=== PATIENT | male | born 1955 | race Caucasian/White ===

== ENCOUNTER 2016-11-14 08:00 | Outpatient (CLI) | payer MEDICARE, MEDICAID | END 2016-11-14 08:01 | disposition home or self-care (01) | DX: E87.6 Hypokalemia (principal); I10 Essential (primary) hypertension; R73.9 Hyperglycemia, unspecified; E78.00 Pure hypercholesterolemia, unspecified ==

== ENCOUNTER 2016-11-23 08:00 | Outpatient (CLI) | payer MEDICARE, MEDICAID | END 2016-11-23 23:59 | disposition home or self-care (01) | DX: Z12.11 Encounter for screening for malignant neoplasm of colon (principal) ==

== ENCOUNTER 2017-02-21 10:09 | Outpatient (CLI) | payer MEDICARE, MEDICAID | END 2017-02-21 10:10 | disposition home or self-care (01) | DX: E78.6 Lipoprotein deficiency (principal); R73.9 Hyperglycemia, unspecified; E78.00 Pure hypercholesterolemia, unspecified ==

== ENCOUNTER 2017-04-05 18:55 | Outpatient (CLI) | payer MEDICARE, MEDICAID | END 2017-04-05 18:56 | disposition home or self-care (01) | DX: D64.9 Anemia, unspecified (principal) ==

== ENCOUNTER 2017-08-24 09:46 | Outpatient (CLI) | payer MEDICARE, MEDICAID ==
[2017-08-24 13:58] LABS: BILIRUBIN,DIRECT 0.1 mg/dL (0.1-0.5); BILIRUBIN,TOTAL 0.3 mg/dL (0.2-1.0); CHOL/HDL RATIO 4.5 (<5.0); CHOLESTEROL 100 mg/dL; HDL CHOLESTEROL 22 mg/dL; LDL/HDL RATIO 2.4 (<3.6); TOTAL PROTEIN 7.4 g/dL (6.7-8.2); TRIGLYCERIDES 129 mg/dL; VLDL CHOLESTEROL 26 mg/dL
== END 2017-08-24 09:47 | disposition home or self-care (01) ==
LOC: LAB.N 09:46
PROVIDERS: ATTEND Nurse Practitioner Gerontology
DX: E78.5 Hyperlipidemia, unspecified (principal); Z79.899 Other long term (current) drug therapy
CPT/HCPCS: 36415; 80061; 80076

== ENCOUNTER 2017-12-14 09:55 | Outpatient (CLI) | payer MEDICARE, MEDICAID ==
[2017-12-14 10:32] LABS: ALBUMIN 3.6 g/dL (3.2-5.5); ALBUMIN/GLOBULIN RATIO 0.9 (1.0-2.2); BILIRUBIN,TOTAL 0.3 mg/dL (0.2-1.0); CALCIUM 9.3 mg/dL (8.5-10.3); TOTAL PROTEIN 7.4 g/dL (6.7-8.2)
[2017-12-14 11:03] LABS: HB2 TOTAL 13.8 g/dL; HEMOGLOBIN A1C 0.67 g/dL; HEMOGLOBIN A1C % 6.6 % (4.6-6.2)
== END 2017-12-14 09:56 | disposition home or self-care (01) ==
LOC: LAB 09:55
PROVIDERS: ATTEND Nurse Practitioner Gerontology
DX: E11.9 Type 2 diabetes mellitus without complications (principal); Z79.899 Other long term (current) drug therapy
CPT/HCPCS: 36415; 80053; 83036

== ENCOUNTER 2018-04-02 08:00 | Outpatient (CLI) | payer MEDICARE, MEDICAID | END 2018-04-02 08:01 | disposition home or self-care (01) | LOC: LAB.N 08:00 | PROVIDERS: ATTEND Nurse Practitioner Gerontology | DX: Z12.11 Encounter for screening for malignant neoplasm of colon (principal) | CPT/HCPCS: 82274 ==

== ENCOUNTER 2018-07-17 09:49 | Outpatient (CLI) | payer MEDICARE, MEDICAID ==
[2018-07-17 10:28] LABS: CALCIUM 9.1 mg/dL (8.5-10.3); CREATININE 1.1 mg/dL (0.6-1.2)
[2018-07-17 10:31] LABS: BASOPHILS % (AUTO) 0.5 %; EOSINOPHILS # (AUTO) 0.1 10^3/uL (0.0-0.7); EOSINOPHILS % (AUTO) 1.6 %; HGB - HEMOGLOBIN 11.4 g/dL (14.0-18.0); LYMPHOCYTES # (AUTO) 1.1 10^3/uL (1.5-3.5); LYMPHOCYTES % (AUTO) 13.1 %; MEAN CORPUSCULAR HEMOGLOBIN 27.1 pg (27.0-31.0); MEAN CORPUSCULAR HGB CONC 33.1 g/dL (32.0-36.0); MEAN CORPUSCULAR VOLUME 81.8 fL (80.0-94.0); MEAN PLATELET VOLUME 7.4 fL (7.4-11.4); MONOCYTES # (AUTO) 0.6 10^3/uL (0.0-1.0); MONOCYTES % (AUTO) 7.7 %; NEUTROPHILS # (AUTO) 6.5 10^3/uL (1.5-6.6); NEUTROPHILS % (AUTO) 77.1 %; PLT - PLATELET COUNT 349 10^3/uL (130-450); RED CELL DISTRIBUTION WIDTH 17.2 % (12.0-15.0); WHITE BLOOD COUNT 8.5 x10^3/uL (4.8-10.8)
== END 2018-07-17 09:50 | disposition home or self-care (01) ==
LOC: LAB 09:49
PROVIDERS: ATTEND Internal Medicine Cardiovascular Disease
DX: I10 Essential (primary) hypertension (principal); R00.2 Palpitations
CPT/HCPCS: 36415; 80048; 82088; 83735; 84244; 84443; 85025

== ENCOUNTER 2018-07-22 07:05 | Day surgery (SDC) | payer MEDICARE, MEDICAID ==
[2018-07-22] MEDS ORDERED: LACTATED RINGERS 1,000 ML IV ONE ×2 (07:44→10:35)
[2018-07-22] MEDS ORDERED: MIDAZOLAM 2 MG/2 ML VIAL IVP ONE (08:55)
[2018-07-22] MEDS ORDERED: fentaNYL 250 MCG/5 ML VIAL IVP ONE (08:55)
[2018-07-22] MEDS ORDERED: IOPAMIDOL-300 50 ML VIAL ONE (09:56)
[2018-07-22] MEDS ORDERED: IOPAMIDOL-300 100 ML VIAL ONE (09:56)
[2018-07-22] MEDS ORDERED: IOPAMIDOL-300 100 ML VIAL IVP ONE (12:25)
[2018-07-22] MEDS ORDERED: IOPAMIDOL-300 50 ML VIAL PO ONE (12:25)
--- NOTE | 2018-07-22 12:26 | CT Report ---
Reason: rectal/sigmoid cancer Procedure Date: 07/22/2018 Accession Number: [id number] / [id number] Procedure: CT - Abdomen/Pelvis W/ CPT Code: FULL RESULT: EXAM: CT ABDOMEN AND PELVIS EXAM DATE: 07/22/2018 11:59 AM. CLINICAL HISTORY: Rectal/sigmoid cancer. COMPARISONS: None. TECHNIQUE: Routine helical CT imaging was performed through the abdomen and pelvis. IV contrast: Isovue 300 100 mL. Enteric contrast: No. Reconstructions: Coronal and sagittal. In accordance with CT protocol optimization, one or more of the following dose reduction techniques were utilized for this exam: automated exposure control, adjustment of mA and/or KV based on patient size, or use of iterative reconstructive technique. FINDINGS: Lung Bases: Unremarkable. Liver: Right lobe hepatic hypodensity which is too small to characterize. No overt mass. Gallbladder/Bile Ducts: Unremarkable. Spleen: Normal. Pancreas: Normal. Adrenal Glands: Thickening of the right adrenal gland and nodule and 2 cm nodule of the left adrenal gland. Kidneys: Normal. No masses or hydronephrosis. Peritoneal Cavity/Bowel: No free fluid, free air or adenopathy. No masses or acute inflammatory process. The appendix is well visualized and normal. Pelvic Organs: There are subcentimeter asymmetrically prominent nodes along the left internal iliac chain which do not meet size criteria. The known rectosigmoid cancer is not well defined, likely measuring 2.2 x 3.0 cm in the posterior wall of the distal rectosigmoid colon. Vasculature: No aneurysms or other significant abnormality. Bones: No aggressive osseous lesions. Other: None. IMPRESSION: Asymmetrically prominent lymph nodes along the left internal iliac chain which do not meet size criteria, sampling is recommended if surgery is planned. There is a 2 cm left adrenal gland nodule, indeterminate. Recommend MRI adrenal mass protocol versus CT adrenal mass protocol. RADIA
[2018-07-22 12:37] VITALS: BP 145/78
== END 2018-07-22 07:06 | disposition home or self-care (01) ==
LOC: SDS 07:05
PROVIDERS: ATTEND Surgery
PROC: 0DBN8ZZ Excision of Sigmoid Colon, Via Natural or Artificial Opening Endoscopic (ICD-10-PCS; principal; 2018-07-22 08:15)
DX: Z12.11 Encounter for screening for malignant neoplasm of colon (principal); C19 Malignant neoplasm of rectosigmoid junction; K64.8 Other hemorrhoids; I10 Essential (primary) hypertension; Z87.891 Personal history of nicotine dependence; E78.5 Hyperlipidemia, unspecified; K21.9 Gastro-esophageal reflux disease without esophagitis
CPT/HCPCS: 36415; 45385; 74177; 82378; J3010; J7120; Q9967; 88305; 88341; 88342

== ENCOUNTER 2018-09-03 06:04 | Day surgery (SDC) | payer MEDICARE, MEDICAID ==
[2018-09-03] MEDS ORDERED: LACTATED RINGERS 1,000 ML IV ONE (06:25)
[2018-09-03] MEDS ORDERED: ceFAZolin 2 GM/50 ML 2 GM/50 ML BAG IV ONE (06:51)
--- NOTE | 2018-09-03 07:07 | ANESTHESIA ---
Pre-Anesthesia VS, & Labs - Diagnosis colon cancer - Procedure portacath placement Vital Signs: Temp Pulse Resp BP Pulse Ox 36.1 C L 69 16 152/83 H 98 09/03/18 06:30 09/03/18 06:30 09/03/18 06:30 09/03/18 06:30 09/03/18 06:30 Height 5 ft 2 in Weight (kg) 72.7 kg Body Mass Index 30.2 - NPO >8 hours (coffee, black at 5:30 only) Home Medications and Allergies Home Medications: Ambulatory Orders Aspirin 81 mg PO DAILY 08/27/18 Garlic 1,000 mg PO BID 08/27/18 [place]-3S/Dha/Epa/Fish Oil [Fish Oil 1,200 mg Softgel] 1 each PO DAILY 08/27/18 Cholecalciferol (Vitamin D3) [Vitamin D3] 3,000 unit PO BID 08/28/18 Clonidine HCl [Catapres] 0.2 mg PO BID 08/28/18 Metoprolol Tartrate 25 mg PO DAILY 08/28/18 Turmeric Root Extract [Turmeric] 500 mg PO DAILY 08/28/18 Atorvastatin Calcium [Lipitor] 80 mg PO DAILY 07/19/18 Benazepril HCl 40 mg PO DAILY 07/19/18 Citalopram Hydrobromide [Celexa] 20 mg PO DAILY 07/19/18 Omeprazole Magnesium [Acid [employer] Recruiter] 20 mg PO DAILY 07/19/18 Spironolactone [Aldactone] 50 mg PO BID 07/19/18 metFORMIN [Glucophage] 500 mg PO BID 07/19/18 Aspirin 81 mg PO DAILY 08/27/18 Garlic 1,000 mg PO BID 08/27/18 [place]-3S/Dha/Epa/Fish Oil [Fish Oil 1,200 mg Softgel] 1 each PO DAILY 08/27/18 Cholecalciferol (Vitamin D3) [Vitamin D3] 3,000 unit PO BID 08/28/18 Clonidine HCl [Catapres] 0.2 mg PO BID 08/28/18 Metoprolol Tartrate 25 mg PO DAILY 08/28/18 Turmeric Root Extract [Turmeric] 500 mg PO DAILY 08/28/18 Allergies/Adverse Reactions: Allergies Allergy/AdvReac Type Severity Reaction Status Date / Time No Known Drug Allergies Allergy Verified 07/19/18 14:01 Anes History & Medical History - Anesthetic History Anesthesia Complications: reports: No previous complications - Medical History Cardiovascular: reports: Hypertension, High cholesterol, Murmur, Arrhythmia Pulmonary: reports: None Gastrointestinal: reports: GERD, Ulcerative colitis, Other Urinary: reports: None Neuro: reports: None Musculoskeletal: reports: None Endocrine/Autoimmune: reports: Type 2 diabetes Blood Disorders: reports: None Skin: reports: None - Surgical History General: Colonoscopy Exam General: Alert Dental: WNL Mouth Openin Fingerbreadth Mallampati classification: II Respiratory: Lungs clear Cardiovascular: Regular rate, Normal S1, Normal S2, No murmurs Mental/Cognitive Status: Alert/Oriented X3 Plan Anesthesia Type: MAC Consent for Procedure(s) Verified and Reviewed: Yes Code Status: Attempt Resuscitation ASA classification: 2-Mild systemic disease Is this case an emergency?: No
[2018-09-03] MEDS ORDERED: BUPIVACAINE 0.5% PF 30 ML VIAL ONE (07:15)
--- NOTE | 2018-09-03 07:22 | HISTORY & PHYSICAL EXAMINATION ---
HPI - Admitted From Admitted from: Other (Outpatient) - History Obtained From Records Reviewed: Old records reviewed History obtained from: Patient, Other (Patient is known to me.) Exam limitations: No limitations - History of Present Illness Pain/Problem Location Description: None. HPI Comment/Other: The patient is a very pleasant 63-year-old male who is well-known to me. I have taken care of his mother for malignancy (colon) and performed the colonoscopy which found this patient's nearly obstructing colon cancer. The patient now returns to have a Port-A-Cath placed for chemotherapy (FOLFOX). He does not play violin nor does he should a long rifle. He tells me he plays the drums. Since I have last seen him there is been no substantive changes in his health, medications, allergies, or complaints. He tells me his mother says hi. PMH/PSH - Past Medical History Cardiovascular: positive: Hypertension, High cholesterol, Murmur, Arrhythmia Respiratory: positive: None Neuro: positive: None Endocrine/Autoimmune: positive: Type 2 diabetes GI: positive: GERD, Ulcerative colitis, Other : positive: None HEENT: positive: None Psych: positive: Depression, Anxiety, ADD/ADHD, Other Musculoskeletal: positive: None Derm: positive: None MRSA Hx?: No - Past Surgical History General: positive: Colonoscopy Social & Family Hx - Living Situation Living Arrangement: At home - Social History Does the pt smoke?: No Does the pt drink ETOH?: No Does the pt have substance abuse?: No - Family History Family History: Mother: Alive and Well (Colon cancer) Meds/Allgy - Home Medications Home Medications: Ambulatory Orders Medication Instructions Recorded Confirmed Atorvastatin Calcium [Lipitor] 80 mg PO DAILY 07/19/18 08/27/18 Benazepril HCl 40 mg PO DAILY 07/19/18 08/27/18 Citalopram Hydrobromide [Celexa] 20 mg PO DAILY 07/19/18 08/27/18 Omeprazole Magnesium [Acid Linotype Mechanic] 20 mg PO DAILY 07/19/18 08/27/18 Spironolactone [Aldactone] 50 mg PO BID 07/19/18 08/28/18 metFORMIN [Glucophage] 500 mg PO BID 07/19/18 08/28/18 Aspirin 81 mg PO DAILY 08/27/18 08/27/18 Garlic 1,000 mg PO BID 08/27/18 08/27/18 [place]-3S/Dha/Epa/Fish Oil [Fish 1 each PO DAILY 08/27/18 08/27/18 Oil 1,200 mg Softgel] Cholecalciferol (Vitamin D3) 3,000 unit PO BID 08/28/18 08/28/18 [Vitamin D3] Clonidine HCl [Catapres] 0.2 mg PO BID 08/28/18 08/28/18 Metoprolol Tartrate 25 mg PO DAILY 08/28/18 08/28/18 Turmeric Root Extract [Turmeric] 500 mg PO DAILY 08/28/18 08/28/18 Dexamethasone 8 mg PO DAILY 3 Days #18 tablet 08/30/18 Ondansetron [Ondansetron Odt] 4 mg PO Q4H PRN #30 tab.rapdis 08/30/18 Prochlorperazine Maleate 10 mg PO Q6H PRN #30 tablet 08/30/18 [Compazine] - Allergies Allergies/Adverse Reactions: Allergies Allergy/AdvReac Type Severity Reaction Status Date / Time No Known Drug Allergies Allergy Verified 07/19/18 14:01 Review of Systems - Constitutional Constitutional: denies: Fatigue, Fever, Chills, Malaise - Eyes Eyes: denies: Pain - Ears, Nose & Throat Ears, Nose & Throat: denies: Ear pain - Cardiovascular Cariovascular: denies: Irregular heart rate, Palpitations, Chest pain - Respiratory Respiratory: denies: Cough, Sputum production, Wheezing - Gastrointestinal Gastrointestinal: reports: Rectal bleeding. denies: Abdominal pain - Genitourinary Genitourinary: denies: Dysuria - Musculoskeletal Musculoskeletal: denies: Muscle pain - Integumentary Integumentary: denies: Rash - Neurological Neurological: denies: General weakness, Focal weakness Exam - Vital Signs Reviewed Vital Signs: Yes Vital Signs: Vital Signs x48h Temp Pulse Resp BP Pulse Ox 09/03/18 06:30 36.1 C L 69 16 152/83 H 98 - Physical Exam General Appearance: positive: No acute distress Eyes Bilateral: positive: No lid inflammation, Conjunctivae nml, No scleral icterus ENT: positive: Dry mucous membranes Neck: positive: Trachea midline Respiratory: positive: Chest non-tender, No respiratory distress, Breath sounds nml Cardiovascular: positive: Regular rate & rhythm, No murmur, No gallop Abdomen: positive: Non-tender, Nml bowel sounds, No distention (But he has central obesity.) Skin: positive: Color nml Extremities: positive: Non-tender, Nml appearance Neurologic/Psychiatric: positive: Oriented x3 Results - Lab Results Other Lab Results: Lab Results x24hrs 09/03/18 Range/Units 07:04 POC Whole Bld Glucose 117 H (70 - 100) mg/dL Impression/Plan - Problem List Problem List: Portacath placement (subclavian site preferred). Indications, procedure, and risks including but not limited to infection, bleeding (requiring transfusion with all of its risks), pneumothorax requiring tube thoracostomy, and were fully explained to the patient. All questions were fully answered. Verbal and written consent was obtained. The patient in preparation for his surgery will be nothing by mouth, receive a soap and water shower, and receive 2 g of Ancef with induction. I asked him to contact me with any surgical questions and his concerns and he stated that he would contact me. I asked the patient let me know if there is any way we can make his stay at [facility] more comfortable and he stated that he would let me know. 30 minutes of [id number] time was spent with the patient with over 80% of it in discussion and coordination of his care, as well as completion of the requisite paperwork Crescenc[employer]on disclaimer: This document was created in part using voice recognition technology. Because of the inherent limitations of the system ([employer]'s Dragon Dictate user manual states that the licensee understands that speech recognition is a statistical process and that recognition errors are inherent in the process), occasional same sounding word substitutions and grammatical errors do occur and persist despite proofreading. Please read this document for context.
[2018-09-03] MEDS ORDERED: BUPIVACAINE 0.5% PF 30 ML VIAL INFIL ONE (07:54)
[2018-09-03] MEDS ORDERED: KETAMINE 500 MG/10 ML VIAL IVP ONE (08:00)
[2018-09-03] MEDS ORDERED: PROPOFOL 200 MG/20 ML VIAL IVP ONE (08:00)
[2018-09-03] MEDS ORDERED: fentaNYL 100 MCG/2 ML VIAL IVP ONE (08:00)
[2018-09-03] MEDS ORDERED: LIDOCAINE-MPF 2% 5 ML VIAL IM ONE (08:00)
[2018-09-03] MEDS ORDERED: MIDAZOLAM 2 MG/2 ML VIAL IVP ONE (08:00)
--- NOTE | 2018-09-03 08:14 | OPERATIVE REPORT ---
Operative Report - General Procedure Date: 09/03/18 Planned Procedure: Port-A-Cath placement Pre-Op Diagnosis: Colon cancer requiring chemotherapy Procedure Performed: Left subclavian vein Port-A-Cath placement Post Op Diagnosis: Same - Procedure Note Primary Surgeon: Jose Mccallum MD Anesthesia Provider: Gladis Johnson CRNA Anesthesia Technique: Local (20 mL of half percent Marcaine), MAC IV Fluids (mL): 700 Estimated Blood Loss (mL): 5 Complications: None - Other Other Information/Narrative: OPERATIVE DESCRIPTION/REPORT: After verbal and written informed consent was obtained detailing the risks of infection, bleeding requiring transfusion with its risks, nerve injury, and , and after I met with the patient confirming the surgery and the site of the surgery, the patient was brought to the operative suite and placed supine on the operating table. Great care was taken to avoid pressure points to prevent pressure necrosis or nerve injury. Monitoring devices were applied along with TEDs and pneumatic compressive stockings (to prevent DVT). The patient received preoperative antibiotics for surgical prophylaxis. Gladis Johnson CRNA sedated and anesthetized the patient for the entire procedure. The patient was prepped and draped in the usual sterile manner. A "time in" then confirmed that the patient was identified with 3 identifiers (name, date and medical record number), the history and physical was in the chart, the signed consent confirming the procedure was in the chart, the patient was in the correct position, the aforementioned prophylactic measures were in place or given, we had the correct personnel and equipment to complete the procedure and that anesthesia, surgery and nursing were given an opportunity to express any concerns. With the agreement of everyone in the room, we proceeded with the operation. After the subclavian region was anesthetized using % marcaine and the patient placed in Trendelenberg position, an [employer] Smartport kit (Catalog #[], Lot #[]) was opened. The finder needle was inserted into the subclavian vein taking great care to place it just under the clavicle in order to minimize the risk of pneumothorax. When good venous blood return was obtained, the wire was placed through the needle and into the vein without difficulty. Cardiac irritability confirmed that the catheter was correctly going down towards the heart. Below and lateral to the needle insertion site, the area was anesthetized again using % marcaine and a transverse incision was made just large enough to accommodate the port. This incision was taken down to the fascia using sharp dissection and the area for the port was created using blunt downward dissection. Meticulous hemostasis was obtained using Bovie electrocautery. A knife was inserted along the wire to widen the insertion site and this was further dilated using a Yarely. The port was flushed with heparinized saline and placed in the pouch and the catheter was then passed to the needle opening using the passer. The catheter was then measured against the patients anterior chest and cut so that the tip would lie 2 cm below the manubrial-sternal junction. The port was secured to the fascia using a 3-0 Prolene on the side of the opening of the port. The catheter was then wiped and wrapped with a heparinized soaked 4x4. The dilator and sheath were then carefully inserted over the wire and the dilator and wire withdrawn. The catheter was then inserted into the sheath and the sheath was broken away from the catheter leaving the catheter in place in the vein. An X-ray confirmed placement of the catheter tip in the right atrium/supracardiac vena cava without pneumothorax. Using a Hueber needle the port was accessed and good blood return as well as easy flush was noted. The subcutaneous tissue was approximated using 3-0 Vicryl and the skin incisions were approximated with 4-0 Monocryl in a subcuticular fashion. The skin prep was washed off and prepped with benzoin. Steristrips were applied. At this point a time out was performed that confirmed that all the counts were correct, the procedure that was performed, the blood loss, the IV fluids administered, and the patients condition. A dressing was placed on the wound. Having tolerated the procedure well, the patient was taken to short stay in good and stable condition. The patient was instructed that the Portacath could be used immediately. Atomic Reach disclaimer: This document was created in part using voice recognition technology. Because of the inherent limitations of the system ([employer]'s [employer]ach Dictate user manual states that the licensee understands that speech recognition is a statistical process and that recognition errors are inherent in the process), occasional same sounding word substitutions and grammatical errors do occur and persist despite proofreading. Please read this document for context.
[2018-09-03] MEDS ORDERED: ONDANSETRON 4 MG/2 ML VIAL IVP PRN (08:15)
[2018-09-03] MEDS ORDERED: HYDROcod/ACETAM 5/325 MG TABLET PO PRN (08:15)
[2018-09-03] MEDS ORDERED: HYDROmorphone 0.5 MG/0.5 ML SYRINGE IVP PRN (08:15)
--- NOTE | 2018-09-03 08:49 | XRAY Report ---
Reason: PORT PLACEMENT Procedure Date: 09/03/2018 Accession Number: [id number] / [id number] Procedure: XR - Chest for Line Placement CPT Code: FULL RESULT: EXAM: CHEST RADIOGRAPHY EXAM DATE: 09/03/2018 08:26 AM. CLINICAL HISTORY: PORT PLACEMENT. COMPARISON: Chest CT 08/09/2018. TECHNIQUE: 1 view. FINDINGS: Left thoracic port tip overlies the cavoatrial junction. Lungs/Pleura: There is subsegmental atelectasis of the right lower lung. No pneumothorax or obvious pleural effusion. Mediastinum: Stable borderline cardiomegaly. IMPRESSION: Thoracic port appears appropriate RADIA
[2018-09-03 09:03] VITALS: BP 145/85
== END 2018-09-03 06:05 | disposition home or self-care (01) ==
LOC: SDS 06:04
PROVIDERS: ATTEND Surgery
PROC: 02HV33Z Insertion of Infusion Device into Superior Vena Cava, Percutaneous Approach (ICD-10-PCS; 2018-09-03)
PROC: 0JH63WZ Insertion of Totally Implantable Vascular Access Device into Chest Subcutaneous Tissue and Fascia, Percutaneous Approach (ICD-10-PCS; principal; 2018-09-03 07:30)
DX: C18.9 Malignant neoplasm of colon, unspecified (principal); I10 Essential (primary) hypertension; E11.9 Type 2 diabetes mellitus without complications; E66.8 Other obesity; Z80.0 Family history of malignant neoplasm of digestive organs; Z79.84 Long term (current) use of oral hypoglycemic drugs; Z79.899 Other long term (current) drug therapy; Z79.82 Long term (current) use of aspirin; Z68.30 Body mass index [BMI] 30.0-30.9, adult
CPT/HCPCS: 36561; J0690; J7120; 71045

== ENCOUNTER 2018-11-28 00:36 | Emergency (ER) | payer MEDICARE ==
[2018-11-28] MEDS ORDERED: SODIUM CHLORIDE 0.9% 1,000 ML IV ONE (00:54)
--- NOTE | 2018-11-28 00:54 | ED Physician Documentation ---
History of Present Illness - Stated complaint Stated Complaint: GLF - Chief complaint Chief Complaint: Neuro - History obtained from History obtained from: Patient, Family - History of Present Illness Timing: Today, How many minutes ago (30) Pain level max: 5 Pain level now: 2 - Additonal information Additional information: 63-year-old male states that he was walking home from the emergency department [facility] where his was being evaluated when he felt lightheaded and tripped and fell. Landing mostly on the left hand as well as striking his head on the pavement. No loss of consciousness. When he told the triage nurse that he had passed out, I clarified this with him and he stated that he felt lightheaded but never actually lost consciousness. Patient is on chemotherapy for colon cancer. States that occasionally he does get dehydrated and feels dizzy. History chest pain or palpitations. No headache now. No neck or back pain. Review of Systems Ten Systems: 10 systems reviewed and negative Constitutional: denies: Fever, Chills Nose: denies: Rhinorrhea / runny nose, Congestion Throat: denies: Sore throat Cardiac: denies: Chest pain / pressure, Palpitations Respiratory: denies: Cough GI: reports: Diarrhea (Chronic and unchanged). denies: Vomiting Skin: denies: Rash Musculoskeletal: denies: Neck pain, Back pain Neurologic: denies: Generalized weakness, Focal weakness, Numbness, Syncope, Confused, LOC PD PAST MEDICAL HISTORY - Past Medical History Cardiovascular: Hypertension, High cholesterol, Murmur, Arrhythmia Respiratory: None Neuro: None Endocrine/Autoimmune: Type 2 diabetes GI: GERD, Ulcerative colitis, Other : None HEENT: None Psych: Depression, Anxiety, ADD/ADHD, Other Musculoskeletal: None Derm: None - Past Surgical History Past Surgical History: Yes General: Colonoscopy - Present Medications Home Medications: Ambulatory Orders Medication Instructions Recorded Confirmed Atorvastatin Calcium [Lipitor] 80 mg PO DAILY 07/19/18 11/28/18 Benazepril HCl 40 mg PO DAILY 07/19/18 11/28/18 Citalopram Hydrobromide [Celexa] 20 mg PO DAILY 07/19/18 11/28/18 Omeprazole Magnesium [Acid [employer]ship] 20 mg PO DAILY 07/19/18 11/28/18 Spironolactone [Aldactone] 50 mg PO BID 07/19/18 11/28/18 metFORMIN [Glucophage] 500 mg PO BID 07/19/18 11/28/18 Garlic 1,000 mg PO BID 08/27/18 11/28/18 [place]-3S/Dha/Epa/Fish Oil [Fish 1 each PO DAILY 08/27/18 11/28/18 Oil 1,200 mg Softgel] Cholecalciferol (Vitamin D3) 3,000 unit PO BID 08/28/18 11/28/18 [Vitamin D3] Clonidine HCl [Catapres] 0.2 mg PO BID 08/28/18 11/28/18 Metoprolol Tartrate 25 mg PO DAILY 08/28/18 11/28/18 Turmeric Root Extract [Turmeric] 500 mg PO DAILY 08/28/18 11/28/18 Ondansetron [Ondansetron Odt] 4 mg PO Q4H PRN #30 tab.rapdis 08/30/18 11/18/18 - Allergies Allergies/Adverse Reactions: Allergies Allergy/AdvReac Type Severity Reaction Status Date / Time No Known Drug Allergies Allergy Verified 11/28/18 00:44 - Social History Does the pt smoke?: No Smoking Status: Never smoker Does the pt drink ETOH?: No Does the pt have substance abuse?: No - Immunizations Immunizations are current?: Yes - POLST Patient has POLST: No PD ED PE NORMAL - Vitals Vital signs reviewed: Yes - General General: Alert and oriented X 3, No acute distress - HEENT HEENT: Atraumatic, PERRL, EOMI, Ears normal, Moist mucous membranes, Pharynx benign, Other (No scalp hematomas or abrasions. No palpable skull fractures) - Neck Neck: Supple, no meningeal sign, No bony TTP (No step-off or deformity) - Cardiac Cardiac: RRR, Strong equal pulses - Respiratory Respiratory: No respiratory distress, Clear bilaterally - Abdomen Abdomen: Soft, Non tender, Non distended - Back Back: No spinal TTP - Derm Derm: Warm and dry, No rash - Extremities Extremities: Normal ROM s pain, No edema, No calf tenderness / cord, Other (Abrasion and contusion to the left palm and dorsum of the left hand. Full range of motion without pain. No bony tenderness. Neurovascularly intact) - Neuro Neuro: Alert and oriented X 3, executive administrative assistant 2-12 intact, No motor deficit, No sensory deficit, Normal speech - Psych Psych: Normal mood, Normal affect Results - Vitals Vitals: Vital Signs - 24 hr 11/28/18 11/28/18 11/28/18 00:39 02:02 03:56 Temperature 37.4 C 37.2 C Heart Rate 86 70 70 Respiratory 15 15 15 Rate Blood Pressure 137/80 H 133/87 H 105/70 O2 Saturation 98 96 97 Oxygen O2 Source Room air - Labs Labs: Laboratory Tests 11/28/18 11/28/18 01:10 01:10 WBC 1.8 L* RBC 2.60 L Hgb 7.7 L Hct 23.3 L MCV 89.5 MCH 29.6 MCHC 33.1 RDW 34.5 H Plt Count 25 L* MPV 9.3 Neut # (Auto) Not Reportable Lymph # (Auto) Not Reportable [place] # (Auto) Not Reportable Eos # (Auto) Not Reportable Baso # (Auto) Not Reportable Absolute Nucleated RBC Not Reportable Total Counted 100 Band Neuts % (Manual) 15 H Abnorm Lymph % (Manual) 3 Nucleated RBC % Not Reportable Neutrophils # (Manual) 1.0 L Lymphocytes # (Manual) 0.7 L Monocytes # (Manual) 0.1 Eosinophils # (Manual) 0.0 Basophils # (Manual) 0.0 Differential Comment MANUAL DIFFERENTIAL Platelet Estimate NORMAL (130-450,000) RBC Morph Micro Appear 1+ TEARDROP CELLS Sodium 135 Potassium 4.0 Chloride 105 Carbon Dioxide 19 L Anion Gap 11.0 BUN 21 H Creatinine 1.3 H Estimated GFR (MDRD) 56 L Glucose 126 H Calcium 8.2 L Phosphorus 2.2 L Magnesium 1.4 L Total Bilirubin 0.4 AST 25 ALT 30 Alkaline Phosphatase 101 Total Protein 5.7 L Albumin 2.4 L Globulin 3.3 Albumin/Globulin Ratio 0.7 L - Rads (name of study) head CT Radiology: Prelim report reviewed, EMP read contemporaneously, See rad report (No acute intracranial abnormality) PD MEDICAL DECISION MAKING - ED course Complexity details: reviewed results, re-evaluated patient, considered differential, d/w patient, d/w instructional design consultant ED course: Wounds were cleansed and bandaged. Tetanus is up-to-date. Patient found to be pancytopenic, significantly worsened since his last blood draw 10 days ago. Last chemotherapy was approximately 1 week ago. This is likely at the ani of his lab abnormalities. I discussed the case with on-call oncology Dr. Orona. He does not recommend any intervention for these lab abnormalities at this time and recommends recheck with Dr. Gamino in 1 week. Patient declines a blood transfusion. He is not significantly weak or dyspneic. Ambulating quite well in the ED. Magnesium was also replaced and feels better after IV fluids. Patient counseled regarding signs and symptoms for which I believe and urgent re- evaluation would be necessary. Patient with good understanding of and agreement to plan and is comfortable going home at this time This document was made in part using voice recognition software. While efforts are made to proofread this document, sound alike and grammatical errors may occur. Departure - Departure Disposition: 01 Home, Self Care Clinical Impression: Pancytopenia due to chemotherapy, Abrasion, Hypomagnesemia Fall Qualifiers: Encounter type: initial encounter Qualified Code(s): W19.XXXA - Unspecified fall, initial encounter Head injury Qualifiers: Encounter type: initial encounter Qualified Code(s): S09.90XA - Unspecified injury of head, initial encounter Condition: Stable Instructions: ED Head Injury Closed Follow-Up: Gabi Reilly ARNP [Primary Care Provider] - Kade Gamino MD [Physician No Access] - Kade Gamino MD [Provider Admit Priv/Credential] - Within 1 week Comments: Return if you worsen. Your platelets are very low, but should recover as you recover from the chemotherapy. Your white blood cell count and red blood cell counts are also low. Return if you develop shortness of breath or difficulty walking. Return if you develop any new or worsening symptoms. You were given magnesium tonight. Discharge Date/Time: 11/28/18 04:00
[2018-11-28 01:32] LABS: BASOPHILS % (AUTO) 0.9 %; EOSINOPHILS % (AUTO) 0.3 %; HGB - HEMOGLOBIN 7.7 g/dL (14.0-18.0); LYMPHOCYTES % (AUTO) 38.1 %; MEAN CORPUSCULAR HEMOGLOBIN 29.6 pg (27.0-31.0); MEAN CORPUSCULAR HGB CONC 33.1 g/dL (32.0-36.0); MEAN CORPUSCULAR VOLUME 89.5 fL (80.0-94.0); MEAN PLATELET VOLUME 9.3 fL (7.4-11.4); MONOCYTES % (AUTO) 17.2 %; NEUTROPHILS % (AUTO) 43.5 %; RED CELL DISTRIBUTION WIDTH 34.5 % (12.0-15.0)
[2018-11-28 01:41] LABS: PLT - PLATELET COUNT 25 10^3/uL (130-450); WHITE BLOOD COUNT 1.8 x10^3/uL (4.8-10.8)
[2018-11-28 01:46] LABS: ALBUMIN 2.4 g/dL (3.2-5.5); ALBUMIN/GLOBULIN RATIO 0.7 (1.0-2.2); BILIRUBIN,TOTAL 0.4 mg/dL (0.2-1.0); CALCIUM 8.2 mg/dL (8.5-10.3); CREATININE 1.3 mg/dL (0.6-1.2); MAGNESIUM 1.4 mg/dL (1.7-2.8); PHOSPHORUS 2.2 mg/dL (2.5-4.6); TOTAL PROTEIN 5.7 g/dL (6.7-8.2)
[2018-11-28] MEDS ORDERED: MAGNESIUM SULFATE 2 GRAM 2 GM/50 ML BAG IV ONE (01:50)
[2018-11-28 02:04] LABS: ABNORMAL LYMPHS % (MANUAL) 3 %; BAND NEUTROPHILS % (MANUAL) 15 %; LYMPHOCYTES # (MANUAL) 0.7 10^3/uL (1.5-3.5); LYMPHOCYTES % (MANUAL) 38 %; MONOCYTES # (MANUAL) 0.1 10^3/uL (0.0-1.0); NEUTROPHILS % (MANUAL) 38 %; PLATELET ESTIMATE, MANUAL NORMAL (130-450,000) (NORMAL)
[2018-11-28 02:05] LABS: DIFFERENTIAL COMMENT MANUAL DIFFERENTIAL
--- NOTE | 2018-11-28 03:12 | CT Report ---
Reason: fall, head injury Procedure Date: 11/28/2018 Accession Number: [id number] / [id number] Procedure: CT - Head W/O CPT Code: FULL RESULT: EXAM: CT HEAD EXAM DATE: 11/28/2018 02:48 AM. CLINICAL HISTORY: Fall, head injury. COMPARISON: None. TECHNIQUE: Multiaxial CT images were obtained from the foramen magnum to the vertex. Reformats: Sagittal and coronal. IV contrast: None. In accordance with CT protocol optimization, one or more of the following dose reduction techniques were utilized for this exam: automated exposure control, adjustment of mA and/or KV based on patient size, or use of iterative reconstructive technique. FINDINGS: Parenchyma: No intraparenchymal hemorrhage. No evidence of mass, midline shift, or CT findings of infarction. Burt-white differentiation is distinct. Old lacunar infarct right basal ganglia. Extraaxial Spaces: Normal for age. No subdural or epidural collections identified. Ventricles: Normal in size and position. Sinuses and Orbits: Imaged paranasal sinuses, orbits, and mastoids show no significant abnormality. Bones: No evidence of fracture or calvarial defect. Other: Primary empty sella. IMPRESSION: Old lacunar infarcts right basal ganglia. No acute intracranial process identified. RADIA
[2018-11-28 03:58] VITALS: BP 105/70
== END 2018-11-28 04:00 | disposition home or self-care (01) ==
LOC: ED 00:36
DX: D61.810 Antineoplastic chemotherapy induced pancytopenia (principal); S60.512A Abrasion of left hand, initial encounter; S60.222A Contusion of left hand, initial encounter; W01.198A Fall on same level from slipping, tripping and stumbling with subsequent striking against other object, initial encounter; Y93.01 Activity, walking, marching and hiking; Y92.410 Unspecified street and highway as the place of occurrence of the external cause; C18.9 Malignant neoplasm of colon, unspecified; I10 Essential (primary) hypertension; E78.00 Pure hypercholesterolemia, unspecified; E11.9 Type 2 diabetes mellitus without complications; Z79.84 Long term (current) use of oral hypoglycemic drugs
CPT/HCPCS: 36415; 70450; 80053; 83735; 84100; 85025; 96361; 96365; 96375; 99284

== ENCOUNTER 2018-11-29 09:06 | Outpatient (CLI) | payer MEDICARE ==
[2018-11-29] MEDS ORDERED: IOVERSOL 320 50 ML VIAL ONE (09:34)
[2018-11-29] MEDS ORDERED: IOVERSOL 320 100 ML VIAL IVP ONE ×2 (09:34→18:10)
--- NOTE | 2018-11-29 14:02 | CT Report ---
Reason: STAGE IV COLON CA Procedure Date: 11/29/2018 Accession Number: [id number] / [id number] Procedure: CT - Abdomen/Pelvis W/ CPT Code: FULL RESULT: EXAM: CT ABDOMEN AND PELVIS EXAM DATE: 11/29/2018 10:39 AM. CLINICAL HISTORY: STAGE IV COLON CA. COMPARISONS: ABDOMEN/PELVIS W/ 07/22/2018 11:44 AM PELVIS W/WO 08/14/2018 9:51 AM. TECHNIQUE: Routine helical CT imaging was performed through the abdomen and pelvis. IV contrast: OPTI 320 100mL. Enteric contrast: Yes. Reconstructions: Coronal and sagittal. In accordance with CT protocol optimization, one or more of the following dose reduction techniques were utilized for this exam: automated exposure control, adjustment of mA and/or KV based on patient size, or use of iterative reconstructive technique. FINDINGS: Lung Bases: Small right pleural effusion and mild bilateral dependent changes. Liver: Hepatic hypodensity which is too small to characterize. Gallbladder/Bile Ducts: Unremarkable. Spleen: Normal. Pancreas: Normal. Adrenal Glands: Essentially unchanged 2.4 x 2.0 cm left adrenal nodule, uncharacterized. Kidneys: Normal. No masses or hydronephrosis. Peritoneal Cavity/Bowel: No free fluid, free air or bowel obstruction. No acute inflammatory process. Pelvic Organs: Predominantly left-sided iliac nodes along the internal chain and at the proximal left common iliac artery are stable, up to 7 mm in short axis, for example image 38 series 7 and image 43 series 7. Anorectal soft tissue thickening also appears similar to before. Vasculature: Mild atherosclerosis, stable. Bones: No aggressive osseous lesions are detected. Other: None. IMPRESSION: Stable small pelvic lymph nodes and colorectal thickening. RADIA
[2018-11-29] MEDS ORDERED: IOVERSOL 320 50 ML VIAL PO ONE (18:10)
== END 2018-11-29 09:07 | disposition home or self-care (01) ==
LOC: DI 09:06
PROVIDERS: ATTEND Surgery
DX: C18.9 Malignant neoplasm of colon, unspecified (principal)
CPT/HCPCS: 74177; 86850; 86900; 86901; 86920

== ENCOUNTER 2018-12-20 11:04 | Outpatient (CLI) | payer MEDICARE ==
[2018-12-20 11:33] LABS: BASOPHILS # (AUTO) 0.1 10^3/uL (0.0-0.1); EOSINOPHILS % (AUTO) 0.5 %; HGB - HEMOGLOBIN 13.4 g/dL (14.0-18.0); LYMPHOCYTES # (AUTO) 1.4 10^3/uL (1.5-3.5); LYMPHOCYTES % (AUTO) 14.8 %; MEAN CORPUSCULAR HEMOGLOBIN 31.4 pg (27.0-31.0); MEAN CORPUSCULAR HGB CONC 34.2 g/dL (32.0-36.0); MEAN CORPUSCULAR VOLUME 91.8 fL (80.0-94.0); MEAN PLATELET VOLUME 7.6 fL (7.4-11.4); MONOCYTES # (AUTO) 0.9 10^3/uL (0.0-1.0); MONOCYTES % (AUTO) 9.1 %; NEUTROPHILS # (AUTO) 7.2 10^3/uL (1.5-6.6); NEUTROPHILS % (AUTO) 74.6 %; PLT - PLATELET COUNT 216 10^3/uL (130-450); RED BLOOD COUNT 4.27 10^6/uL (4.70-6.10); RED CELL DISTRIBUTION WIDTH 24.9 % (12.0-15.0); WHITE BLOOD COUNT 9.7 x10^3/uL (4.8-10.8)
[2018-12-20 11:42] LABS: ALBUMIN 3.2 g/dL (3.2-5.5); ALBUMIN/GLOBULIN RATIO 0.8 (1.0-2.2); BILIRUBIN,TOTAL 0.5 mg/dL (0.2-1.0); CALCIUM 9.4 mg/dL (8.5-10.3)
== END 2018-12-20 11:05 | disposition home or self-care (01) ==
LOC: LAB 11:04
PROVIDERS: ATTEND Nurse Anesthetist, Certified Registered
DX: C19 Malignant neoplasm of rectosigmoid junction (principal); I10 Essential (primary) hypertension; E11.9 Type 2 diabetes mellitus without complications
CPT/HCPCS: 36415; 80053; 85025; 86850; 86900; 86901

== ENCOUNTER 2019-01-07 07:17 | Inpatient (IN) | payer MEDICARE, MEDICAID ==
[~2019-01-07 07:17] MED LIST: BUPIVACAINE 0.5% PF 30 ML VIAL ONE
[2019-01-07] MEDS ORDERED: cefOXitin 2 GM VIAL IV ONE (07:21)
--- NOTE | 2019-01-07 07:55 | ANESTHESIA ---
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 Vital Signs: Temp Pulse Resp BP Pulse Ox 36.6 C 109 H 20 182/103 H 97 01/07/19 07:33 01/07/19 07:33 01/07/19 07:33 01/07/19 07:33 01/07/19 07:33 Height 5 ft 2 in Weight (kg) 74.7 kg Body Mass Index 24.7 - NPO >8 hours - Lab Results Current Lab Results: From 12/24/18 Lab results reviewed: Yes Home Medications and Allergies Atorvastatin Calcium [Lipitor] 80 mg PO DAILY 07/19/18 Benazepril HCl 40 mg PO DAILY 07/19/18 Citalopram Hydrobromide [Celexa] 20 mg PO DAILY 07/19/18 Omeprazole Magnesium [Acid Media Arts Professor] 20 mg PO DAILY 07/19/18 Spironolactone [Aldactone] 50 mg PO BID 07/19/18 metFORMIN [Glucophage] 500 mg PO BID 07/19/18 Garlic 1,000 mg PO BID 08/27/18 [place]-3S/Dha/Epa/Fish Oil [Fish Oil 1,200 mg Softgel] 1 each PO BID 08/27/18 Cholecalciferol (Vitamin D3) [Vitamin D3] 3,000 unit PO BID 08/28/18 Clonidine HCl [Catapres] 0.2 mg PO BID 08/28/18 Metoprolol Tartrate 25 mg PO DAILY 08/28/18 Turmeric Root Extract [Turmeric] 500 mg PO DAILY 08/28/18 LORazepam [Lorazepam] 0.5 mg PO Q6H 12/20/18 amLODIPine [Norvasc] 10 mg PO DAILY 12/20/18 Allergies/Adverse Reactions: Allergies Allergy/AdvReac Type Severity Reaction Status Date / Time No Known Drug Allergies Allergy Verified 11/28/18 00:44 Anes History & Medical History - Medical History Cardiovascular: reports: Hypertension, High cholesterol, Murmur, Arrhythmia Pulmonary: reports: None Gastrointestinal: reports: GERD (controlled with meds), Ulcerative colitis, Other Urinary: reports: None Neuro: reports: None Musculoskeletal: reports: None Endocrine/Autoimmune: reports: Type 2 diabetes Blood Disorders: reports: None Skin: reports: None Smoking Status: Never smoker Psychosocial: reports: No issues indicated - Surgical History General: Colonoscopy, Other (port placement) Exam General: Alert, Oriented x3, Cooperative, No acute distress Dental: Poor dentition Mouth Openin Fingerbreadth Neck Mobility: Normal Mallampati classification: II Thyromental Distance: 4-6 cm Respiratory: Lungs clear, Normal breath sounds, No respiratory distress, No accessory muscle use Cardiovascular: Regular rate, Normal S1, Normal S2, No murmurs Cognitive Status: Within normal limits Plan Anesthesia Type: General, Epidural Regional Block: Per Surgeon's request for Post Op pain control Consent for Procedure(s) Verified and Reviewed: Yes Code Status: Attempt Resuscitation ASA classification: 2-Mild systemic disease Is this case an emergency?: No
--- NOTE | 2019-01-07 08:02 | ANESTHESIA ---
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 Vital Signs: Temp Pulse Resp BP Pulse Ox 36.6 C 109 H 20 182/103 H 97 01/07/19 07:33 01/07/19 07:33 01/07/19 07:33 01/07/19 07:33 01/07/19 07:33 Height 5 ft 2 in Weight (kg) 74.7 kg Body Mass Index 24.7 - Lab Results Current Lab Results: Laboratory Tests 01/07/19 07:53: POC Whole Bld Glucose 166 H Home Medications and Allergies Atorvastatin Calcium [Lipitor] 80 mg PO DAILY 07/19/18 Benazepril HCl 40 mg PO DAILY 07/19/18 Citalopram Hydrobromide [Celexa] 20 mg PO DAILY 07/19/18 Omeprazole Magnesium [Acid Records Coordinator] 20 mg PO DAILY 07/19/18 Spironolactone [Aldactone] 50 mg PO BID 07/19/18 metFORMIN [Glucophage] 500 mg PO BID 07/19/18 Garlic 1,000 mg PO BID 08/27/18 [place]-3S/Dha/Epa/Fish Oil [Fish Oil 1,200 mg Softgel] 1 each PO BID 08/27/18 Cholecalciferol (Vitamin D3) [Vitamin D3] 3,000 unit PO BID 08/28/18 Clonidine HCl [Catapres] 0.2 mg PO BID 08/28/18 Metoprolol Tartrate 25 mg PO DAILY 08/28/18 Turmeric Root Extract [Turmeric] 500 mg PO DAILY 08/28/18 LORazepam [Lorazepam] 0.5 mg PO Q6H 12/20/18 amLODIPine [Norvasc] 10 mg PO DAILY 12/20/18 Allergies/Adverse Reactions: Allergies Allergy/AdvReac Type Severity Reaction Status Date / Time No Known Drug Allergies Allergy Verified 11/28/18 00:44 Anes History & Medical History - Medical History Cardiovascular: reports: Hypertension, High cholesterol, Murmur, Arrhythmia Pulmonary: reports: None Gastrointestinal: reports: GERD (controlled with meds), Ulcerative colitis, Other Urinary: reports: None Neuro: reports: None Musculoskeletal: reports: None Endocrine/Autoimmune: reports: Type 2 diabetes Blood Disorders: reports: None Skin: reports: None Smoking Status: Never smoker Psychosocial: reports: No issues indicated - Surgical History General: Colonoscopy, Other (port placement) Exam Dental: Poor dentition Plan ASA classification: 2-Mild systemic disease Is this case an emergency?: No
[2019-01-07] MEDS ORDERED: LACTATED RINGERS 1,000 ML IV ONE ×3 (08:05→11:35)
[2019-01-07] MEDS ORDERED: BUPIVACAINE 0.5% PF 30 ML VIAL ONE (08:15)
[2019-01-07] MEDS ORDERED: ONDANSETRON 4 MG/2 ML VIAL ONE (08:23)
[2019-01-07] MEDS ORDERED: NALBUPHINE 10 MG/ML AMP IVP PRN (09:00)
[2019-01-07] MEDS ORDERED: ONDANSETRON 4 MG/2 ML VIAL IVP PRN (09:00)
[2019-01-07] MEDS ORDERED: BUPIVACAINE 0.5% PF 30 ML VIAL SUBQ ONE (09:07)
[2019-01-07] MEDS ORDERED: BUPIVACAINE 0.25% PF 10 ML VIAL SUBQ ONE (10:44)
[2019-01-07] MEDS ORDERED: DEXAMETHASONE 4 MG/ML VIAL IVP ONE (10:44)
[2019-01-07] MEDS ORDERED: fentaNYL 100 MCG/2 ML VIAL IVP ONE (10:44)
[2019-01-07] MEDS ORDERED: VECURONIUM 10 MG VIAL IVP ONE (10:44)
[2019-01-07] MEDS ORDERED: ONDANSETRON 4 MG/2 ML VIAL IVP ONE (10:44)
[2019-01-07] MEDS ORDERED: MIDAZOLAM 2 MG/2 ML VIAL IVP ONE (10:44)
[2019-01-07] MEDS ORDERED: PROPOFOL 200 MG/20 ML VIAL IVP ONE (10:44)
[2019-01-07] MEDS ORDERED: GLYCOPYRROLATE 1 MG/5 ML VIAL IVP ONE (10:44)
[2019-01-07] MEDS ORDERED: NEOSTIGMINE 1 MG/1 ML 10 ML MDV IVP ONE (10:44)
[2019-01-07] MEDS ORDERED: PHENYLEPHRINE 50 MG/5 ML VIAL IV ONE (10:44)
[2019-01-07] MEDS ORDERED: fent/BUPIV 2 MCG/0.125% 250 ML EP ONE (11:00)
[2019-01-07] MEDS ORDERED: PROMETHAZINE 25 MG/1 ML VIAL ONE (12:56)
[2019-01-07] MEDS ORDERED: ACETAMINOPHEN 1,000 MG/100 ML 100 ML IV ONE (12:57)
[2019-01-07] MEDS ORDERED: PIPERACILLIN/TAZOBACTAM 3.375 GM in SODIUM CHLORIDE 0.9% MINIBAG 100 ML IV SCH (13:00)
--- NOTE | 2019-01-07 13:03 | OPERATIVE REPORT ---
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 - Other Other Information/Narrative: OPERATIVE DESCRIPTION/REPORT: After verbal and written informed consent was obtained detailing the risks of infection, bleeding requiring transfusion with its risks, nerve injury, and , as well as the possibility of a colostomy or ileostomy, and after I met with the patient confirming the surgery, the patient was brought to the operative suite and placed supine on the operating table. Please note it was only the morning of surgery that the patient informed us that the colon prep had not worked at all and he had not had any bowel movements following this. Additionally, his abdomen was distended and he was nauseous/dry heaving. Great care was taken to avoid pressure points to prevent pressure necrosis or nerve injury. Monitoring devices were applied along with TEDs and pneumatic compressive stockings (to prevent DVT). The patient received preoperative antibiotics for surgical prophylaxis. Jonas Mascorro CRNA sedated and anesthetized the patient for the entire procedure. The patient was prepped and draped in the usual sterile manner. A "time in" then confirmed that the patient was identified with 3 identifiers (name, date and medical record number), the history and physical was in the chart, the signed consent confirming the procedure was in the chart, the patient was in the correct position, the aforementioned prophylactic measures were in place or given, we had the correct personnel and equipment to complete the procedure and that anesthesia, surgery and nursing were given an opportunity to express any concerns. With the agre ement of everyone in the room, we proceeded with the operation. A midline incision was made starting midway between the umbilicus and the xiphoid and extended to the pubic tubercle avoiding the umbilicus and taken down to the fascia. Once this was taken down to the fascia, the fascia and peritoneum were opened without incident or difficulty. Unsurprisingly, the small bowel and the entire colon was widely dilated and filled with the colon prep that did not pass. This was clearly due to the extremely low pelvic tumor. This finding also changed the operative plan. In a patient with an obstructing malignancy as well as a colon obstruction (and a clear mismatch in the size of the proximal colon versus the distal rectum) anastomosis would place this patient at too great of a risk of a leak. Additionally, the presence of a small white lesions on the serosa of the small large bowel were concerning for the possibility of metastases. As such, local control of the tumor became my primary concern and in my discussions with the patient I had already discussed the likelihood of an ileostomy and/or colostomy. The sigmoid colon was markedly redundant. The sigmoid colon was examined and the tumor was easily identified within the distal sigmoid/proximal rectum (it was just at and slightly below the peritoneal reflection). A Bookwalter retractor was placed for visualization. After mobilizing the sigmoid colon along the white line of T[place]t with Bovie electrocautery, the mid-sigmoid colon was selected as the proximal point of resection and a MARIVEL-75 stapler with a green load was used to transect the colon at this point. The patient was placed in Trendelenburg position and the small bowel and proximal colon was packed away from the operative site. After scoring the mesentery with Bovie electrocautery, the mesentery of the distal sigmoid was taken using sequential application of the LigaSure. Several mesenteric vessels that insisted on bleeding despite the LigaSure were ligated using 3-0 silk suture ligatures. The dissection continued down to the peritoneal reflection. The posterior dissection was done using finger dissection along the sacrum whereas the peritoneal attachments both anteriorly and laterally were taken using either Bovie electrocautery or LigaSure. The markedly dilated colon in a very narrow pelvis made this dissection more difficult than usual. After dissecting beyond the tumor, an Ethicon Contour stapler was obtained and placed across the distal rectum and fired. Two applications of the Ethicon contour stapler were required to ensure complete transection. Please note that due to the anatomy and the markedly dilated colon I was unable to get a 5 cm margin beyond the tumor. The specimen was delivered from the operative field. The pelvis was examined and there was no significant bleeding. The transected colon was examined and mobilized enough to become up to the skin without tension using Bovie electrocautery as well as LigaSure. The liver was palpably normal. One small serosal implant was excised using a scalpel and sent separately for pathologic evaluation. This deserosalization was closed using a 3-0 silk suture. The abdomen was copiously irrigated with warm saline. The skin on the left was marked with a marker in order to triangulate the best location for a colostomynot too close to the rib cage and not too close to the anterior iliac spine. The skin was grasped with a [place] and a circular incision was made using a knife. The subcutaneous fat was excised using Bovie electrocautery. A linear incision was made in the anterior fascia with Bovie electrocautery and the muscle split beneath this. The posterior fascia as well as the peritoneum were similarly incised using Bovie electrocautery using my fin gers to protect the underlying bowel. This opening was widened to admit 2 of my fingers. 2 Babcocks were then placed through this opening in order to bring the proximal sigmoid colon up through the skin. The epiploic appendiges of the colon did cause some difficulty with this and some bleeding which was controlled using a combination of 3-0 silk sutures, Bovie electrocautery, and LigaSure. The fascia was closed using a 0 looped PDS in a running fashion. The fascial closure was started superiorly and inferiorly and run to meet in the middle. The subcutaneous tissues were copiously irrigated using warm sterile saline and meticulous hemostasis was obtained using Bovie electrocautery. The skin was approximated using skin xena. At this point, the staple line was excised using Metzenbaum scissors, and the colostomy was matured using 3-0 Vicryl sutures circumferentially. Fortunately, I was able to accomplish this without any stool coming out through the colostomy. At this point a time out was performed that confirmed that all the counts were correct, the procedure that was performed, the blood loss, the urine output, the IV fluids administered, and the patients condition. A dressing were placed on the wound. Unfortunately, before we were able to place a ostomy appliance on the colostomy there was an absolute eruption of stool through the ostomy that blanketed everything. Once this started there was really no way to stop the flow stool until the flow of stool was done. We had to clean the patient up several times and even had to replace the original dressing. We finally were able to place the ostomy appliance on the ostomy and having tolerated the procedure well, the patient was subsequently extubated and taken to recovery room in good and stable condition. Please note that the nature of this operation and the hospital rules and regulations precluded my completing this operation without the aid of another surgeon and I was fortunate to have Dr. Quentin Jauregui present. Dragon disclaimer: This document was created in part using voice recognition technology. Because of the inherent limitations of the system ([employer]'s Dragon Dictate user manual states that the licensee understands that speech recognition is a statistical process and that recognition errors are inherent in the process), occasional same sounding word substitutions and grammatical errors do occur and persist despite proofreading. Please read this document for context.
[2019-01-07] MEDS: ACETAMINOPHEN 1,000 MG/100 ML 100 ML IV SCH ×2 (13:43→19:42)
[2019-01-07] MEDS: D5NS W/20 MEQ KCL 1,000 ML IV SCH (13:43)
[2019-01-07] MEDS: PANTOPRAZOLE 40 MG VIAL IVP SCH (13:43)
[2019-01-07] MEDS: SODIUM CHLORIDE FLUSH 0.9% 10 ML SYRINGE IVP SCH ×2 (13:44→17:28)
[2019-01-08] MEDS: D5NS W/20 MEQ KCL 1,000 ML IV SCH ×3 (01:07→22:00)
[2019-01-08] MEDS: ACETAMINOPHEN 1,000 MG/100 ML 100 ML IV SCH ×4 (01:07→18:52)
[2019-01-08] MEDS: SODIUM CHLORIDE FLUSH 0.9% 10 ML SYRINGE IVP SCH ×3 (01:08→16:43)
[2019-01-08] MEDS: PANTOPRAZOLE 40 MG VIAL IVP SCH (05:54)
[2019-01-08 06:13] LABS: BASOPHILS % (AUTO) 0.1 %; HGB - HEMOGLOBIN 12.1 g/dL (14.0-18.0); MEAN CORPUSCULAR HEMOGLOBIN 31.2 pg (27.0-31.0); MEAN CORPUSCULAR HGB CONC 32.3 g/dL (32.0-36.0); MEAN CORPUSCULAR VOLUME 96.6 fL (80.0-94.0); MEAN PLATELET VOLUME 8.4 fL (7.4-11.4); MONOCYTES # (AUTO) 1.5 10^3/uL (0.0-1.0); MONOCYTES % (AUTO) 7.7 %; NEUTROPHILS # (AUTO) 17.5 10^3/uL (1.5-6.6); NEUTROPHILS % (AUTO) 87.2 %; PLT - PLATELET COUNT 179 10^3/uL (130-450); RED BLOOD COUNT 3.88 10^6/uL (4.70-6.10); RED CELL DISTRIBUTION WIDTH 18.4 % (12.0-15.0); WHITE BLOOD COUNT 20.1 x10^3/uL (4.8-10.8)
[2019-01-08 06:26] LABS: ALBUMIN 2.9 g/dL (3.2-5.5); ALBUMIN/GLOBULIN RATIO 0.9 (1.0-2.2); BILIRUBIN,TOTAL 0.6 mg/dL (0.2-1.0); CALCIUM 8.1 mg/dL (8.5-10.3); CREATININE 1.2 mg/dL (0.6-1.2); TOTAL PROTEIN 6.2 g/dL (6.7-8.2)
--- NOTE | 2019-01-08 08:29 | PROVIDER PROGRESS NOTE ---
Subjective - General Admit Date: 01/07/19 Procedure Date: 01/07/19 Post Op Days: 1 Procedure Performed: Low anterior resection with end colostomy and Hartmans - Review of Systems Wound/Incisions: positive: Dressing dry and intact, Other (Ostomy pink with some production.) General: positive: No symptoms (Pain is well controlled with epidural.) HEENT: positive: No symptoms Pulmonary: positive: No symptoms Cardiovascular: positive: No symptoms Gastrointestinal: positive: No symptoms Genitourinary: positive: No symptoms (Sanchez in place but patient cannot feel.) Musculoskeletal: positive: No symptoms Skin: positive: No symptoms Psychiatric: positive: No symptoms Objective - Patient Data Reviewed Vital Signs: Yes Vital Signs: Vital Signs x48h Temp Pulse Resp BP Pulse Ox 01/08/19 05:44 26.5 C L 80 18 159/94 H 97 01/08/19 05:00 36.5 C 76 18 159/94 H 97 01/08/19 00:45 36.6 C 66 16 134/79 H 95 Weight: Weight 01/06/19 01/07/19 01/08/19 23:59 23:59 23:59 Weight (kg) 74.7 kg Intake & Output: Intake and Output Totals x24h 01/06/19 01/07/19 01/08/19 23:59 23:59 23:59 Intake Total 2240.000 1748.333 Output Total 875 800 Balance 1365.000 948.333 - Lab Results Lab Results: 01/08/19 05:15 01/08/19 05:15 Other Lab Results: Lab Results x24hrs 01/08/19 01/08/19 Range/Units 05:15 05:15 WBC 20.1 H (4.8-10.8) x10^3/uL RBC 3.88 L (4.70-6.10) 10^6/uL Hgb 12.1 L (14.0-18.0) g/dL Hct 37.5 L (42.0-52.0) % MCV 96.6 H (80.0-94.0) fL MCH 31.2 H (27.0-31.0) pg MCHC 32.3 (32.0-36.0) g/dL RDW 18.4 H (12.0-15.0) % Plt Count 179 (130-450) 10^3/uL MPV 8.4 (7.4-11.4) fL Neut # (Auto) 17.5 H (1.5-6.6) 10^3/uL Lymph # (Auto) 1.0 L (1.5-3.5) 10^3/uL [place] # (Auto) 1.5 H (0.0-1.0) 10^3/uL Eos # (Auto) 0.0 (0.0-0.7) 10^3/uL Baso # (Auto) 0.0 (0.0-0.1) 10^3/uL Absolute Nucleated RBC 0.00 x10^3/uL Nucleated RBC % 0.0 /100WBC Sodium 139 (135-145) mmol/L Potassium 4.3 (3.5-5.0) mmol/L Chloride 103 (101-111) mmol/L Carbon Dioxide 25 (21-32) mmol/L Anion Gap 11.0 (6-13) BUN 19 (6-20) mg/dL Creatinine 1.2 (0.6-1.2) mg/dL Estimated GFR (MDRD) 61 L (>89) Glucose 171 H (70-100) mg/dL Calcium 8.1 L (8.5-10.3) mg/dL Total Bilirubin 0.6 (0.2-1.0) mg/dL AST 24 (10-42) IU/L ALT 30 (10-60) IU/L Alkaline Phosphatase 71 (42-121) IU/L Total Protein 6.2 L (6.7-8.2) g/dL Albumin 2.9 L (3.2-5.5) g/dL Globulin 3.3 (2.1-4.2) g/dL Albumin/Globulin Ratio 0.9 L (1.0-2.2) - Current Medications Current Medications: Current Medications Generic Name Dose Route Start Last Admin Trade Name Freq PRN Reason Stop Dose Admin Potassium Chloride/Dextrose/Sod Cl 1,000 mls @ 100 mls/hr 01/07/19 13:00 01/08/19 07:30 IV 100 mls/hr .Q10H [facility] Infusion Acetaminophen 100 mls @ 400 mls/hr 01/07/19 13:00 01/08/19 07:20 Ofirmev IV Infused Q6H [facility] Infusion Pantoprazole Sodium 40 mg 01/07/19 13:00 01/08/19 05:54 Protonix IVP 40 mg QDAC EZEKIEL Administration Sodium Chloride 10 ml 01/07/19 17:00 01/08/19 05:55 Normal Saline Flush 0.9% IVP 10 ml 0100,0900,1700 EZEKIEL Administration - Physical Exam Wound/Incisions: positive: Dressing dry and intact General Appearance: positive: No acute distress Eyes Bilateral: positive: No lid inflammation, Conjunctivae nml, No scleral icterus ENT: positive: Dry mucous membranes Neck: positive: Trachea midline Respiratory: positive: Chest non-tender, No respiratory distress, Breath sounds nml Cardiovascular: positive: Regular rate & rhythm Abdomen: positive: Non-tender, Nml bowel sounds, Other (Ostomy pink with some s light production.) Skin: positive: Color nml Extremities: positive: Non-tender, Nml appearance Neurologic/Psychiatric: positive: Oriented x3, Motor nml, Sensation nml, Mood/affect nml ABX Reporting Has patient been on IV antibiotics over the past 48 hours?: Yes Impression/Plan - Problem List Problem List: D1 s/p low anterior resection with end colostomy and Hartmans for locally advanced colon cancer that was not terribly responsive to preoperative FOLFOX (chemotherapy) 1) FEN Start some sips and chips. Continue IVF await bowel function in order to feed. 2) Pathology Pending 3) DVT prophylaxis Continue TEDs and venadynes. Up in chair and ambulate if possible. 4) Pain Epidural working well. Continue. 5) Sanchez Patient cannot feel it and as such will keep it in until epidural out. 6) Colostomy Teaching ordered. 7) ID Patient is at risk for infection with the large amount of stool that bathed the new incision but I think that WBC of 20 is reactive not an indication of infection as patient is afebrile and not tachycardic. Will follow.
[2019-01-08] MEDS: fent/BUPIV 2 MCG/0.125% 250 ML EP PRN (18:00)
[2019-01-09] MEDS: ACETAMINOPHEN 1,000 MG/100 ML 100 ML IV SCH ×4 (01:49→18:25)
[2019-01-09] MEDS: SODIUM CHLORIDE FLUSH 0.9% 10 ML SYRINGE IVP SCH ×3 (01:49→18:14)
[2019-01-09 05:50] LABS: BASOPHILS # (AUTO) 0.1 10^3/uL (0.0-0.1); BASOPHILS % (AUTO) 0.4 %; EOSINOPHILS % (AUTO) 0.2 %; HGB - HEMOGLOBIN 12.1 g/dL (14.0-18.0); LYMPHOCYTES # (AUTO) 1.4 10^3/uL (1.5-3.5); LYMPHOCYTES % (AUTO) 8.4 %; MEAN CORPUSCULAR HGB CONC 32.1 g/dL (32.0-36.0); MEAN CORPUSCULAR VOLUME 96.7 fL (80.0-94.0); MEAN PLATELET VOLUME 7.9 fL (7.4-11.4); MONOCYTES # (AUTO) 1.4 10^3/uL (0.0-1.0); MONOCYTES % (AUTO) 8.1 %; NEUTROPHILS # (AUTO) 13.9 10^3/uL (1.5-6.6); NEUTROPHILS % (AUTO) 82.9 %; PLT - PLATELET COUNT 195 10^3/uL (130-450); RED CELL DISTRIBUTION WIDTH 17.7 % (12.0-15.0); WHITE BLOOD COUNT 16.8 x10^3/uL (4.8-10.8)
[2019-01-09 05:56] LABS: ALBUMIN 2.8 g/dL (3.2-5.5); ALBUMIN/GLOBULIN RATIO 0.8 (1.0-2.2); BILIRUBIN,TOTAL 0.7 mg/dL (0.2-1.0); CALCIUM 8.6 mg/dL (8.5-10.3); CREATININE 0.8 mg/dL (0.6-1.2); TOTAL PROTEIN 6.4 g/dL (6.7-8.2)
[2019-01-09] MEDS: PANTOPRAZOLE 40 MG VIAL IVP SCH (06:54)
[2019-01-09] MEDS: SODIUM CHLORIDE FLUSH 0.9% 10 ML SYRINGE IVP PRN (06:54)
[2019-01-09] MEDS: D5NS W/20 MEQ KCL 1,000 ML IV SCH ×2 (07:46→18:25)
--- NOTE | 2019-01-09 08:36 | PROVIDER PROGRESS NOTE ---
Subjective - General Admit Date: 01/07/19 Procedure Date: 01/07/19 Post Op Days: 3 Procedure Performed: Low anterior resection with end colostomy and Hartmans - Review of Systems Wound/Incisions: positive: Dressing dry and intact General: positive: No symptoms (Pain is well controlled with epidural.) HEENT: positive: No symptoms Pulmonary: positive: No symptoms Cardiovascular: positive: No symptoms Gastrointestinal: positive: No symptoms Genitourinary: positive: No symptoms (Sanchez in place but patient cannot feel.) Musculoskeletal: positive: No symptoms Skin: positive: No symptoms Psychiatric: positive: No symptoms Objective - Patient Data Reviewed Vital Signs: Yes Vital Signs: Vital Signs x48h Temp Pulse Resp BP Pulse Ox 01/09/19 05:25 82 18 183/90 H 94 01/09/19 02:00 36.5 C 90 18 179/92 H 96 Weight: Weight 01/07/19 01/08/19 01/09/19 23:59 23:59 23:59 Weight (kg) 74.7 kg Intake & Output: Intake and Output Totals x24h 01/07/19 01/08/19 01/09/19 23:59 23:59 23:59 Intake Total 2240.000 4743.333 1076.667 Output Total 875 2750 2600 Balance 7172.092 3659.333 -1523.333 - Lab Results Lab Results: 01/10/19 04:35 01/10/19 04:35 Other Lab Results: Lab Results x24hrs 01/09/19 01/09/19 Range/Units 05:10 05:10 WBC 16.8 H (4.8-10.8) x10^3/uL RBC 3.90 L (4.70-6.10) 10^6/uL Hgb 12.1 L (14.0-18.0) g/dL Hct 37.7 L (42.0-52.0) % MCV 96.7 H (80.0-94.0) fL MCH 31.0 (27.0-31.0) pg MCHC 32.1 (32.0-36.0) g/dL RDW 17.7 H (12.0-15.0) % Plt Count 195 (130-450) 10^3/uL MPV 7.9 (7.4-11.4) fL Neut # (Auto) 13.9 H (1.5-6.6) 10^3/uL Lymph # (Auto) 1.4 L (1.5-3.5) 10^3/uL [place] # (Auto) 1.4 H (0.0-1.0) 10^3/uL Eos # (Auto) 0.0 (0.0-0.7) 10^3/uL Baso # (Auto) 0.1 (0.0-0.1) 10^3/uL Absolute Nucleated RBC 0.01 x10^3/uL Nucleated RBC % 0.0 /100WBC Sodium 138 (135-145) mmol/L Potassium 4.0 (3.5-5.0) mmol/L Chloride 104 (101-111) mmol/L Carbon Dioxide 24 (21-32) mmol/L Anion Gap 10.0 (6-13) BUN 10 (6-20) mg/dL Creatinine 0.8 (0.6-1.2) mg/dL Estimated GFR (MDRD) 98 (>89) Glucose 159 H (70-100) mg/dL Calcium 8.6 (8.5-10.3) mg/dL Total Bilirubin 0.7 (0.2-1.0) mg/dL AST 19 (10-42) IU/L ALT 27 (10-60) IU/L Alkaline Phosphatase 75 (42-121) IU/L Total Protein 6.4 L (6.7-8.2) g/dL Albumin 2.8 L (3.2-5.5) g/dL Globulin 3.6 (2.1-4.2) g/dL Albumin/Globulin Ratio 0.8 L (1.0-2.2) - Current Medications Current Medications: Current Medications Generic Name Dose Route Start Last Admin Trade Name Freq PRN Reason Stop Dose Admin Fentanyl/Bupivacaine/Sodium Chlor 250 mls @ 0 mls/hr 01/07/19 09:00 01/08/19 18:00 Fent/Bupiv 2 Mcg/0.125% EP 2 mls/hr .Q0M PRN Administration PAIN Protocol Per Protocol Potassium Chloride/Dextrose/Sod Cl 1,000 mls @ 100 mls/hr 01/07/19 13:00 01/09/19 07:46 IV 100 mls/hr .Q10H EZEKIEL Administration Acetaminophen 100 mls @ 400 mls/hr 01/07/19 13:00 01/09/19 07:56 Ofirmev IV 400 mls/hr Q6H EZEKIEL Administration Pantoprazole Sodium 40 mg 01/07/19 13:00 01/09/19 06:54 Protonix IVP 40 mg QDAC EZEKIEL Administration Sodium Chloride 10 ml 01/07/19 17:00 01/09/19 01:49 Normal Saline Flush 0.9% IVP Not Given 0100,0900,1700 EZEKIEL Sodium Chloride 10 ml 01/07/19 12:46 01/09/19 06:54 Normal Saline Flush 0.9% IVP 10 ml PRN PRN Administration NEEDED PER PROVIDER ORDERS - Physical Exam Wound/Incisions: positive: Dressing dry and intact, Other (Ostomy pink and productive of bowel "sweat.") Eyes Bilateral: positive: No lid inflammation, Conjunctivae nml, No scleral icterus ENT: positive: No signs of dehydration Neck: positive: Trachea midline Respiratory: positive: Chest non-tender, No respiratory distress, Breath sounds nml Cardiovascular: positive: Regular rate & rhythm, No murmur, No gallop Abdomen: positive: Non-tender (Epidural working very well.) Skin: positive: Color nml Extremities: positive: Non-tender, Nml appearance Neurologic/Psychiatric: positive: Oriented x3, Sensation nml, Mood/affect nml Impression/Plan - Problem List Problem List: D2 s/p low anterior resection with end colostomy and Hartmans for locally advanced colon cancer that was not terribly responsive to preoperative FOLFOX (chemotherapy) 1) FEN Will advance diet and see how he tolerates. Continue IVF await bowel function in order to feed. 2) Pathology Pending 3) DVT prophylaxis Continue TEDs and venadynes. Up in chair and ambulate if possible. 4) Pain Epidural working well. Plan to remove tomorrow. 5) Sanchez Patient cannot feel it and as such will keep it in until epidural out. 6) Colostomy Teaching being done. 7) ID Patient is at risk for infection with the large amount of stool that bathed the new incision but I think that WBC of 20 is reactive not an indication of infection as patient is afebrile and not tachycardic. Will follow. 8) HTN Will start his medications and advance diet.
--- NOTE | 2019-01-09 08:59 | ANESTHESIA POST OP EVALUATION ---
Anesthesia Post Eval - Post Anesthesia Eval CV Function Including HR & BP: positive: Stable Pain Control: positive: Adequate Nausea & Vomiting: positive: Negative Mental Status: positive: Appropriate - Other Details/Therapies Other Details/Therapies: Post op Day 2. Epidural is working well at current settings. Patient reports pain is adequately controlled. Patient was up out of bed yesterday and has good motor function. Dressing is dry and intact. Will plan on removal tomorrow.
[2019-01-09] MEDS: CITALOPRAM HYDROBROMIDE 20 MG TABLET PO SCH (10:43)
[2019-01-09] MEDS: amLODIPine 5 MG TABLET PO SCH (10:43)
[2019-01-09] MEDS: cloNIDine 0.1 MG TABLET PO SCH ×2 (10:43→20:54)
[2019-01-09] MEDS: LISINOPRIL 20 MG TABLET PO SCH (10:44)
[2019-01-09] MEDS: METOPROLOL TARTRATE 25 MG TABLET PO SCH (10:44)
[2019-01-09] MEDS: SPIRONOLACTONE 25 MG TABLET PO SCH ×2 (10:45→20:54)
[2019-01-09] MEDS: fent/BUPIV 2 MCG/0.125% 250 ML EP PRN (20:55)
[2019-01-10] MEDS: SODIUM CHLORIDE FLUSH 0.9% 10 ML SYRINGE IVP SCH ×3 (01:02→16:14)
[2019-01-10] MEDS: ACETAMINOPHEN 1,000 MG/100 ML 100 ML IV SCH ×4 (01:45→18:37)
[2019-01-10] MEDS: D5NS W/20 MEQ KCL 1,000 ML IV SCH ×2 (04:22→18:40)
[2019-01-10 05:08] LABS: BASOPHILS # (AUTO) 0.1 10^3/uL (0.0-0.1); BASOPHILS % (AUTO) 0.5 %; EOSINOPHILS # (AUTO) 0.1 10^3/uL (0.0-0.7); EOSINOPHILS % (AUTO) 1.3 %; LYMPHOCYTES # (AUTO) 1.5 10^3/uL (1.5-3.5); LYMPHOCYTES % (AUTO) 14.1 %; MEAN CORPUSCULAR HEMOGLOBIN 31.4 pg (27.0-31.0); MEAN CORPUSCULAR HGB CONC 32.4 g/dL (32.0-36.0); MEAN CORPUSCULAR VOLUME 96.9 fL (80.0-94.0); MEAN PLATELET VOLUME 7.9 fL (7.4-11.4); MONOCYTES # (AUTO) 0.9 10^3/uL (0.0-1.0); MONOCYTES % (AUTO) 8.1 %; NEUTROPHILS # (AUTO) 8.3 10^3/uL (1.5-6.6); PLT - PLATELET COUNT 170 10^3/uL (130-450); RED BLOOD COUNT 3.51 10^6/uL (4.70-6.10); RED CELL DISTRIBUTION WIDTH 16.8 % (12.0-15.0); WHITE BLOOD COUNT 10.9 x10^3/uL (4.8-10.8)
[2019-01-10 05:13] LABS: ALBUMIN 2.5 g/dL (3.2-5.5); ALBUMIN/GLOBULIN RATIO 0.7 (1.0-2.2); BILIRUBIN,TOTAL 0.3 mg/dL (0.2-1.0); CALCIUM 8.3 mg/dL (8.5-10.3); CREATININE 0.9 mg/dL (0.6-1.2); TOTAL PROTEIN 5.9 g/dL (6.7-8.2)
[2019-01-10] MEDS: PANTOPRAZOLE 40 MG VIAL IVP SCH (06:16)
[2019-01-10] MEDS: CITALOPRAM HYDROBROMIDE 20 MG TABLET PO SCH (10:50)
[2019-01-10] MEDS: amLODIPine 5 MG TABLET PO SCH (10:50)
[2019-01-10] MEDS: SPIRONOLACTONE 25 MG TABLET PO SCH ×2 (10:51→20:00)
[2019-01-10] MEDS: cloNIDine 0.1 MG TABLET PO SCH ×2 (10:51→20:00)
[2019-01-10] MEDS: LISINOPRIL 20 MG TABLET PO SCH (10:51)
[2019-01-10] MEDS: METOPROLOL TARTRATE 25 MG TABLET PO SCH (10:51)
--- NOTE | 2019-01-10 10:54 | PROVIDER PROGRESS NOTE ---
Subjective - General Admit Date: 01/07/19 Procedure Date: 01/07/19 Post Op Days: 3 Procedure Performed: Low anterior resection with end colostomy and Hartmans - Review of Systems Wound/Incisions: positive: Dressing dry and intact, Other (Ostomy productive of liquid stool.) General: positive: No symptoms (Pain is well controlled with epidural.) HEENT: positive: No symptoms Pulmonary: positive: No symptoms Cardiovascular: positive: No symptoms Gastrointestinal: positive: No symptoms, Other (Some more incisional pain now that epidural is out.) Genitourinary: positive: No symptoms (Sanchez in place but patient cannot feel.) Musculoskeletal: positive: No symptoms Skin: positive: No symptoms Psychiatric: positive: No symptoms Objective - Patient Data Reviewed Vital Signs: Yes Vital Signs: Vital Signs x48h Temp Pulse Resp BP BP Pulse Ox 01/10/19 10:51 176/101 H 01/10/19 07:43 36.5 C 61 17 147/83 H 94 01/10/19 04:01 36.6 C 60 16 150/83 H 96 Intake & Output: Intake and Output Totals x24h 01/08/19 01/09/19 01/10/19 23:59 23:59 23:59 Intake Total 4743.333 3596.667 1675 Output Total 2750 4600 1550 Balance 1993.333 -1003.333 125 - Lab Results Lab Results: 01/10/19 04:35 01/10/19 04:35 Other Lab Results: Lab Results x24hrs 01/10/19 01/10/19 01/10/19 Range/Units 07:45 04:35 04:35 WBC 10.9 H (4.8-10.8) x10^3/uL RBC 3.51 L (4.70-6.10) 10^6/uL Hgb 11.0 L (14.0-18.0) g/dL Hct 34.0 L (42.0-52.0) % MCV 96.9 H (80.0-94.0) fL MCH 31.4 H (27.0-31.0) pg MCHC 32.4 (32.0-36.0) g/dL RDW 16.8 H (12.0-15.0) % Plt Count 170 (130-450) 10^3/uL MPV 7.9 (7.4-11.4) fL Neut # (Auto) 8.3 H (1.5-6.6) 10^3/uL Lymph # (Auto) 1.5 (1.5-3.5) 10^3/uL [place] # (Auto) 0.9 (0.0-1.0) 10^3/uL Eos # (Auto) 0.1 (0.0-0.7) 10^3/uL Baso # (Auto) 0.1 (0.0-0.1) 10^3/uL Absolute Nucleated RBC 0.00 x10^3/uL Nucleated RBC % 0.0 /100WBC Sodium 135 (135-145) mmol/L Potassium 4.1 (3.5-5.0) mmol/L Chloride 104 (101-111) mmol/L Carbon Dioxide 22 (21-32) mmol/L Anion Gap 9.0 (6-13) BUN 11 (6-20) mg/dL Creatinine 0.9 (0.6-1.2) mg/dL Estimated GFR (MDRD) 86 L (>89) Glucose 135 H (70-100) mg/dL POC Whole Bld Glucose 135 H (70 - 100) mg/dL Calcium 8.3 L (8.5-10.3) mg/dL Total Bilirubin 0.3 (0.2-1.0) mg/dL AST 18 (10-42) IU/L ALT 22 (10-60) IU/L Alkaline Phosphatase 63 (42-121) IU/L Total Protein 5.9 L (6.7-8.2) g/dL Albumin 2.5 L (3.2-5.5) g/dL Globulin 3.4 (2.1-4.2) g/dL Albumin/Globulin Ratio 0.7 L (1.0-2.2) 01/09/19 01/09/19 01/09/19 Range/Units 20:52 17:28 11:15 WBC (4.8-10.8) x10^3/uL RBC (4.70-6.10) 10^6/uL Hgb (14.0-18.0) g/dL Hct (42.0-52.0) % MCV (80.0-94.0) fL MCH (27.0-31.0) pg MCHC (32.0-36.0) g/dL RDW (12.0-15.0) % Plt Count (130-450) 10^3/uL MPV (7.4-11.4) fL Neut # (Auto) (1.5-6.6) 10^3/uL Lymph # (Auto) (1.5-3.5) 10^3/uL [place] # (Auto) (0.0-1.0) 10^3/uL Eos # (Auto) (0.0-0.7) 10^3/uL Baso # (Auto) (0.0-0.1) 10^3/uL Absolute Nucleated RBC x10^3/uL Nucleated RBC % /100WBC Sodium (135-145) mmol/L Potassium (3.5-5.0) mmol/L Chloride (101-111) mmol/L Carbon Dioxide (21-32) mmol/L Anion Gap (6-13) BUN (6-20) mg/dL Creatinine (0.6-1.2) mg/dL Estimated GFR (MDRD) (>89) Glucose (70-100) mg/dL POC Whole Bld Glucose 199 H 144 H 219 H (70 - 100) mg/dL Calcium (8.5-10.3) mg/dL Total Bilirubin (0.2-1.0) mg/dL AST (10-42) IU/L ALT (10-60) IU/L Alkaline Phosphatase (42-121) IU/L Total Protein (6.7-8.2) g/dL Albumin (3.2-5.5) g/dL Globulin (2.1-4.2) g/dL Albumin/Globulin Ratio (1.0-2.2) - Current Medications Current Medications: Current Medications Generic Name Dose Route Start Last Admin Trade Name Freq PRN Reason Stop Dose Admin Amlodipine Besylate 10 mg 01/09/19 09:00 01/10/19 10:50 Norvasc PO 10 mg DAILY EZEKIEL Administration Citalopram Hydrobromide 20 mg 01/09/19 09:00 01/10/19 10:50 Celexa PO 20 mg DAILY EZEKIEL Administration Clonidine HCl 0.2 mg 01/09/19 09:00 01/10/19 10:51 Catapres PO 0.2 mg BID EZEKIEL Administration Fentanyl/Bupivacaine/Sodium Chlor 250 mls @ 0 mls/hr 01/07/19 09:00 01/09/19 20:55 Fent/Bupiv 2 Mcg/0.125% EP 6 mls/hr .Q0M PRN Administration PAIN Protocol Per Protocol Potassium Chloride/Dextrose/Sod Cl 1,000 mls @ 100 mls/hr 01/07/19 13:00 01/10/19 04:22 IV 100 mls/hr .Q10H EZEKIEL Administration Acetaminophen 100 mls @ 400 mls/hr 01/07/19 13:00 01/10/19 08:12 Ofirmev IV Infused Q6H EZEKIEL Infusion Lisinopril 40 mg 01/09/19 09:00 01/10/19 10:51 Zestril PO 40 mg DAILY EZEKIEL Administration Metoprolol Tartrate 25 mg 01/09/19 09:00 01/10/19 10:51 Lopressor PO 25 mg DAILY EZEKIEL Administration Nalbuphine HCl 2.5 - 5 mg 01/07/19 09:00 01/09/19 22:02 Nubain IVP 2.5 mg Q4H PRN Administration Severe Itching Pantoprazole Sodium 40 mg 01/07/19 13:00 01/10/19 06:16 Protonix IVP 40 mg QDAC EZEKIEL Administration Sodium Chloride 10 ml 01/07/19 17:00 01/10/19 10:52 Normal Saline Flush 0.9% IVP Not Given 0100,0900,1700 EZEKIEL Sodium Chloride 10 ml 01/07/19 12:46 01/09/19 06:54 Normal Saline Flush 0.9% IVP 10 ml PRN PRN Administration NEEDED PER PROVIDER ORDERS Spironolactone 50 mg 01/09/19 09:00 01/10/19 10:51 Aldactone PO 50 mg BID EZEKIEL Administration - Physical Exam Wound/Incisions: positive: Healing well, Other (Ostomy pink.) General Appearance: positive: No acute distress (Sitting up in chair.) Eyes Bilateral: positive: No lid inflammation ENT: positive: No signs of dehydration Neck: positive: Trachea midline Respiratory: positive: Chest non-tender, No respiratory distress, Breath sounds nml Cardiovascular: positive: Regular rate & rhythm Abdomen: positive: Nml bowel sounds, No distention, Tenderness (Incisional.) Skin: positive: Color nml Extremities: positive: Non-tender, Nml appearance Neurologic/Psychiatric: positive: Oriented x3, Motor nml, Sensation nml, Mood/affect nml Impression/Plan - Problem List Problem List: D3 s/p low anterior resection with end colostomy and Hartmans for locally advanced colon cancer that was not terribly responsive to preoperative FOLFOX (chemotherapy) 1) FEN Carb controlled high protein diet and see how he tolerates. Decrease IVF. 2) Pathology Pending 3) DVT prophylaxis Continue TEDs and venadynes. Up in chair and ambulate as much as possible. 4) Pain Epidural out. Start oral pain medications as well as Dilaudid for breakthrough. 5) Sanchez Out today. 6) Colostomy Teaching being done. 7) ID WBC nearly normal with no tachycardia and no fever. Still at risk. 8) HTN Will start his medications and advance diet. 9) Type II DM Restarted Metformin and carb controlled diet.
[2019-01-10] MEDS ORDERED: HYDROmorphone 2 MG/ML VIAL IVP PRN (11:07)
[2019-01-10] MEDS ORDERED: D5NS W/20 MEQ KCL 1,000 ML IV SCH (11:24)
[2019-01-10] MEDS: oxyCODONE 5 MG TABLET PO PRN ×3 (11:36→19:59)
[2019-01-10] MEDS: CHOLECALCIFEROL 1,000 UNIT TABLET PO SCH ×2 (11:38→19:59)
[2019-01-10] MEDS: ATORVASTATIN 40 MG TABLET PO SCH (11:38)
[2019-01-10] MEDS: metFORMIN 500 MG TABLET PO SCH (16:14)
[2019-01-11] MEDS: ACETAMINOPHEN 1,000 MG/100 ML 100 ML IV SCH ×4 (01:19→18:58)
[2019-01-11] MEDS: SODIUM CHLORIDE FLUSH 0.9% 10 ML SYRINGE IVP SCH ×3 (02:11→16:43)
[2019-01-11] MEDS: PANTOPRAZOLE 40 MG TABLET PO SCH (06:20)
[2019-01-11] MEDS: oxyCODONE 5 MG TABLET PO PRN (06:56)
[2019-01-11] MEDS: cloNIDine 0.1 MG TABLET PO SCH ×2 (08:06→20:39)
[2019-01-11] MEDS: metFORMIN 500 MG TABLET PO SCH ×2 (08:06→16:42)
[2019-01-11] MEDS: SPIRONOLACTONE 25 MG TABLET PO SCH ×2 (08:06→20:39)
[2019-01-11] MEDS: amLODIPine 5 MG TABLET PO SCH (08:06)
[2019-01-11] MEDS: METOPROLOL TARTRATE 25 MG TABLET PO SCH (08:07)
[2019-01-11] MEDS: CHOLECALCIFEROL 1,000 UNIT TABLET PO SCH ×2 (08:07→20:38)
[2019-01-11] MEDS: CITALOPRAM HYDROBROMIDE 20 MG TABLET PO SCH (08:07)
[2019-01-11] MEDS: ATORVASTATIN 40 MG TABLET PO SCH (08:08)
[2019-01-11] MEDS: LISINOPRIL 20 MG TABLET PO SCH (08:08)
[2019-01-11] MEDS: SODIUM CHLORIDE FLUSH 0.9% 10 ML SYRINGE IVP PRN (12:03)
--- NOTE | 2019-01-11 13:20 | PROVIDER PROGRESS NOTE ---
Subjective - Prog Note Date Prog Note Date: 01/11/19 Prog Note Time: 13:17 - Subjective Pt reports feeling: Improved (Pt complaining mostly of gastroparesis, otherwise he is ambulating, his pain is under control, tolerating very small amounts of food and having some stool in his ostomy bag.) Objective - Vital Signs/Intake & Output Vital Signs: Vital Signs x48h Temp Pulse Resp BP Pulse Ox 01/11/19 07:36 36.4 C L 71 21 154/90 H 96 Intake & Output: Intake & Output 01/08/19 01/09/19 01/10/19 01/11/19 23:59 23:59 23:59 23:59 Intake Total 4743.333 3596.667 3221.000 680 Output Total 2750 4600 3000 200 Balance 1993.333 -1003.333 221.000 480 - Objective General Appearance: positive: No acute distress Eyes Bilateral: positive: Normal inspection ENT: positive: ENT inspection nml Neck: positive: Nml inspection Respiratory: positive: Chest non-tender Abdomen: positive: Tenderness (appropriate) Back: positive: Nml inspection Skin: positive: Color nml Extremities: positive: Non-tender Neurologic/Psychiatric: positive: Oriented x3 - Lab Results Fish Bones: 01/10/19 04:35 01/10/19 04:35 Other Labs: Lab Results x24hrs 01/11/19 01/11/19 01/10/19 Range/Units 11:40 07:33 21:07 POC Whole Bld Glucose 111 H 118 H 139 H (70 - 100) mg/dL 01/10/19 Range/Units 16:47 POC Whole Bld Glucose 114 H (70 - 100) mg/dL Assessment/Plan - Problem List (1) Colon adenocarcinoma Impression: Pt continues to recover. Complaining mostly of gastroparesis which is normal after GI surgery and we will treat expectantly. Plan for possible discharge tomorrow.
[2019-01-11] MEDS: ONDANSETRON ODT 4 MG TABLET PO PRN (13:44)
[2019-01-11] MEDS ORDERED: ACETAMINOPHEN 325 MG SUPP PR PRN (22:39)
--- NOTE | 2019-01-11 22:41 | MISCELLANEOUS PROVIDER NOTE ---
Miscellaneous Provider Note - - Note: After receiving the pathology report, I reviewed it with the patient and his . I explained the implications to him. In no uncertain terms did I tell him that he was cured in fact I explained that he will need to finish his chemotherapy and may in fact require radiation therapy as well. I again explained that "cure" is considered 5 years out from the diagnosis. I explained that we should adopt a [id number] policy. In the meantime he will continue to follow-up with me and have scheduled colonoscopies as well as proctoscopy to ensure that the cancer does not return. The patient and his are delighted at the news.
[2019-01-12] MEDS: SODIUM CHLORIDE FLUSH 0.9% 10 ML SYRINGE IVP SCH ×2 (00:46→08:49)
[2019-01-12] MEDS: metFORMIN 500 MG TABLET PO SCH (07:07)
[2019-01-12] MEDS: PANTOPRAZOLE 40 MG TABLET PO SCH (07:07)
[2019-01-12] MEDS: oxyCODONE 5 MG TABLET PO PRN (07:08)
[2019-01-12 08:35] VITALS: BP 138/70
[2019-01-12] MEDS: CITALOPRAM HYDROBROMIDE 20 MG TABLET PO SCH (08:45)
[2019-01-12] MEDS: ATORVASTATIN 40 MG TABLET PO SCH (08:45)
[2019-01-12] MEDS: SPIRONOLACTONE 25 MG TABLET PO SCH (08:46)
[2019-01-12] MEDS: cloNIDine 0.1 MG TABLET PO SCH (08:46)
[2019-01-12] MEDS: amLODIPine 5 MG TABLET PO SCH (08:46)
[2019-01-12] MEDS: ONDANSETRON ODT 4 MG TABLET PO PRN (08:46)
[2019-01-12] MEDS: CHOLECALCIFEROL 1,000 UNIT TABLET PO SCH (08:46)
[2019-01-12] MEDS: METOPROLOL TARTRATE 25 MG TABLET PO SCH (08:46)
[2019-01-12] MEDS: LISINOPRIL 20 MG TABLET PO SCH (08:46)
--- NOTE | 2019-01-12 11:03 | DISCHARGE SUMMARY ---
"Discharge Summary Admit Date: 01/07/19 Discharge Date: 01/12/19 Discharging Provider: patti Code Status: Attempt Resuscitation Condition at Discharge: Good Discharge Disposition: 01 Home, Self Care - DIAGNOSES Admission Diagnoses: Colorectal cancer Discharge Diagnoses with Status of Each Condition: Cancer - resected - HPI History of Present Illness: 63 yo man admitted after a colorectal cancer resection. - CONSULTS | PROCEDURES Procedures: Open LAR with Colostomy - HOSPITAL COURSE Hospital Course: 63 yo man admitted subsequent to scheduled LAR with colostomy. His post-op course was uneventful. He was discharged to home under his own and his family's care after tolerating a regular diet, ambulating, with minimal pain and normal colostomy function. - ALLERGIES Allergies/Adverse Reactions: Allergies Allergy/AdvReac Type Severity Reaction Status Date / Time No Known Drug Allergies Allergy Verified 11/28/18 00:44 - MEDICATIONS Home Medications: Ambulatory Orders Medication Instructions Recorded Confirmed Atorvastatin Calcium [Lipitor] 80 mg PO DAILY 07/19/18 01/07/19 Benazepril HCl 40 mg PO DAILY 07/19/18 01/07/19 Citalopram Hydrobromide [Celexa] 20 mg PO DAILY 07/19/18 01/07/19 Omeprazole Magnesium [Acid Cargo Worker] 20 mg PO DAILY 07/19/18 01/07/19 Spironolactone [Aldactone] 50 mg PO BID 07/19/18 01/07/19 metFORMIN [Glucophage] 500 mg PO BID 07/19/18 01/07/19 Garlic 1,000 mg PO BID 08/27/18 01/07/19 [place]-3S/Dha/Epa/Fish Oil [Fish 1 each PO BID 08/27/18 01/07/19 Oil 1,200 mg Softgel] Cholecalciferol (Vitamin D3) 3,000 unit PO BID 08/28/18 01/07/19 [Vitamin D3] Clonidine HCl [Catapres] 0.2 mg PO BID 08/28/18 01/07/19 Metoprolol Tartrate 25 mg PO DAILY 08/28/18 01/07/19 Turmeric Root Extract [Turmeric] 500 mg PO DAILY 08/28/18 01/07/19 Ondansetron [Ondansetron Odt] 4 mg PO Q4H PRN #30 tab.rapdis 08/30/18 01/07/19 LORazepam [Lorazepam] 0.5 mg PO Q6H 12/20/18 01/07/19 amLODIPine [Norvasc] 10 mg PO DAILY 12/20/18 01/07/19 - PHYSICAL EXAM AT DISCHARGE General Appearance: positive: No acute distress Eyes Bilateral: positive: Normal inspection ENT: positive: ENT inspection nml Neck: positive: Nml inspection Respiratory: positive: Chest non-tender Abdomen: positive: Non-tender Back: positive: Nml inspection Skin: positive: Color nml Extremities: positive: Non-tender Neurologic/Psychiatric: positive: Oriented x3 - LABS Result Diagrams: 01/10/19 04:35 01/10/19 04:35 - TIME SPENT Time Spent in Discharge (Minutes): 30"
--- NOTE | 2019-01-12 11:08 | Discharge Plan ---
Discharge Plan Disposition: 01 Home, Self Care Condition: Good Prescriptions: oxyCODONE [Roxicodone] 5 mg PO Q4HR PRN #25 tablet PRN Reason: Pain Ondansetron [Ondansetron Odt] 4 mg PO Q4H PRN #20 tab.rapdis PRN Reason: Nausea / Vomiting Diet: Diabetic Activity Restrictions: Additional Comments (No heavy lifting) Shower Restrictions: No Driving Restrictions: Yes (No driving) Weight Bearing: Full Weight Instruction Topics: Ondansetron oral dissolving tablet No Smoking: If you smoke, Please STOP! Call for help. Follow-up with: Gabi Reilly ARNP [Primary Care Provider] -
== END 2019-01-12 11:50 | disposition home or self-care (01) | DRG 330 ==
LOC: MS3 07:17
PROVIDERS: ADMIT Surgery; ATTEND Surgery
PROC: 0DBN0ZZ Excision of Sigmoid Colon, Open Approach (ICD-10-PCS; 2019-01-07)
PROC: 0DB80ZZ Excision of Small Intestine, Open Approach (ICD-10-PCS; 2019-01-07)
PROC: 0DBP0ZZ Excision of Rectum, Open Approach (ICD-10-PCS; principal; 2019-01-07 08:30)
DX: C19 Malignant neoplasm of rectosigmoid junction (principal); K56.691 Other complete intestinal obstruction; E87.6 Hypokalemia; K63.89 Other specified diseases of intestine; E11.9 Type 2 diabetes mellitus without complications; I10 Essential (primary) hypertension; R01.1 Cardiac murmur, unspecified; I49.9 Cardiac arrhythmia, unspecified; E78.5 Hyperlipidemia, unspecified; F32.9 Major depressive disorder, single episode, unspecified; F90.9 Attention-deficit hyperactivity disorder, unspecified type; F41.0 Panic disorder [episodic paroxysmal anxiety]; F41.9 Anxiety disorder, unspecified; K21.9 Gastro-esophageal reflux disease without esophagitis; K52.9 Noninfective gastroenteritis and colitis, unspecified; Z87.891 Personal history of nicotine dependence; Z92.21 Personal history of antineoplastic chemotherapy
CPT/HCPCS: 36415; 80053; 85025; A9270; J0131; J1170; J2300; J7120; J8499; Q0162

== ENCOUNTER 2019-06-04 | Outpatient (CLI) | payer MEDICARE, MEDICAID | END 2019-06-04 09:35 | disposition home or self-care (01) | DX: R55 Syncope and collapse (principal); I10 Essential (primary) hypertension; E78.5 Hyperlipidemia, unspecified | CPT/HCPCS: 36415; 71046; 80053; 80061; 82553; 83721; 84443; 84484; 85025; 85379 ==

== ENCOUNTER 2019-06-04 16:19 | Emergency (ER) | payer MEDICARE, MEDICAID ==
--- NOTE | 2019-06-04 17:47 | ED Physician Documentation ---
History of Present Illness - Stated complaint Stated Complaint: POSS DVT/SENT BY - Chief complaint Chief Complaint: General - History obtained from History obtained from: Patient (63-year-old gentleman with stage IV colon cancer, last chemotherapy about 2 weeks ago. He had a syncopal episode about a week ago, he was feeling odd and got up and passed out. He has not passed out since but he saw his doctor today who ordered among other things a d-dimer which was quite positive and was referred here for evaluation of that.) Review of Systems Ten Systems: 10 systems reviewed and negative Constitutional: reports: Fatigue Cardiac: denies: Chest pain / pressure, Palpitations Respiratory: denies: Dyspnea, Cough GI: denies: Abdominal Pain, Nausea, Vomiting PD PAST MEDICAL HISTORY - Past Medical History Cardiovascular: Hypertension, High cholesterol, Murmur, Arrhythmia Respiratory: None Neuro: None Endocrine/Autoimmune: Type 2 diabetes GI: GERD (controlled with meds), Ulcerative colitis, Other : None HEENT: Chronic vision loss, Chronic hearing loss Psych: Depression, Anxiety, ADD/ADHD Musculoskeletal: None Derm: None - Past Surgical History Past Surgical History: Yes General: Colonoscopy, Other - Present Medications Home Medications: Ambulatory Orders Medication Instructions Recorded Confirmed RX: Atorvastatin Calcium [Lipitor] 80 mg PO DAILY 07/19/18 05/13/19 RX: Benazepril HCl 40 mg PO DAILY 07/19/18 05/13/19 RX: Citalopram Hydrobromide 20 mg PO DAILY 07/19/18 05/13/19 [Celexa] RX: Omeprazole Magnesium [Acid 20 mg PO DAILY 07/19/18 05/13/19 Agricultural Researcher] RX: Spironolactone [Aldactone] 50 mg PO BID 07/19/18 05/13/19 RX: metFORMIN [Glucophage] 500 mg PO BID 07/19/18 05/13/19 RX: Garlic 1,000 mg PO BID 08/27/18 05/13/19 RX: [place]-3S/Dha/Epa/Fish Oil 1 each PO BID 08/27/18 05/13/19 [Fish Oil 1,200 mg Softgel] RX: Cholecalciferol (Vitamin D3) 3,000 unit PO BID 08/28/18 05/13/19 [Vitamin D3] RX: Clonidine HCl [Catapres] 0.2 mg PO BID 08/28/18 05/13/19 RX: Metoprolol Tartrate 25 mg PO DAILY 08/28/18 05/13/19 RX: Turmeric Root Extract 500 mg PO DAILY 08/28/18 05/13/19 [Turmeric] RX: LORazepam [Lorazepam] 0.5 mg PO Q6H 12/20/18 05/13/19 RX: amLODIPine [Norvasc] 10 mg PO DAILY 12/20/18 05/13/19 RX: Ondansetron [Ondansetron Odt] 4 mg PO Q4H PRN #20 tab.rapdis 01/12/19 05/13/19 RX: Melatonin 5 - 10 mg PO DAILY PRN 03/11/19 05/13/19 RX: Clobetasol 0.05% Oint 1 applic TOP BID 05/01/19 05/13/19 [Temovate 0.05% Oint] RX: metroNIDAZOLE 0.75% GEL 1 applic TOP DAILY 05/01/19 05/13/19 - Allergies Allergies/Adverse Reactions: Allergies Allergy/AdvReac Type Severity Reaction Status Date / Time No Known Drug Allergies Allergy Verified 06/04/19 16:30 - Social History Does the pt smoke?: No Smoking Status: Never smoker Does the pt drink ETOH?: No Does the pt have substance abuse?: No - Immunizations Immunizations are current?: Yes - POLST Patient has POLST: No PD ED PE NORMAL - Vitals Vital signs reviewed: Yes - General General: Alert and oriented X 3, No acute distress - HEENT HEENT: PERRL, EOMI - Neck Neck: Supple, no meningeal sign, No bony TTP - Cardiac Cardiac: RRR, No murmur - Respiratory Respiratory: No respiratory distress, Clear bilaterally - Abdomen Abdomen: Soft, Non tender, Other (Ostomy left side) - Back Back: No CVA TTP - Derm Derm: Normal color, Warm and dry - Extremities Extremities: No edema, No calf tenderness / cord - Neuro Neuro: Alert and oriented X 3, Normal speech Results - Vitals Vitals: Vital Signs - 24 hr 06/04/19 06/04/19 06/04/19 16:25 17:52 19:16 Temperature 36.2 C L 36.3 C L Heart Rate 66 67 60 Respiratory 18 15 16 Rate Blood Pressure 96/61 115/68 110/71 O2 Saturation 97 98 97 06/04/19 06/04/19 21:31 21:34 Temperature 36.6 C 36.6 C Heart Rate 71 71 Respiratory 15 15 Rate Blood Pressure 150/71 H 150/71 H O2 Saturation 97 97 Oxygen O2 Source Room air - EKG (time done) 1800 Rate: Rate (enter#) (69) Rhythm: NSR Richards: Normal Intervals: Normal [place] QRS: Normal Ischemia: Normal ST segments Computer interpretation: Agree with computer - Rads (name of study) BLE DVT sono Radiology: Prelim report reviewed (neg for DVT) CT PA Radiology: EMP read contemporaneously (No PE, decreased perihepatic ascites) PD MEDICAL DECISION MAKING - ED course ED course: He syncopized a week ago, he has active cancer. His d-dimer was checked as an outpatient and was quite high which is concerning for PE, no PE noted on angiography nor DVT on lower extremity ultrasound. The d-dimer may just be from the cancer. Departure - Departure Disposition: 01 Home, Self Care Clinical Impression: Colon adenocarcinoma, Syncope, D-dimer, elevated Condition: Good Record reviewed to determine appropriate education?: Yes Instructions: ED Dizziness Syncope Fainting W Pre Comments: There is no blood clot in your legs or lungs. Return for new or worsening symptoms. Follow-up with your doctor. Of note on the CAT scan of your chest the amount of fluid around your liver is decreasing which is good. Discharge Date/Time: 06/04/19 21:35
[2019-06-04] MEDS ORDERED: IOVERSOL 320 100 ML VIAL IVP ONE ×2 (18:06→18:34)
--- NOTE | 2019-06-04 19:24 | CT Report ---
Reason: PE protocol, syncope, high dimer Procedure Date: 06/04/2019 Accession Number: [id number] / [id number] Procedure: CT - ANGIO CHEST W/WO CPT Code: FULL RESULT: EXAM: CT ANGIOGRAM CHEST EXAM DATE: 06/04/2019 06:33 PM. CLINICAL HISTORY: PE protocol, syncope, high D-dimer. COMPARISON: ABDOMEN/PELVIS W/ 05/14/2019 4:14 PM CHEST 2 VIEW 06/04/2019 9:47 AM CHEST W/ 05/14/2019 4:14 PM. TECHNIQUE: Routine helical imaging was performed through the chest in the pulmonary arterial phase. IV Contrast: OPTI 320 80ML. Reconstructions: Coronal 3-D MIP reconstructions.Sagittal and coronal. In accordance with CT protocol optimization, one or more of the following dose reduction techniques were utilized for this exam: automated exposure control, adjustment of mA and/or KV based on patient size, or use of iterative reconstructive technique. FINDINGS: Upper abdomen: Mild perihepatic ascites, decreased compared to the prior. Small hypodensity seen laterally in the right hepatic lobe, unchanged. Left adrenal mass with Hounsfield units less than 10 consistent with a benign adrenal adenoma, width of 1.9 cm, unchanged. Mediastinum: Coronary artery calcification. Heart size is within normal limits. Prominent paratracheal lymph node measuring 8 mm, increased. No mediastinal or hilar lymphadenopathy. No thoracic aortic aneurysm. No evidence for pulmonary emboli. Lungs: Mild bibasilar lower lobe lung consolidations, left greater than right, similar to the prior, suspect chronic. No pleural effusion or pneumothorax. Bones: No acute bone findings. IMPRESSION: 1. No evidence for pulmonary emboli. 2. Mild perihepatic ascites, decreased compared to the prior. 3. See above. RADIA
--- NOTE | 2019-06-04 21:10 | Ultrasound Report ---
Reason: high dimer Procedure Date: 06/04/2019 Accession Number: [id number] / [id number] Procedure: US - Duplex Ext Veins Bilateral CPT Code: FULL RESULT: EXAM: BILATERAL LOWER EXTREMITY VENOUS ULTRASOUND EXAM DATE: 06/04/2019 08:06 PM. CLINICAL HISTORY: High dimer. COMPARISON: None. TECHNIQUE: Real-time sonographic vascular imaging was performed by the hosiery looper through the lower extremities utilizing both color-flow and Doppler spectral analysis. Multiple sales representative adding machines static images were saved for review. FINDINGS: Right: Common Femoral Vein (CFV): Normal. CFV-GSV Junction: Normal. Profunda Femoral Vein (PFV): Normal. Femoral Vein (FV) Prox: Normal. Femoral Vein (FV) Mid: Normal. Femoral Vein (FV) Dist: Normal. Popliteal Vein: Normal. Posterior Tibial Veins: Normal. Peroneal Veins: Normal. Left: Common Femoral Vein (CFV): Normal. CFV-GSV Junction: Normal. Profunda Femoral Vein (PFV): Normal. Femoral Vein (FV) Prox: Normal. Femoral Vein (FV) Mid: Normal. Femoral Vein (FV) Dist: Normal. Popliteal Vein: Normal. Posterior Tibial Veins: Normal. Peroneal Veins: Normal. IMPRESSION: No evidence for deep venous thrombosis bilaterally. RADIA
[2019-06-04 21:32] VITALS: BP 150/71
== END 2019-06-04 21:35 | disposition home or self-care (01) ==
LOC: ED 16:19
DX: R79.1 Abnormal coagulation profile (principal); R55 Syncope and collapse; C18.9 Malignant neoplasm of colon, unspecified; I10 Essential (primary) hypertension; E11.9 Type 2 diabetes mellitus without complications; Z79.84 Long term (current) use of oral hypoglycemic drugs; Z79.899 Other long term (current) drug therapy; E78.5 Hyperlipidemia, unspecified
CPT/HCPCS: 36415; 71046; 71275; 80061; 82553; 84484; 85379; 93005; 93970; 99283; 99284; Q9967; 80053; 83721; 84443; 85025

== ENCOUNTER 2019-07-31 10:03 | Day surgery (SDC) | payer MEDICARE, MEDICAID ==
[2019-07-31] MEDS ORDERED: MIDAZOLAM 2 MG/2 ML VIAL IVP ONE (10:04)
[2019-07-31] MEDS ORDERED: fentaNYL 250 MCG/5 ML VIAL IVP ONE (10:04)
[2019-07-31] MEDS ORDERED: LACTATED RINGERS 1,000 ML IV ONE (10:16)
[2019-07-31 15:00] VITALS: BP 126/74
== END 2019-07-31 10:04 | disposition home or self-care (01) ==
LOC: SDS 10:03
PROVIDERS: ATTEND Surgery
PROC: 0DBN8ZZ Excision of Sigmoid Colon, Via Natural or Artificial Opening Endoscopic (ICD-10-PCS; 2019-07-31)
PROC: 0DBN8ZZ Excision of Sigmoid Colon, Via Natural or Artificial Opening Endoscopic (ICD-10-PCS; principal; 2019-07-31 11:30)
DX: K63.5 Polyp of colon (principal); K62.4 Stenosis of anus and rectum; Z85.038 Personal history of other malignant neoplasm of large intestine; I10 Essential (primary) hypertension; E11.65 Type 2 diabetes mellitus with hyperglycemia; Z79.899 Other long term (current) drug therapy; Z79.82 Long term (current) use of aspirin; Z79.84 Long term (current) use of oral hypoglycemic drugs; Z90.49 Acquired absence of other specified parts of digestive tract; Z87.891 Personal history of nicotine dependence; Z92.21 Personal history of antineoplastic chemotherapy; Z93.3 Colostomy status
CPT/HCPCS: 44389; 44394; J3010; J7120

== ENCOUNTER 2019-08-29 11:13 | Outpatient (CLI) | payer MEDICARE, MEDICAID ==
[2019-08-29 19:42] LABS: HB2 TOTAL 13.9 g/dL; HEMOGLOBIN A1C 0.57 g/dL; HEMOGLOBIN A1C % 5.9 % (4.6-6.2)
== END 2019-08-29 23:59 | disposition home or self-care (01) ==
LOC: LAB.N 11:13
PROVIDERS: ATTEND Nurse Practitioner Gerontology
DX: E11.9 Type 2 diabetes mellitus without complications (principal)
CPT/HCPCS: 36415; 83036

== ENCOUNTER 2019-10-27 09:41 | Outpatient (CLI) | payer MEDICARE, MEDICAID ==
[2019-10-27] MEDS ORDERED: IOVERSOL 320 50 ML VIAL ONE (10:42)
[2019-10-27] MEDS ORDERED: IOVERSOL 320 100 ML VIAL IVP ONE ×2 (10:42→16:01)
[2019-10-27] MEDS ORDERED: IOVERSOL 320 50 ML VIAL PO ONE (16:01)
--- NOTE | 2019-10-28 11:06 | CT Report ---
Reason: COLON CA Procedure Date: 10/27/2019 Accession Number: [id number] / [id number] Procedure: CT - Abdomen/Pelvis W CPT Code: Final Report FULL RESULT: EXAM: CT ABDOMEN AND PELVIS EXAM DATE: 10/27/2019 12:36 PM. CLINICAL HISTORY: Colon CA. COMPARISONS: ABDOMEN/PELVIS W/ 05/14/2019 4:14 PM. TECHNIQUE: Routine helical CT imaging was performed through the abdomen and pelvis. IV contrast: Optiray 320 100 mL. Enteric contrast: No. Reconstructions: Coronal and sagittal. In accordance with CT protocol optimization, one or more of the following dose reduction techniques were utilized for this exam: automated exposure control, adjustment of mA and/or KV based on patient size, or use of iterative reconstructive technique. FINDINGS: Lung Bases: Unremarkable. Liver: A stable right lobe hepatic hypodensity measuring less than 1 cm remains too small to characterize. No suspicious lesions are seen. Gallbladder/Bile Ducts: Unremarkable. Spleen: Normal. Pancreas: Normal. Adrenal Glands: A 2.4 cm left adrenal nodule remains uncharacterized, potentially unchanged when accounting for differences in technique. Mild nodularity of the right adrenal gland, essentially unchanged. Kidneys: Normal. No masses or hydronephrosis. Peritoneal Cavity/Bowel: There is no bowel obstruction. Colostomy changes are redemonstrated. No soft tissue mass is seen near the rectal stump. Abdominal free fluid has decreased in quantity compared to the previous study, some remains. By size criteria, there is no retroperitoneal lymphadenopathy. A few prominent mesenteric lymph nodes measure less than 1 cm in short axis, for example image 85 series 3, similar in appearance to prior. Pelvic Organs: Prostate is partially calcified. Bladder is unremarkable. Vasculature: No aneurysms or other significant abnormality. Bones: No significant abnormality. Other: None. IMPRESSION: No decrease in volume of ascites. Otherwise, stable appearance without evidence of disease progression. RADIA
--- NOTE | 2019-10-28 11:11 | CT Report ---
Reason: COLON CA Procedure Date: 10/27/2019 Accession Number: [id number] / [id number] Procedure: CT - CHEST W CPT Code: Final Report FULL RESULT: EXAM: CT CHEST EXAM DATE: 10/27/2019 12:36 PM. CLINICAL HISTORY: Colon CA. COMPARISONS: CHEST ANGIO 06/04/2019 6:29 PM CHEST W/ 05/14/2019 4:14 PM. TECHNIQUE: Routine helical CT imaging was performed through the chest. IV contrast: None. Reconstructions: Coronal and sagittal. In accordance with CT protocol optimization, one or more of the following dose reduction techniques were utilized for this exam: automated exposure control, adjustment of mA and/or KV based on patient size, or use of iterative reconstructive technique. FINDINGS: Lungs/Pleura: There are essentially unchanged tiny scattered pulmonary nodules which measure 3 mm or less, some of these are calcified indicating prior granulomatous disease. There are no new or suspicious pulmonary nodules or masses. No bronchial thickening, consolidation, or edema. Pulmonary vasculature is normal. No pericardial or pleural effusion. No pneumothorax. Mediastinum: Normal. No adenopathy or masses. The heart and great vessels are normal. Bones: No aggressive osseous lesions are detected. Visualized Abdomen: See separate report of the CT abdomen pelvis. Other: Central venous port is seen with its distal tip near the superior cavoatrial junction. IMPRESSION: No evidence of metastatic disease to the thorax. RADIA
== END 2019-10-27 09:42 | disposition home or self-care (01) ==
LOC: DI 09:41
PROVIDERS: ATTEND Internal Medicine Hematology & Oncology
DX: C18.7 Malignant neoplasm of sigmoid colon (principal)
CPT/HCPCS: 71260; 74177; Q9967

== ENCOUNTER 2020-07-13 13:26 | Outpatient (CLI) | payer MEDICARE, MEDICAID | END 2020-07-13 13:27 | disposition home or self-care (01) | LOC: COV 13:26 | PROVIDERS: ATTEND Surgery | DX: Z01.818 Encounter for other preprocedural examination (principal); Z93.3 Colostomy status; C18.9 Malignant neoplasm of colon, unspecified; Z20.828 Contact with and (suspected) exposure to other viral communicable diseases ==

== ENCOUNTER 2020-07-15 07:10 | Day surgery (SDC) | payer MEDICARE, MEDICAID ==
[~2020-07-15 07:10] MED LIST changes: -BUPIVACAINE 0.5% PF 30 ML VIAL ONE; +LACTATED RINGERS 1,000 ML IV ONE; +SODIUM/POTASSIUM/MAG SULFATES 354 ML PREP KIT PO SCH
[2020-07-15] MEDS ORDERED: MIDAZOLAM 2 MG/2 ML VIAL IVP ONE (07:11)
[2020-07-15] MEDS ORDERED: fentaNYL 100 MCG/2 ML VIAL IVP ONE (07:11)
[2020-07-15] MEDS ORDERED: LACTATED RINGERS 1,000 ML IV ONE (09:26)
[2020-07-15 10:29] VITALS: BP 136/85
== END 2020-07-15 07:11 | disposition home or self-care (01) ==
LOC: SDS 07:10
PROVIDERS: ATTEND Surgery
PROC: 3E0H8GC Introduction of Other Therapeutic Substance into Lower GI, Via Natural or Artificial Opening Endoscopic (ICD-10-PCS; 2020-07-15)
PROC: 0DBM8ZZ Excision of Descending Colon, Via Natural or Artificial Opening Endoscopic (ICD-10-PCS; principal; 2020-07-15 08:30)
DX: Z08 Encounter for follow-up examination after completed treatment for malignant neoplasm (principal); K63.5 Polyp of colon; Z85.038 Personal history of other malignant neoplasm of large intestine; Z93.3 Colostomy status; K64.8 Other hemorrhoids; I10 Essential (primary) hypertension; Z87.891 Personal history of nicotine dependence
CPT/HCPCS: 45381; 45385; A9270; J7120

== ENCOUNTER 2020-07-16 06:30 | Inpatient (IN) | payer MEDICARE, MEDICAID ==
[2020-07-16] MEDS ORDERED: LACTATED RINGERS 1,000 ML IV ONE ×3 (06:36→16:19)
[2020-07-16] MEDS ORDERED: CELECOXIB 100 MG CAPSULE PO ONE (06:38)
[2020-07-16] MEDS ORDERED: GABAPENTIN 400 MG CAPSULE ONE (06:38)
[2020-07-16] MEDS ORDERED: CEFAZOLIN SODIUM IN 0.9 % NACL 2 GM/100 ML BAG IV ONE (06:39)
[2020-07-16] MEDS ORDERED: ACETAMINOPHEN 1,000 MG/100 ML 100 ML IV ONE ×3 (06:39→14:58)
[2020-07-16] MEDS ORDERED: metroNIDAZOLE 500 MG/100 ML 500 MG/100 ML BAG ONE (06:39)
--- NOTE | 2020-07-16 07:26 | ANESTHESIA ---
Pre-Anesthesia VS, & Labs - Diagnosis colonostomy after partial colectomy for colon cancer - Procedure laparoscopic colostomy reversal Vital Signs: Temp Pulse Resp BP Pulse Ox 37.2 C 94 14 178/96 H 97 07/16/20 06:36 07/16/20 06:36 07/16/20 06:36 07/16/20 06:36 07/16/20 06:36 Height 5 ft 2 in Weight (kg) 82.7 kg Body Mass Index 33.8 - Lab Results Current Lab Results: Laboratory Tests 07/16/20 06:55: POC Whole Bld Glucose 209 H Home Medications and Allergies Home Medications: Ambulatory Orders Citalopram Hydrobromide [Celexa] 40 mg PO DAILY 07/13/20 Omeprazole 20 mg PO DAILY 07/13/20 Atorvastatin Calcium [Lipitor] 80 mg PO DAILY 07/19/18 Benazepril HCl 40 mg PO DAILY 07/19/18 Spironolactone [Aldactone] 50 mg PO BID 07/19/18 Garlic 1,000 mg PO BID 08/27/18 [place]-3S/Dha/Epa/Fish Oil [Fish Oil 1,200 mg Softgel] 1 each PO BID 08/27/18 Cholecalciferol (Vitamin D3) [Vitamin D3] 3,000 unit PO BID 08/28/18 Clonidine HCl [Catapres] 0.3 mg PO BID 08/28/18 amLODIPine [Norvasc] 10 mg PO DAILY 12/20/18 Citalopram Hydrobromide [Celexa] 40 mg PO DAILY 07/13/20 Omeprazole 20 mg PO DAILY 07/13/20 Allergies/Adverse Reactions: Allergies Allergy/AdvReac Type Severity Reaction Status Date / Time No Known Drug Allergies Allergy Verified 07/15/20 07:33 Anes History & Medical History - Anesthetic History Anesthesia Complications: reports: No previous complications Family history of Anesthesia Complications: Denies Family history of Malignant Hyperthermia: Denies - Medical History Cardiovascular: reports: Hypertension, High cholesterol, Murmur, Arrhythmia Pulmonary: reports: None Gastrointestinal: reports: GERD, Ulcerative colitis, Other Urinary: reports: None Neuro: reports: None Musculoskeletal: reports: None Endocrine/Autoimmune: reports: Type 2 diabetes Blood Disorders: reports: None Skin: reports: None Smoking Status: Never smoker - Surgical History General: Colonoscopy, Other Results - EKG Results EKG Comparison: Reviewed EKG Exam General: Alert, Oriented x3, Cooperative, No acute distress Dental: Poor dentition Mouth Openin Fingerbreadth Neck Mobility: Normal Mallampati classification: II Respiratory: Lungs clear, Normal breath sounds, No respiratory distress, No accessory muscle use Cardiovascular: Regular rate, Normal S1, Normal S2, No murmurs Plan Anesthesia Type: General, Epidural (if needed), Transverse Abdominis Plane (TAP) Block (if needed) Consent for Procedure(s) Verified and Reviewed: Yes Code Status: Attempt Resuscitation ASA classification: 2-Mild systemic disease Is this case an emergency?: No
[2020-07-16] MEDS ORDERED: LIDOCAINE 1%-EPI 1:100000 20 ML MDV ONE (07:34)
[2020-07-16] MEDS ORDERED: BUPIVACAINE 0.5% PF 30 ML VIAL ONE (07:34)
[2020-07-16] MEDS ORDERED: PROPOFOL 200 MG/20 ML VIAL IVP ONE (08:36)
[2020-07-16] MEDS ORDERED: fentaNYL 100 MCG/2 ML VIAL IVP ONE ×2 (08:36)
[2020-07-16] MEDS ORDERED: DEXAMETHASONE 4 MG/ML VIAL IVP ONE (08:36)
[2020-07-16] MEDS ORDERED: GLYCOPYRROLATE 1 MG/5 ML VIAL IVP ONE ×2 (08:36)
[2020-07-16] MEDS ORDERED: PHENYLEPHRINE 10 MG/ML VIAL IV ONE (08:36)
[2020-07-16] MEDS ORDERED: ONDANSETRON 4 MG/2 ML VIAL IVP ONE (08:36)
[2020-07-16] MEDS ORDERED: ROCURONIUM 50 MG/5 ML VIAL IVP ONE ×2 (08:36)
[2020-07-16] MEDS ORDERED: HYDROmorphone 1 MG/ML CARPUJECT IVP ONE (08:36)
[2020-07-16] MEDS ORDERED: ePHEDrine 50 MG/ML VIAL IVP ONE ×2 (08:36)
[2020-07-16] MEDS ORDERED: NEOSTIGMINE 1 MG/1 ML 10 ML MDV IVP ONE (08:36)
[2020-07-16] MEDS ORDERED: KETAMINE 500 MG/10 ML VIAL IVP ONE (08:36)
[2020-07-16] MEDS ORDERED: LIDOCAINE 1%-EPI 1:100000 20 ML MDV SUBQ ONE (10:01)
[2020-07-16] MEDS ORDERED: BUPIVACAINE 0.5% PF 30 ML VIAL SUBQ ONE (10:01)
[2020-07-16 14:36] LABS: HGB - HEMOGLOBIN 13.5 g/dL (14.0-18.0)
[2020-07-16] MEDS ORDERED: METHYLENE BLUE 0.5% 50 MG/10 ML AMPULE IR ONE (14:40)
[2020-07-16] MEDS ORDERED: METHYLENE BLUE 0.5% 50 MG/10 ML AMPULE ONE (14:47)
[2020-07-16] MEDS ORDERED: ONDANSETRON 4 MG/2 ML VIAL IVP PRN ×2 (14:58→16:00)
[2020-07-16] MEDS ORDERED: LORazepam 2 MG/ML VIAL IVP PRN (14:58)
[2020-07-16] MEDS ORDERED: LACTATED RINGERS 1,000 ML IV SCH ×2 (15:00→16:00)
--- NOTE | 2020-07-16 15:05 | PHARMACY PROGRESS NOTE ---
- Best Possible Medication History Admit Date and Time: 07/16/20 0630 Processed by: Pharmacy Medication History completed: Yes Patient Interview: Pt unable to participate Secondary Source(s): Physician records, Pharmacy records, Insurance records As the person ultimately responsible for medication therapy, providers are able to order a medication from an existing home medication list in [facility] via the "Reconcile Routine" prior to Confirmation of that medication by it application support analyst. Such practice is discouraged except when the physician, in their clinical judgment, deems that a medical need exists for a medication without regard to previous use.
[2020-07-16] MEDS ORDERED: NALOXONE 0.4 MG/ML VIAL IVP PRN (16:00)
[2020-07-16] MEDS ORDERED: MORPHINE 2 MG/ML CARPUJECT IVP PRN (16:00)
[2020-07-16] MEDS ORDERED: ePHEDrine 50 MG/ML VIAL IVP PRN (16:00)
[2020-07-16] MEDS ORDERED: METOCLOPRAMIDE 10 MG/2 ML VIAL IVP PRN (16:00)
[2020-07-16] MEDS ORDERED: ATROPINE ABBOJECT 1 MG/10 ML SYRINGE IVP PRN (16:00)
[2020-07-16] MEDS ORDERED: HYDROmorphone 0.5 MG/0.5 ML SYRINGE IVP PRN (16:00)
[2020-07-16] MEDS ORDERED: fentaNYL 100 MCG/2 ML VIAL IVP PRN (16:00)
--- NOTE | 2020-07-16 16:32 | OPERATIVE REPORT ---
Operative Report - General Admit Date: 07/16/20 Procedure Date: 07/16/20 Planned Procedure: 1. Laparoscopic-assisted colostomy takedown 2. Laparoscopic-assisted splenic flexure mobilization 3. Laparoscopic-assisted partial colectomy 4. Laparoscopic-assisted adhesio lysis 5. Laparoscopic-assisted loop ileostomy 6. Rigid proctosigmoidoscopy 7. Drainage catheter Pre-Op Diagnosis: History of colon cancer, history of low anterior r esection/Camp's Procedure Performed: 1. Laparoscopic-assisted colostomy takedown 2. Laparoscopic-assisted splenic flexure mobilization 3. Laparoscopic-assisted partial colectomy 4. Laparoscopic-assisted adhesio lysis, Extensive 5. Open adhesio lysis, extensive 6. Laparoscopic-assisted loop ileostomy 7. Rigid proctosigmoidoscopy 8. Drainage catheter placement 9. Pelvic dissection/rectal mobilization Post Op Diagnosis: Same, extensive adhesions, viable anastomosis, viable loop ileostomy - Procedure Note Primary Surgeon: Rudy Secondary Surgeon: Deepti Anesthesia Provider: Jose Anesthesia Technique: General ET tube, Local Pathology: 1. Colostomy 2. Descending colon 3. Proximal margin "doughnut" 4. Rectal "doughnut" Estimated Blood Loss (mL): 250 Drain/Tube Type: Shan drain Indications: See electronic medical record. Findings: 1. Exceedingly and impressively dense romero intestinal, romero abdominal adhesions 2. Rectal stump at less than 10 cm closer to 7 cm from the anal verge 3. Viable coloproctostomy traversed and without leak by insufflation on saline immersion, No tension 4. Viable descending colonic conduit 5. Viable loop ileostomy 6. No leak by methylene blue instillation of the bladder 7. Liver without any evidence of metastases grossly, no omental metastases gross Complications: NONE
--- NOTE | 2020-07-16 16:41 | ANESTHESIA POST OP EVALUATION ---
Anesthesia Post Eval - Post Anesthesia Eval Vitals: Last Vital Signs Temp 36.7 C 07/16/20 16:30 Pulse 102 H 07/16/20 16:30 Resp 16 07/16/20 16:22 BP 136/77 H 07/16/20 16:30 Pulse Ox 93 07/16/20 16:30 CV Function Including HR & BP: positive: Stable Pain Control: positive: Satisfactory Nausea & Vomiting: positive: Negative Mental Status: positive: Baseline Respiratory Status: Airway Patent Hydration Status: Satisfactory Anesthesia Complications: positive: None
[2020-07-16 17:18] LABS: BASOPHILS % (AUTO) 0.4 %; EOSINOPHILS % (AUTO) 0.2 %; HGB - HEMOGLOBIN 12.6 g/dL (14.0-18.0); LYMPHOCYTES % (AUTO) 4.4 %; MEAN CORPUSCULAR HEMOGLOBIN 32.6 pg (27.0-31.0); MEAN CORPUSCULAR HGB CONC 33.5 g/dL (32.0-36.0); MEAN CORPUSCULAR VOLUME 97.4 fL (80.0-94.0); MEAN PLATELET VOLUME 10.1 fL (7.4-11.4); MONOCYTES % (AUTO) 7.5 %; NEUTROPHILS % (AUTO) 86.9 %; PLT - PLATELET COUNT 228 10^3/uL (130-450); RED BLOOD COUNT 3.86 10^6/uL (4.70-6.10); RED CELL DISTRIBUTION WIDTH 12.8 % (12.0-15.0); WHITE BLOOD COUNT 24.5 x10^3/uL (4.8-10.8)
[2020-07-16 17:27] LABS: INR 1.3 (0.8-1.2)
[2020-07-16 17:28] LABS: ALBUMIN 3.1 g/dL (3.2-5.5); BILIRUBIN,TOTAL 0.6 mg/dL (0.2-1.0); CREATININE 1.8 mg/dL (0.6-1.2); TOTAL PROTEIN 6.2 g/dL (6.7-8.2)
[2020-07-16 17:29] LABS: ABNORMAL LYMPHS % (MANUAL) 0 %
[2020-07-16] MEDS: ceFAZolin 2 GM in SODIUM CHLORIDE 0.9% 100ML 100 ML IV SCH (17:30)
[2020-07-16] MEDS: HYDROmorphone 0.5 MG/0.5 ML SYRINGE IVP PRN ×2 (17:36→21:07)
[2020-07-16] MEDS: metroNIDAZOLE 500 MG/100 ML 500 MG/100 ML BAG IV SCH (17:36)
[2020-07-16] MEDS: LACTATED RINGERS 1,000 ML IV SCH (17:47)
[2020-07-16 17:53] LABS: BAND NEUTROPHILS % (MANUAL) 19 %; LYMPHOCYTES % (MANUAL) 8 %
[2020-07-16 17:54] LABS: DIFFERENTIAL COMMENT MANUAL DIFFERENTIAL; PLATELET ESTIMATE, MANUAL NORMAL (130-450,000) (NORMAL); PLATELET MORPHOLOGY NORMAL APPEARANCE (NORMAL); RBC MORPHOLOGY (MULTIPLE) NORMAL APPEARANCE (NORMAL)
[2020-07-16] MEDS ORDERED: INSULIN REGULAR HUMAN 300 UNIT/3 ML VIAL SUBQ SCH (18:00)
[2020-07-16] MEDS ORDERED: SODIUM CHLORIDE 0.9% 500 ML IV ONE (18:11)
[2020-07-16] MEDS: methocarbamoL 500 MG TABLET PO SCH (18:40)
[2020-07-16] MEDS ORDERED: INSULIN ASPART 300 UNIT/3 ML PEN SUBQ SCH (18:42)
[2020-07-16] MEDS: ATORVASTATIN 40 MG TABLET PO SCH (20:44)
[2020-07-16] MEDS: PREGABALIN 25 MG CAPSULE PO SCH (20:45)
[2020-07-16] MEDS: cloNIDine 0.1 MG TABLET PO SCH (20:45)
[2020-07-16] MEDS ORDERED: SPIRONOLACTONE 25 MG TABLET PO SCH (21:00)
[2020-07-16] MEDS: INSULIN ASPART 300 UNIT/3 ML PEN SUBQ SCH (21:06)
[2020-07-16 23:06] LABS: BASOPHILS % (AUTO) 0.2 %; EOSINOPHILS % (AUTO) 0.2 %; HGB - HEMOGLOBIN 10.4 g/dL (14.0-18.0); LYMPHOCYTES % (AUTO) 2.3 %; MEAN CORPUSCULAR HEMOGLOBIN 32.7 pg (27.0-31.0); MEAN CORPUSCULAR HGB CONC 33.8 g/dL (32.0-36.0); MEAN CORPUSCULAR VOLUME 96.9 fL (80.0-94.0); MEAN PLATELET VOLUME 9.9 fL (7.4-11.4); MONOCYTES % (AUTO) 8.2 %; NEUTROPHILS % (AUTO) 88.6 %; PLT - PLATELET COUNT 131 10^3/uL (130-450); RED BLOOD COUNT 3.18 10^6/uL (4.70-6.10); RED CELL DISTRIBUTION WIDTH 12.9 % (12.0-15.0); WHITE BLOOD COUNT 18.5 x10^3/uL (4.8-10.8)
[2020-07-16 23:11] LABS: ABNORMAL LYMPHS % (MANUAL) 0 %
[2020-07-16 23:23] LABS: ALBUMIN/GLOBULIN RATIO 1.1 (1.0-2.2); BILIRUBIN,TOTAL 0.5 mg/dL (0.2-1.0); CALCIUM 7.5 mg/dL (8.5-10.3); CREATININE 1.8 mg/dL (0.6-1.2); TOTAL PROTEIN 5.7 g/dL (6.7-8.2)
[2020-07-16 23:27] LABS: BAND NEUTROPHILS % (MANUAL) 3 %; LYMPHOCYTES # (MANUAL) 0.6 10^3/uL (1.5-3.5); LYMPHOCYTES % (MANUAL) 3 %; MONOCYTES # (MANUAL) 1.3 10^3/uL (0.0-1.0)
[2020-07-16 23:28] LABS: DIFFERENTIAL COMMENT MANUAL DIFFERENTIAL; PLATELET ESTIMATE, MANUAL NORMAL (130-450,000) (NORMAL); PLATELET MORPHOLOGY NORMAL APPEARANCE (NORMAL); RBC MORPHOLOGY (MULTIPLE) NORMAL APPEARANCE (NORMAL)
[2020-07-17] MEDS: methocarbamoL 500 MG TABLET PO SCH ×4 (01:07→17:21)
[2020-07-17] MEDS: ceFAZolin 2 GM in SODIUM CHLORIDE 0.9% 100ML 100 ML IV SCH (01:13)
[2020-07-17] MEDS: metroNIDAZOLE 500 MG/100 ML 500 MG/100 ML BAG IV SCH (02:08)
[2020-07-17] MEDS: LACTATED RINGERS 1,000 ML IV SCH ×4 (03:50→21:44)
[2020-07-17] MEDS: HYDROmorphone 0.5 MG/0.5 ML SYRINGE IVP PRN (04:42)
[2020-07-17 06:41] LABS: BASOPHILS % (AUTO) 0.2 %; EOSINOPHILS % (AUTO) 1.2 %; HGB - HEMOGLOBIN 9.7 g/dL (14.0-18.0); LYMPHOCYTES % (AUTO) 5.1 %; MEAN CORPUSCULAR HEMOGLOBIN 31.8 pg (27.0-31.0); MEAN CORPUSCULAR VOLUME 96.4 fL (80.0-94.0); MEAN PLATELET VOLUME 10.1 fL (7.4-11.4); MONOCYTES % (AUTO) 10.1 %; NEUTROPHILS % (AUTO) 82.8 %; PLT - PLATELET COUNT 128 10^3/uL (130-450); RED BLOOD COUNT 3.05 10^6/uL (4.70-6.10); WHITE BLOOD COUNT 15.6 x10^3/uL (4.8-10.8)
[2020-07-17 06:45] LABS: ABNORMAL LYMPHS % (MANUAL) 0 %
[2020-07-17 06:49] LABS: INR 1.4 (0.8-1.2); PT - PROTHROMBIN TIME 14.8 secs (9.9-12.6)
[2020-07-17 06:51] LABS: ALBUMIN 2.8 g/dL (3.2-5.5); BILIRUBIN,TOTAL 0.6 mg/dL (0.2-1.0); CALCIUM 7.5 mg/dL (8.5-10.3); CREATININE 1.6 mg/dL (0.6-1.2); TOTAL PROTEIN 5.5 g/dL (6.7-8.2)
[2020-07-17] MEDS: PANTOPRAZOLE 40 MG VIAL IVP SCH (06:53)
[2020-07-17] MEDS ORDERED: SODIUM CHLORIDE 0.9% 500 ML IV PRN (07:01)
[2020-07-17 07:02] LABS: BAND NEUTROPHILS % (MANUAL) 2 %; DIFFERENTIAL COMMENT MANUAL DIFFERENTIAL; LYMPHOCYTES # (MANUAL) 0.8 10^3/uL (1.5-3.5); LYMPHOCYTES % (MANUAL) 5 %; MONOCYTES # (MANUAL) 2.3 10^3/uL (0.0-1.0); PLATELET ESTIMATE, MANUAL DECREASED (<130,000) (NORMAL); PLATELET MORPHOLOGY NORMAL APPEARANCE (NORMAL); RBC MORPHOLOGY (MULTIPLE) NORMAL APPEARANCE (NORMAL)
[2020-07-17] MEDS: SODIUM CHLORIDE FLUSH 0.9% 10 ML SYRINGE IVP SCH ×2 (07:11→20:12)
[2020-07-17] MEDS: INSULIN ASPART 300 UNIT/3 ML PEN SUBQ SCH ×4 (08:55→21:43)
[2020-07-17] MEDS: amLODIPine 5 MG TABLET PO SCH (08:57)
[2020-07-17] MEDS: cloNIDine 0.1 MG TABLET PO SCH ×2 (08:57→20:12)
[2020-07-17] MEDS: CITALOPRAM HYDROBROMIDE 20 MG TABLET PO SCH (08:59)
[2020-07-17] MEDS: PREGABALIN 25 MG CAPSULE PO SCH ×2 (08:59→20:12)
[2020-07-17] MEDS ORDERED: ENOXAPARIN 40 MG/0.4 ML SYRINGE SUBQ SCH (09:00)
[2020-07-17] MEDS ORDERED: lisinopriL 20 MG TABLET PO SCH (09:00)
[2020-07-17] MEDS: SODIUM CHLORIDE FLUSH 0.9% 10 ML SYRINGE IVP PRN ×2 (09:00→17:22)
[2020-07-17] MEDS ORDERED: PHYTONADIONE INJ (ADULT) 10 MG in SODIUM CHLORIDE 0.9% 50 ML IV ONE (11:35)
[2020-07-17 14:32] LABS: ALBUMIN 2.5 g/dL (3.2-5.5); BILIRUBIN,TOTAL 0.5 mg/dL (0.2-1.0); CALCIUM 7.5 mg/dL (8.5-10.3); CREATININE 1.5 mg/dL (0.6-1.2); TOTAL PROTEIN 5.1 g/dL (6.7-8.2)
--- NOTE | 2020-07-17 15:47 | PROVIDER PROGRESS NOTE ---
Progress Note Subjective: Postoperative day #1 status post below listed procedures. Patient with associated postoperative nausea and vomiting. Pain adequately controlled. Dosed with FFP overnight secondary to coagulopathy of unknown origin. Patient also in acute renal failure and received fluids as well. Sanchez catheter remains intact. Pre-Op Diagnosis: History of colon cancer, history of low anterior resection/Camp's Procedure Performed: 1. Laparoscopic-assisted colostomy takedown 2. Laparoscopic-assisted splenic flexure mobilization 3. Laparoscopic-assisted partial colectomy 4. Laparoscopic-assisted adhesio lysis, Extensive 5. Open adhesio lysis, extensive 6. Laparoscopic-assisted loop ileostomy 7. Rigid proctosigmoidoscopy 8. Drainage catheter placement 9. Pelvic dissection/rectal mobilization Post Op Diagnosis: Same, extensive adhesions, viable anastomosis, viable loop ileostomy Objective: Alert awake and oriented x3. Hemodynamically acceptable. Lungs clear to auscultation bilaterally no wheezes rales or rhonchi. Regular rate and rhythm. Abdomen softly distended, wounds clean dry and intact, after wound VAC system with some dysfunction hooked to standard VAC system with connector. Shan drain with serosanguineous drainage. Moving all extremities. Cranial nerves II through XII intact. No sensorimotor deficits grossly. Stoma pink and productive of bilious stool. Again see above, Yamile wound VAC connected to house VAC system with no complication. Impression/Plan: POD # 1 s/p listed procedue (see above, colostomy reversal with extensive adhesio lysis amongst others). 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 Doing well. Ileus with anticipated slow resumption of bowel function. (1) GI - IVF, bowel regimen, advance diet as tolerated. GI ppx. Anticipate ileus. Opiate sparring analgesia. (2) SURGERY - continue SKY. Wound care continue packing historic stoma site. (3) Renal/Lytes - continue IVF. Renal indices responding to fluid resuscitation especially colloids from last night. Continue to trend BUN and creatinine.. (4) Respiratory - O2 as necessary. Continue IS. (5) Heme - Will continue hold DVT ppx given recent idiopathic coagulopathy. H/H likely dilutional. (6) Cardiovascular - HD acceptable. (7) Neuro - Opiate sparring analgesia. Antispasmodics with Robaxin. Avoid Toradol. Neuropathic agents. (8) WOUND care - will need to be discharged with home packing strips to historic colostomy site. Anticipate candidacy for ileostomy (loop ileostomy for diversion) takedown in 6 to 8 weeks. Please note that voice recognition software was used to transcribe this note and inadvertent errors might persist in spite of review and editing. I am obliged to you for your attention. I am thankful to you for allowing me to participate with you in this care of this patient.
[2020-07-17 16:25] LABS: BASOPHILS % (AUTO) 0.1 %; EOSINOPHILS # (AUTO) 0.3 10^3/uL (0.0-0.7); EOSINOPHILS % (AUTO) 2.5 %; HGB - HEMOGLOBIN 8.7 g/dL (14.0-18.0); LYMPHOCYTES % (AUTO) 7.4 %; MEAN CORPUSCULAR HEMOGLOBIN 31.4 pg (27.0-31.0); MEAN CORPUSCULAR HGB CONC 32.3 g/dL (32.0-36.0); MEAN CORPUSCULAR VOLUME 97.1 fL (80.0-94.0); MEAN PLATELET VOLUME 9.8 fL (7.4-11.4); MONOCYTES # (AUTO) 1.4 10^3/uL (0.0-1.0); MONOCYTES % (AUTO) 10.5 %; NEUTROPHILS # (AUTO) 10.7 10^3/uL (1.5-6.6); NEUTROPHILS % (AUTO) 78.8 %; PLT - PLATELET COUNT 108 10^3/uL (130-450); RED BLOOD COUNT 2.77 10^6/uL (4.70-6.10); RED CELL DISTRIBUTION WIDTH 13.2 % (12.0-15.0); WHITE BLOOD COUNT 13.6 x10^3/uL (4.8-10.8)
[2020-07-17] MEDS: METOCLOPRAMIDE 10 MG/2 ML VIAL IVP SCH (17:21)
[2020-07-17] MEDS ORDERED: ONDANSETRON 4 MG/2 ML VIAL IVP SCH (18:00)
[2020-07-17] MEDS: ATORVASTATIN 40 MG TABLET PO SCH (20:11)
[2020-07-17] MEDS: ONDANSETRON 4 MG/2 ML VIAL IVP SCH (20:11)
[2020-07-18] MEDS: methocarbamoL 500 MG TABLET PO SCH ×4 (01:17→17:23)
[2020-07-18] MEDS: METOCLOPRAMIDE 10 MG/2 ML VIAL IVP SCH ×4 (01:17→17:23)
[2020-07-18] MEDS: SODIUM CHLORIDE FLUSH 0.9% 10 ML SYRINGE IVP SCH ×3 (01:18→21:50)
[2020-07-18] MEDS: ONDANSETRON 4 MG/2 ML VIAL IVP SCH ×4 (04:12→21:50)
[2020-07-18] MEDS: LACTATED RINGERS 1,000 ML IV SCH ×2 (05:45→17:33)
[2020-07-18] MEDS: SODIUM CHLORIDE FLUSH 0.9% 10 ML SYRINGE IVP PRN ×4 (06:33→14:39)
[2020-07-18] MEDS: PANTOPRAZOLE 40 MG VIAL IVP SCH (06:33)
[2020-07-18] MEDS: CITALOPRAM HYDROBROMIDE 20 MG TABLET PO SCH (08:24)
[2020-07-18] MEDS: amLODIPine 5 MG TABLET PO SCH (08:25)
[2020-07-18] MEDS: cloNIDine 0.1 MG TABLET PO SCH ×2 (08:25→21:49)
[2020-07-18] MEDS: PREGABALIN 25 MG CAPSULE PO SCH ×2 (08:25→21:50)
[2020-07-18] MEDS: INSULIN ASPART 300 UNIT/3 ML PEN SUBQ SCH ×4 (08:25→21:50)
--- NOTE | 2020-07-18 12:24 | PROVIDER PROGRESS NOTE ---
Progress Note Subjective: Postoperative day #2 status post below listed procedures. Patient resolved for associated postoperative nausea and vomiting. Pain adequately controlled. After initial dosing with FFP overnight POD #0/1, secondary to coagulopathy of unknown origin, INR normalized without any further need to re-dose FFP and or vitamin K. Patient also in acute on chronic renal failure and receiving fluids as well. Sanchez catheter remove this a.m. awaiting trial of void. Tolerating full liquids. Pre-Op Diagnosis: History of colon cancer, history of low anterior resection/Camp's Procedure Performed: 1. Laparoscopic-assisted colostomy takedown 2. Laparoscopic-assisted splenic flexure mobilization 3. Laparoscopic-assisted partial colectomy 4. Laparoscopic-assisted adhesio lysis, Extensive 5. Open adhesio lysis, extensive 6. Laparoscopic-assisted loop ileostomy 7. Rigid proctosigmoidoscopy 8. Drainage catheter placement 9. Pelvic dissection/rectal mobilization Post Op Diagnosis: Same, extensive adhesions, viable anastomosis, viable loop ileostomy Objective: Alert awake and oriented x3. Hemodynamically acceptable. Lungs clear to auscultation bilaterally no wheezes rales or rhonchi. Regular rate and rhythm. Abdomen softly distended, wounds clean dry and intact, after wound VAC system with some dysfunction hooked to standard VAC system with connector. Shan drain with serosanguineous drainage. Moving all extremities. Cranial nerves II through XII intact. No sensorimotor deficits grossly. Stoma pink and productive of bilious stool. Again see above, Yamile wound VAC connected to house VAC system with no complication. Impression/Plan: POD # 2 s/p listed procedue (see above, colostomy reversal with extensive adhesio lysis amongst others). 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 Doing well. Ileus Resolved with resumption of bowel function. Major concern in this patient with acute on chronic renal failure if his fluid status while he remains diverted with loop ileostomy. This could exacerbate his renal failure. Thus will discuss with Dr. Mckay the possibility of placing a PICC line towards regular fluid infusions as he awaits ileostomy takedown. (1) GI - IVF, bowel regimen, advance diet as tolerated. GI ppx. Opiate sparring analgesia. Would consider outpatient slowing agents to include Lomotil amongst others. (2) SURGERY - continue SKY. Wound care continue packing historic stoma site. (3) Renal/Lytes - decrease IVF. Renal indices responding to fluid resuscitation especially colloids from first night. Continue to trend BUN and creatinine. Plan PICC line and outpatient IV fluids to avoid any complications as it relates to his acute on chronic renal failure.. (4) Respiratory - O2 as necessary. Continue IS. (5) Heme - Will continue hold DVT ppx given recent idiopathic coagulopathy. H/H likely dilutional. Dose IV iron and outpatient iron. (6) Cardiovascular - HD acceptable. (7) Neuro - Opiate sparring analgesia. Antispasmodics with Robaxin. Avoid Toradol. Neuropathic agents. (8) WOUND care - will need to be discharged with home packing strips to historic colostomy site. Anticipate candidacy for ileostomy (loop ileostomy for diversion) takedown in 6 to 8 weeks. (9) Discharge planning - PICC line placement and outpatient IV fluids along with weekly CBC and CMP. Please note that voice recognition software was used to transcribe this note and inadvertent errors might persist in spite of review and editing. I am obliged to you for your attention. I am thankful to you for allowing me to participate with you in this care of this patient.
[2020-07-18 12:47] LABS: BASOPHILS % (AUTO) 0.2 %; EOSINOPHILS # (AUTO) 0.2 10^3/uL (0.0-0.7); EOSINOPHILS % (AUTO) 1.1 %; HGB - HEMOGLOBIN 8.6 g/dL (14.0-18.0); LYMPHOCYTES # (AUTO) 0.9 10^3/uL (1.5-3.5); LYMPHOCYTES % (AUTO) 5.7 %; MEAN CORPUSCULAR HGB CONC 33.6 g/dL (32.0-36.0); MEAN CORPUSCULAR VOLUME 98.1 fL (80.0-94.0); MEAN PLATELET VOLUME 9.9 fL (7.4-11.4); MONOCYTES % (AUTO) 6.7 %; NEUTROPHILS # (AUTO) 12.8 10^3/uL (1.5-6.6); NEUTROPHILS % (AUTO) 85.1 %; PLT - PLATELET COUNT 99 10^3/uL (130-450); RED BLOOD COUNT 2.61 10^6/uL (4.70-6.10); RED CELL DISTRIBUTION WIDTH 13.4 % (12.0-15.0)
[2020-07-18 13:00] LABS: ALBUMIN 2.5 g/dL (3.2-5.5); ALBUMIN/GLOBULIN RATIO 0.9 (1.0-2.2); BILIRUBIN,TOTAL 0.4 mg/dL (0.2-1.0); CREATININE 1.4 mg/dL (0.6-1.2); TOTAL PROTEIN 5.4 g/dL (6.7-8.2)
[2020-07-18] MEDS ORDERED: oxyCODONE 5 MG TABLET PO PRN (16:34)
[2020-07-18] MEDS: ATORVASTATIN 40 MG TABLET PO SCH (21:49)
[2020-07-19] MEDS: METOCLOPRAMIDE 10 MG/2 ML VIAL IVP SCH ×5 (01:14→23:50)
[2020-07-19] MEDS: methocarbamoL 500 MG TABLET PO SCH ×5 (01:14→23:48)
[2020-07-19] MEDS: ONDANSETRON 4 MG/2 ML VIAL IVP SCH ×4 (04:01→20:12)
[2020-07-19] MEDS: SODIUM CHLORIDE FLUSH 0.9% 10 ML SYRINGE IVP PRN ×3 (04:04→06:06)
[2020-07-19 05:42] LABS: BASOPHILS % (AUTO) 0.2 %; EOSINOPHILS % (AUTO) 0.3 %; HGB - HEMOGLOBIN 8.1 g/dL (14.0-18.0); LYMPHOCYTES % (AUTO) 7.5 %; MEAN CORPUSCULAR HEMOGLOBIN 31.8 pg (27.0-31.0); MEAN CORPUSCULAR HGB CONC 32.1 g/dL (32.0-36.0); MEAN CORPUSCULAR VOLUME 98.8 fL (80.0-94.0); MEAN PLATELET VOLUME 10.2 fL (7.4-11.4); MONOCYTES % (AUTO) 7.6 %; NEUTROPHILS # (AUTO) 10.8 10^3/uL (1.5-6.6); NEUTROPHILS % (AUTO) 83.3 %; PLT - PLATELET COUNT 107 10^3/uL (130-450); RED BLOOD COUNT 2.55 10^6/uL (4.70-6.10); RED CELL DISTRIBUTION WIDTH 13.3 % (12.0-15.0)
[2020-07-19 05:54] LABS: ALBUMIN 2.5 g/dL (3.2-5.5); ALBUMIN/GLOBULIN RATIO 0.8 (1.0-2.2); BILIRUBIN,TOTAL 0.7 mg/dL (0.2-1.0); CALCIUM 8.5 mg/dL (8.5-10.3); CREATININE 1.3 mg/dL (0.6-1.2); TOTAL PROTEIN 5.6 g/dL (6.7-8.2)
[2020-07-19] MEDS: PANTOPRAZOLE 40 MG VIAL IVP SCH (06:00)
[2020-07-19] MEDS: LACTATED RINGERS 1,000 ML IV SCH ×2 (06:58→19:37)
[2020-07-19] MEDS: SODIUM CHLORIDE FLUSH 0.9% 10 ML SYRINGE IVP SCH ×4 (06:58→23:53)
[2020-07-19] MEDS: INSULIN ASPART 300 UNIT/3 ML PEN SUBQ SCH ×4 (08:09→20:16)
[2020-07-19] MEDS ORDERED: IRON DEXTRAN 200 MG in SODIUM CHLORIDE 0.9% 100ML 100 ML IV SCH (09:00)
[2020-07-19] MEDS: cloNIDine 0.1 MG TABLET PO SCH ×2 (09:10→20:12)
[2020-07-19] MEDS: PREGABALIN 25 MG CAPSULE PO SCH ×2 (09:13→20:12)
[2020-07-19] MEDS: CITALOPRAM HYDROBROMIDE 20 MG TABLET PO SCH (09:13)
[2020-07-19] MEDS: amLODIPine 5 MG TABLET PO SCH (09:13)
[2020-07-19] MEDS: TAMSULOSIN 0.4 MG CAPSULE PO SCH (09:14)
[2020-07-19] MEDS: HYDROmorphone 0.5 MG/0.5 ML SYRINGE IVP PRN ×3 (09:30→23:52)
--- NOTE | 2020-07-19 16:50 | PROVIDER PROGRESS NOTE ---
Subjective - General Admit Date: 07/16/20 Procedure Date: 07/16/20 Post Op Days: 3 - Review of Systems Wound/Incisions: positive: Healing well Drain Type: Shan Drain Output Description: Serous General: positive: Weakness. negative: Fever, Malaise HEENT: positive: No symptoms Pulmonary: positive: No symptoms. negative: Shortness of breath, Pleuritic chest pain Cardiovascular: positive: No symptoms Gastrointestinal: positive: Other (Denies pain. Bowen reports her recieved 1 dose of pain medication prior to the vac dressing change and wound packing.). negative: Nausea, Vomiting Genitourinary: positive: No symptoms Musculoskeletal: positive: No symptoms Skin: positive: No symptoms All Other Systems: positive: Reviewed and negative - Other Other Information/Narrative: Feeling well today. Denies any nausea and excited about the possibility of going home soon. Objective - Patient Data Vital Signs: Vital Signs x48h Temp Pulse Pulse Pulse Resp BP BP 07/19/20 14:00 36.7 C 74 20 110/58 L 07/19/20 12:45 80 80 127/64 07/19/20 10:21 37.2 C 80 18 124/68 07/19/20 09:45 37.1 C 81 141/76 H 07/19/20 09:25 37.1 C 81 141/76 H BP Pulse Ox 07/19/20 14:00 92 07/19/20 12:45 124/63 07/19/20 10:21 93 07/19/20 09:45 93 07/19/20 09:25 93 Intake & Output: Intake and Output Totals x24h 07/17/20 07/18/20 07/19/20 23:59 23:59 23:59 Intake Total 4425.333 4540 1627.733 Output Total 3810 3875 1155 Balance 615.333 665 472.733 - Lab Results Lab Results: 07/19/20 05:15 07/19/20 05:15 Other Lab Results: Lab Results x24hrs 07/19/20 07/19/20 07/19/20 Range/Units 16:30 11:46 07:55 WBC (4.8-10.8) x10^3/uL RBC (4.70-6.10) 10^6/uL Hgb (14.0-18.0) g/dL Hct (42.0-52.0) % MCV (80.0-94.0) fL MCH (27.0-31.0) pg MCHC (32.0-36.0) g/dL RDW (12.0-15.0) % Plt Count (130-450) 10^3/uL MPV (7.4-11.4) fL Neut # (Auto) (1.5-6.6) 10^3/uL Lymph # (Auto) (1.5-3.5) 10^3/uL [place] # (Auto) (0.0-1.0) 10^3/uL Eos # (Auto) (0.0-0.7) 10^3/uL Baso # (Auto) (0.0-0.1) 10^3/uL Absolute Nucleated RBC x10^3/uL Nucleated RBC % /100WBC Sodium (135-145) mmol/L Potassium (3.5-5.0) mmol/L Chloride (101-111) mmol/L Carbon Dioxide (21-32) mmol/L Anion Gap (6-13) BUN (6-20) mg/dL Creatinine (0.6-1.2) mg/dL Estimated GFR (MDRD) (>89) Glucose (70-100) mg/dL POC Whole Bld Glucose 163 H 195 H 176 H (70 - 100) mg/dL Calcium (8.5-10.3) mg/dL Total Bilirubin (0.2-1.0) mg/dL AST (10-42) IU/L ALT (10-60) IU/L Alkaline Phosphatase (42-121) IU/L Total Protein (6.7-8.2) g/dL Albumin (3.2-5.5) g/dL Globulin (2.1-4.2) g/dL Albumin/Globulin Ratio (1.0-2.2) 07/19/20 07/19/20 07/19/20 Range/Units 05:15 05:15 01:26 WBC 13.0 H (4.8-10.8) x10^3/uL RBC 2.55 L (4.70-6.10) 10^6/uL Hgb 8.1 L (14.0-18.0) g/dL Hct 25.2 L (42.0-52.0) % MCV 98.8 H (80.0-94.0) fL MCH 31.8 H (27.0-31.0) pg MCHC 32.1 (32.0-36.0) g/dL RDW 13.3 (12.0-15.0) % Plt Count 107 L (130-450) 10^3/uL MPV 10.2 (7.4-11.4) fL Neut # (Auto) 10.8 H (1.5-6.6) 10^3/uL Lymph # (Auto) 1.0 L (1.5-3.5) 10^3/uL [place] # (Auto) 1.0 (0.0-1.0) 10^3/uL Eos # (Auto) 0.0 (0.0-0.7) 10^3/uL Baso # (Auto) 0.0 (0.0-0.1) 10^3/uL Absolute Nucleated RBC 0.00 x10^3/uL Nucleated RBC % 0.0 /100WBC Sodium 136 (135-145) mmol/L Potassium 4.2 (3.5-5.0) mmol/L Chloride 103 (101-111) mmol/L Carbon Dioxide 25 (21-32) mmol/L Anion Gap 8.0 (6-13) BUN 17 (6-20) mg/dL Creatinine 1.3 H (0.6-1.2) mg/dL Estimated GFR (MDRD) 56 L (>89) Glucose 186 H (70-100) mg/dL POC Whole Bld Glucose 164 H (70 - 100) mg/dL Calcium 8.5 (8.5-10.3) mg/dL Total Bilirubin 0.7 (0.2-1.0) mg/dL AST 28 (10-42) IU/L ALT 25 (10-60) IU/L Alkaline Phosphatase 43 (42-121) IU/L Total Protein 5.6 L (6.7-8.2) g/dL Albumin 2.5 L (3.2-5.5) g/dL Globulin 3.1 (2.1-4.2) g/dL Albumin/Globulin Ratio 0.8 L (1.0-2.2) 07/18/20 Range/Units 20:14 WBC (4.8-10.8) x10^3/uL RBC (4.70-6.10) 10^6/uL Hgb (14.0-18.0) g/dL Hct (42.0-52.0) % MCV (80.0-94.0) fL MCH (27.0-31.0) pg MCHC (32.0-36.0) g/dL RDW (12.0-15.0) % Plt Count (130-450) 10^3/uL MPV (7.4-11.4) fL Neut # (Auto) (1.5-6.6) 10^3/uL Lymph # (Auto) (1.5-3.5) 10^3/uL [place] # (Auto) (0.0-1.0) 10^3/uL Eos # (Auto) (0.0-0.7) 10^3/uL Baso # (Auto) (0.0-0.1) 10^3/uL Absolute Nucleated RBC x10^3/uL Nucleated RBC % /100WBC Sodium (135-145) mmol/L Potassium (3.5-5.0) mmol/L Chloride (101-111) mmol/L Carbon Dioxide (21-32) mmol/L Anion Gap (6-13) BUN (6-20) mg/dL Creatinine (0.6-1.2) mg/dL Estimated GFR (MDRD) (>89) Glucose (70-100) mg/dL POC Whole Bld Glucose 190 H (70 - 100) mg/dL Calcium (8.5-10.3) mg/dL Total Bilirubin (0.2-1.0) mg/dL AST (10-42) IU/L ALT (10-60) IU/L Alkaline Phosphatase (42-121) IU/L Total Protein (6.7-8.2) g/dL Albumin (3.2-5.5) g/dL Globulin (2.1-4.2) g/dL Albumin/Globulin Ratio (1.0-2.2) - Current Medications Current Medications: Current Medications Generic Name Dose Route Start Last Admin Trade Name Freq PRN Reason Stop Dose Admin Amlodipine Besylate 10 mg 07/17/20 09:00 07/19/20 09:13 Norvasc PO 10 mg DAILY EZEKIEL Administration Atorvastatin Calcium 80 mg 07/16/20 21:00 07/18/20 21:49 Lipitor PO 80 mg QPM EZEKIEL Administration Citalopram Hydrobromide 40 mg 07/17/20 09:00 07/19/20 09:13 Celexa PO 40 mg DAILY EZEKIEL Administration Clonidine HCl 0.3 mg 07/16/20 21:00 07/19/20 09:10 Catapres PO 0.3 mg BID EZEKIEL Administration Hydromorphone HCl 0.5 mg 07/16/20 14:58 07/19/20 13:45 Dilaudid Inj Syringe IVP 0.5 mg Q2H PRN Administration PAIN Iron Dextran 200 mg/ Sodium 104 mls @ 104 mls/hr 07/19/20 09:00 07/19/20 13:26 Chloride IV 07/21/20 09:59 Infused DAILY EZEKIEL Infusion Lactated Ringer's 1,000 mls @ 75 mls/hr 07/18/20 16:35 07/19/20 06:58 Lr IV 75 mls/hr .[id number] EZEKIEL Administration Insulin Aspart 2 - 10 unit 07/18/20 21:00 07/19/20 12:05 Novolog SUBQ 4 unit 0800,1200,1700,2100 EZEKIEL Administration Protocol Methocarbamol 500 mg 07/16/20 18:00 07/19/20 12:02 Robaxin PO 500 mg Q6HR EZEKIEL Administration Metoclopramide HCl 10 mg 07/17/20 18:00 07/19/20 12:03 Reglan Inj IVP 07/23/20 18:01 10 mg Q6HR EZEKIEL Administration Ondansetron HCl 4 mg 07/17/20 21:00 07/19/20 15:02 Zofran Inj IVP 4 mg Q6H EZEKIEL Administration Pantoprazole Sodium 40 mg 07/17/20 07:00 07/19/20 06:00 Protonix IVP 40 mg QDAC EZEKIEL Administration Pregabalin 75 mg 07/16/20 21:00 07/19/20 09:13 Lyrica PO 75 mg BID EZEKIEL Administration Sodium Chloride 10 ml 07/17/20 14:00 07/19/20 14:58 Normal Saline Flush 0.9% IVP Not Given Q8HR EZEKIEL Sodium Chloride 10 ml 07/17/20 07:08 07/19/20 06:06 Normal Saline Flush 0.9% IVP 10 ml PRN PRN Administration NEEDED PER PROVIDER ORDERS Tamsulosin HCl 0.4 mg 07/19/20 09:00 07/19/20 09:14 Flomax PO 0.4 mg DAILY EZEKIEL Administration - Physical Exam Wound/Incisions: positive: Healing well, No drainage General Appearance: positive: No acute distress, Alert Eyes Bilateral: positive: Normal inspection, PERRL ENT: positive: ENT inspection nml, Pharynx nml Neck: positive: Nml inspection Respiratory: positive: Chest non-tender, No respiratory distress, Breath sounds nml Cardiovascular: positive: Regular rate & rhythm, No murmur, No gallop Abdomen: positive: Other (Mildly tender to palpation. LLQ ostomy site is clean and packed. Vac dressing in place over the Pfannensteil incision. Active bowel sounds. Ostomy viable and producing bilious succus.) Skin: positive: Color nml Neurologic/Psychiatric: positive: Oriented x3 Impression/Plan - Problem List Problem List: Recovering as expected after difficult and complex laparoscopic ostomy reversal with diverting ileostomy. 1. Plan for discharge tomorrow if all can be arranged. Patient will need home health for ostomy help and wound care. 2. PICC line placement to facilitate weekly lab draw and qod fluid boluses. Patient with well documented renal insufficiency now with ileostomy status. 3. Pain is well controlled and he is tolerating a regular diet so we will continue with current management in this regard.
[2020-07-19] MEDS: ATORVASTATIN 40 MG TABLET PO SCH (20:12)
[2020-07-20] MEDS: ONDANSETRON 4 MG/2 ML VIAL IVP SCH ×4 (03:02→20:04)
[2020-07-20] MEDS: METOCLOPRAMIDE 10 MG/2 ML VIAL IVP SCH ×4 (05:41→23:44)
[2020-07-20] MEDS: PANTOPRAZOLE 40 MG VIAL IVP SCH (05:41)
[2020-07-20] MEDS: SODIUM CHLORIDE FLUSH 0.9% 10 ML SYRINGE IVP PRN (05:41)
[2020-07-20] MEDS: methocarbamoL 500 MG TABLET PO SCH ×4 (05:41→23:44)
[2020-07-20 05:52] LABS: BASOPHILS % (AUTO) 0.2 %; EOSINOPHILS # (AUTO) 0.1 10^3/uL (0.0-0.7); HGB - HEMOGLOBIN 8.3 g/dL (14.0-18.0); LYMPHOCYTES % (AUTO) 9.4 %; MEAN CORPUSCULAR HEMOGLOBIN 32.3 pg (27.0-31.0); MEAN CORPUSCULAR HGB CONC 33.1 g/dL (32.0-36.0); MEAN CORPUSCULAR VOLUME 97.7 fL (80.0-94.0); MEAN PLATELET VOLUME 10.7 fL (7.4-11.4); MONOCYTES # (AUTO) 0.9 10^3/uL (0.0-1.0); MONOCYTES % (AUTO) 8.6 %; NEUTROPHILS # (AUTO) 8.5 10^3/uL (1.5-6.6); PLT - PLATELET COUNT 143 10^3/uL (130-450); RED BLOOD COUNT 2.57 10^6/uL (4.70-6.10); RED CELL DISTRIBUTION WIDTH 13.2 % (12.0-15.0); WHITE BLOOD COUNT 10.6 x10^3/uL (4.8-10.8)
[2020-07-20 06:05] LABS: ALBUMIN 2.5 g/dL (3.2-5.5); ALBUMIN/GLOBULIN RATIO 0.8 (1.0-2.2); BILIRUBIN,TOTAL 0.8 mg/dL (0.2-1.0); CALCIUM 8.2 mg/dL (8.5-10.3); CREATININE 1.3 mg/dL (0.6-1.2); TOTAL PROTEIN 5.6 g/dL (6.7-8.2)
[2020-07-20] MEDS: HYDROmorphone 0.5 MG/0.5 ML SYRINGE IVP PRN ×2 (08:20→14:13)
[2020-07-20] MEDS: cloNIDine 0.1 MG TABLET PO SCH ×2 (08:20→20:00)
[2020-07-20] MEDS: amLODIPine 5 MG TABLET PO SCH (08:21)
[2020-07-20] MEDS: INSULIN ASPART 300 UNIT/3 ML PEN SUBQ SCH ×4 (08:21→20:14)
[2020-07-20] MEDS: PREGABALIN 25 MG CAPSULE PO SCH ×2 (08:21→20:00)
[2020-07-20] MEDS: CITALOPRAM HYDROBROMIDE 20 MG TABLET PO SCH (08:21)
[2020-07-20] MEDS: TAMSULOSIN 0.4 MG CAPSULE PO SCH (08:21)
[2020-07-20] MEDS: LACTATED RINGERS 1,000 ML IV SCH ×2 (08:34→20:15)
[2020-07-20] MEDS: SODIUM CHLORIDE FLUSH 0.9% 10 ML SYRINGE IVP SCH ×2 (14:17→22:25)
--- NOTE | 2020-07-20 18:36 | PROVIDER PROGRESS NOTE ---
Subjective - General Admit Date: 07/16/20 Procedure Date: 07/16/20 Post Op Days: 4 - Review of Systems Wound/Incisions: positive: Healing well, No drainage Drain Type: Shan Drain Output Description: Serous General: positive: Weakness. negative: Fever, Malaise HEENT: positive: No symptoms Pulmonary: positive: No symptoms. negative: Shortness of breath, Pleuritic chest pain Cardiovascular: positive: No symptoms Gastrointestinal: positive: Other (Denies pain. Bowen reports her recieved 1 dose of pain medication prior to the vac dressing change and wound packing.). negative: Nausea, Vomiting Genitourinary: positive: No symptoms Musculoskeletal: positive: No symptoms Skin: positive: No symptoms All Other Systems: positive: Reviewed and negative - Other Other Information/Narrative: Bowen is feeling well today. Reports he has had lots of watery stool from his ostomy but denies any pain. Plans in the works for discharge tomorrow. Objective - Patient Data Reviewed Vital Signs: Yes Vital Signs: Vital Signs x48h Temp Pulse Resp BP Pulse Ox 07/20/20 16:13 37.1 C 70 20 122/69 94 07/20/20 14:00 36.4 C L 70 122/72 Intake & Output: Intake and Output Totals x24h 07/18/20 07/19/20 07/20/20 23:59 23:59 23:59 Intake Total 4540 3516.483 1771.25 Output Total 3875 1995 1625 Balance 665 1521.483 146.25 - Lab Results Lab Results: 07/20/20 05:27 07/20/20 05:27 Other Lab Results: Lab Results x24hrs 07/20/20 07/20/20 07/20/20 Range/Units 11:59 08:21 05:27 WBC (4.8-10.8) x10^3/uL RBC (4.70-6.10) 10^6/uL Hgb (14.0-18.0) g/dL Hct (42.0-52.0) % MCV (80.0-94.0) fL MCH (27.0-31.0) pg MCHC (32.0-36.0) g/dL RDW (12.0-15.0) % Plt Count (130-450) 10^3/uL MPV (7.4-11.4) fL Neut # (Auto) (1.5-6.6) 10^3/uL Lymph # (Auto) (1.5-3.5) 10^3/uL [place] # (Auto) (0.0-1.0) 10^3/uL Eos # (Auto) (0.0-0.7) 10^3/uL Baso # (Auto) (0.0-0.1) 10^3/uL Absolute Nucleated RBC x10^3/uL Nucleated RBC % /100WBC Sodium 135 (135-145) mmol/L Potassium 4.1 (3.5-5.0) mmol/L Chloride 102 (101-111) mmol/L Carbon Dioxide 25 (21-32) mmol/L Anion Gap 8.0 (6-13) BUN 16 (6-20) mg/dL Creatinine 1.3 H (0.6-1.2) mg/dL Estimated GFR (MDRD) 56 L (>89) Glucose 192 H (70-100) mg/dL POC Whole Bld Glucose 178 H 179 H (70 - 100) mg/dL Calcium 8.2 L (8.5-10.3) mg/dL Total Bilirubin 0.8 (0.2-1.0) mg/dL AST 29 (10-42) IU/L ALT 27 (10-60) IU/L Alkaline Phosphatase 59 (42-121) IU/L Total Protein 5.6 L (6.7-8.2) g/dL Albumin 2.5 L (3.2-5.5) g/dL Globulin 3.1 (2.1-4.2) g/dL Albumin/Globulin Ratio 0.8 L (1.0-2.2) 07/20/20 07/19/20 Range/Units 05:27 20:09 WBC 10.6 (4.8-10.8) x10^3/uL RBC 2.57 L (4.70-6.10) 10^6/uL Hgb 8.3 L (14.0-18.0) g/dL Hct 25.1 L (42.0-52.0) % MCV 97.7 H (80.0-94.0) fL MCH 32.3 H (27.0-31.0) pg MCHC 33.1 (32.0-36.0) g/dL RDW 13.2 (12.0-15.0) % Plt Count 143 (130-450) 10^3/uL MPV 10.7 (7.4-11.4) fL Neut # (Auto) 8.5 H (1.5-6.6) 10^3/uL Lymph # (Auto) 1.0 L (1.5-3.5) 10^3/uL [place] # (Auto) 0.9 (0.0-1.0) 10^3/uL Eos # (Auto) 0.1 (0.0-0.7) 10^3/uL Baso # (Auto) 0.0 (0.0-0.1) 10^3/uL Absolute Nucleated RBC 0.02 x10^3/uL Nucleated RBC % 0.2 /100WBC Sodium (135-145) mmol/L Potassium (3.5-5.0) mmol/L Chloride (101-111) mmol/L Carbon Dioxide (21-32) mmol/L Anion Gap (6-13) BUN (6-20) mg/dL Creatinine (0.6-1.2) mg/dL Estimated GFR (MDRD) (>89) Glucose (70-100) mg/dL POC Whole Bld Glucose 167 H (70 - 100) mg/dL Calcium (8.5-10.3) mg/dL Total Bilirubin (0.2-1.0) mg/dL AST (10-42) IU/L ALT (10-60) IU/L Alkaline Phosphatase (42-121) IU/L Total Protein (6.7-8.2) g/dL Albumin (3.2-5.5) g/dL Globulin (2.1-4.2) g/dL Albumin/Globulin Ratio (1.0-2.2) - Current Medications Current Medications: Current Medications Generic Name Dose Route Start Last Admin Trade Name Freq PRN Reason Stop Dose Admin Amlodipine Besylate 10 mg 07/17/20 09:00 07/20/20 08:21 Norvasc PO 10 mg DAILY EZEKIEL Administration Atorvastatin Calcium 80 mg 07/16/20 21:00 07/19/20 20:12 Lipitor PO 80 mg QPM EZEKIEL Administration Citalopram Hydrobromide 40 mg 07/17/20 09:00 07/20/20 08:21 Celexa PO 40 mg DAILY EZEKIEL Administration Clonidine HCl 0.3 mg 07/16/20 21:00 07/20/20 08:20 Catapres PO 0.3 mg BID EZEKIEL Administration Hydromorphone HCl 0.5 mg 07/16/20 14:58 07/20/20 14:13 Dilaudid Inj Syringe IVP 0.5 mg Q2H PRN Administration PAIN Lactated Ringer's 1,000 mls @ 75 mls/hr 07/18/20 16:35 07/20/20 08:34 Lr IV 75 mls/hr .[id number] EZEKIEL Administration Insulin Aspart 2 - 10 unit 07/18/20 21:00 07/20/20 17:06 Novolog SUBQ 2 unit 0800,1200,1700,2100 EZEKIEL Administration Protocol Methocarbamol 500 mg 07/16/20 18:00 07/20/20 17:06 Robaxin PO 500 mg Q6HR EZEKIEL Administration Metoclopramide HCl 10 mg 07/17/20 18:00 07/20/20 17:06 Reglan Inj IVP 07/23/20 18:01 10 mg Q6HR EZEKIEL Administration Ondansetron HCl 4 mg 07/17/20 21:00 07/20/20 15:05 Zofran Inj IVP 4 mg Q6H EZEKIEL Administration Pantoprazole Sodium 40 mg 07/17/20 07:00 07/20/20 05:41 Protonix IVP 40 mg QDAC EZEKIEL Administration Pregabalin 75 mg 07/16/20 21:00 07/20/20 08:21 Lyrica PO 75 mg BID EZEKIEL Administration Sodium Chloride 10 ml 07/17/20 14:00 07/20/20 14:17 Normal Saline Flush 0.9% IVP Not Given Q8HR EZEKIEL Sodium Chloride 10 ml 07/17/20 07:08 07/20/20 05:41 Normal Saline Flush 0.9% IVP 10 ml PRN PRN Administration NEEDED PER PROVIDER ORDERS Tamsulosin HCl 0.4 mg 07/19/20 09:00 07/20/20 08:21 Flomax PO 0.4 mg DAILY EZEKIEL Administration - Physical Exam Wound/Incisions: positive: Healing well General Appearance: positive: No acute distress, Alert Eyes Bilateral: positive: Normal inspection ENT: positive: ENT inspection nml Respiratory: positive: Breath sounds nml Cardiovascular: positive: Regular rate & rhythm Abdomen: positive: Other (Minimal tenderness. Active bowel sounds. LLQ wound is clean and packed. Ostomy is viable and working) ABX Reporting Has patient been on IV antibiotics over the past 48 hours?: No Impression/Plan - Problem List Problem List: Plan for discharge in the morning. He will go to the [facility] for fluid bolus qod and weekly labs as well as ostomy and wound care. Orders will be forwarded in the morning.
[2020-07-20] MEDS: DIPHENOX/ATROPINE 2.5/0.025 MG TABLET PO SCH ×2 (20:01→22:25)
[2020-07-20] MEDS: ATORVASTATIN 40 MG TABLET PO SCH (20:01)
[2020-07-21] MEDS: ONDANSETRON 4 MG/2 ML VIAL IVP SCH ×2 (03:08→09:26)
[2020-07-21] MEDS: methocarbamoL 500 MG TABLET PO SCH ×2 (05:19→12:06)
[2020-07-21] MEDS: PANTOPRAZOLE 40 MG VIAL IVP SCH (05:19)
[2020-07-21] MEDS: METOCLOPRAMIDE 10 MG/2 ML VIAL IVP SCH ×2 (05:20→12:05)
[2020-07-21] MEDS: SODIUM CHLORIDE FLUSH 0.9% 10 ML SYRINGE IVP SCH ×2 (05:20→13:10)
[2020-07-21 05:34] LABS: BASOPHILS % (AUTO) 0.3 %; EOSINOPHILS # (AUTO) 0.1 10^3/uL (0.0-0.7); HGB - HEMOGLOBIN 8.5 g/dL (14.0-18.0); LYMPHOCYTES # (AUTO) 1.1 10^3/uL (1.5-3.5); LYMPHOCYTES % (AUTO) 10.4 %; MEAN CORPUSCULAR HEMOGLOBIN 31.3 pg (27.0-31.0); MEAN CORPUSCULAR VOLUME 97.8 fL (80.0-94.0); MEAN PLATELET VOLUME 10.1 fL (7.4-11.4); MONOCYTES # (AUTO) 1.1 10^3/uL (0.0-1.0); MONOCYTES % (AUTO) 10.6 %; NEUTROPHILS # (AUTO) 7.9 10^3/uL (1.5-6.6); NEUTROPHILS % (AUTO) 76.9 %; PLT - PLATELET COUNT 159 10^3/uL (130-450); RED BLOOD COUNT 2.72 10^6/uL (4.70-6.10); RED CELL DISTRIBUTION WIDTH 13.3 % (12.0-15.0); WHITE BLOOD COUNT 10.3 x10^3/uL (4.8-10.8)
[2020-07-21 05:44] LABS: ALBUMIN 2.4 g/dL (3.2-5.5); ALBUMIN/GLOBULIN RATIO 0.7 (1.0-2.2); CALCIUM 8.5 mg/dL (8.5-10.3); CREATININE 1.4 mg/dL (0.6-1.2); TOTAL PROTEIN 5.8 g/dL (6.7-8.2)
[2020-07-21] MEDS: INSULIN ASPART 300 UNIT/3 ML PEN SUBQ SCH ×2 (08:09→12:05)
[2020-07-21] MEDS: amLODIPine 5 MG TABLET PO SCH (09:25)
[2020-07-21] MEDS: DIPHENOX/ATROPINE 2.5/0.025 MG TABLET PO SCH ×2 (09:25→13:09)
[2020-07-21] MEDS: TAMSULOSIN 0.4 MG CAPSULE PO SCH (09:25)
[2020-07-21] MEDS: CITALOPRAM HYDROBROMIDE 20 MG TABLET PO SCH (09:26)
[2020-07-21] MEDS: PREGABALIN 25 MG CAPSULE PO SCH (09:26)
[2020-07-21] MEDS: cloNIDine 0.1 MG TABLET PO SCH (09:26)
[2020-07-21] MEDS: LACTATED RINGERS 1,000 ML IV SCH (10:47)
--- NOTE | 2020-07-21 13:32 | Discharge Plan ---
Discharge Plan Problem Reviewed?: Yes Disposition: Home, Self Care Condition: Fair Prescriptions: oxyCODONE [Roxicodone] 5 mg PO Q4HR PRN #14 tablet PRN Reason: Pain metFORMIN [Glucophage] 500 mg PO BIDWM #60 tablet Diphenoxylate/Atropine [Lomotil] 1 tab PO QID #120 tablet Diet: Regular Activity Restrictions: 15 pound lifting limit Shower Restrictions: No Driving Restrictions: Yes (After follow up appt) Assistance Devices: Walker Weight Bearing: Full Weight Follow-Up Care: [facility] [place], [facility] [place] [facility], [facility] - Diabetes Ed No Smoking: If you smoke, Please STOP! Call for help. Follow-up with: Mariel Buchanan PA [Primary Care Provider] - Santos Grant MD [Provider Admit Priv/Credential] -
--- NOTE | 2020-07-21 13:45 | DISCHARGE SUMMARY ---
"Discharge Summary Admit Date: 07/16/20 Discharge Date: 07/21/20 Discharging Provider: Rudy Primary Care Provider: Chanel Code Status: Attempt Resuscitation Condition at Discharge: Fair Discharge Disposition: 01 Home, Self Care - DIAGNOSES Admission Diagnoses: History of colon cancer with colostomy status Discharge Diagnoses with Status of Each Condition: Colostomy reversed. Now with diverting loop ileostomy - imiproving. - HPI History of Present Illness: Bowen is a very pleasant 64 year old gentleman who was diagnosed with locally advanced colorectal cancer almost 1 year ago. He was treated with neoadjuvant chemotherapy followed by Low Anterior Resection with Camp pouch and end colostomy. He then took adjuvant chemotherapy and is without evidence of disease. He presented on the day of admission for Laparoscopic lysis of adhesions with colocolostomy and protective diverting ileostomy. The surgery was complicated by extensive abdominal adhesive disease but was otherwise uneventful. - CONSULTS | PROCEDURES Consultations: Wound Ostomy Nurse, Physical Therapy Procedures: See above - HOSPITAL COURSE Hospital Course: Bowen was admitted to [facility] surg following the procedure. He progressed as expected and was active with his care and ostomy education. He was noted during this admission to have presistently elevated blood sugars as well as pre renal azotemia after colon prep. At present, he is without pain, tolerating a regular diet, able to change his own ostomy appliance, and the pelvic drain has been discontinued. Lomotil has been effective for controlling ileostomy output. He will be followed at the [facility] [place] [facility] clinic for qod 1 liter bolus of NS to pervent azot emia, weekly BMP, Ostomy care, wound care for prior ostomy site in the LLQ and diabetic education. He will followup here in 1 week and should follow up with JORGE Stallworth in the next 2-3 weeks. - ALLERGIES Allergies/Adverse Reactions: Allergies Allergy/AdvReac Type Severity Reaction Status Date / Time iron dextran complex AdvReac Mild Itching Verified 07/19/20 11:20 - MEDICATIONS Home Medications: Ambulatory Orders Medication Instructions Recorded Confirmed Atorvastatin Calcium [Lipitor] 80 mg PO DAILY 07/19/18 07/16/20 Benazepril HCl 40 mg PO DAILY 07/19/18 07/16/20 Spironolactone [Aldactone] 50 mg PO BID 07/19/18 07/16/20 Garlic 1,000 mg PO BID 08/27/18 07/16/20 Wake-3S/Dha/Epa/Fish Oil [Fish 1 each PO BID 08/27/18 07/16/20 Oil 1,200 mg Softgel] Cholecalciferol (Vitamin D3) 3,000 unit PO BID 08/28/18 07/16/20 [Vitamin D3] Clonidine HCl [Catapres] 0.3 mg PO BID 08/28/18 07/16/20 amLODIPine [Norvasc] 10 mg PO DAILY 12/20/18 07/16/20 Citalopram Hydrobromide [Celexa] 40 mg PO DAILY 07/13/20 07/16/20 Omeprazole 20 mg PO DAILY 07/13/20 07/16/20 Diphenoxylate/Atropine [Lomotil] 1 tab PO QID #120 tablet 07/21/20 Tamsulosin [Flomax] 0.4 mg PO DAILY capsule 07/21/20 metFORMIN [Glucophage] 500 mg PO BIDWM #60 tablet 07/21/20 oxyCODONE [Roxicodone] 5 mg PO Q4HR PRN #14 tablet 07/21/20 - PHYSICAL EXAM AT DISCHARGE General Appearance: positive: No acute distress, Alert Eyes Bilateral: positive: Normal inspection, PERRL, EOMI ENT: positive: ENT inspection nml, Pharynx nml, No signs of dehydration Respiratory: positive: No respiratory distress, Breath sounds nml Cardiovascular: positive: Regular rate & rhythm Peripheral Pulses: positive: 1+ Abdomen: positive: Other (Wounds are all healing well. No erythema. Ostomy output is mushy and green) Back: negative: CVA tenderness (R), CVA tenderness (L) Skin: positive: Color nml, No rash Neurologic/Psychiatric: positive: Oriented x3 - LABS Result Diagrams: 07/21/20 05:20 07/21/20 05:20 - QUALITY (Female Hip Fx Only) Was patient sent home on osteoporosis medication?: No - FOLLOW UP Follow Up: [address] Grant 2-3 Weeks with JORGE Stallworth - TIME SPENT Time Spent in Discharge (Minutes): 35"
[2020-07-21 14:03] VITALS: BP 125/65
== END 2020-07-21 14:30 | disposition home or self-care (01) | DRG 330 ==
LOC: MS2 06:30
PROVIDERS: ADMIT Surgery; ATTEND Surgery
PROC: 0D1B0Z4 Bypass Ileum to Cutaneous, Open Approach (ICD-10-PCS; 2020-07-16)
PROC: 0DNG0ZZ Release Left Large Intestine, Open Approach (ICD-10-PCS; 2020-07-16)
PROC: 0DN80ZZ Release Small Intestine, Open Approach (ICD-10-PCS; 2020-07-16)
PROC: 0DNL0ZZ Release Transverse Colon, Open Approach (ICD-10-PCS; 2020-07-16)
PROC: 30233K1 Transfusion of Nonautologous Frozen Plasma into Peripheral Vein, Percutaneous Approach (ICD-10-PCS; 2020-07-16)
PROC: 0DBM0ZZ Excision of Descending Colon, Open Approach (ICD-10-PCS; principal; 2020-07-16 07:30)
DX: Z43.3 Encounter for attention to colostomy (principal); N17.9 Acute kidney failure, unspecified; D68.9 Coagulation defect, unspecified; K66.0 Peritoneal adhesions (postprocedural) (postinfection); E11.22 Type 2 diabetes mellitus with diabetic chronic kidney disease; N18.9 Chronic kidney disease, unspecified; E11.65 Type 2 diabetes mellitus with hyperglycemia; I12.9 Hypertensive chronic kidney disease with stage 1 through stage 4 chronic kidney disease, or unspecified chronic kidney disease; I49.9 Cardiac arrhythmia, unspecified; R01.1 Cardiac murmur, unspecified; F41.9 Anxiety disorder, unspecified; F32.9 Major depressive disorder, single episode, unspecified; K21.9 Gastro-esophageal reflux disease without esophagitis; F90.9 Attention-deficit hyperactivity disorder, unspecified type; F41.0 Panic disorder [episodic paroxysmal anxiety]; E78.5 Hyperlipidemia, unspecified; Z85.048 Personal history of other malignant neoplasm of rectum, rectosigmoid junction, and anus; Z92.21 Personal history of antineoplastic chemotherapy; Z87.891 Personal history of nicotine dependence; Z87.19 Personal history of other diseases of the digestive system; Z79.899 Other long term (current) drug therapy
CPT/HCPCS: 36415; 80053; 85014; 85018; 85025; 85610; 86850; 86900; 86901; 97116; 97161; A9270; J0131; J0690; J1170; J1750; J1815; J2765; J7120; J8499; P9017

== ENCOUNTER 2020-08-13 07:00 | Outpatient (CLI) | payer MEDICARE | END 2020-08-13 23:59 | disposition home or self-care (01) | LOC: LAB.R 07:00 | PROVIDERS: ATTEND Physician Assistant | DX: E11.9 Type 2 diabetes mellitus without complications (principal) | CPT/HCPCS: 83036 ==

== ENCOUNTER 2020-09-16 08:24 | Day surgery (SDC) | payer MEDICAID, MEDICARE ==
[2020-09-16] MEDS ORDERED: MIDAZOLAM 2 MG/2 ML VIAL IVP ONE (08:25)
[2020-09-16] MEDS ORDERED: fentaNYL 250 MCG/5 ML VIAL IVP ONE (08:25)
[2020-09-16] MEDS ORDERED: LACTATED RINGERS 1,000 ML IV ONE ×2 (08:27→10:34)
[2020-09-16] MEDS ORDERED: IOVERSOL 320 50 ML VIAL ONE (11:00)
[2020-09-16] MEDS ORDERED: IOVERSOL 320 100 ML VIAL IVP ONE ×2 (11:00→17:20)
[2020-09-16 11:50] VITALS: BP 135/71
--- NOTE | 2020-09-16 14:50 | CT Report ---
PROCEDURE: Abdomen/Pelvis W INDICATIONS: RECTAL STRICTURE, FAILED COLONOSCOPY CONTRAST: IV CONTRAST: Optiray 320 ml: 100 PO CONTRAST: *NO PO CONTRAST TECHNIQUE: After the administration of iodinated contrast, 5 mm thick sections acquired of the abdomen and pelvi s. 5 mm thick coronal and sagittal reformats were acquired. For radiation dose reduction, the follow ing was used: automated exposure control, adjustment of mA and/or kV according to patient size. COMPARISON: 04/13/2020 FINDINGS: Image quality: Excellent. The patient had a rectal tube placed for rectal contrast, a rectal tube was placed by the CT technolo [facility], however there was no flow of contrast into the rectal tube. Placement of the rectal tube was co nfirmed by myself and lack of flow was also confirmed. The rectal tube was removed and the CT was per formed. Lung bases: Mild atelectasis in the left lung base, otherwise the lung bases are clear. The coronary arteries have atherosclerotic calcifications. Solid organs: Liver and spleen are normal in size and enhancement. A subcentimeter hypodensity in t he right lobe of the liver is unchanged. The gallbladder has no gallstones. No wall thickening or per icolic cystic fluid. Biliary system is non dilated. Pancreas enhances normally. The left adrenal gl and has a nodule measuring 2.3 cm which is indeterminate. Kidneys demonstrate normal size and enhance ment, without hydronephrosis. Peritoneum and bowel: No free air or free fluid. Since the prior CT on 04/13/2020. The left lower quadr ant colostomy has been taken down with reanastomosis to the rectum. An diverting ileostomy has also b een performed in the interim. Rectal contrast was administered as described above, however only a sma ll amount of contrast flowed into the rectum. There is contrast which extends into the left colon, ho wever at the anastomosis there is a severe stricture. At the site of anastomosis there is increased a ttenuation of the fat likely postoperative inflammation. Similar findings are seen in the left abdome n at the site of prior colostomy. Nodes and vessels: No retroperitoneal or mesenteric adenopathy by size criteria. Aorta and inferior vena cava are normal in size. Abdominal wall: No ventral hernias. Prior left abdominal wall colostomy has been taken down and ther e is a new diverting ileostomy in the right anterior mid abdomen. A fat-containing parastomal hernia is noted at the site of ileostomy. Genitourinary: Bladder wall thickness is normal. Bones: No suspicious bony lesions. No vertebral body compression fractures. The lumbar spine has mi ld degenerative changes. IMPRESSION: 1. Interval takedown of left colostomy with reanastomosis with a stricture currently demonstrated at the rectal anastomosis. Rectal contrast would not flow freely into the colon, however a small amount of contrast did pass through the stricture into the left colon. 2. Interval diverting ileostomy. 3. Left adrenal nodule measuring 2.3 cm is indeterminate and metastasis cannot be excluded, however t his is unchanged compared to the most recent CT on 04/13/2020 as well as a more remote CT on 10/27/2019 . Reviewed by: Finn Cano on 09/16/2020 2:49 PM PST Approved by: Finn Cano on 09/16/2020 2:49 PM PST Station ID: [id number]
[2020-09-16] MEDS ORDERED: IOVERSOL 320 50 ML VIAL PO ONE (17:20)
== END 2020-09-16 08:25 | disposition home or self-care (01) ==
LOC: SDS 08:24
PROVIDERS: ATTEND Surgery
DX: Z08 Encounter for follow-up examination after completed treatment for malignant neoplasm (principal); Z93.2 Ileostomy status; K91.858 Other complications of intestinal pouch; K62.4 Stenosis of anus and rectum; Y83.6 Removal of other organ (partial) (total) as the cause of abnormal reaction of the patient, or of later complication, without mention of misadventure at the time of the procedure; Y92.234 Operating room of hospital as the place of occurrence of the external cause; E11.9 Type 2 diabetes mellitus without complications; I10 Essential (primary) hypertension; F41.9 Anxiety disorder, unspecified; F32.9 Major depressive disorder, single episode, unspecified
CPT/HCPCS: 45378; 74177; J3010; J7120; Q9967

== ENCOUNTER 2020-09-27 06:49 | Day surgery (SDC) | payer MEDICARE ==
[2020-09-27] MEDS ORDERED: KETAMINE 500 MG/10 ML VIAL IVP ONE (06:50)
[2020-09-27] MEDS ORDERED: PROPOFOL 200 MG/20 ML VIAL IVP ONE (06:50)
[2020-09-27] MEDS ORDERED: LACTATED RINGERS 1,000 ML IV ONE ×2 (07:21→10:33)
--- NOTE | 2020-09-27 09:23 | ANESTHESIA ---
Pre-Anesthesia VS, & Labs - Diagnosis Ileostomy Stenosis - Procedure Colonoscopy with dilation Vital Signs: Temp Pulse Resp BP Pulse Ox 36.8 C 69 18 144/101 H 98 09/27/20 07:21 09/27/20 07:21 09/27/20 07:21 09/27/20 07:21 09/27/20 07:21 Height: 5 ft 2 in Weight (kg): 73.8 kg Body Mass Index: 29.7 BMI Classification: Overweight - NPO >8 hours - Lab Results Current Lab Results: Laboratory Tests 09/27/20 07:38: POC Whole Bld Glucose 121 H Lab results reviewed: Yes Home Medications and Allergies Benazepril HCl 40 mg PO DAILY 07/19/18 Spironolactone [Aldactone] 50 mg PO BID 07/19/18 Garlic 1,000 mg PO BID 08/27/18 [place]-3S/Dha/Epa/Fish Oil [Fish Oil 1,200 mg Softgel] 1 each PO BID 08/27/18 Cholecalciferol (Vitamin D3) [Vitamin D3] 3,000 unit PO BID 08/28/18 Clonidine HCl [Catapres] 0.3 mg PO BID 08/28/18 amLODIPine [Norvasc] 10 mg PO DAILY 12/20/18 Citalopram Hydrobromide [Celexa] 40 mg PO DAILY 07/13/20 Omeprazole 20 mg PO DAILY 07/13/20 Allergies/Adverse Reactions: Allergies Allergy/AdvReac Type Severity Reaction Status Date / Time iron dextran complex AdvReac Mild Itching Verified 09/27/20 07:32 Anes History & Medical History - Anesthetic History Anesthesia Complications: reports: No previous complications Family history of Anesthesia Complications: Denies Family history of Malignant Hyperthermia: Denies - Medical History Cardiovascular: reports: Hypertension, High cholesterol, Murmur, Arrhythmia (Irregular HR) Pulmonary: reports: None Gastrointestinal: reports: GERD, Ulcerative colitis, Other Urinary: reports: None Neuro: reports: None Musculoskeletal: reports: None Endocrine/Autoimmune: reports: Type 2 diabetes Blood Disorders: reports: None Skin: reports: None Smoking Status: Never smoker History of Cancer?: Yes (Colon) - Surgical History General: Bowel surgery, Colonoscopy, Other Exam General: Alert Dental: WNL Mouth Openin Fingerbreadth Neck Mobility: Reduced Mallampati classification: III Thyromental Distance: 4-6 cm Plan Anesthesia Type: MAC (Per surgeon request) Consent for Procedure(s) Verified and Reviewed: Yes Code Status: Attempt Resuscitation ASA classification: 3-Severe systemic disease Is this case an emergency?: No (Discussed anesthesia, consent signed)
--- NOTE | 2020-09-27 10:43 | ANESTHESIA POST OP EVALUATION ---
Anesthesia Post Eval - Post Anesthesia Eval Vitals: Last Vital Signs Temp 36.5 C 09/27/20 10:30 Pulse 64 09/27/20 10:30 Resp 12 09/27/20 10:30 BP 155/82 H 09/27/20 10:30 Pulse Ox 97 09/27/20 10:30 CV Function Including HR & BP: positive: Stable Pain Control: positive: Satisfactory Nausea & Vomiting: positive: Negative Mental Status: positive: Baseline Respiratory Status: Airway Patent Hydration Status: Satisfactory Anesthesia Complications: positive: None
[2020-09-27 11:05] VITALS: BP 158/77
== END 2020-09-27 06:50 | disposition home or self-care (01) ==
LOC: SDS 06:49
PROVIDERS: ATTEND Surgery
DX: Z08 Encounter for follow-up examination after completed treatment for malignant neoplasm (principal); K62.4 Stenosis of anus and rectum; Z85.038 Personal history of other malignant neoplasm of large intestine; Z20.828 Contact with and (suspected) exposure to other viral communicable diseases; E11.9 Type 2 diabetes mellitus without complications; I10 Essential (primary) hypertension; K94.03 Colostomy malfunction
CPT/HCPCS: 44388; 45386; J7120; U0004

== ENCOUNTER 2020-09-29 13:25 | Outpatient (CLI) | payer MEDICARE ==
[2020-09-29] MEDS ORDERED: IOVERSOL 320 50 ML VIAL ONE (13:51)
[2020-09-29] MEDS ORDERED: IOVERSOL 320 100 ML VIAL IVP ONE (13:51)
[2020-09-29] MEDS: IOVERSOL 320 100 ML VIAL IVP ONE (14:14)
[2020-09-29] MEDS: IOVERSOL 320 50 ML VIAL PO ONE (14:14)
--- NOTE | 2020-09-29 14:18 | CT Report ---
PROCEDURE: Abdomen/Pelvis W INDICATIONS: S/P DILATION CONTRAST: IV CONTRAST: Optiray 320 ml: 100 PO CONTRAST: Optiray 320 ml140 TECHNIQUE: After the administration of oral and intravenous contrast, 5 mm thick sections acquired from the diap hragms to the symphysis. 5 mm thick coronal and sagittal reformats were acquired. For radiation dos e reduction, the following was used: automated exposure control, adjustment of mA and/or kV accordin g to patient size. COMPARISON: CT abdomen pelvis 09/16/2020 FINDINGS: Image quality: Excellent. ABDOMEN: Lung bases: Lung bases are clear. Heart size is normal. Solid organs: Liver and spleen are normal in size and enhancement. Gallbladder is unremarkable Tate iary system is non dilated. Pancreas enhances normally. Left adrenal nodule is within normal limits. Kidneys demonstrate normal size and enhancement, without hydronephrosis. Peritoneum and bowel: Surgical changes demonstrating diverting ileostomy are noted. There is persiste nt appearance of very limited contrast at the level of the rectum extending into the left colon there is a slightly increased appearance of contrast within the left colon and through the previously note d stricture site. Similar appearance of increased fat attenuation suspected to be postoperative infla mmation is again identified. More proximal loops of bowel are dilated. Nodes and vessels: No retroperitoneal or mesenteric adenopathy by size criteria. Aorta and inferior vena cava are normal in size. Miscellaneous: No ventral hernias. PELVIS: Genitourinary: Bladder wall thickness is normal. Miscellaneous: No inguinal hernias or adenopathy. Bones: No suspicious bony lesions. No vertebral body compression fractures. IMPRESSION: 1. Persistent appearance of stricture at the level of the rectal anastomosis, only minimally improved compared to prior exam. There is mild prominence of more proximal bowel dilation consistent with mil d obstructive appearance. Reviewed by: Lora Huston MD on 09/29/2020 1:16 PM [place] Approved by: Lora Huston MD on 09/29/2020 1:16 PM [place] Station ID: [id number]
== END 2020-09-29 13:26 | disposition home or self-care (01) ==
LOC: DI 13:25
PROVIDERS: ATTEND Surgery
DX: K91.858 Other complications of intestinal pouch (principal); K62.4 Stenosis of anus and rectum
CPT/HCPCS: 74177; Q9967

== ENCOUNTER 2020-10-01 06:28 | Inpatient (IN) | payer MEDICARE ==
--- NOTE | 2020-09-27 07:47 | CONSULTATION NOTE ---
Consultation Report: As part of ERAS, spoke with patient regarding anesthetic plan for iliostomy take down this Sunday, Sep 24. Per Dr Tatum, take down will be a small incision at current iliostomy site. Patient stated he did not have much pain with initial surgery and tolerated post op well. Discussed a repeat general anesthetic with IV analgesics, running the Mclott mix IV and local per surgeon. If patient requires more anaglesia, a TAP block can be administered. Patient is agreeable to this plan.
[2020-10-01] MEDS ORDERED: GABAPENTIN 400 MG CAPSULE ONE (06:30)
[2020-10-01] MEDS ORDERED: CELECOXIB 100 MG CAPSULE PO ONE (06:30)
[2020-10-01] MEDS ORDERED: ACETAMINOPHEN 1,000 MG/100 ML 100 ML IV ONE ×2 (06:31→11:36)
[2020-10-01] MEDS ORDERED: metroNIDAZOLE 500 MG/100 ML 500 MG/100 ML BAG ONE (06:31)
[2020-10-01] MEDS ORDERED: LACTATED RINGERS 1,000 ML IV ONE ×2 (06:32→11:09)
[2020-10-01] MEDS ORDERED: CIPROFLOXACIN 400 MG/200 ML 400 MG/200 ML BAG IV ONE (06:32)
[2020-10-01] MEDS ORDERED: BUPIVACAINE 0.5% PF 30 ML VIAL ONE (07:03)
[2020-10-01] MEDS ORDERED: BUPIVACAINE 0.5% PF 30 ML VIAL SUBQ ONE ×2 (07:16→10:57)
--- NOTE | 2020-10-01 07:23 | ANESTHESIA ---
Pre-Anesthesia VS, & Labs - Diagnosis Presence of ileostomy - Procedure Ileostomy takedown Vital Signs: Temp Pulse Resp BP Pulse Ox 36.2 C L 66 12 145/79 H 100 10/01/20 06:34 10/01/20 06:34 10/01/20 06:34 10/01/20 06:34 10/01/20 06:34 Height: 5 ft 2 in Weight (kg): 77.9 kg Body Mass Index: 31.4 BMI Classification: Obese - NPO Last Fluid Intake: sips with meds at 0700 Last Food Intake: >8hours - Lab Results Current Lab Results: Laboratory Tests 10/01/20 06:59: POC Whole Bld Glucose 126 H Lab results reviewed: Yes Home Medications and Allergies Benazepril HCl 40 mg PO DAILY 07/19/18 Spironolactone [Aldactone] 50 mg PO BID 07/19/18 Garlic 1,000 mg PO BID 08/27/18 [place]-3S/Dha/Epa/Fish Oil [Fish Oil 1,200 mg Softgel] 1 each PO BID 08/27/18 Cholecalciferol (Vitamin D3) [Vitamin D3] 3,000 unit PO BID 08/28/18 Clonidine HCl [Catapres] 0.3 mg PO BID 08/28/18 amLODIPine [Norvasc] 10 mg PO DAILY 12/20/18 Citalopram Hydrobromide [Celexa] 40 mg PO DAILY 07/13/20 Omeprazole 20 mg PO DAILY 07/13/20 Anes History & Medical History - Anesthetic History Anesthesia Complications: reports: No previous complications Family history of Anesthesia Complications: Denies Family history of Malignant Hyperthermia: Denies - Medical History Cardiovascular: reports: Hypertension, High cholesterol, Murmur, Arrhythmia (Irregular HR) Pulmonary: reports: None Gastrointestinal: reports: GERD, Ulcerative colitis, Other Urinary: reports: None Neuro: reports: None Musculoskeletal: reports: None Endocrine/Autoimmune: reports: Type 2 diabetes Blood Disorders: reports: None Skin: reports: None Smoking Status: Never smoker - Surgical History General: Bowel surgery, Colonoscopy, Other Exam General: Alert, Oriented x3, Cooperative Dental: WNL Mouth Openin Fingerbreadth Neck Mobility: Normal Mallampati classification: III Thyromental Distance: 4-6 cm Respiratory: Lungs clear, Normal breath sounds, No respiratory distress Cardiovascular: Regular rate Neurological: Normal speech Mental/Cognitive Status: Alert/Oriented X3, Normal for patient Cognitive Status: Within normal limits Plan Anesthesia Type: General, Transverse Abdominis Plane (TAP) Block (possible if open) Consent for Procedure(s) Verified and Reviewed: Yes Code Status: Attempt Resuscitation ASA classification: 2-Mild systemic disease Is this case an emergency?: No
[2020-10-01 08:11] LABS: C. PNEUMONIAE- RESP PCR PANEL NOT DETECTED
--- NOTE | 2020-10-01 10:37 | PHARMACY PROGRESS NOTE ---
- Best Possible Medication History Admit Date and Time: 10/01/20 0628 Processed by: Nursing Medication History completed: Yes Patient Interview: Completed As the person ultimately responsible for medication therapy, providers are able to order a medication from an existing home medication list in [facility] via the "Reconcile Routine" prior to Confirmation of that medication by lan support specialist. Such practice is discouraged except when the physician, in their clinical judg ment, deems that a medical need exists for a medication without regard to previous use.
[2020-10-01] MEDS ORDERED: MORPHINE 2 MG/ML CARPUJECT IVP PRN (11:23)
[2020-10-01] MEDS ORDERED: HYDROmorphone 0.5 MG/0.5 ML SYRINGE IVP PRN ×2 (11:23→11:36)
[2020-10-01] MEDS ORDERED: ePHEDrine 50 MG/ML VIAL IVP PRN (11:23)
[2020-10-01] MEDS ORDERED: ONDANSETRON 4 MG/2 ML VIAL IVP PRN ×2 (11:23→11:36)
[2020-10-01] MEDS ORDERED: NALOXONE 0.4 MG/ML VIAL IVP PRN (11:23)
[2020-10-01] MEDS ORDERED: ATROPINE ABBOJECT 1 MG/10 ML SYRINGE IVP PRN (11:23)
[2020-10-01] MEDS ORDERED: fentaNYL 100 MCG/2 ML VIAL IVP PRN (11:23)
[2020-10-01] MEDS ORDERED: polyethylene glycoL 3350 17 GM PACKET PO PRN (11:36)
[2020-10-01] MEDS ORDERED: oxyCODONE 5 MG TABLET PO PRN (11:36)
[2020-10-01] MEDS ORDERED: METOCLOPRAMIDE 10 MG/2 ML VIAL IVP PRN (11:36)
--- NOTE | 2020-10-01 11:36 | OPERATIVE REPORT ---
Operative Report - General Admit Date: 10/01/20 Procedure Date: 10/01/20 Planned Procedure: 1. Ileostomy takedown 2. Small bowel resection 3. Adhesiolysis 4. 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 Ileostomy takedown 2. Small bowel resection 3. Adhesiolysis 4. Hernia pair for parastomal hernia at site of historic loop ileostomy Post Op Diagnosis: Same, parastomal hernia - Procedure Note Primary Surgeon: Deepti Secondary Surgeon: Charles Anesthesia Provider: Ruddy Anesthesia Technique: General ET tube, Local Pathology: Ileostomy Estimated Blood Loss (mL): 75 Drain/Tube Type: Shan drain Indications: Ileostomy Findings: 1. Dense adhesions 2. Viable loop ileostomy 3. Viable [id number] functional end-to-end antiperistaltic enteroenterostomy Complications: None - Other Other Information/Narrative: Pending final operative note.
[2020-10-01] MEDS ORDERED: LACTATED RINGERS 1,000 ML IV SCH ×3 (12:00)
--- NOTE | 2020-10-01 12:42 | ANESTHESIA POST OP EVALUATION ---
Anesthesia Post Eval - Post Anesthesia Eval Vitals: Last Vital Signs Temp 36.4 C L 10/01/20 11:57 Pulse 72 10/01/20 11:57 Resp 14 10/01/20 11:57 BP 117/67 10/01/20 11:57 Pulse Ox 98 10/01/20 11:57 CV Function Including HR & BP: positive: Stable Pain Control: positive: Satisfactory Nausea & Vomiting: positive: Negative Mental Status: positive: Baseline Respiratory Status: Airway Patent Hydration Status: Satisfactory Anesthesia Complications: positive: None
[2020-10-01] MEDS: D5NS W/20 MEQ KCL 1,000 ML IV SCH ×2 (12:54→20:39)
[2020-10-01] MEDS: ENOXAPARIN 40 MG/0.4 ML SYRINGE SUBQ SCH (13:33)
[2020-10-01] MEDS: METOCLOPRAMIDE 10 MG/2 ML VIAL IVP SCH ×3 (13:48→23:36)
[2020-10-01] MEDS: KETOROLAC 30 MG/ML VIAL IVP SCH ×3 (13:48→23:35)
[2020-10-01] MEDS: methocarbamoL 500 MG TABLET PO SCH ×3 (13:48→23:36)
[2020-10-01] MEDS: metroNIDAZOLE 500 MG/100 ML 500 MG/100 ML BAG IV SCH ×2 (16:07→23:36)
[2020-10-01] MEDS: CIPROFLOXACIN 400 MG/200 ML 400 MG/200 ML BAG IV SCH (19:09)
[2020-10-02] MEDS: KETOROLAC 30 MG/ML VIAL IVP SCH ×3 (05:20→18:03)
[2020-10-02] MEDS: methocarbamoL 500 MG TABLET PO SCH ×4 (05:20→23:44)
[2020-10-02] MEDS: METOCLOPRAMIDE 10 MG/2 ML VIAL IVP SCH ×3 (05:20→18:04)
[2020-10-02] MEDS: D5NS W/20 MEQ KCL 1,000 ML IV SCH ×3 (05:22→23:22)
[2020-10-02 05:51] LABS: BASOPHILS % (AUTO) 0.1 %; HGB - HEMOGLOBIN 10.3 g/dL (14.0-18.0); LYMPHOCYTES # (AUTO) 1.1 10^3/uL (1.5-3.5); LYMPHOCYTES % (AUTO) 7.8 %; MEAN CORPUSCULAR HEMOGLOBIN 28.1 pg (27.0-31.0); MEAN CORPUSCULAR HGB CONC 31.4 g/dL (32.0-36.0); MEAN CORPUSCULAR VOLUME 89.6 fL (80.0-94.0); MEAN PLATELET VOLUME 9.4 fL (7.4-11.4); MONOCYTES # (AUTO) 0.9 10^3/uL (0.0-1.0); MONOCYTES % (AUTO) 6.9 %; NEUTROPHILS # (AUTO) 11.3 10^3/uL (1.5-6.6); NEUTROPHILS % (AUTO) 84.7 %; PLT - PLATELET COUNT 185 10^3/uL (130-450); RED BLOOD COUNT 3.66 10^6/uL (4.70-6.10); RED CELL DISTRIBUTION WIDTH 14.5 % (12.0-15.0); WHITE BLOOD COUNT 13.4 x10^3/uL (4.8-10.8)
[2020-10-02 06:03] LABS: ALBUMIN 3.3 g/dL (3.2-5.5); BILIRUBIN,TOTAL 0.7 mg/dL (0.2-1.0); CALCIUM 8.5 mg/dL (8.5-10.3); CREATININE 1.3 mg/dL (0.6-1.2); TOTAL PROTEIN 6.7 g/dL (6.7-8.2)
[2020-10-02] MEDS ORDERED: PANTOPRAZOLE 40 MG TABLET PO SCH (07:00)
[2020-10-02] MEDS: CIPROFLOXACIN 400 MG/200 ML 400 MG/200 ML BAG IV SCH (10:19)
[2020-10-02] MEDS: ENOXAPARIN 40 MG/0.4 ML SYRINGE SUBQ SCH (10:28)
[2020-10-02] MEDS: metroNIDAZOLE 500 MG/100 ML 500 MG/100 ML BAG IV SCH (11:57)
--- NOTE | 2020-10-02 19:10 | PROVIDER PROGRESS NOTE ---
Progress Note Subjective Postoperative day #1 status post below listed procedures. Patient without nausea without vomiting. Patient voiding spontaneously. Patient out of bed. Patient with multiple loose bowel movements. Patient noted for hypertensive episodes. Pre-Op Diagnosis: Hx rectosigmoid cancer, neoadj chemo, s/p Aurelio's Procedure Performed: 1. Ileostomy takedown 2. Small bowel resection 3. Adhesiolysis 4. Hernia pair for parastomal hernia at site of historic loop ileostomy Findings: 1. Dense adhesions 2. Viable loop ileostomy 3. Viable [id number] functional end-to-end antiperistaltic enteroenterostomy Objective Hypertension. No tachycardia. General Appearance: positive: No acute distress Eyes Bilateral: positive: Normal inspection ENT: positive: ENT inspection nml Neck: positive: Nml inspection Respiratory: positive: Chest non-tender, No respiratory distress, Breath sounds nml. negative: Wheezes, Rales, Rhonchi Cardiovascular: positive: Regular rate & rhythm Abdomen: positive: No distention, Other. negative: Guarding, Rebound Extremities: positive: Non-tender, Full ROM, Nml appearance Neurologic/Psychiatric: positive: Oriented x3, CN's nml (2-12) Historic ileostomy site dressed with serosanguineous drainage. No palpable hernia. Dressing intact. Impression/Plan Postoperative day #1 status post above listed procedure. Patient with hyp ertensive episodes. Will dose with home antihypertensives. (1) GI - DC IVF, bowel regimen, advance diet as tolerated. GI ppx. Opiate sparring analgesia. (2) SURGERY - Daily wound packing to historic ileostomy site with iodoform . (3) Renal/Lytes - continue IVF. Renal indices at baseline. Will discontinue Toradol given historic chronic renal failure. (4) Respiratory - O2 as necessary. Continue IS. (5) Heme - Will continue with DVT ppx. H/H stable. (6) Cardiovascular - postoperative hypertension. Will resume antihypertensives/home regimen. In the interim will attempt IV push beta-bl ockade, hydralazine and if necessary enalaprilat. (7) Neuro - Opiate sparring analgesia. Antispasmodics with Robaxin. Discontinued Toradol secondary to the patient's history of chronic renal insu fficiency. Neuropathic agents. (8) Immune/Infectious Disease - 24 hours of antibiotics discontinued.
[2020-10-02] MEDS ORDERED: METOPROLOL 5 MG/5 ML VIAL IVP STA (21:10)
[2020-10-02] MEDS ORDERED: hydrALAZINE INJ 20 MG/ML VIAL IVP ONE (22:28)
[2020-10-02] MEDS: CHOLECALCIFEROL 25 MCG TABLET PO SCH (23:44)
[2020-10-02] MEDS: cloNIDine 0.1 MG TABLET PO SCH (23:44)
[2020-10-02] MEDS: SPIRONOLACTONE 25 MG TABLET PO SCH (23:45)
[2020-10-02] MEDS ORDERED: ENALAPRILAT 1.25 MG/ML VIAL IVP SCH (23:45)
[2020-10-02] MEDS: ACETAMINOPHEN 325 MG TABLET PO SCH (23:52)
[2020-10-02] MEDS: PREGABALIN 100 MG CAPSULE PO SCH (23:52)
[2020-10-03] MEDS: methocarbamoL 500 MG TABLET PO SCH ×3 (05:27→17:48)
[2020-10-03] MEDS: ACETAMINOPHEN 325 MG TABLET PO SCH ×4 (05:27→16:50)
[2020-10-03 05:56] LABS: BASOPHILS # (AUTO) 0.1 10^3/uL (0.0-0.1); BASOPHILS % (AUTO) 0.5 %; EOSINOPHILS # (AUTO) 0.1 10^3/uL (0.0-0.7); EOSINOPHILS % (AUTO) 0.6 %; HGB - HEMOGLOBIN 10.7 g/dL (14.0-18.0); LYMPHOCYTES # (AUTO) 1.9 10^3/uL (1.5-3.5); LYMPHOCYTES % (AUTO) 16.6 %; MEAN CORPUSCULAR HEMOGLOBIN 28.2 pg (27.0-31.0); MEAN CORPUSCULAR HGB CONC 30.8 g/dL (32.0-36.0); MEAN CORPUSCULAR VOLUME 91.6 fL (80.0-94.0); MEAN PLATELET VOLUME 9.4 fL (7.4-11.4); MONOCYTES # (AUTO) 1.3 10^3/uL (0.0-1.0); MONOCYTES % (AUTO) 11.1 %; NEUTROPHILS # (AUTO) 8.1 10^3/uL (1.5-6.6); NEUTROPHILS % (AUTO) 70.7 %; PLT - PLATELET COUNT 220 10^3/uL (130-450); RED BLOOD COUNT 3.79 10^6/uL (4.70-6.10); RED CELL DISTRIBUTION WIDTH 14.8 % (12.0-15.0); WHITE BLOOD COUNT 11.5 x10^3/uL (4.8-10.8)
[2020-10-03 06:10] LABS: ALBUMIN 3.2 g/dL (3.2-5.5); ALBUMIN/GLOBULIN RATIO 0.9 (1.0-2.2); BILIRUBIN,TOTAL 0.4 mg/dL (0.2-1.0); CALCIUM 8.6 mg/dL (8.5-10.3); CREATININE 1.4 mg/dL (0.6-1.2); TOTAL PROTEIN 6.8 g/dL (6.7-8.2)
[2020-10-03] MEDS ORDERED: KETOROLAC 30 MG/ML VIAL IVP ONE (07:57)
[2020-10-03] MEDS ORDERED: KETAMINE 500 MG/10 ML VIAL IVP ONE (07:57)
[2020-10-03] MEDS ORDERED: LIDOCAINE-MPF 2% 5 ML VIAL IM ONE (07:57)
[2020-10-03] MEDS ORDERED: fentaNYL 100 MCG/2 ML VIAL IVP ONE (07:57)
[2020-10-03] MEDS ORDERED: MIDAZOLAM 2 MG/2 ML VIAL IVP ONE (07:57)
[2020-10-03] MEDS ORDERED: DEXAMETHASONE 4 MG/ML VIAL IVP ONE (07:57)
[2020-10-03] MEDS ORDERED: ONDANSETRON 4 MG/2 ML VIAL IVP ONE (07:57)
[2020-10-03] MEDS ORDERED: ePHEDrine 50 MG/ML VIAL IVP ONE (07:57)
[2020-10-03] MEDS ORDERED: PROPOFOL 200 MG/20 ML VIAL IVP ONE (07:57)
[2020-10-03] MEDS ORDERED: ACETAMINOPHEN 1,000 MG/100 ML 100 ML IV ONE (07:57)
[2020-10-03] MEDS ORDERED: ROCURONIUM 50 MG/5 ML VIAL IVP ONE (07:57)
[2020-10-03] MEDS: metFORMIN 500 MG TABLET PO SCH ×2 (08:25→16:53)
[2020-10-03] MEDS: PREGABALIN 100 MG CAPSULE PO SCH (08:26)
[2020-10-03] MEDS: CHOLECALCIFEROL 25 MCG TABLET PO SCH (08:29)
[2020-10-03] MEDS: SPIRONOLACTONE 25 MG TABLET PO SCH (08:29)
[2020-10-03] MEDS: cloNIDine 0.1 MG TABLET PO SCH (08:31)
[2020-10-03] MEDS: ENOXAPARIN 40 MG/0.4 ML SYRINGE SUBQ SCH (08:37)
[2020-10-03] MEDS ORDERED: lisinopriL 20 MG TABLET PO SCH (09:00)
[2020-10-03] MEDS ORDERED: amLODIPine 5 MG TABLET PO SCH (09:00)
[2020-10-03] MEDS ORDERED: CITALOPRAM HYDROBROMIDE 20 MG TABLET PO SCH (09:00)
[2020-10-03] MEDS ORDERED: PANTOPRAZOLE 40 MG TABLET PO SCH (09:00)
--- NOTE | 2020-10-03 19:13 | Discharge Plan ---
Discharge Plan Problem Reviewed?: Yes Disposition: Home, Self Care Condition: Good Prescriptions: oxyCODONE [Roxicodone] 5 mg PO Q4HR PRN #30 tablet PRN Reason: Pain methocarbamoL [Robaxin] 500 mg PO Q6HR PRN #30 tablet PRN Reason: Spasms Pregabalin [Lyrica] 100 mg PO BID #28 capsule Diet: Regular Activity Restrictions: Wt Bearing as Tolerated Shower Restrictions: No Driving Restrictions: Yes (no while taking narcotics) Instruction Topics: Hernia Surg, Bowel Surg Health Concerns: Follow up with Gen Surg Tues Drain care May shower Daily wound packing change with single length of iodoform and sterile gauze; tagaderm top dressing Care Goals: Small frequent meals No driving while taking narcotics Call for fevers, nausea, vomiting, bleeding or other symptoms concerns No Smoking: If you smoke, Please STOP! Call for help. Follow-up with: Mariel Buchanan PA [Primary Care Provider] - Sorin Tatum MD [Provider Admit Priv/Credential] - 1-2 Days (follow up with Dr. Deepti Mayer for drain check/removal.)
[2020-10-03 19:35] VITALS: BP 154/85
--- NOTE | 2020-10-07 15:17 | DISCHARGE SUMMARY ---
"Discharge Summary Admit Date: 10/01/20 Discharge Date: 10/03/20 Discharging Provider: Deepti Primary Care Provider: Rudy Code Status: Attempt Resuscitation Condition at Discharge: Good Discharge Disposition: 01 Home, Self Care - DIAGNOSES Admission Diagnoses: 1. Chronic renal insufficiency 2. History of rectosigmoid cancer 3. History of Camp's procedure 4. History of colostomy takedown with low pelvic coloproctostomy and proximal diversion with loop ileostomy 5. Ileostomy with concern for fluid status 6. Anastomotic stricture status post endoscopic dilation Discharge Diagnoses with Status of Each Condition: 1. Chronic renal insufficiency - STABLE 2. History of rectosigmoid cancer - no evidence of recurrence 3. History of Camp's procedure - status post reversal 4. History of colostomy takedown with low pelvic coloproctostomy and proximal diversion with loop ileostomy 5. Ileostomy with concern for fluid status - status post reversal 6. Anastomotic stricture status post endoscopic dilation - CT with no recurrence - HPI History of Present Illness: 65-year-old male who presents with history of chronic renal insufficiency and proximal diverting loop ileostomy after colostomy takedown. Please note the patient had undergone preoperative colonoscopy with necessary anastomotic dilation. Please note the patient was notable for history of rectos igmoid cancer for which he underwent neoadjuvant chemotherapy. He had had a operative case performed by another surgeon for which the intent was to perform anastomosis but for some reason the patient underwent Camp's procedure. He was since without any evidence of recurrent disease was performed for colostomy takedown however given the height of the anastomosis and the concern for a low pelvic coloproctostomy we opted to defer immediate sikh of stool per anus and proximally diverted the patient with a loop ileostomy. CAT scan showed anastomotic stricture and patient was necessarily dilated endoscopically. Interval CAT scan per rectum showed no evidence of anastomotic leak and patient was taken to the operating room for ileostomy takedown and was advised of the risk as it relates to incontinence, need for further anastomotic dilation amongst others. - CONSULTS | PROCEDURES Consultations: None Procedures: TAKEDOWN OF DIVERTING LOOP ILEOSTOMY: 1. Ileostomy takedown 2. Small bowel resection 3. [id number] functional end-to-end antiperistaltic anastomosis stapled with primary enterotomy closure to layers 4. Parastomal hernia repair 5. Drain placement 6. Tap block - HOSPITAL COURSE Hospital Course: 65-year-old male with history of rectosigmoid cancer status post neoadjuvant chemotherapy and ultimate resection with end colostomy who underwent colostomy takedown with low coloproctostomy and proximal diversion with diverting loop ileostomy. See above under HPI for specifics as it relates to his perioperative care and preoperative work-up. Patient underwent operative intervention as listed in the electronic medical record. Tolerated procedure well for which there was no complication. Postoperatively the patient was managed for postoperative analgesia and resumption of bowel function. Patient had successfully passed trial of void. Tolerated oral intake without any complication. Denied nausea denied vomiting. Was advanced for diet without any complication. Was continued for local wound care to historic ileostomy site as per below. Historic ileostomy site with open defect partially closed with pursestring suture. Please pack daily with iodoform quarter inch packing strips, half-inch is also acceptable. One continuous strip. Cover with dry sterile gauze dressing. Perform daily. Discharge instructions given. Analgesia with Oxycodone provided at time of discharge. Patient plan for follow-up and will be notified of pathology once returned. - ALLERGIES Allergies/Adverse Reactions: Allergies Allergy/AdvReac Type Severity Reaction Status Date / Time No Known Drug Allergies Allergy Verified 10/01/20 13:22 - MEDICATIONS Home Medications: Ambulatory Orders Medication Instructions Recorded Confirmed Benazepril HCl 40 mg PO DAILY 07/19/18 10/01/20 Spironolactone [Aldactone] 50 mg PO BID 07/19/18 10/01/20 Garlic 1,000 mg PO BID 08/27/18 10/01/20 [place]-3S/Dha/Epa/Fish Oil [Fish 1 each PO BID 08/27/18 10/01/20 Oil 1,200 mg Softgel] Cholecalciferol (Vitamin D3) 3,000 unit PO BID 08/28/18 10/01/20 [Vitamin D3] Clonidine HCl [Catapres] 0.3 mg PO BID 08/28/18 10/01/20 amLODIPine [Norvasc] 10 mg PO DAILY 12/20/18 10/01/20 Citalopram Hydrobromide [Celexa] 40 mg PO DAILY 07/13/20 10/01/20 Omeprazole 20 mg PO DAILY 07/13/20 10/01/20 metFORMIN [Glucophage] 500 mg PO BIDWM #60 tablet 07/21/20 10/01/20 Lidocaine/Prilocain 2.5% Cream 30 gm TOP DAILY PRN #1 tube 08/23/20 10/01/20 [Emla 2.5% Cream] Acetaminophen [Tylenol] 650 mg PO Q4HR tablet 10/03/20 Pregabalin [Lyrica] 100 mg PO BID #28 capsule 10/03/20 methocarbamoL [Robaxin] 500 mg PO Q6HR PRN #30 tablet 10/03/20 oxyCODONE [Roxicodone] 5 mg PO Q4HR PRN #30 tablet 10/03/20 polyethylene glycoL 3350 [Miralax] 17 gm PO DAILY PRN packet 10/03/20 Pregabalin [Lyrica] 75 mg PO BID #60 capsule 10/05/20 oxyCODONE [Roxicodone] 5 mg PO Q4H PRN #30 tablet 10/05/20 - PHYSICAL EXAM AT DISCHARGE General Appearance: positive: No acute distress, Alert Eyes Bilateral: positive: Normal inspection, PERRL, EOMI ENT: positive: ENT inspection nml Neck: positive: Nml inspection Respiratory: positive: Chest non-tender, No respiratory distress, Breath sounds nml Cardiovascular: positive: Regular rate & rhythm Abdomen: positive: Non-tender, No distention, Other (Historic ileostomy site without erythema, no induration, no purulent discharge, packed without complication.). negative: Tenderness, Guarding, Rebound Skin: positive: Color nml Extremities: positive: Non-tender, Full ROM, Nml appearance Neurologic/Psychiatric: positive: Oriented x3, CN's nml (2-12), Motor nml, Sensation nml, Mood/affect nml - LABS Result Diagrams: 10/03/20 05:40 10/03/20 05:40 - SEPSIS Current Stage of Sepsis: Ruled out - FOLLOW UP Follow Up: Historic ileostomy site without erythema, no induration, no purulent discharge, packed without complication. DISCHARGE INSTRUCTIONS TEMPLATE: No heavy lifting, pushing, or pulling. Stairs are allowed, no strenuous/exertional activities. 5-10lbs weight carrying limit (i.e. gallon of milk) If provided, abdominal binder while out of bed and while ambulating. Call or proceed to clinic/ER for fevers, severe pain, nausea, vomiting, inability to pass flatus/stool, bleeding, wound redness/discharge, weakness, excessively loose stool/diarrhea, or for any other reasonably worrisome symptom or concern. Soft diet, no raw vegetables, avoid high fiber foods. Colace 100mg by mouth twice to three times daily while taking narcotic pain medication. If no bowel movement in 24-48hr, may take 17g Miralax in 8oz water twice daily until bowel movement. May shower, no submersive bathing. Follow up in clinic in 2-4 weeks for wound check and staple removal. No driving while taking narcotic pain medications. Follow up with primary care provider and/or medical subspecialist following discharge as well. - TIME SPENT Time Spent in Discharge (Minutes): 30"
== END 2020-10-03 19:50 | disposition home or self-care (01) | DRG 331 ==
LOC: MS2 06:28
PROVIDERS: ADMIT Surgery; ATTEND Surgery
PROC: 0WQF0ZZ Repair Abdominal Wall, Open Approach (ICD-10-PCS; 2020-10-01)
PROC: 0DQB0ZZ Repair Ileum, Open Approach (ICD-10-PCS; principal; 2020-10-01 07:30)
DX: Z43.2 Encounter for attention to ileostomy (principal); Z85.048 Personal history of other malignant neoplasm of rectum, rectosigmoid junction, and anus; Z92.21 Personal history of antineoplastic chemotherapy; I12.9 Hypertensive chronic kidney disease with stage 1 through stage 4 chronic kidney disease, or unspecified chronic kidney disease; E11.22 Type 2 diabetes mellitus with diabetic chronic kidney disease; N18.9 Chronic kidney disease, unspecified; Z79.84 Long term (current) use of oral hypoglycemic drugs; Z79.899 Other long term (current) drug therapy
CPT/HCPCS: 80053; 85025; 87631; A9270; J0131; J1650; J2765; J7120; J8499; 0202U

== ENCOUNTER 2021-05-25 08:00 | Outpatient (CLI) | payer MEDICARE, MEDICAID ==
[2021-05-25 18:03] LABS: BASOPHILS # (AUTO) 0.1 10^3/uL (0.0-0.1); BASOPHILS % (AUTO) 0.4 %; EOSINOPHILS # (AUTO) 0.1 10^3/uL (0.0-0.7); EOSINOPHILS % (AUTO) 0.6 %; HCT - HEMATOCRIT 38.7 % (42.0-52.0); HGB - HEMOGLOBIN 12.3 g/dL (14.0-18.0); LYMPHOCYTES # (AUTO) 1.6 10^3/uL (1.5-3.5); LYMPHOCYTES % (AUTO) 12.7 %; MEAN CORPUSCULAR HEMOGLOBIN 28.4 pg (27.0-31.0); MEAN CORPUSCULAR HGB CONC 31.8 g/dL (32.0-36.0); MEAN CORPUSCULAR VOLUME 89.4 fL (80.0-94.0); MEAN PLATELET VOLUME 11.1 fL (7.4-11.4); MONOCYTES # (AUTO) 1.2 10^3/uL (0.0-1.0); NEUTROPHILS # (AUTO) 9.9 10^3/uL (1.5-6.6); NEUTROPHILS % (AUTO) 76.8 %; PLT - PLATELET COUNT 183 10^3/uL (130-450); RED BLOOD COUNT 4.33 10^6/uL (4.70-6.10); RED CELL DISTRIBUTION WIDTH 20.3 % (12.0-15.0); WHITE BLOOD COUNT 12.9 x10^3/uL (4.8-10.8)
[2021-05-25 18:42] LABS: SLIDE REVIEW? Indicated
[2021-05-25 18:45] LABS: ALBUMIN 3.7 g/dL (3.2-5.5); ALBUMIN/GLOBULIN RATIO 1.1 (1.0-2.2); BILIRUBIN,TOTAL 0.8 mg/dL (0.2-1.0); CALCIUM 9.9 mg/dL (8.5-10.3); CREATININE 1.7 mg/dL (0.6-1.2); POTASSIUM 4.6 mmol/L (3.5-5.0); TOTAL PROTEIN 7.1 g/dL (6.7-8.2)
[2021-05-25 19:52] LABS: PLATELET ESTIMATE, MANUAL NORMAL (130-450,000) (NORMAL); PLATELET MORPHOLOGY NORMAL APPEARANCE (NORMAL); RBC MORPHOLOGY (MULTIPLE) 1+ ANISOCYTOSIS (NORMAL)
== END 2021-05-25 23:59 | disposition home or self-care (01) ==
LOC: LAB.WCP 08:00
PROVIDERS: ATTEND Family Medicine
DX: R19.7 Diarrhea, unspecified (principal)
CPT/HCPCS: 36415; 80053; 85025

== ENCOUNTER 2021-06-14 17:00 | Outpatient (CLI) | payer MEDICARE, MEDICAID | END 2021-06-14 17:01 | disposition home or self-care (01) | LOC: COV 17:00 | PROVIDERS: ATTEND Family Medicine | DX: U07.1 COVID-19 (principal) ==

== ENCOUNTER 2021-07-19 07:18 | Day surgery (SDC) | payer MEDICARE, MEDICAID ==
[2021-07-19] MEDS ORDERED: LACTATED RINGERS 1,000 ML IV ONE ×2 (07:30→09:19)
[2021-07-19] MEDS ORDERED: fentaNYL 250 MCG/5 ML VIAL ONE (08:42)
[2021-07-19] MEDS ORDERED: MIDAZOLAM 2 MG/2 ML VIAL ONE ×3 (08:42→09:09)
[2021-07-19 10:18] VITALS: BP 142/73
== END 2021-07-19 07:19 | disposition home or self-care (01) ==
LOC: SDS 07:18
PROVIDERS: ATTEND Surgery
PROC: 0DB78ZX Excision of Stomach, Pylorus, Via Natural or Artificial Opening Endoscopic, Diagnostic (ICD-10-PCS; 2021-07-19)
PROC: 0DB38ZX Excision of Lower Esophagus, Via Natural or Artificial Opening Endoscopic, Diagnostic (ICD-10-PCS; principal; 2021-07-19 08:45)
DX: D50.9 Iron deficiency anemia, unspecified (principal); K29.50 Unspecified chronic gastritis without bleeding; K44.9 Diaphragmatic hernia without obstruction or gangrene; K21.9 Gastro-esophageal reflux disease without esophagitis; Z80.0 Family history of malignant neoplasm of digestive organs
CPT/HCPCS: 43239; J3010; J7120

== ENCOUNTER 2021-08-30 13:16 | Outpatient (CLI) | payer MEDICARE, MEDICAID ==
[2021-08-30] MEDS ORDERED: IOVERSOL 320 100 ML VIAL IVP ONE ×2 (13:26→19:01)
[2021-08-30] MEDS ORDERED: IOVERSOL 320 50 ML VIAL ONE (13:26)
[2021-08-30] MEDS ORDERED: IOVERSOL 320 50 ML VIAL PO ONE (19:01)
--- NOTE | 2021-09-01 11:58 | CT Report ---
PROCEDURE: Abdomen/Pelvis W INDICATIONS: COLON CA CONTRAST: IV CONTRAST: Optiray 320 ml: 100 PO CONTRAST: Optiray 320 ml50 TECHNIQUE: After the administration of IV and oral contrast, 5 mm thick sections acquired from the diaphragms to the symphysis. 5 mm thick coronal and sagittal reformats were acquired. For radiation dose reducti on, the following was used: automated exposure control, adjustment of mA and/or kV according to alcides ent size. COMPARISON: Due to technical issues, comparison studies listed in PACS are not available at the time of study interpretation. An addendum can be performed when comparison studies are available. FINDINGS: ABDOMEN: Lung bases: No acute findings. Heart:Normal in size. No pericardial effusion. Coronary artery calcifications noted. Liver: Hepatic steatosis. Subcentimeter hepatic foci statistically representing cysts/hemangiomas alt juliana technically indeterminate due to small size. Gallbladder: Grossly unremarkable Bile ducts: Normal. Pancreas: Normal. Spleen: Normal. Adrenals: Left adrenal nodule is noted measuring approximately 2.2 cm with indeterminate attenuation. Kidneys and ureters: Bilateral renal cortical atrophy and scarring. No hydronephrosis. The ureters ap pear decompressed. Stomach and duodenum: Normal. Bowel: Large amount of stool and gas present throughout the colon. There is mild dilatation of the co virgilio, related to a distal transition point seen on image 16/5 in an area of surgical anastomosis at th e junction of the sigmoid colon and rectum. There is mild long segment diffuse rectal and distal colon mural thickening. Appendix normal. No abscess seen. Other: No free fluid or air. Abdominal nodes: Normal. Aorta: Normal in size. IVC: Normal. Ventral wall: Normal. PELVIS: Bladder: Normal. Pelvic nodes: Normal. Inguinal: No hernia. Bones: No vertebral body compression fracture. No suspicious bone lesion. Partial ankylosis of both S I joints. IMPRESSION: Distal bowel obstruction at the level of the rectosigmoid junction, at the area of surgical anastomos is. Associated mild dilatation of the colon, with large amount of retained stool and gas. Left adrenal nodule, technically indeterminate although was present on the prior study, therefore pro bably adenoma. Additional chronic and incidental findings as above. Reviewed by: Sabino Bailey MD on 09/01/2021 11:56 AM PDT Approved by: Sabino Bailey MD on 09/01/2021 11:56 AM PDT Station ID: [id number]
== END 2021-08-30 13:17 | disposition home or self-care (01) ==
LOC: DI 13:16
PROVIDERS: ATTEND Physician Assistant
DX: C18.9 Malignant neoplasm of colon, unspecified (principal); K56.609 Unspecified intestinal obstruction, unspecified as to partial versus complete obstruction; E27.8 Other specified disorders of adrenal gland; K76.0 Fatty (change of) liver, not elsewhere classified; R93.2 Abnormal findings on diagnostic imaging of liver and biliary tract

== ENCOUNTER 2021-09-01 10:27 | Emergency (ER) | payer MEDICARE, MEDICAID ==
[2021-09-01] MEDS ORDERED: ONDANSETRON 4 MG/2 ML VIAL IVP STA (10:44)
[2021-09-01] MEDS ORDERED: SODIUM CHLORIDE 0.9% 1,000 ML IV STA (10:44)
[2021-09-01] MEDS ORDERED: HYDROmorphone 1 MG/ML CARPUJECT IVP STA (10:44)
--- NOTE | 2021-09-01 10:45 | ED Physician Documentation ---
PD HPI ABD PAIN - Stated complaint Stated Complaint: ABD PX - Chief complaint Chief Complaint: Abd Pain - History obtained from History obtained from: Patient - Additional information Additional information: 66-year-old gentleman with history of reflux, colon cancer status post chemotherapy and resection presents with severe abdominal pain for the last week. It is diffuse and associated with bloating. Every time he eats something he has to vomit. I queried him if he ever had a bowel obstruction and he says yes but it sounds like from his description that he means more constipation because he just took MiraLAX and it resolved. He is unable to keep anything down. He had a small watery bowel movement 2 days ago which he thought would be helpful but pain is continuous despite that. No fevers. Review of Systems Ten Systems: 10 systems reviewed and negative Constitutional: reports: Reviewed and negative Ears: reports: Reviewed and negative Nose: reports: Reviewed and negative Throat: reports: Reviewed and negative PD PAST MEDICAL HISTORY - Past Medical History Cardiovascular: Hypertension, High cholesterol, Murmur, Arrhythmia Respiratory: None Neuro: None Endocrine/Autoimmune: Type 2 diabetes GI: GERD, Ulcerative colitis, Other : None HEENT: Chronic vision loss, Chronic hearing loss Psych: Depression, Anxiety, ADD/ADHD Musculoskeletal: None Derm: None - Past Surgical History Past Surgical History: Yes General: Bowel surgery, Colonoscopy, Other - Present Medications Home Medications: Ambulatory Orders Medication Instructions Recorded Confirmed Benazepril HCl 40 mg PO DAILY 07/19/18 07/19/21 Spironolactone [Aldactone] 50 mg PO BID 07/19/18 07/19/21 Garlic 1,000 mg PO BID 08/27/18 07/19/21 [place]-3S/Dha/Epa/Fish Oil [Fish 1 each PO BID 08/27/18 07/19/21 Oil 1,200 mg Softgel] Cholecalciferol (Vitamin D3) 3,000 unit PO BID 08/28/18 07/19/21 [Vitamin D3] cloNIDine HCL [Catapres] 0.2 mg PO BID 08/28/18 07/19/21 amLODIPine [Norvasc] 10 mg PO DAILY 12/20/18 07/19/21 Citalopram Hydrobromide [Celexa] 40 mg PO DAILY 07/13/20 07/19/21 Omeprazole 20 mg PO DAILY 07/13/20 07/19/21 polyethylene glycoL 3350 [Miralax] 17 gm PO DAILY PRN packet 10/03/20 07/14/21 Acetaminophen [Tylenol] 650 mg PO Q4HR PRN 07/18/21 07/14/21 bisacodyL [Dulcolax] 10 mg PO BID PRN #10 tablet 09/01/21 polyethylene glycoL 3350 [Miralax] 17 gm PO DAILY PRN #1 bottle 09/01/21 - Allergies Allergies/Adverse Reactions: Allergies Allergy/AdvReac Type Severity Reaction Status Date / Time No Known Drug Allergies Allergy Verified 09/01/21 10:36 - Social History Does the pt smoke?: No Smoking Status: Never smoker Does the pt drink ETOH?: No ETOH Use: Other (Has a history of alcohol abuse, but states he is not drinking much at this point.) Does the pt have substance abuse?: No - Immunizations Immunizations are current?: Yes - POLST Patient has POLST: No PD ED PE NORMAL - Vitals Vital signs reviewed: Yes - General General: Alert and oriented X 3, No acute distress - HEENT HEENT: PERRL, EOMI - Neck Neck: Supple, no meningeal sign, No bony TTP - Cardiac Cardiac: RRR, No murmur - Respiratory Respiratory: No respiratory distress, Clear bilaterally - Abdomen Abdomen: Other (Distended abdomen with absent bowel sounds, minimal diffuse tenderness, no surgical signs) - Back Back: No CVA TTP, No spinal TTP - Derm Derm: Normal color, Warm and dry - Extremities Extremities: No edema, No calf tenderness / cord - Neuro Neuro: Alert and oriented X 3, Normal speech Results - Vitals Vitals: Vital Signs - 24 hr 09/01/21 09/01/21 10:33 14:33 Temperature 36.1 C L 36.8 C Heart Rate 97 92 Respiratory 18 16 Rate Blood Pressure 179/94 H 156/99 H O2 Saturation 96 95 Oxygen O2 Source Room air - Labs Labs: Laboratory Tests 09/01/21 09/01/21 10:50 10:50 WBC 14.5 H RBC 5.12 Hgb 15.7 Hct 46.5 MCV 90.8 MCH 30.7 MCHC 33.8 RDW 13.2 Plt Count 270 MPV 9.9 Neut # (Auto) 11.6 H Lymph # (Auto) 1.6 [place] # (Auto) 1.1 H Eos # (Auto) 0.0 Baso # (Auto) 0.0 Absolute Nucleated RBC 0.00 Nucleated RBC % 0.0 Sodium 136 Potassium 3.6 Chloride 101 Carbon Dioxide 21 Anion Gap 14.0 H BUN 23 H Creatinine 1.6 H Estimated GFR (MDRD) 44 L Glucose 187 H Calcium 10.6 H Total Bilirubin 0.9 AST 20 ALT 38 Alkaline Phosphatase 66 Total Protein 8.1 Albumin 4.1 Globulin 4.0 Albumin/Globulin Ratio 1.0 Lipase 27 PD MEDICAL DECISION MAKING - ED course ED course: 66-year-old gentleman with history of colon cancer, resection, and reanastomosis presents with abdominal pain and constipation, some clinical concern for bowel obstruction. CT was ordered but it was noted that he actually had a CT 2 days ago and we asked radiology to review and read this as it had not been read yet. It was consistent with a distal bowel obstruction at the level of the rectosigmoid junction with mild dilatation of the colon and a large amount of retained stool and gas. Also a stable left adrenal nodule likely an adenoma. X-ray today still showing prominent colonic stool, partial bowel obstruction not excluded. We will trial some enemas to see if we can open him up. 66-year-old gentleman with history of colonic resection presents with obstipation. CT done from 2 days ago as above. After several enemas he had some large watery bowel movements, and was starting to feel better. On ree xamination he was nontender and was starting to develop bowel tones. Offered inpatient care but he would like to go home. Departure - Departure Disposition: 01 Home, Self Care Clinical Impression: Constipation, Abdominal pain Condition: Good Record reviewed to determine appropriate education?: Yes Instructions: ED Constipation Prescriptions: bisacodyL [Dulcolax] 10 mg PO BID PRN #10 tablet PRN Reason: Constipation polyethylene glycoL 3350 [Miralax] 17 gm PO DAILY PRN #1 bottle PRN Reason: Constipation Comments: Return tomorrow if not better, for the next 24 hours I would recommend a clear liquid diet and continue laxatives.
[2021-09-01] MEDS ORDERED: IOVERSOL 320 50 ML VIAL ONE (10:55)
[2021-09-01 10:56] LABS: BASOPHILS % (AUTO) 0.3 %; HCT - HEMATOCRIT 46.5 % (42.0-52.0); HGB - HEMOGLOBIN 15.7 g/dL (14.0-18.0); LYMPHOCYTES # (AUTO) 1.6 10^3/uL (1.5-3.5); LYMPHOCYTES % (AUTO) 11.3 %; MEAN CORPUSCULAR HEMOGLOBIN 30.7 pg (27.0-31.0); MEAN CORPUSCULAR HGB CONC 33.8 g/dL (32.0-36.0); MEAN CORPUSCULAR VOLUME 90.8 fL (80.0-94.0); MEAN PLATELET VOLUME 9.9 fL (7.4-11.4); MONOCYTES # (AUTO) 1.1 10^3/uL (0.0-1.0); MONOCYTES % (AUTO) 7.8 %; NEUTROPHILS # (AUTO) 11.6 10^3/uL (1.5-6.6); NEUTROPHILS % (AUTO) 80.1 %; PLT - PLATELET COUNT 270 10^3/uL (130-450); RED BLOOD COUNT 5.12 10^6/uL (4.70-6.10); RED CELL DISTRIBUTION WIDTH 13.2 % (12.0-15.0); WHITE BLOOD COUNT 14.5 x10^3/uL (4.8-10.8)
[2021-09-01 11:24] LABS: ALBUMIN 4.1 g/dL (3.2-5.5); BILIRUBIN,TOTAL 0.9 mg/dL (0.2-1.0); CALCIUM 10.6 mg/dL (8.5-10.3); CREATININE 1.6 mg/dL (0.6-1.2); POTASSIUM 3.6 mmol/L (3.5-5.0); TOTAL PROTEIN 8.1 g/dL (6.7-8.2)
--- NOTE | 2021-09-01 11:57 | XRAY Report ---
PROCEDURE: Abdomen 1 View X-Ray INDICATIONS: contipation, recent CT with po contrast TECHNIQUE: 1 view of the abdomen were acquired. COMPARISON: CT 08/30/2021 FINDINGS: Surgical changes and devices: None. Bowel: No pneumoperitoneum. The bowel gas pattern demonstrates prominent colonic stool. Dilated bow el loops are present. Soft tissues: No masses; visualized solid organ contours appear normal in size. No suspicious abdom inal calcifications. Bones: No suspicious bony abnormalities. IMPRESSION: Prominent colonic stool with constipation. Developing partial obstruction cannot be excl uded. Reviewed by: Lora Huston MD on 09/01/2021 11:56 AM PDT Approved by: Lora Huston MD on 09/01/2021 11:56 AM PDT Station ID: [id number]
[2021-09-01] MEDS ORDERED: bisacodyL 5 MG TABLET PO STA (12:19)
[2021-09-01] MEDS ORDERED: MAGNESIUM CITRATE 296 ML BOTTLE PO STA (12:19)
[2021-09-01 14:34] VITALS: BP 156/99
== END 2021-09-01 15:45 | disposition home or self-care (01) ==
LOC: ED 10:27
DX: K59.00 Constipation, unspecified (principal); R10.84 Generalized abdominal pain; Z85.038 Personal history of other malignant neoplasm of large intestine; Z90.49 Acquired absence of other specified parts of digestive tract; I10 Essential (primary) hypertension; E11.9 Type 2 diabetes mellitus without complications
CPT/HCPCS: 36415; 74018; 80053; 83690; 85025; 96361; 96374; 96375; 99282; 99284; A9270; J1170

== ENCOUNTER 2021-11-17 12:50 | Outpatient (CLI) | payer MEDICARE, MEDICAID ==
[2021-11-17 13:40] VITALS: BP 134/94
--- NOTE | 2021-11-17 13:40 | SLEEP CARE CONSULTATION ---
Information from patient questionnaire entered by Sandrine Rajput MA. I have reviewed and concur with the information entered by Sandrine Rajput MA. This document represents the service I personally performed and the decisions made by , Whitley Wheat ARNP. History of Present Illness Service Date and Time: 11/17/2021 1250 Reason for Visit: New patient (ONSET 09/2021, NO PRIORS) Chief Complaint: reports: Unrefreshed sleep, Snoring, Excessive daytime sleepine ss, Fatigue, Frequent awakenings at night Date of Onset: YEARS Usual bedtime: 12:00 AM; 2200 lately since weather changed Time it takes to fall asleep: 5 MINUTES Snores at night: Yes Observed to quit breathing while asleep: No Sleeps alone due to snoring: No Number of times waking at night: 2 Reasons for waking at night: reports: Bathroom. denies: Choking, Snoring, Gasping for air Toss, Turn, or Twitch while sleeping: Yes Recalls having dreams: Yes (sometimes) Usually gets out of bed at: 0900 Feels refreshed in the morning: No Morning headache: No Sleepy or fatigued during the day: Yes Ever fallen asleep while driving: No Takes day naps: Yes (daily at 2 pm; sometimes up to 4 hours) Dreams during day naps: No Prior sleep studies: No Additional HPI information: I had the pleasure of seeing TELMA MENON today regarding the possibility of him having a sleep disorder. His current complaints are excessive daytime sl eepiness, fatigue, frequent night awakenings, snoring and unrefreshed sleep. He states his has told him he talks loud and snores loudly in his sleep. He sleeps in a chair in their living room due to back issues. His will hear him when she is in there. He states he will get 8 hours of sleep and still wake up feeling tired. He takes a nap every day at 2 PM and can sleep for up to 4 hours. - Parasomnia Symptoms Ever been unable to move upon waking from sleep: No Walks in sleep: No Talks in sleep: Yes Ever acted out dreams in sleep: No Ever felt weak in the knees when startled or emotional: No Bothered by creepy, crawly, restless sensations in legs: No Problems with memory or concentration: Yes (ADHD; memory "goofy", don't remember a lot of things) Subjective Initial Carroll Sleepiness Scale score: 7 (2021) Past Medical History Past Medical History: reports: Hypertension, Arrythmia, Anxiety, Depression, Mood disorder (short temper/fuse), GERD, Attention deficit, Other (Irregular heartbeat) Social History 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 Patient is and lives in [place]. Have you smoked in the past 12 months: No Quit date: Alcohol use: Yes Alcohol amount and frequency: 4 X DAILY Caffeine use: Yes Caffeine amount and frequency: 2 X DAILY Family History Family history of sleep disordered breathing: No Family Hx Sleep Apnea: Mother: Snoring Allergies and Home Medications Drug allergies reviewed: Yes (NKDA) Home medication list reviewed: Yes Allergy and home medication list: Benazepril Omeprazole Amlodipine Citalopram Spironolactone Clonidine Review of Systems Cardiovascular: reports: high blood pressure, palpitations, irregular heart rate or pulse, leg or foot swelling Gastrointestinal: reports: heartburn, diarrhea, abdominal pain Urinary: reports: frequency Psychiatric: reports: Attention Deficit Hyperactivity, anxiety, depression, mood disorder Ear/Nose/Throat: denies: tonsillectomy Endocrine: reports: sluggishness Musculoskeletal: reports: muscle pain or cramping Physical Exam Vital signs obtained and entered by: Maura RAJPUT CMA BK Blood Pressure: 134/94 (LEFT, PULSE 63) Heart Rate: 68 O2 Saturation: 97 (WITH PAPER MASK) Height: 5 ft 2 in Weight: 179 lb (WITH CLOTHES) Body Mass Index: 32.7 BMI Classification: Obese Neck circumference: 17.75 (inches) Mouth and throat: narrow oropharynx Soft palate: long Hard palate: normal Uvula: normal, long Uvula visualization: 50% Mallampati Class II Tongue: enlarged in size with teeth escalante on lateral edges Tonsils: 1+ Neck: normal w/o lymphadenopathy or thyromegaly Heart: regular rate and rhythm Lungs: clear bilaterally Impression and Plan 1. Suspected Obstructive Sleep Apnea-Hypopnea Syndrome, as suggested by a history of loud and irregular snoring, frequent awakening during the night, unrefreshed sleep, cognitive impairment, and excessive daytime sleepiness. Narrow oropharynx and obesity are common predisposing factors for obstructive sleep apnea-hypopnea syndrome. I recommend proceeding to polysomnography to confirm the diagnosis and to assess severity. If the patient has significant sleep disordered breathing, a manual CPAP titration study will also be performed to find the optimal treatment pressure. I informed the patient of what the sleep studies involve and after some discussion, obtained agreement to proceed. The pathophysiology of obstructive sleep apnea-hypopnea syndrome was discussed with the patient and health risks of cardiovascular and cerebrovascular disease if not treated. [facility] brochure for obstructive sleep apnea-hypopnea syndrome given and reviewed. Risks of drowsy driving discussed in detail and patient advised to avoid long distance driving and to conductor pullman at the first sign of drowsiness. Patient agreed to plan. * Schedule polysomnography +- manual CPAP titration study and return in 1-2 weeks after the study to discuss result and initiate therapy. * Avoid long distance driving or driving when feeling sleepy. * Avoid alcohol, sedative and muscle relaxant around bedtime. * Attempt to lose weight. * Review instructions provided by trained office staff on how to prepare for the sleep study. * Return for follow-up after sleep study completed. Counseling Topics: Weight loss health impact Visit Type: In Office Time Spent with Patient (minutes): 36 Provider Statement: I spent 100% of the Face to Face Visit with the patient with greater than 50% spent counseling the patient and coordination of care.
== END 2021-11-17 12:51 | disposition home or self-care (01) ==
LOC: SC 12:50
PROVIDERS: ATTEND Nurse Practitioner Family
DX: G47.10 Hypersomnia, unspecified (principal); G47.8 Other sleep disorders; R06.83 Snoring; R41.89 Other symptoms and signs involving cognitive functions and awareness; E66.9 Obesity, unspecified; Z68.32 Body mass index [BMI] 32.0-32.9, adult
CPT/HCPCS: 99203; G0463; 99212

== ENCOUNTER 2021-12-13 12:20 | Outpatient (CLI) | payer MEDICARE, MEDICAID | END 2021-12-13 12:21 | disposition home or self-care (01) | LOC: SC 12:20 | PROVIDERS: ATTEND Nurse Practitioner Family | DX: G47.33 Obstructive sleep apnea (adult) (pediatric) (principal); R09.02 Hypoxemia | CPT/HCPCS: G0399 ×2; 95806 ==

== ENCOUNTER 2022-01-05 11:25 | Outpatient (CLI) | payer MEDICARE, MEDICAID ==
--- NOTE | 2022-01-05 12:25 | SLEEP CARE CONSULTATION ---
Information from patient questionnaire entered by Sandrine Gregory MA. I have reviewed and concur with the information entered by Sandrine Gregory MA. This document represents the service I personally performed and the decisions made by , Whitley Wheat ARNP. History of Present Illness Service Date and Time: 01/05/2022 1125 Initial [place]e Sleepiness Scale score: 7 (2021) Current Haw[place]e Sleepiness Scale score: 6 (2021) Additional HPI information: TELMA MENON returns for follow up and results of the recently performed home sleep study. I explained the pathophysiology behind obstructive sleep apnea. We then spent quite a bit of time discussing different treatment options. For mild obstructive sleep apnea, surgery and oral appliance are alternatives to nasal CPAP therapy but in moderate or severe cases, nasal CPAP is the most effective and reliable treatment. Because apnea is primarily in supine position, then positional management therapy could be effective. Methods discussed such as positioning with pillows to prevent supine sleep. I reviewed the impact of weight changes on sleep apnea and strongly recommended losing weight. After some discussion, the patient opted to go with the nasal CPAP therapy. Nasal autoCPAP set at 4-15 cmH20 will be ordered with rationale explained. A manual titration study will be ordered if unable to find optimal pressure with office adjustments. I explained how CPAP machine works and what to expect when using the machine. Using CPAP every night in order to get used to it was emphasized. Patient advised to put CPAP mask on before getting into bed so as not to fall asleep w ithout CPAP. To assist acclimation to CPAP use, it could also be used for a short time during day while reading or watching TV. The patient was instructed to call the CPAP supplier to discuss any mechanical problem that may occur. If the mask given is uncomfortable or is difficult to keep on through the night even with adjustment, contact the CPAP supplier as many will replace with another mask style if notified before 30 days. If snoring or perceives is not getting enough air or too much air from the machine, notify this office. [facility] patient education PAP tips reviewed and given to patient. Patient counseled not drink alcohol less than 4 hours before bedtime as it can increase snoring and apnea. Patient was cautioned about risks of drowsy driving until sleepiness symptoms resolve. Sleep Study - Results Type of Sleep Study: Home sleep study (F/U HOME STUDY) Prior sleep studies: No Polysomnography/Home Sleep Study results: Physician Impression: The quality of the study is good. The length of the study is adequate (> 240 minutes). Please also see the tabulated and graphic data. 1. Obstructive Sleep Apnea-Hypopnea (ICD-10 G47.33), mild, with an AHI of 8.3/hr and ani SaO2 of 88%. During the study, the patient had 8 apneas (8 obstructive, 0 central, 0 mixed) and 13 hypopneas. The longest episode lasted 51.5 seconds. The patient did not sleep supine during this study (supine AHI was 0; and non-supine, 8.26). 2. Hypoxemia (ICD-10 R09.02), minimal, with the lowest oxygen saturation of 88 % and 0.2 minutes with SaO2 under 90%. Baseline oxygen saturation was normal (Average oxygen saturation was 94%). Allergies and Home Medications Home medication list reviewed: Yes (no changes) Allergy and home medication list: Allergies No Known Drug Allergies Allergy (Verified 09/01/21 10:36) Review of Systems Review of systems same as previous: Yes (no changes) Physical Exam Blood Pressure: 131/74 (RIGHT, PULSE 62, RESP 14, ) Heart Rate: 61 O2 Saturation: 97 (PAPER MASK) Height: 5 ft 2 in Weight: 179 lb (CLOTHES) Body Mass Index: 32.7 BMI Classification: Obese Impression and Plan 1. Obstructive Sleep Apnea-Hypopnea Syndrome, mild, with lowest oxygen saturation of 88%. Obviously this is the cause of the patients symptoms of unrefreshed sleep, and excessive daytime sleepiness. Positive pressure therapy could benefit hypertension, arrhythmia, anxiety, depression, attention deficit, mood disorder and gastric reflux. As mentioned above, the patient will be started on nasal autoCPAP therapy with pressure set at 4-15 cmH2O. A manual titration study will be completed if unable to find optimal treatment pressure with office adjustments. Compliance guidelines also reviewed. A copy of compliance guidelines will be given for reference at check out. * Nasal auto CPAP therapy, pressure at 4-15 cm H2O. * Attempt to lose weight. * Avoid alcohol consumption near bedtime. * Avoid supine sleep until using CPAP. * The patient is again cautioned about driving until sleepiness completely resolves. * Return one month after CPAP obtained. I will assess response to therapy and compliance at that time. Counseling Topics: Weight loss health impact Visit Type: In Office Time Spent with Patient (minutes): 20 Provider Statement: I spent 100% of the Face to Face Visit with the patient with greater than 50% spent counseling the patient and coordination of care.
[2022-01-05 12:26] VITALS: BP 131/74
== END 2022-01-05 11:26 | disposition home or self-care (01) ==
LOC: SC 11:25
PROVIDERS: ATTEND Nurse Practitioner Family
DX: G47.33 Obstructive sleep apnea (adult) (pediatric) (principal); E66.9 Obesity, unspecified; Z68.32 Body mass index [BMI] 32.0-32.9, adult
CPT/HCPCS: 99213; G0463; 99212

== ENCOUNTER 2022-03-07 15:36 | Outpatient (CLI) | payer MEDICARE, MEDICAID ==
[2022-03-07 16:36] LABS: CHOL/HDL RATIO 9.8 (<5.0); CHOLESTEROL 245 mg/dL; HDL CHOLESTEROL 25 mg/dL; TRIGLYCERIDES 646 mg/dL
[2022-03-07 17:08] LABS: LDL CHOLESTEROL,DIRECT 135 mg/dL; LDLD/HDL RATIO 5.4 (<3.6)
[2022-03-07 20:30] LABS: ESTIMATED AVERAGE GLUCOSE 341 mg/dL (70-100); HEMOGLOBIN A1c% 13.5 % (4.27-6.07)
== END 2022-03-07 23:59 | disposition home or self-care (01) ==
LOC: LAB 15:36
PROVIDERS: ATTEND Family Medicine
DX: E11.9 Type 2 diabetes mellitus without complications (principal)
CPT/HCPCS: 36415; 80061; 83036; 83721

== ENCOUNTER 2022-03-14 16:15 | Outpatient (CLI) | payer MEDICARE, MEDICAID ==
[2022-03-14 16:52] VITALS: BP 132/78
--- NOTE | 2022-03-14 16:52 | SLEEP CARE CONSULTATION ---
Information from patient questionnaire entered by Sandrine Rajput MA. I have reviewed and concur with the information entered by Sandrine Rajput MA. This document represents the service I personally performed and the decisions made by , Whitley Wheat ARNP. History of Present Illness Service Date and Time: 03/14/2022 1615 Previous diagnosis: Mild, Obstructive Sleep Apnea-Hypopnea Syndrome AHI: 8.3 (in 2021) Reason for follow up: first compliance (RESMED, ) Equipment type: CPAP Equipment obtained from: Other ([facility]; got initial supplies) Mask style: Nasal pillows Mask brand: [employer] ([employer]) Backup mask available: Yes (other mask) Last cushion change: 2 weeks ago Prior sleep studies: No Type of Sleep Study: Home sleep study (F/U HOME STUDY) HPI additional information: TELMA MENON was diagnosed to have mild, AHI 8.3, obstructive sleep apnea- hypopnea syndrome and returned today for CPAP therapy first compliance follow- up. Sleep Study - Results Type of Sleep Study: Home sleep study (F/U HOME STUDY) Prior sleep studies: No CPAP Compliance Data - Data Reviewed with Patient Average duration of nightly device use: 7 HOURS AND 5 MINUTES Compliance rate %: 90 Current pressure setting (cmH2O): 4-15 (median 6.2, avg 9.7, max 10.9) Average residual AHI: 0.5 Central apnea: .2 Obstructive apnea: .1 Average large leak: 23.0 Subjective Patient concerns: reports: dry mouth, nose, throat, other (dizzy, unsure if due to CPAP; some chest tightness). denies: aerophagia, mask discomfort, air blowing in eyes, mask leak noise, condensation in mask/hose, nasal congestion, epistaxis Observed to snore while using device: No Current pressure setting perceived as: comfortable On therapy, patient: denies: sleeping better (not yet), drowsiness while driving Initial [place] Sleepiness Scale score: 7 (2021) Current [place] Sleepiness Scale score: 2 (03/26) Allergies and Home Medications Home medication list reviewed: Yes (new oral pill for DM, unsure of name) Allergy and home medication list: Allergies No Known Drug Allergies Allergy (Verified 09/01/21 10:36) Review of Systems Review of systems same as previous: No (Diabetes) Physical Exam Vital signs obtained and entered by: Maura RAJPUT CMA AAAZ Blood Pressure: 132/78 (right, ) Cuff size: wrist Heart Rate: 81 O2 Saturation: 98 (paper mask) Height: 5 ft 2 in Weight: 160 lb Body Mass Index: 29.2 BMI Classification: Overweight Impression and Plan 1. Obstructive Sleep Apnea-Hypopnea Syndrome, mild, with good treatment compliance and excellent apnea control. On CPAP therapy, the patient has not felt a lot of difference in sleep quality or refreshed sleep. His [place] scale has reduce from his initial 05/28 to 2 today. He states he has been experi encing some dizziness upon awakening and sometimes a little chest pressure. He has a residual AHI of 0.5. The patients pressure will be changed to autoCPAP 6- 8 cmH20 to reflect pressure being used and to see if this will help reduce dizziness/chest pressure. Patient advised to move slowly when getting out of bed until dizziness resolves. He should follow up with PCP if symptoms worsen or do not resolve with change in pressure. Patient advised to contact me if pressure change is uncomfortable so that it can be adjusted. Goals for apnea control discussed. He voiced understanding and agreement. He is having some dry mouth. He may be oral venting some. I advise him to use a chinstrap if adjustment of his humidity does not improve the oral dryness. Oral dryness can be reduced by adjusting humidity setting higher or heated hose lower or by adjusting both settings. Verbal instructions given on how to change humidity and heated hose settings with rationale explaining why to change. Patient's apnea severity and rationale for treatment to reduce apnea, improve sleep quality and reduce cardiovascular and cerebrovascular events was reviewed. I also reviewed the benefit of consistent device use of CPAP for hypertension, arrhythmia, gastric reflux, depression, anxiety, attention deficit and mood disorder. Patient was encouraged to try to lose weight to reduce apneas and to improve his overall health. * Change auto CPAP pressure to 6-8 cmH2O * Notify me if snoring with mask or feeling that the pressure is too much or too little * Attempt to lose weight * Call this office if any problems using CPAP * Return for follow up in 1-2 months, or sooner if concerns arise Counseling Topics: Spare mask, Weight loss health impact Visit Type: In Office Time Spent with Patient (minutes): 20 Provider Statement: I spent 100% of the Face to Face Visit with the patient with greater than 50% spent counseling the patient and coordination of care.
== END 2022-03-14 16:16 | disposition home or self-care (01) ==
LOC: SC 16:15
PROVIDERS: ATTEND Nurse Practitioner Family
DX: G47.33 Obstructive sleep apnea (adult) (pediatric) (principal); E66.3 Overweight; Z68.29 Body mass index [BMI] 29.0-29.9, adult
CPT/HCPCS: 99213; G0463; 99212

== ENCOUNTER 2022-03-21 12:04 | Outpatient (CLI) | payer MEDICARE, MEDICAID | END 2022-03-21 12:05 | disposition critical access hospital (66) | LOC: EMS 12:04 | DX: E11.65 Type 2 diabetes mellitus with hyperglycemia (principal) | CPT/HCPCS: A0425; A0429 ==

== ENCOUNTER 2022-03-21 12:22 | Observation (INO) | payer MEDICARE, MEDICAID ==
[2022-03-21] MEDS ORDERED: SODIUM CHLORIDE 0.9% 1,000 ML IV STA ×2 (12:25→13:18)
--- NOTE | 2022-03-21 12:27 | ED Physician Documentation ---
History of Present Illness - Stated complaint Stated Complaint: HIGH BLOOD SUGAR - History obtained from History obtained from: Patient, EMS - Additonal information Additional information: 66-year-old with recently diagnosed type 2 diabetes. Seen in the clinic couple weeks ago. Had outpatient labs showing glucose of 529 and A1c of 13.5. He was started on glipizide which he did not tolerate due to side effects. Went back to the clinic today with generally ill feeling but relatively asymptomatic and sent here for blood sugar that was "high" When I asked him about why he was started on glipizide as opposed to metformin. He notes that he has been on metformin in the past despite no formal diagnosis of diabetes in the past and it caused him a lot of abdominal issues. Past medical history is notable for colon cancer status post colostomy and chemotherapy and subsequent takedown, hypertension, ADD, GERD, depression, anxiety Review of Systems Ten Systems: 10 systems reviewed and negative Constitutional: reports: Fatigue Respiratory: reports: Dyspnea Neurologic: denies: Headache PD PAST MEDICAL HISTORY - Past Medical History Cardiovascular: Hypertension, High cholesterol, Murmur, Arrhythmia Respiratory: None Neuro: None Endocrine/Autoimmune: Type 2 diabetes GI: GERD, Ulcerative colitis, Other : None HEENT: Chronic vision loss, Chronic hearing loss Psych: Depression, Anxiety, ADD/ADHD Musculoskeletal: None Derm: None - Past Surgical History Past Surgical History: Yes General: Bowel surgery, Colonoscopy, Other - Present Medications Home Medications: Ambulatory Orders Medication Instructions Recorded Confirmed Benazepril HCl 40 mg PO DAILY 07/19/18 03/21/22 Spironolactone [Aldactone] 50 mg PO BID 07/19/18 03/21/22 Garlic 1,000 mg PO BID 08/27/18 03/07/22 [place]-3S/Dha/Epa/Fish Oil [Fish 1 each PO BID 08/27/18 03/07/22 Oil 1,200 mg Softgel] Cholecalciferol (Vitamin D3) 3,000 unit PO BID 08/28/18 03/07/22 [Vitamin D3] amLODIPine [Norvasc] 10 mg PO DAILY 12/20/18 03/21/22 Citalopram Hydrobromide [Celexa] 40 mg PO DAILY 07/13/20 03/21/22 Omeprazole 20 mg PO DAILY 07/13/20 03/21/22 polyethylene glycoL 3350 [Miralax] 17 gm PO DAILY PRN packet 10/03/20 03/07/22 Acetaminophen [Tylenol] 650 mg PO Q4HR PRN 07/18/21 03/07/22 bisacodyL [Dulcolax] 10 mg PO BID PRN #10 tablet 09/01/21 03/07/22 - Allergies Allergies/Adverse Reactions: Allergies Allergy/AdvReac Type Severity Reaction Status Date / Time No Known Drug Allergies Allergy Verified 09/01/21 10:36 - Social History Does the pt smoke?: No Smoking Status: Never smoker Does the pt drink ETOH?: No Does the pt have substance abuse?: No - Immunizations Immunizations are current?: Yes - POLST Patient has POLST: No PD ED PE NORMAL - Vitals Vital signs reviewed: Yes - General General: Alert and oriented X 3, No acute distress - HEENT HEENT: PERRL, EOMI - Neck Neck: Supple, no meningeal sign, No bony TTP - Cardiac Cardiac: Other (Mild resting tachycardia, regular, no murmur) - Respiratory Respiratory: No respiratory distress, Clear bilaterally - Abdomen Abdomen: Non tender - Derm Derm: Normal color, Warm and dry, No rash - Extremities Extremities: No edema, No calf tenderness / cord - Neuro Neuro: Alert and oriented X 3, Normal speech Results - Vitals Vitals: Vital Signs - 24 hr 03/21/22 03/21/22 03/21/22 12:30 12:32 14:32 Temperature 36.9 C 36.6 C Heart Rate 110 H 97 Respiratory 14 18 Rate Blood Pressure 169/110 H 170/115 H O2 Saturation 98 98 Oxygen O2 Source Room air - Labs Labs: Laboratory Tests 03/21/22 03/21/22 03/21/22 12:52 12:52 12:52 WBC 10.4 RBC 4.68 L Hgb 14.3 Hct 42.1 MCV 90.0 MCH 30.6 MCHC 34.0 RDW 12.6 Plt Count 202 MPV 11.0 Neut # (Auto) 8.2 H Lymph # (Auto) 1.2 L [place] # (Auto) 0.8 Eos # (Auto) 0.0 Baso # (Auto) 0.1 Absolute Nucleated RBC 0.00 Nucleated RBC % 0.0 Manual Slide Review Indicated Platelet Estimate NORMAL (130-450,000) Platelet Morphology RARE PLATELET CLUMP RBC Morph Micro Appear NORMAL APPEARANCE VBG pH 7.383 VBG pCO2 33.2 L VBG pO2 44.8 VBG HCO3 19.3 L VBG Total CO2 20.4 L VBG O2 Saturation 82.6 H VBG Base Excess -4.8 L Sodium 127 L Potassium 5.7 H Chloride 94 L Carbon Dioxide 19 L Anion Gap 14.0 H BUN 36 H Creatinine 1.9 H Estimated GFR (MDRD) 36 L Glucose 747 H* Estimat Average Glucose Hemoglobin A1c % Calcium 9.9 Magnesium 2.0 Serum Ketones SMALL H SARS-CoV-2 (PCR) 03/21/22 03/21/22 03/21/22 12:52 13:25 15:18 WBC RBC Hgb Hct MCV MCH MCHC RDW Plt Count MPV Neut # (Auto) Lymph # (Auto) [place] # (Auto) Eos # (Auto) Baso # (Auto) Absolute Nucleated RBC Nucleated RBC % Manual Slide Review Platelet Estimate Platelet Morphology RBC Morph Micro Appear VBG pH VBG pCO2 VBG pO2 VBG HCO3 VBG Total CO2 VBG O2 Saturation VBG Base Excess Sodium 133 L Potassium 4.6 Chloride 100 L Carbon Dioxide 22 Anion Gap 11.0 BUN 32 H Creatinine 1.8 H Estimated GFR (MDRD) 38 L Glucose 473 H Estimat Average Glucose 390 H Hemoglobin A1c % 15.2 H Calcium 9.8 Magnesium Serum Ketones SARS-CoV-2 (PCR) NOT DETECTED 03/21/22 15:18 WBC RBC Hgb Hct MCV MCH MCHC RDW Plt Count MPV Neut # (Auto) Lymph # (Auto) [place] # (Auto) Eos # (Auto) Baso # (Auto) Absolute Nucleated RBC Nucleated RBC % Manual Slide Review Platelet Estimate Platelet Morphology RBC Morph Micro Appear VBG pH VBG pCO2 VBG pO2 VBG HCO3 VBG Total CO2 VBG O2 Saturation VBG Base Excess Sodium Potassium Chloride Carbon Dioxide Anion Gap BUN Creatinine Estimated GFR (MDRD) Glucose Estimat Average Glucose Hemoglobin A1c % Calcium Magnesium Serum Ketones NEGATIVE SARS-CoV-2 (PCR) PD MEDICAL DECISION MAKING - ED course ED course: 66-year-old gentleman presents with uncontrolled diabetes. He appears well and is minimally symptomatic. Work-up here demonstrates he actually has mild DKA. Bicarb is 19, potassium 5.7, glucose 747 and small ketones but a preserved venous pH. I spoke with Dr. Snyder for admission at approximately 1:25 PM. We do not have ICU beds at this time so we will try to manage him in the emergency department for a couple of hours on an insulin drip and then repeat the BMP to see if at that point he is appropriate for floor bed. On repeat BMP his gap had closed and his blood sugar was down to 473 so I talked with Dr. Snyder again at 345 and she accepts. - Critical Care Time(min): 36 Time Includes: Direct patient care, Review records, Reassess patient, Document care, Coordinate care, Medical consult Data interpretation: Labs Procedures included in critical care time: Peripheral IV Departure - Departure Disposition: ED Place in Observation Clinical Impression: DKA, type 2 Condition: Good Discharge Date/Time: 03/21/22 16:31
[2022-03-21] MEDS ORDERED: INSULIN REGULAR HUMAN 100 UNIT/1 ML 10 ML MDV SUBQ STA (12:39)
[2022-03-21 13:03] LABS: BASOPHILS # (AUTO) 0.1 10^3/uL (0.0-0.1); BASOPHILS % (AUTO) 0.5 %; EOSINOPHILS % (AUTO) 0.4 %; HCT - HEMATOCRIT 42.1 % (42.0-52.0); HGB - HEMOGLOBIN 14.3 g/dL (14.0-18.0); LYMPHOCYTES # (AUTO) 1.2 10^3/uL (1.5-3.5); LYMPHOCYTES % (AUTO) 11.6 %; MEAN CORPUSCULAR HEMOGLOBIN 30.6 pg (27.0-31.0); MONOCYTES # (AUTO) 0.8 10^3/uL (0.0-1.0); MONOCYTES % (AUTO) 8.1 %; NEUTROPHILS # (AUTO) 8.2 10^3/uL (1.5-6.6); PLT - PLATELET COUNT 202 10^3/uL (130-450); RED BLOOD COUNT 4.68 10^6/uL (4.70-6.10); RED CELL DISTRIBUTION WIDTH 12.6 % (12.0-15.0); WHITE BLOOD COUNT 10.4 x10^3/uL (4.8-10.8)
[2022-03-21 13:06] LABS: KETONES, SERUM (ACETEST) SMALL (NEGATIVE); VBG PCO2 33.2 mmHg (41-51); VBG PH 7.383 (7.31-7.41)
[2022-03-21 13:07] LABS: VBG BASE EXCESS -4.8 mmol/L (-2 - +2); VBG HCO3 19.3 mmol/L (23-28); VBG OXYGEN SATURATION 82.6 % (60-80); VBG PO2 44.8 mmHg (25-47); VBG TOTAL CO2 20.4 mmol/L (24-29)
[2022-03-21 13:08] LABS: SLIDE REVIEW? Indicated
[2022-03-21 13:12] LABS: BUN - BLOOD UREA NITROGEN 36 mg/dL (6-20); CALCIUM 9.9 mg/dL (8.5-10.3); CARBON DIOXIDE - CO2 19 mmol/L (21-32); CHLORIDE 94 mmol/L (101-111); CREATININE 1.9 mg/dL (0.6-1.2); GFR - MDRD 36 (>89); POTASSIUM 5.7 mmol/L (3.5-5.0); SODIUM 127 mmol/L (135-145)
[2022-03-21 13:14] LABS: GLUCOSE 747 mg/dL (70-100)
[2022-03-21] MEDS ORDERED: INSULIN REGULAR HUMAN 100 UNIT in SODIUM CHLORIDE 0.9% 100ML 99 ML IV STA (13:17)
[2022-03-21 13:19] LABS: PLATELET ESTIMATE, MANUAL NORMAL (130-450,000) (NORMAL); RBC MORPHOLOGY (MULTIPLE) NORMAL APPEARANCE (NORMAL)
[2022-03-21 13:20] LABS: PLATELET MORPHOLOGY RARE PLATELET CLUMP (NORMAL)
[2022-03-21] MEDS ORDERED: INSULIN GLARGINE 300 UNIT/3 ML PEN SUBQ STA (13:25)
[2022-03-21 15:34] LABS: CALCIUM 9.8 mg/dL (8.5-10.3); CREATININE 1.8 mg/dL (0.6-1.2); POTASSIUM 4.6 mmol/L (3.5-5.0)
[2022-03-21] MEDS ORDERED: ONDANSETRON 4 MG/2 ML VIAL IVP PRN (15:54)
[2022-03-21] MEDS ORDERED: SODIUM CHLORIDE FLUSH 0.9% 10 ML SYRINGE IVP PRN (15:54)
[2022-03-21] MEDS ORDERED: ACETAMINOPHEN 325 MG TABLET PO PRN (15:54)
[2022-03-21] MEDS ORDERED: hydrALAZINE INJ 20 MG/ML VIAL IVP PRN (16:05)
--- NOTE | 2022-03-21 16:24 | HISTORY & PHYSICAL EXAMINATION ---
Chief Complaint - Chief Complaint Chief Complaint: Hyperglycemia History of Present Illness - Admitted From Admitted From:: medical floor - History Obtained From Records Reviewed: [facility], ER notes History obtained from: pt - History of Present Illness HPI Comment/Other: This is a 66-year-old with a past medical history significant for hypertension, heart murmur, Arrhythmia, GERD, hyperlipidemia, sigmoid colon cancer with status post colostomy and chemotherapy and subsequent takedown, CKD, Chronic vision loss, chronic hearing loss, anxiety, depression, ADD/ADHD, recently diagnosed type 2 diabetes. Pt was seen in the clinic nearly two weeks ago which show his glucose of 529 and A1c of 13.5. Pt was started on glipizide. Pt report he can not tolerate Glipizide. He report Glipizide made him feeling chest tightness and uncomfortable, then he came back clinic which was reported his sugar was very high and recommended to ER for further evaluation. Pt report he was feeling dizziness. Because of his significant elevated glucose, the clinic called EMS to bring pt to the ER. In initially ER route lab test signficantly show pt had glucose 747, Creatinine 1.9, anion gap 14, sodium 127, potassium 5.7 and serum ketone is positive. Because we do not have ICU bed available. Pt was given insulin with insulin drop and IVF, and lab recheck show pt has no more serum ketone, and Electrolytes has significantly improved. pt also report he feel much better. Medical team was consulted for admission for further management of patient's uncontrolled diabetes. Discussed the care goal with the patient, patient hope to have full code. History - Past Medical History Cardiovascular: reports: Hypertension, High cholesterol, Murmur, Arrhythmia Respiratory: reports: None Neuro: reports: None Endocrine/Autoimmune: reports: Type 2 diabetes GI: reports: GERD, Ulcerative colitis, Other : reports: None HEENT: reports: Chronic vision loss, Chronic hearing loss Psych: reports: Depression, Anxiety, ADD/ADHD Musculoskeletal: reports: None Derm: reports: None MRSA Hx?: No - Past Surgical History General: reports: Bowel surgery, Colonoscopy, Other - Family & Social History Family History: Mother: Alive and Well Family History Comment/Other: Patient report his mother is still living at age 92, she had medical history of [place], colon cancer. Her father at age 86 from heart attack and history diabetic. Social History Notes: Patient report he quit cigarette smoking 14 years ago, he had a history of alcohol abuse but he quit alcohol drinking couple years ago. - POLST Patient has POLST: No Meds/Allgy - Home Medications Home Medications: Ambulatory Orders Medication Instructions Recorded Confirmed Benazepril HCl 40 mg PO DAILY 07/19/18 03/21/22 Spironolactone [Aldactone] 50 mg PO BID 07/19/18 03/21/22 Garlic 1,000 mg PO BID 08/27/18 03/07/22 [place]-3S/Dha/Epa/Fish Oil [Fish 1 each PO BID 08/27/18 03/07/22 Oil 1,200 mg Softgel] Cholecalciferol (Vitamin D3) 3,000 unit PO BID 08/28/18 03/07/22 [Vitamin D3] amLODIPine [Norvasc] 10 mg PO DAILY 12/20/18 03/21/22 Citalopram Hydrobromide [Celexa] 40 mg PO DAILY 07/13/20 03/21/22 Omeprazole 20 mg PO DAILY 07/13/20 03/21/22 polyethylene glycoL 3350 [Miralax] 17 gm PO DAILY PRN packet 10/03/20 03/07/22 Acetaminophen [Tylenol] 650 mg PO Q4HR PRN 07/18/21 03/07/22 bisacodyL [Dulcolax] 10 mg PO BID PRN #10 tablet 09/01/21 03/07/22 - Allergies Allergies/Adverse Reactions: Allergies Allergy/AdvReac Type Severity Reaction Status Date / Time No Known Drug Allergies Allergy Verified 09/01/21 10:36 Review of Systems - Constitutional Constitutional: denies: Fever, Chills - Eyes Eyes: denies: Pain - Ears, Nose & Throat Ears, Nose & Throat: denies: Ear pain - Cardiovascular Cariovascular: denies: Palpitations, Chest pain, Syncope - Respiratory Respiratory: denies: Cough, Sputum production - Gastrointestinal Gastrointestinal: denies: Abdominal pain, Nausea, Vomiting - Neurological Neurological: reports: Dizziness. denies: Focal weakness, Numbness, Abnormal gait, Seizures, Incoordination, Slurred speech - Psychiatric Psychiatric: denies: Depression, Anxiety Prior Level of Functionality: Independent in his home Exam - Vital Signs Vital Signs: Vital Signs x48h Temp Pulse Resp BP Pulse Ox 03/21/22 16:00 96 18 152/99 H 98 03/21/22 14:32 36.6 C 97 18 170/115 H 98 03/21/22 12:32 110 H 14 169/110 H 98 03/21/22 12:30 36.9 C - Physical Exam General Appearance: positive: No acute distress, Alert. negative: Lethargic Eyes Bilateral: positive: Normal inspection, No lid inflammation ENT: positive: ENT inspection nml, No signs of dehydration. negative: Purulent nasal drainage Neck: positive: Nml inspection, Trachea midline. negative: Tracheal deviation Respiratory: positive: Chest non-tender, No respiratory distress, Breath sounds nml. negative: Wheezes, Rales Cardiovascular: positive: Regular rate & rhythm, Systolic murmur. negative: Tachycardia, Bradycardia Peripheral Pulses: positive: 2+ Abdomen: positive: Non-tender, Nml bowel sounds, No distention. negative: Tenderness Back: positive: Nml inspection Skin: positive: Color nml, Warm, Dry. negative: Cyanosis Extremities: positive: Non-tender, Full ROM, Nml appearance Neurologic/Psychiatric: positive: Oriented x3, Motor nml, Sensation nml. negative: Weakness, Sensory loss, Facial droop, Slurred/abnml speech, Depressed mood/affect Sepsis Event Note (H) - Evaluation Current Stage of Sepsis: Ruled out Conclusion/Plan - Problem List (1) Hyperglycemia due to diabetes mellitus Conclusion/Plan: Patient's glucose level initially was over 700, And patient serum ketone was positive initially as well. After patient was given insulin and insulin drip and IV fluids, Patient's glucose level down to 470, And his electrolytes has significantly improved. Her serum ketone was negative. Patient had A1c 13.5 two weeks ago. He cannot tolerate glipizide and metformin in the past. After discussed with patient, he agreed to take insulin at this time when he is ready for d/c. We also have diabetic education for patient, we will start sliding scale for insulin dosage, continue ACH S glucose check, we will start hypoglycemia protocol, Continue intravenous IV fluids for patient, continue sugar laboratory assistant (2) Diabetes mellitus Conclusion/Plan: Patient had a new diagnosis diabetes about 2 weeks ago. He had an A1c was 13.5. Because he cannot tolerate medication glipizide and metformin, And agree to start with insulin for his d/c. Continue diabetic education for patient, started with sliding scale, glucose check, hypoglycemia protocol, Intravenous IV fluids as well. (3) HTN (hypertension) Conclusion/Plan: Patient has a history of hypertension, we will resume patient home blood pressure medications, also started with hydralazine as needed. (4) CKD (chronic kidney disease) stage 3, GFR 30-59 ml/min Conclusion/Plan: Patient creatinine 1.9 on today, patient has a history of CKD stage III. Educated patient for his diabetic control and its importance for reservation of his kidney function. We will have intravenous IV fluids for patient, continue sugar laboratory assistant. (5) Hyponatremia Conclusion/Plan: Initially patient sodium is 127, after IV fluids and the insulin for patient to control his glucose level, his sodium is 133 improved significantly. We will continue intravenous IV fluids with normal saline, continue glucose control and diabetic management, Continue laboratory monitoring - Lab Results Fish Bones: 03/21/22 12:52 03/21/22 15:18 Core Measures - Anticipated LOS I expect patient to be DC'd or transferred within 96 hours.: Yes - DVT/VTE - Prophylaxis VTE/DVT Device ordered at admit?: Yes VTE/DVT Prophylaxis med ordered at admit?: Yes
[2022-03-21] MEDS: PANTOPRAZOLE 40 MG TABLET PO SCH (16:46)
[2022-03-21] MEDS: INSULIN ASPART 300 UNIT/3 ML PEN SUBQ SCH ×2 (16:47→20:32)
[2022-03-21] MEDS: SODIUM CHLORIDE 0.9% 1,000 ML IV SCH (16:53)
[2022-03-21] MEDS: SODIUM CHLORIDE FLUSH 0.9% 10 ML SYRINGE IVP SCH (16:54)
[2022-03-21] MEDS ORDERED: INSULIN ASPART 300 UNIT/3 ML PEN SUBQ ONE (20:20)
[2022-03-21] MEDS: HEPARIN 5,000 UNIT/ML VIAL SUBQ SCH (20:33)
[2022-03-21 20:42] LABS: ESTIMATED AVERAGE GLUCOSE 390 mg/dL (70-100); HEMOGLOBIN A1c% 15.2 % (4.27-6.07)
[2022-03-22] MEDS: SODIUM CHLORIDE FLUSH 0.9% 10 ML SYRINGE IVP SCH ×3 (00:09→17:34)
[2022-03-22] MEDS: SODIUM CHLORIDE 0.9% 1,000 ML IV SCH ×5 (00:11→21:07)
[2022-03-22] MEDS: PANTOPRAZOLE 40 MG TABLET PO SCH (05:28)
[2022-03-22 07:05] LABS: CHOL/HDL RATIO 9.5 (<5.0); CHOLESTEROL 228 mg/dL; HDL CHOLESTEROL 24 mg/dL; TRIGLYCERIDES 550 mg/dL
[2022-03-22 07:09] LABS: CALCIUM 8.8 mg/dL (8.5-10.3); CREATININE 1.6 mg/dL (0.6-1.2); POTASSIUM 4.6 mmol/L (3.5-5.0)
[2022-03-22 07:12] LABS: BASOPHILS % (AUTO) 0.5 %; EOSINOPHILS # (AUTO) 0.1 10^3/uL (0.0-0.7); EOSINOPHILS % (AUTO) 1.2 %; HCT - HEMATOCRIT 39.4 % (42.0-52.0); HGB - HEMOGLOBIN 13.5 g/dL (14.0-18.0); LYMPHOCYTES # (AUTO) 1.5 10^3/uL (1.5-3.5); LYMPHOCYTES % (AUTO) 19.3 %; MEAN CORPUSCULAR HGB CONC 34.3 g/dL (32.0-36.0); MEAN CORPUSCULAR VOLUME 90.6 fL (80.0-94.0); MEAN PLATELET VOLUME 10.6 fL (7.4-11.4); MONOCYTES # (AUTO) 0.7 10^3/uL (0.0-1.0); MONOCYTES % (AUTO) 9.5 %; NEUTROPHILS # (AUTO) 5.3 10^3/uL (1.5-6.6); PLT - PLATELET COUNT 159 10^3/uL (130-450); RED BLOOD COUNT 4.35 10^6/uL (4.70-6.10); RED CELL DISTRIBUTION WIDTH 12.6 % (12.0-15.0); WHITE BLOOD COUNT 7.6 x10^3/uL (4.8-10.8)
[2022-03-22 07:39] LABS: LDL CHOLESTEROL,DIRECT 113 mg/dL; LDLD/HDL RATIO 4.7 (<3.6)
[2022-03-22] MEDS ORDERED: INSULIN GLARGINE 300 UNIT/3 ML PEN SUBQ SCH ×4 (08:00→21:00)
[2022-03-22] MEDS: lisinopriL 20 MG TABLET PO SCH (08:12)
[2022-03-22] MEDS: amLODIPine 5 MG TABLET PO SCH (08:13)
[2022-03-22] MEDS: INSULIN ASPART 300 UNIT/3 ML PEN SUBQ SCH ×6 (08:13→21:06)
[2022-03-22] MEDS: CITALOPRAM HYDROBROMIDE 20 MG TABLET PO SCH (08:13)
[2022-03-22] MEDS: HEPARIN 5,000 UNIT/ML VIAL SUBQ SCH ×2 (08:14→21:32)
[2022-03-22] MEDS ORDERED: INSULIN ASPART 300 UNIT/3 ML PEN SUBQ SCH (08:23)
[2022-03-22] MEDS ORDERED: INSULIN ASPART 300 UNIT/3 ML PEN SUBQ ONE (11:46)
--- NOTE | 2022-03-22 11:48 | PROVIDER PROGRESS NOTE ---
Assessment/Plan - Problem List (1) Hyperglycemia due to diabetes mellitus Assessment/Plan: 03/22 his glucose is still at 500 before lunch although pt was given the highest slide scale, scheduled Novolog, and morning Lantus. we will increase scheduled Novolog, add once Novolog, continue to monitor and may add Lantus on night as well. continue hypoglycemia protocol. order education education, and nutrition ist consult as well. Patient's glucose level initially was over 700, And patient serum ketone was positive initially as well. After patient was given insulin and insulin drip and IV fluids, Patient's glucose level down to 470, And his electrolytes has significantly improved. Her serum ketone was negative. Patient had A1c 13.5 two weeks ago. He cannot tolerate glipizide and metformin in the past. After discussed with patient, he agreed to take insulin at this time when he is ready for d/c. We also have diabetic education for patient, we will start sliding scale for insulin dosage, continue ACH S glucose check, we will start hypoglycemia protocol, Continue intravenous IV fluids for patient, continue senior cytogenetics laboratory director (2) Diabetes mellitus Conclusion/Plan: as the above Patient had a new diagnosis diabetes about 2 weeks ago. He had an A1c was 13.5. Because he cannot tolerate medication glipizide and metformin, And agree to start with insulin for his d/c. Continue diabetic education for patient, started with sliding scale, glucose check, hypoglycemia protocol, Intravenous IV fluids as well. (3) HTN (hypertension) Conclusion/Plan: Patient has a history of hypertension, we will resume patient home blood pressure medications, also started with hydralazine as needed. (4) CKD (chronic kidney disease) stage 3, GFR 30-59 ml/min Conclusion/Plan: 03/22 improved. Creatinine is 1.6, continue IVF and lab monitor Patient creatinine 1.9 on today, patient has a history of CKD stage III. Educated patient for his diabetic control and its importance for reservation of his kidney function. We will have intravenous IV fluids for patient, continue senior cytogenetics laboratory director. (5) Hyponatremia Conclusion/Plan: 03/22 Na 131, pt has hx of slight lower serum Na as well, continue IV NS, and lab monitor Initially patient sodium is 127, after IV fluids and the insulin for patient to control his glucose level, his sodium is 133 improved significantly. We will continue intravenous IV fluids with normal saline, continue glucose control and diabetic management, Continue laboratory monitoring (6)HLD test show pt had elevated triglycerides and cholesterol, order lipitor, pt may followup with his PCP continue management - Current Meds Current Meds: Current Medications Generic Name Dose Route Start Last Admin Trade Name Freq PRN Reason Stop Dose Admin Amlodipine Besylate 10 mg 03/22/22 09:00 03/22/22 08:13 Amlodipine 5 Mg Tablet PO 10 mg DAILY EZEKIEL Administration Citalopram Hydrobromide 40 mg 03/22/22 09:00 03/22/22 08:13 Citalopram Hydrobromide 20 Mg Tablet PO 40 mg DAILY EZEKIEL Administration Heparin Sodium (Beef Lung) 30 - 50 unit 03/22/22 05:56 03/22/22 06:39 Heparin Flush 50 Units/5 Ml Syringe IVP 50 unit PRN PRN Administration Port Protocol (<24 hours) Heparin Sodium (Porcine) 5,000 unit 03/21/22 21:00 03/22/22 08:14 Heparin 5,000 Unit/Ml Vial SUBQ 5,000 unit BID EZEKIEL Administration Sodium Chloride 1,000 mls @ 150 mls/hr 03/21/22 16:00 03/22/22 06:17 Normal Saline 0.9% IV 150 mls/hr .Q6H40M EZEKIEL Administration Insulin Aspart 3 - 11 unit 03/21/22 17:00 03/22/22 08:13 Insulin Aspart 300 Unit/3 Ml Pen SUBQ 11 unit 0800,1200,1700,2100 EZEKIEL Administration Protocol Insulin Glargine 20 unit 03/22/22 08:00 03/22/22 08:14 Insulin Glargine 300 Unit/3 Ml Pen SUBQ 20 unit QDBREAKFAST EZEKIEL Administration Lisinopril 40 mg 03/22/22 09:00 03/22/22 08:12 Lisinopril 20 Mg Tablet PO 40 mg DAILY EZEKIEL Administration Pantoprazole Sodium 40 mg 03/21/22 17:00 03/22/22 05:28 Pantoprazole 40 Mg Tablet PO 40 mg QDAC EZEKIEL Administration Sodium Chloride 10 ml 03/21/22 15:54 03/22/22 05:28 Sodium Chloride Flush 0.9% 10 Ml Syringe IVP 10 ml PRN PRN Administration NEEDED PER PROVIDER ORDERS Sodium Chloride 10 ml 03/21/22 17:00 03/22/22 08:14 Sodium Chloride Flush 0.9% 10 Ml Syringe IVP Not Given 0100,0900,1700 EZEKIEL - Lab Result Fish Bone Diagrams: 03/22/22 06:45 03/22/22 06:45 - Additional Planning My Orders: My Active Orders 03/21/22 15:54 Telemetry- [RC] Q4HR Acetaminophen [Tylenol] 650 mg PO Q4HR PRN Ondansetron Inj [Zofran Inj] 4 mg IVP Q6HR PRN Sodium Chloride Flush 0.9% [Normal Saline Flush 0.9%] 10 ml IVP PRN PRN 03/21/22 15:55 Activity Orders [RC] Q2HR IO [RC] IOSHIFT Initiate Bowel Care Protocol [RC] .protocol Initiate Line Care Protocol [RC] QSHIFT Initiate Personal Care Protoco [RC] .protocol Oxygen Therapy [RC] .PRN Vital Signs [RC] Q4HR Code Status [OTHERS] Routine Condition of Patient [OTHERS] Routine DVT Prophylaxis [OTHERS] Routine 03/21/22 15:58 IV Insert [RC] .ONCE 03/21/22 15:59 SCDs [RC] QSHIFT Social Work Consult [CONS] Routine 03/21/22 16:00 Sodium Chloride 0.9% [Normal Saline 0.9%] 1,000 ml IV 150 mls/hr 03/21/22 16:05 hydrALAZINE INJ [Apresoline Inj] 10 mg IVP QID PRN 03/21/22 16:07 Blood Glucose Checks - Eating [RC] 0800,1200,1700,2100 Initiate Hypoglycemia Protocol [RC] .protocol 03/21/22 Dinner Carb-controlled Diet [DIET] 03/21/22 17:00 Insulin Aspart [NovoLOG] 3 - 11 unit SUBQ 0800,1200,1700,2100 Pantoprazole [Protonix] 40 mg PO QDAC Sodium Chloride Flush 0.9% [Normal Saline Flush 0.9%] 10 ml IVP 0100,0900,1700 03/21/22 17:19 Diabetic Education [RC] ONCE 03/21/22 21:00 Heparin [Heparin Sodium (Porcine)] 5,000 unit SUBQ BID 03/22/22 05:56 Heparin Flush [Heparin Sodium] 30 - 50 unit IVP PRN PRN 03/22/22 08:00 Insulin Glargine [Lantus Solostar] 20 unit SUBQ QDBREAKFAST 03/22/22 09:00 Citalopram Hydrobromide [Celexa] 40 mg PO DAILY amLODIPine [Norvasc] 10 mg PO DAILY lisinopriL [Zestril] 40 mg PO DAILY 03/22/22 10:25 Nutrition Consult [CONS] Routine 03/22/22 11:46 Insulin Aspart [NovoLOG] 10 unit SUBQ ONCE ONE 03/22/22 12:00 Insulin Aspart [NovoLOG] 10 unit SUBQ TIDWM 03/22/22 16:00 BMP - BASIC METABOLIC PANEL [CHEM] Timed 03/22/22 21:00 Atorvastatin [Lipitor] 40 mg PO QPM 03/23/22 05:00 BMP - BASIC METABOLIC PANEL [CHEM] DAILYLAB CBC - COMP BLD CT W/AUTO DIFF [HEME] DAILYLAB 03/24/22 05:00 BMP - BASIC METABOLIC PANEL [CHEM] DAILYLAB CBC - COMP BLD CT W/AUTO DIFF [HEME] DAILYLAB 03/25/22 05:00 BMP - BASIC METABOLIC PANEL [CHEM] DAILYLAB CBC - COMP BLD CT W/AUTO DIFF [HEME] DAILYLAB 03/26/22 05:00 BMP - BASIC METABOLIC PANEL [CHEM] DAILYLAB CBC - COMP BLD CT W/AUTO DIFF [HEME] DAILYLAB Subjective - Subjective Patient Reports: Resting Comfortably Objective Vital Signs: Vital Signs - 24 hr 03/21/22 03/21/22 03/21/22 12:30 12:32 14:32 Temperature 36.9 C 36.6 C Heart Rate 110 H 97 Heart Rate [ Brachial] Respiratory 14 18 Rate Blood Pressure 169/110 H 170/115 H Blood Pressure [Left Brachial artery] Blood Pressure [Right Brachial artery] O2 Saturation 98 98 03/21/22 03/21/22 03/21/22 16:00 16:55 21:00 Temperature 36.9 C 37.0 C Heart Rate 96 Heart Rate [ 103 H 107 H Brachial] Respiratory 18 18 18 Rate Blood Pressure 152/99 H Blood Pressure 171/83 H 158/90 H [Left Brachial artery] Blood Pressure [Right Brachial artery] O2 Saturation 98 96 95 03/22/22 03/22/22 03/22/22 00:10 05:40 07:36 Temperature 37.0 C 36.4 C L 36.6 C Heart Rate Heart Rate [ 89 96 89 Brachial] Respiratory 20 20 16 Rate Blood Pressure Blood Pressure [Left Brachial artery] Blood Pressure 149/92 H 168/96 H 161/93 H [Right Brachial artery] O2 Saturation 97 99 96 Oxygen O2 Source Room air I&O (Last 24 Hrs): Intake and Output Totals x24h 03/20/22 03/21/22 03/22/22 23:59 23:59 23:59 Intake Total 3422.3 1545 Balance 3422.3 1545 General: Alert, Oriented x3, Cooperative, No acute distress HEENT: Atraumatic Neck: Supple Lymphatic: no adenopathy Neuro: Alert, Non Focal, Oriented Times 3 Cardiovascular: Regular rate, Normal S1, Normal S2 Respiratory: Chest non-tender, No respiratory distress Abdomen: Normal bowel sounds, Soft Extremities: Normal pulses - Results Results: Laboratory Results WBC 7.6 x10^3/uL (4.8-10.8) 03/22/22 06:45 RBC 4.35 10^6/uL (4.70-6.10) L 03/22/22 06:45 Hgb 13.5 g/dL (14.0-18.0) L 03/22/22 06:45 Hct 39.4 % (42.0-52.0) L 03/22/22 06:45 MCV 90.6 fL (80.0-94.0) 03/22/22 06:45 MCH 31.0 pg (27.0-31.0) 03/22/22 06:45 MCHC 34.3 g/dL (32.0-36.0) 03/22/22 06:45 RDW 12.6 % (12.0-15.0) 03/22/22 06:45 Plt Count 159 10^3/uL (130-450) 03/22/22 06:45 MPV 10.6 fL (7.4-11.4) 03/22/22 06:45 Neut # (Auto) 5.3 10^3/uL (1.5-6.6) 03/22/22 06:45 Lymph # (Auto) 1.5 10^3/uL (1.5-3.5) 03/22/22 06:45 Dickenson # (Auto) 0.7 10^3/uL (0.0-1.0) 03/22/22 06:45 Eos # (Auto) 0.1 10^3/uL (0.0-0.7) 03/22/22 06:45 Baso # (Auto) 0.0 10^3/uL (0.0-0.1) 03/22/22 06:45 Absolute Nucleated RBC 0.00 x10^3/uL 03/22/22 06:45 Nucleated RBC % 0.0 /100WBC 03/22/22 06:45 Manual Slide Review Indicated 03/21/22 12:52 Platelet Estimate NORMAL (130-450,000) (NORMAL) 03/21/22 12:52 Platelet Morphology RARE PLATELET CLUMP (NORMAL) 03/21/22 12:52 RBC Morph Micro Appear NORMAL APPEARANCE (NORMAL) 03/21/22 12:52 VBG pH 7.383 (7.31-7.41) 03/21/22 12:52 VBG pCO2 33.2 mmHg (41-51) L 03/21/22 12:52 VBG pO2 44.8 mmHg (25-47) 03/21/22 12:52 VBG HCO3 19.3 mmol/L (23-28) L 03/21/22 12:52 VBG Total CO2 20.4 mmol/L (24-29) L 03/21/22 12:52 VBG O2 Saturation 82.6 % (60-80) H 03/21/22 12:52 VBG Base Excess -4.8 mmol/L (-2 - +2) L 03/21/22 12:52 Sodium 131 mmol/L (135-145) L 03/22/22 06:45 Potassium 4.6 mmol/L (3.5-5.0) 03/22/22 06:45 Chloride 102 mmol/L (101-111) 03/22/22 06:45 Carbon Dioxide 19 mmol/L (21-32) L 03/22/22 06:45 Anion Gap 10.0 (6-13) 03/22/22 06:45 BUN 26 mg/dL (6-20) H 03/22/22 06:45 Creatinine 1.6 mg/dL (0.6-1.2) H 03/22/22 06:45 Estimated GFR (MDRD) 44 (>89) L 03/22/22 06:45 Glucose 302 mg/dL (70-100) H 03/22/22 06:45 Estimat Average Glucose 390 mg/dL (70-100) H 03/21/22 12:52 Hemoglobin A1c % 15.2 % (4.27-6.07) H 03/21/22 12:52 Calcium 8.8 mg/dL (8.5-10.3) 03/22/22 06:45 Magnesium 2.0 mg/dL (1.7-2.8) 03/21/22 12:52 Triglycerides 550 mg/dL (-149) H 03/22/22 06:45 Cholesterol 228 mg/dL (-199) H 03/22/22 06:45 LDL Cholesterol Direct 113 mg/dL (-129) 03/22/22 06:45 LDL Cholesterol, Calc Not Reportable 03/22/22 06:45 VLDL Cholesterol Not Reportable 03/22/22 06:45 HDL Cholesterol 24 mg/dL (60-) L 03/22/22 06:45 LDL/HDL Ratio Not Reportable 03/22/22 06:45 dLDL/HDL Ratio 4.7 (<3.6) 03/22/22 06:45 Cholesterol/HDL Ratio 9.5 (<5.0) 03/22/22 06:45 Serum Ketones NEGATIVE (NEGATIVE) 03/21/22 15:18 SARS-CoV-2 (PCR) NOT DETECTED 03/21/22 13:25 - Procedures Procedures: Procedures BYPASS ILEUM TO CUTANEOUS, OPEN APPROACH (07/16/20) EXCISION OF DESCENDING COLON, ENDO (07/15/20) EXCISION OF DESCENDING COLON, OPEN APPROACH (07/16/20) EXCISION OF LOWER ESOPHAGUS, ENDO, DIAGN (07/19/21) EXCISION OF RECTUM, OPEN APPROACH (01/07/19) EXCISION OF SIGMOID COLON, ENDO (07/31/19) EXCISION OF SIGMOID COLON, OPEN APPROACH (01/07/19) EXCISION OF SMALL INTESTINE, OPEN APPROACH (01/07/19) EXCISION OF STOMACH, PYLORUS, ENDO, DIAGN (07/19/21) INSERT VAD RESERVOIR IN CHEST SUBCU/FASCIA, PERC (09/03/18) INSERTION OF INFUSION DEV INTO SUP VENA CAVA, PERC APPROACH (09/03/18) INTRODUCTION OF OTH THERAP SUBST INTO LOW GI, ENDO (07/15/20) RELEASE LEFT LARGE INTESTINE, OPEN APPROACH (07/16/20) RELEASE SMALL INTESTINE, OPEN APPROACH (07/16/20) RELEASE TRANSVERSE COLON, OPEN APPROACH (07/16/20) REPAIR ABDOMINAL WALL, OPEN APPROACH (10/01/20) REPAIR ILEUM, OPEN APPROACH (10/01/20) TRANSFUSE NONAUT FROZEN PLASMA IN PERIPH VEIN, PERC (07/16/20) Sepsis Event Note (H) - Evaluation Current Stage of Sepsis: Ruled out ABX Reporting Has patient been on IV antibiotics over the past 48 hours?: No Current Medications - Current Medications Current Medications: Active Medications Acetaminophen (Acetaminophen 325 Mg Tablet) 650 mg PO Q4HR PRN PRN Reason: Pain 1 to 4, or Fever Amlodipine Besylate (Amlodipine 5 Mg Tablet) 10 mg PO DAILY [facility] Last Admin: 03/22/22 08:13 Dose: 10 mg Atorvastatin Calcium (Atorvastatin 40 Mg Tablet) 40 mg PO QPM [facility] Citalopram Hydrobromide (Citalopram Hydrobromide 20 Mg Tablet) 40 mg PO DAILY [facility] Last Admin: 03/22/22 08:13 Dose: 40 mg Heparin Sodium (Beef Lung) (Heparin Flush 50 Units/5 Ml Syringe) 30 - 50 unit IVP PRN PRN PRN Reason: Port Protocol (<24 hours) Last Admin: 03/22/22 06:39 Dose: 50 unit Heparin Sodium (Porcine) (Heparin 5,000 Unit/Ml Vial) 5,000 unit SUBQ BID [facility] Last Admin: 03/22/22 08:14 Dose: 5,000 unit Hydralazine HCl (Hydralazine Inj 20 Mg/Ml Vial) 10 mg IVP QID PRN PRN Reason: Hypertensive Emergency Sodium Chloride (Normal Saline 0.9%) 1,000 mls @ 125 mls/hr IV .Q8H [facility] Insulin Aspart (Insulin Aspart 300 Unit/3 Ml Pen) 3 - 11 unit SUBQ 0800,1200,1700,2100 [facility]; Protocol Last Admin: 03/22/22 12:00 Dose: 11 unit Insulin Aspart (Insulin Aspart 300 Unit/3 Ml Pen) 10 unit SUBQ TIDWM [facility]; Protocol Last Admin: 03/22/22 12:00 Dose: 10 unit Insulin Glargine (Insulin Glargine 300 Unit/3 Ml Pen) 20 unit SUBQ QDBREAKFAST [facility] Last Admin: 03/22/22 08:14 Dose: 20 unit Lisinopril (Lisinopril 20 Mg Tablet) 40 mg PO DAILY [facility] Last Admin: 03/22/22 08:12 Dose: 40 mg Ondansetron HCl (Ondansetron 4 Mg/2 Ml Vial) 4 mg IVP Q6HR PRN PRN Reason: Nausea / Vomiting Pantoprazole Sodium (Pantoprazole 40 Mg Tablet) 40 mg PO QDAC [facility] Last Admin: 03/22/22 05:28 Dose: 40 mg Sodium Chloride (Sodium Chloride Flush 0.9% 10 Ml Syringe) 10 ml IVP PRN PRN PRN Reason: NEEDED PER PROVIDER ORDERS Last Admin: 03/22/22 05:28 Dose: 10 ml Sodium Chloride (Sodium Chloride Flush 0.9% 10 Ml Syringe) 10 ml IVP 0100,0900,1700 [facility] Last Admin: 03/22/22 08:14 Dose: Not Given Benazepril HCl 40 mg PO DAILY 07/19/18 Spironolactone [Aldactone] 50 mg PO BID 07/19/18 Garlic 1,000 mg PO BID 08/27/18 Bradley-3S/Dha/Epa/Fish Oil [Fish Oil 1,200 mg Softgel] 1 each PO BID 08/27/18 Cholecalciferol (Vitamin D3) [Vitamin D3] 3,000 unit PO BID 08/28/18 amLODIPine [Norvasc] 10 mg PO DAILY 12/20/18 Citalopram Hydrobromide [Celexa] 40 mg PO DAILY 07/13/20 Omeprazole 20 mg PO DAILY 07/13/20 Acetaminophen [Tylenol] 650 mg PO Q4HR PRN 07/18/21
[2022-03-22 16:23] LABS: CREATININE 1.7 mg/dL (0.6-1.2); POTASSIUM 4.4 mmol/L (3.5-5.0)
--- NOTE | 2022-03-22 19:21 | PHARMACY PROGRESS NOTE ---
- Best Possible Medication History Admit Date and Time: 03/21/22 1555 Processed by: Pharmacy Medication History completed: Yes Patient Interview: Completed Secondary Source(s): Insurance records As the person ultimately responsible for medication therapy, providers are able to order a medication from an existing home medication list in [facility] via the "Reconcile Routine" prior to Confirmation of that medication by client support analyst. Such practice is discouraged except when the physician, in their clinical judgment, deems that a medical need exists for a medication without regard to previous use.
[2022-03-22] MEDS ORDERED: ATORVASTATIN 40 MG TABLET PO SCH (21:00)
[2022-03-23] MEDS: SODIUM CHLORIDE FLUSH 0.9% 10 ML SYRINGE IVP SCH ×3 (01:00→17:12)
[2022-03-23] MEDS: SODIUM CHLORIDE 0.9% 1,000 ML IV SCH (04:25)
[2022-03-23] MEDS: PANTOPRAZOLE 40 MG TABLET PO SCH (06:08)
[2022-03-23 06:19] LABS: BASOPHILS % (AUTO) 0.5 %; EOSINOPHILS # (AUTO) 0.1 10^3/uL (0.0-0.7); EOSINOPHILS % (AUTO) 1.4 %; HGB - HEMOGLOBIN 12.7 g/dL (14.0-18.0); LYMPHOCYTES # (AUTO) 1.4 10^3/uL (1.5-3.5); LYMPHOCYTES % (AUTO) 18.1 %; MEAN CORPUSCULAR HGB CONC 34.3 g/dL (32.0-36.0); MEAN CORPUSCULAR VOLUME 90.2 fL (80.0-94.0); MEAN PLATELET VOLUME 10.5 fL (7.4-11.4); MONOCYTES # (AUTO) 0.8 10^3/uL (0.0-1.0); MONOCYTES % (AUTO) 9.4 %; NEUTROPHILS # (AUTO) 5.6 10^3/uL (1.5-6.6); PLT - PLATELET COUNT 183 10^3/uL (130-450); RED CELL DISTRIBUTION WIDTH 12.4 % (12.0-15.0)
[2022-03-23 06:27] LABS: CALCIUM 8.8 mg/dL (8.5-10.3); CREATININE 1.3 mg/dL (0.6-1.2)
[2022-03-23] MEDS ORDERED: SODIUM CHLORIDE 0.9% 1,000 ML IV SCH (07:21)
[2022-03-23] MEDS: HEPARIN 5,000 UNIT/ML VIAL SUBQ SCH (07:53)
[2022-03-23] MEDS: INSULIN ASPART 300 UNIT/3 ML PEN SUBQ SCH ×6 (07:54→17:12)
[2022-03-23] MEDS: lisinopriL 20 MG TABLET PO SCH (07:55)
[2022-03-23] MEDS: CITALOPRAM HYDROBROMIDE 20 MG TABLET PO SCH (07:55)
[2022-03-23] MEDS: amLODIPine 5 MG TABLET PO SCH (07:55)
[2022-03-23] MEDS ORDERED: INSULIN GLARGINE 300 UNIT/3 ML PEN SUBQ SCH (08:00)
[2022-03-23] MEDS ORDERED: INSULIN ASPART 300 UNIT/3 ML PEN SUBQ ONE (11:57)
[2022-03-23 16:08] VITALS: BP 172/85
--- NOTE | 2022-03-23 16:18 | Discharge Plan ---
Discharge Plan Problem Reviewed?: Yes Disposition: Home, Self Care Condition: Stable Prescriptions: Insulin Glargine [Lantus Solostar] 30 unit SUBQ QDBREAKFAST #10 pe Atorvastatin [Lipitor] 40 mg PO QPM #30 tablet Insulin Aspart [NovoLOG] 5 unit SUBQ TIDWM #5 pe Insulin Aspart [NovoLOG] 3 - 11 unit SUBQ 0800,1200,1700,2100 #10 pe Diet: Diabetic Activity Restrictions: Activity as Tolerated Shower Restrictions: No (fall precaution) Instruction Topics: Hyperglycemia, Hypoglycemia, Diabetes Resources, Diabetes Type 2 Coping, Diabetes Healthy Meals, Injection Pens Dc, Atorvastatin tablets Health Concerns: hypoglycemia/hyperglycemia/diabetes management Plan of Treatment: You have A1C 15.2 at admission. You hope to have insulin to manage your diabetes. You glucose is down to 226 on today from over 700 at the admission. Extensive education was made for you how to manage your diabetes at your home, special how to prevention of hypoglycemia, and hyperglycemia, please followup with all these instructions, and followup with your PCP in one week. You are found to have HLD, Lipitor is prescribed for you. You were found to have hyperkalemia at the admission. Your home medication spironolactone is hold now, please followup with your PCP to manage your HTN as well. Care Goals: stabilization and improvement of your medical conditions Assessment: Discussed the care plan with you, answered your questions, you understood and agreed. Additional Instructions or Follow Up instructions: You may Follow-up with your PCP in 1 week, and followup with [facility] as outpatient setting. Should your symptoms return or worsen, you may present to ER or call 911 for help No Smoking: If you smoke, Please STOP! Call for help. Follow-up with: Jonas Arana DO [Primary Care Provider] -
--- NOTE | 2022-03-23 17:03 | DISCHARGE SUMMARY ---
Discharge Summary Admit Date: 03/21/22 Discharge Date: 03/23/22 Discharging Provider: Shivam Gamino Condition at Discharge: Stable Discharge Disposition: 01 Home, Self Care Discharge Facility Name: home - DIAGNOSES Discharge Diagnoses with Status of Each Condition: (1) Hyperglycemia due to diabetes mellitus pt's glucose level is down to 226 from over 700 at the admission. pt hope to have insulin to manage her DM2. he failed oral medications to manage his d iabetes. his A1C is 15.2. pt is prescribed Lantus, and Novolog with scheduled insulin and slide scale insulin, glucometer, strips, lancets. pt had extensive diabetes education for how to prevention of hypoglycemia and hyperglycemia and diabetes management at hospital. I had personal education to pt for how to prevent hypoglycemia and hyperglycemia. Pt's questions are answered to his satisfaction. Pt clearly verbally state he understood. At the time, pt's was at the bedside as well. (2) Diabetes mellitus as the above pt may followup with his PCP and [facility] to continue management of his diabetes. (3) HTN (hypertension) stable. pt may resume patient home blood pressure medications except his home meds spironolactone which is hold now because pt present significant hyperkalemia at the admission. (4) CKD (chronic kidney disease) stage 3, GFR 30-59 ml/min improved significantly. creatinine is 1.3 on today, advise pt keep hydration at home. (5) Hyponatremia Na 133. (6)HLD test show pt had elevated triglycerides and cholesterol, order lipitor, pt may followup with his PCP continue management - HPI History of Present Illness: This is a 66-year-old with a past medical history significant for hypertension, heart murmur, Arrhythmia, GERD, hyperlipidemia, sigmoid colon cancer with status post colostomy and chemotherapy and subsequent takedown, CKD, Chronic vision loss, chronic hearing loss, anxiety, depression, ADD/ADHD, recently diagnosed type 2 diabetes. Pt was seen in the clinic nearly two weeks ago which show his glucose of 529 and A1c of 13.5. Pt was started on glipizide. Pt report he can not tolerate Glipizide. He report Glipizide made him feeling chest tightness and uncomfortable, then he came back clinic which was reported his sugar was very high and recommended to ER for further evaluation. Pt report he was feeling dizziness. Because of his significant elevated glucose, the clinic called EMS to bring pt to the ER. In initially ER route lab test signficantly show pt had glucose 747, Creatinine 1.9, anion gap 14, sodium 127, potassium 5.7 and serum ketone is positive. Because we do not have ICU bed available. Pt was given insulin with insulin drop and IVF, and lab recheck show pt has no more serum ketone, and Electrolytes has significantly improved. pt also report he feel much better. Medical team was consulted for admission for further management of patient's uncontrolled diabetes. Discussed the care goal with the patient, patient hope to have full code. - ALLERGIES Allergies/Adverse Reactions: Allergies Allergy/AdvReac Type Severity Reaction Status Date / Time No Known Drug Allergies Allergy Verified 09/01/21 10:36 - MEDICATIONS Home Medications: Ambulatory Orders Medication Instructions Recorded Confirmed Benazepril HCl 40 mg PO DAILY 07/19/18 03/21/22 Garlic 1,000 mg PO BID 08/27/18 03/22/22 Stevenson-3S/Dha/Epa/Fish Oil [Fish 1 each PO BID 08/27/18 03/22/22 Oil 1,200 mg Softgel] Cholecalciferol (Vitamin D3) 3,000 unit PO BID 08/28/18 03/22/22 [Vitamin D3] amLODIPine [Norvasc] 10 mg PO DAILY 12/20/18 03/21/22 Citalopram Hydrobromide [Celexa] 40 mg PO DAILY 07/13/20 03/21/22 Omeprazole 20 mg PO DAILY 07/13/20 03/21/22 Acetaminophen [Tylenol] 650 mg PO Q4HR PRN 07/18/21 03/22/22 Lidocaine/Prilocaine [Agoneaze 1 each TP .MONTH PRN 03/22/22 03/22/22 2.5%-2.5% Cream Dress] cloNIDine [Catapres] 0.2 mg PO BID 03/22/22 03/22/22 Atorvastatin [Lipitor] 40 mg PO QPM #30 tablet 03/23/22 Blood Sugar Diagnostic [Glucometer 1 each QID #100 strip 03/23/22 Strips] Blood-Glucose Meter [Glucometer] 1 each QID #1 each 03/23/22 Insulin Aspart [NovoLOG] 3 - 11 unit SUBQ 03/23/22 0800,1200,1700,2100 #10 pe Insulin Aspart [NovoLOG] 5 unit SUBQ TIDWM #5 pe 03/23/22 Insulin Glargine [Lantus Solostar] 30 unit SUBQ QDBREAKFAST #10 pe 03/23/22 Lancets 1 each QID #100 each 03/23/22 - PHYSICAL EXAM AT DISCHARGE General Appearance: positive: No acute distress, Alert. negative: Lethargic Eyes Bilateral: positive: Normal inspection, No lid inflammation ENT: positive: ENT inspection nml, No signs of dehydration. negative: Purulent nasal drainage Neck: positive: Nml inspection, Trachea midline. negative: Tracheal deviation Respiratory: positive: Chest non-tender, No respiratory distress. negative: Wheezes, Rales Cardiovascular: positive: Regular rate & rhythm. negative: Tachycardia, Bradycardia, Systolic murmur Peripheral Pulses: positive: 2+ Abdomen: positive: Non-tender, Nml bowel sounds, No distention. negative: Tenderness Back: positive: Nml inspection Skin: positive: Color nml, Warm, Dry Extremities: positive: Non-tender, Full ROM, Nml appearance Neurologic/Psychiatric: positive: Oriented x3, Motor nml, Sensation nml. negative: Weakness, Sensory loss, Facial droop, Slurred/abnml speech, Depressed mood/affect - LABS Result Diagrams: 03/23/22 06:00 03/23/22 06:00 - SEPSIS Current Stage of Sepsis: Ruled out - FOLLOW UP Follow Up: You have A1C 15.2 at admission. You hope to have insulin to manage your diabetes. You glucose is down to 226 on today from over 700 at the admission. Extensive education was made for you how to manage your diabetes at your home, special how to prevention of hypoglycemia, and hyperglycemia, please followup with all these instructions, and followup with your PCP in one week to continue management of your diabetes. You are found to have HLD, Lipitor is prescribed for you. You were found to have hyperkalemia at the admission. Your home medication spironolactone is hold now, please followup with your PCP to continue management of your HTN as well. - TIME SPENT Time Spent in Discharge (Minutes): 30
== END 2022-03-23 17:14 | disposition home or self-care (01) ==
LOC: EDUNIT# → ED 12:22 → MS2 15:55
PROVIDERS: ADMIT Nurse Practitioner Gerontology; ATTEND Nurse Practitioner Gerontology
DX: E11.10 Type 2 diabetes mellitus with ketoacidosis without coma (principal); E11.22 Type 2 diabetes mellitus with diabetic chronic kidney disease; I12.9 Hypertensive chronic kidney disease with stage 1 through stage 4 chronic kidney disease, or unspecified chronic kidney disease; N18.30 Chronic kidney disease, stage 3 unspecified; Z79.84 Long term (current) use of oral hypoglycemic drugs; Z20.822 Contact with and (suspected) exposure to COVID-19; E87.1 Hypo-osmolality and hyponatremia; Z87.891 Personal history of nicotine dependence; E78.5 Hyperlipidemia, unspecified; K21.9 Gastro-esophageal reflux disease without esophagitis; Z85.038 Personal history of other malignant neoplasm of large intestine; F32.A Depression, unspecified; F41.9 Anxiety disorder, unspecified; F90.9 Attention-deficit hyperactivity disorder, unspecified type
CPT/HCPCS: 36415; 80048; 80061; 82009; 82803; 83036; 83721; 83735; 85025; 87635; 96360; 96361; 96372; 99285; 99291; A9270; G0378; J1815; J8499

== ENCOUNTER 2022-03-31 08:24 | Outpatient (CLI) | payer MEDICARE, MEDICAID ==
[2022-03-31 09:00] LABS: CALCIUM 9.2 mg/dL (8.5-10.3); CREATININE 1.5 mg/dL (0.6-1.2); POTASSIUM 3.1 mmol/L (3.5-5.0)
== END 2022-03-31 08:25 | disposition home or self-care (01) ==
LOC: LAB 08:24
PROVIDERS: ATTEND Nurse Practitioner Family
DX: E11.65 Type 2 diabetes mellitus with hyperglycemia (principal)
CPT/HCPCS: 36415; 80048

== ENCOUNTER 2022-04-30 11:56 | Emergency (ER) | payer MEDICAID, MEDICARE ==
[2022-04-30 12:22] VITALS: BP 140/73
[2022-04-30 13:42] LABS: BASOPHILS % (AUTO) 0.4 %; HCT - HEMATOCRIT 44.1 % (42.0-52.0); HGB - HEMOGLOBIN 14.5 g/dL (14.0-18.0); LYMPHOCYTES # (AUTO) 0.8 10^3/uL (1.5-3.5); LYMPHOCYTES % (AUTO) 9.7 %; MEAN CORPUSCULAR HEMOGLOBIN 29.5 pg (27.0-31.0); MEAN CORPUSCULAR HGB CONC 32.9 g/dL (32.0-36.0); MEAN CORPUSCULAR VOLUME 89.6 fL (80.0-94.0); MEAN PLATELET VOLUME 9.1 fL (7.4-11.4); MONOCYTES # (AUTO) 1.3 10^3/uL (0.0-1.0); MONOCYTES % (AUTO) 15.2 %; NEUTROPHILS # (AUTO) 6.2 10^3/uL (1.5-6.6); NEUTROPHILS % (AUTO) 74.5 %; PLT - PLATELET COUNT 320 10^3/uL (130-450); RED BLOOD COUNT 4.92 10^6/uL (4.70-6.10); RED CELL DISTRIBUTION WIDTH 13.6 % (12.0-15.0); WHITE BLOOD COUNT 8.4 x10^3/uL (4.8-10.8)
[2022-04-30 13:53] LABS: BILIRUBIN,URINE NEGATIVE (NEGATIVE); GLUCOSE, URINE (UA) NEGATIVE (NEGATIVE); KETONES,URINE (UA) TRACE mg/dL (NEGATIVE); LEUKOCYTE ESTERASE, URINE NEGATIVE (NEGATIVE); NITRITE,URINE NEGATIVE (NEGATIVE); OCCULT BLOOD,URINE SMALL (NEGATIVE); PROTEIN,URINE >=300 mg/dL (NEGATIVE); UROBILINOGEN,URINE 0.2 (NORMAL) E.U./dL (NORMAL)
[2022-04-30 13:55] LABS: ALBUMIN/GLOBULIN RATIO 0.8 (1.0-2.2); BILIRUBIN,TOTAL 0.7 mg/dL (0.2-1.0); CALCIUM 8.8 mg/dL (8.5-10.3); CREATININE 1.4 mg/dL (0.6-1.2); POTASSIUM 3.4 mmol/L (3.5-5.0); TOTAL PROTEIN 6.8 g/dL (6.7-8.2)
[2022-04-30 14:09] LABS: CLARITY,URINE CLEAR (CLEAR); RBC,URINE 0-5 /HPF (0-5); SQUAMOUS EPITHELIAL CELL,UR RARE Squamous (<= Few); WBC,URINE 0-3 /HPF (0-3)
[2022-04-30 14:10] LABS: BACTERIA,URINE Rare /HPF (None Seen); CASTS, URINE 3-5 Fine Granular /LPF
[2022-04-30 14:35] LABS: DIFFERENTIAL COMMENT MANUAL=AUTO DIFF
== END 2022-04-30 16:26 | disposition left against medical advice (07) ==
LOC: ED 11:56
DX: Z53.21 Procedure and treatment not carried out due to patient leaving prior to being seen by health care provider (principal)
CPT/HCPCS: 36415; 80053; 81001; 81003; 83690; 85025; 87086

== ENCOUNTER 2022-05-04 14:25 | Outpatient (CLI) | payer MEDICARE, MEDICAID | END 2022-05-04 14:26 | disposition home or self-care (01) | LOC: MAC.MOP 14:25 | PROVIDERS: ATTEND Nurse Practitioner Family | DX: R00.2 Palpitations (principal) | CPT/HCPCS: 93242 ==

== ENCOUNTER 2022-07-13 12:49 | Outpatient (CLI) | payer MEDICARE | END 2022-07-13 12:50 | disposition home or self-care (01) | LOC: NS 12:49 | PROVIDERS: ATTEND Nurse Practitioner Family | DX: E11.22 Type 2 diabetes mellitus with diabetic chronic kidney disease (principal); Z71.3 Dietary counseling and surveillance; Z71.89 Other specified counseling; Z68.31 Body mass index [BMI] 31.0-31.9, adult; Z79.4 Long term (current) use of insulin | CPT/HCPCS: 97802 ==

== ENCOUNTER 2022-08-01 15:28 | Outpatient (CLI) | payer MEDICARE ==
[2022-08-01 16:02] LABS: ALBUMIN 3.4 g/dL (3.2-5.5); ALBUMIN/GLOBULIN RATIO 0.9 (1.0-2.2); BILIRUBIN,TOTAL 0.5 mg/dL (0.2-1.0); CALCIUM 9.6 mg/dL (8.5-10.3); CREATININE 1.7 mg/dL (0.6-1.2); POTASSIUM 2.9 mmol/L (3.5-5.0)
== END 2022-08-01 15:29 | disposition home or self-care (01) ==
LOC: LAB 15:28
PROVIDERS: ATTEND Nurse Practitioner Family
DX: E87.6 Hypokalemia (principal)
CPT/HCPCS: 36415; 80053

== ENCOUNTER 2022-08-04 11:19 | Outpatient (CLI) | payer MEDICARE ==
[2022-08-04 11:38] LABS: CALCIUM 9.6 mg/dL (8.5-10.3); CREATININE 1.6 mg/dL (0.6-1.2); POTASSIUM 3.3 mmol/L (3.5-5.0)
== END 2022-08-04 11:20 | disposition home or self-care (01) ==
LOC: LAB 11:19
PROVIDERS: ATTEND Nurse Practitioner Family
DX: E87.6 Hypokalemia (principal)
CPT/HCPCS: 36415; 80048

== ENCOUNTER 2022-08-30 09:43 | Outpatient (CLI) | payer MEDICARE | END 2022-08-30 09:44 | disposition home or self-care (01) | LOC: LAB 09:43 | PROVIDERS: ATTEND Nurse Practitioner Family | DX: E87.6 Hypokalemia (principal) | CPT/HCPCS: 36415; 84132 ==

== ENCOUNTER 2022-11-20 11:47 | Outpatient (CLI) | payer MEDICARE ==
[2022-11-20 11:59] LABS: BASOPHILS % (AUTO) 0.3 %; EOSINOPHILS # (AUTO) 0.1 10^3/uL (0.0-0.7); EOSINOPHILS % (AUTO) 0.5 %; HCT - HEMATOCRIT 43.5 % (42.0-52.0); HGB - HEMOGLOBIN 14.1 g/dL (14.0-18.0); LYMPHOCYTES # (AUTO) 1.3 10^3/uL (1.5-3.5); LYMPHOCYTES % (AUTO) 11.9 %; MEAN CORPUSCULAR HEMOGLOBIN 28.5 pg (27.0-31.0); MEAN CORPUSCULAR HGB CONC 32.4 g/dL (32.0-36.0); MEAN CORPUSCULAR VOLUME 87.9 fL (80.0-94.0); MEAN PLATELET VOLUME 9.7 fL (7.4-11.4); MONOCYTES # (AUTO) 0.6 10^3/uL (0.0-1.0); MONOCYTES % (AUTO) 5.7 %; NEUTROPHILS # (AUTO) 9.1 10^3/uL (1.5-6.6); NEUTROPHILS % (AUTO) 81.3 %; PLT - PLATELET COUNT 240 10^3/uL (130-450); RED BLOOD COUNT 4.95 10^6/uL (4.70-6.10); RED CELL DISTRIBUTION WIDTH 15.1 % (12.0-15.0); WHITE BLOOD COUNT 11.1 x10^3/uL (4.8-10.8)
[2022-11-20 12:12] LABS: ESTIMATED AVERAGE GLUCOSE 148 mg/dL (70-100); HEMOGLOBIN A1c% 6.8 % (4.27-6.07)
[2022-11-20 12:18] LABS: BUN - BLOOD UREA NITROGEN 17 mg/dL (6-20); CALCIUM 8.9 mg/dL (8.5-10.3); CARBON DIOXIDE - CO2 30 mmol/L (21-32); CHLORIDE 96 mmol/L (101-111); CHOL/HDL RATIO 3.5 (<5.0); CHOLESTEROL 139 mg/dL; CREATININE 1.8 mg/dL (0.6-1.2); GFR - MDRD 38 (>89); GLUCOSE 183 mg/dL (70-100); HDL CHOLESTEROL 40 mg/dL; LDL CHOLESTEROL,CALCULATED 76 mg/dL; LDL/HDL RATIO 1.9 (<3.6); SODIUM 138 mmol/L (135-145); TRIGLYCERIDES 113 mg/dL; VLDL CHOLESTEROL 23 mg/dL
== END 2022-11-20 11:48 | disposition home or self-care (01) ==
LOC: LAB 11:47
PROVIDERS: ATTEND Nurse Practitioner Family
DX: E87.6 Hypokalemia (principal); I12.9 Hypertensive chronic kidney disease with stage 1 through stage 4 chronic kidney disease, or unspecified chronic kidney disease; E11.22 Type 2 diabetes mellitus with diabetic chronic kidney disease; E78.1 Pure hyperglyceridemia; N18.9 Chronic kidney disease, unspecified
CPT/HCPCS: 36415; 80048; 80061; 83036; 83721; 85025

== ENCOUNTER 2023-03-15 14:08 | Outpatient (CLI) | payer MEDICARE, MEDICAID ==
--- NOTE | 2023-03-15 16:49 | Ultrasound Report ---
PROCEDURE: Retroperitoneal INDICATIONS: KIDNEY DISFUNCTION TECHNIQUE: Real-time scanning was performed of the retroperitoneal organs, with image documentation. COMPARISON: CT dated 09/19/2022. FINDINGS: Kidneys: Kidneys are normal in size. Right kidney measures 9.8 cm long; left kidney measures 9.6 cm long. Right renal cortical thickness is 1.2 cm; left renal cortical thickness is 0.7 cm. No solid masses, hydronephrosis, or nephrolithiasis. Diffusely increased echotexture of the renal parenchyma. Thinning of the left renal cortex. 0.9 cm left renal cyst. Bladder: Pre-void bladder volume is 88.4 mL. Post-void residual is 78.7 mL. Pre-void images demons trate no intraluminal masses or stones. On pre-void images, bilateral ureteral jets are noted with c olor Doppler interrogation. (Of note, ureteral jets may not be detectable in up to 25% of cases due to insufficient differences in specific gravity between ureteral and bladder urine). Miscellaneous: No free abdominal fluid. Prostate gland measures approximately 3.4 x 3.5 x 2.2 cm. IMPRESSION: Bilateral kidneys without acute sonographic abnormalities. No evidence for obstructive uropathy. Mild ly increased echotexture of the bilateral renal parenchyma as well as mild thinning of the left renal cortex. Findings are likely related to sequela of chronic medical renal disease. Small left renal cyst. Reviewed by: Ezra March MD on 03/15/2023 4:48 PM PDT Approved by: Ezra March MD on 03/15/2023 4:48 PM PDT Station ID: [id number]
== END 2023-03-15 14:09 | disposition home or self-care (01) ==
LOC: DI 14:08
PROVIDERS: ATTEND Internal Medicine Nephrology
DX: N13.8 Other obstructive and reflux uropathy (principal); N28.9 Disorder of kidney and ureter, unspecified; N28.1 Cyst of kidney, acquired

== ENCOUNTER 2023-11-12 07:00 | Day surgery (SDC) | payer MEDICARE, MEDICAID ==
[2023-11-12] MEDS ORDERED: LACTATED RINGERS 1,000 ML IV ONE ×2 (07:05→09:59)
--- NOTE | 2023-11-12 08:18 | ANESTHESIA ---
Pre-Anesthesia VS, & Labs - Diagnosis history of colon cancer - Procedure colonoscopy Vital Signs: Temp Pulse Resp BP Pulse Ox O2 Flow Rate 36.7 C 70 14 166/78 H 100 11/12/23 07:05 11/12/23 07:05 11/12/23 07:05 11/12/23 07:05 11/12/23 07:05 Height: 5 ft 1 in Weight (kg): 77.7 kg Body Mass Index: 32.3 BMI Classification: Obese - NPO Other (prep as directed) Home Medications and Allergies Benazepril HCl 40 mg PO DAILY 07/19/18 Garlic 1,000 mg PO BID 08/27/18 [place]-3S/Dha/Epa/Fish Oil [Fish Oil 1,200 mg Softgel] 1 each PO BID 08/27/18 Cholecalciferol (Vitamin D3) [Vitamin D3] 3,000 unit PO BID 08/28/18 amLODIPine [Norvasc] 10 mg PO DAILY 12/20/18 Citalopram Hydrobromide [Celexa] 40 mg PO DAILY 07/13/20 Omeprazole 20 mg PO DAILY 07/13/20 Acetaminophen [Tylenol] 650 mg PO Q4HR PRN 07/18/21 Lidocaine/Prilocaine [Agoneaze 2.5%-2.5% Cream Dress] 1 each TP .MONTH PRN 03/22/22 cloNIDine [Catapres] 0.2 mg PO BID 03/22/22 Insulin Glargine [Lantus Solostar] 20 unit SUBQ QDBREAKFAST 05/17/22 Insulin Lispro [Insulin Lispro Kwikpen U-100] 3 unit SQ TIDWM 05/17/22 Potassium Chloride 2 tab PO TID 09/26/22 Allergies/Adverse Reactions: Allergies Allergy/AdvReac Type Severity Reaction Status Date / Time No Known Drug Allergies Allergy Verified 09/10/23 14:47 Anes History & Medical History - Anesthetic History Anesthesia Complications: reports: No previous complications - Medical History Cardiovascular: reports: Hypertension, Arrhythmia Pulmonary: reports: None Gastrointestinal: reports: Chronic diarrhea Urinary: reports: None Neuro: reports: None Musculoskeletal: reports: None Endocrine/Autoimmune: reports: Type 2 diabetes Blood Disorders: reports: None Skin: reports: None Smoking Status: Never smoker History of Cancer?: Yes - Surgical History General: reports: Bowel surgery Exam General: Alert, Oriented x3 Dental: WNL Neck Mobility: Normal Mallampati classification: II Thyromental Distance: greater than 6 cm Respiratory: Lungs clear Cardiovascular: Regular rate Plan Anesthesia Type: Total IV Consent for Procedure(s) Verified and Reviewed: Yes Code Status: Attempt Resuscitation ASA classification: 3-Severe systemic disease Is this case an emergency?: No
[2023-11-12] MEDS ORDERED: PROPOFOL 500 MG/50 ML 500 MG/50 ML VIAL ONE (08:38)
[2023-11-12] MEDS ORDERED: PROPOFOL 200 MG/20 ML VIAL IVP ONE ×2 (09:24→09:43)
[2023-11-12 10:04] VITALS: O2SAT 96
[2023-11-12 10:34] VITALS: BP 161/80
--- NOTE | 2023-11-12 16:07 | ANESTHESIA POST OP EVALUATION ---
Anesthesia Post Eval - Post Anesthesia Eval Vitals: Last Vital Signs Temp 36.8 C 11/12/23 09:59 Pulse 52 L 11/12/23 10:31 Resp 17 11/12/23 10:31 BP 161/80 H 11/12/23 10:31 Pulse Ox 96 11/12/23 10:31 O2 Flow Rate CV Function Including HR & BP: Stable Pain Control: Satisfactory Nausea & Vomiting: Negative Mental Status: Baseline Respiratory Status: Airway Patent Hydration Status: Satisfactory Anesthesia Complications: None
== END 2023-11-12 07:01 | disposition home or self-care (01) ==
LOC: SDS 07:00
PROVIDERS: ATTEND Surgery
PROC: 0D7P8ZZ Dilation of Rectum, Via Natural or Artificial Opening Endoscopic (ICD-10-PCS; 2023-11-12)
PROC: 0DBP8ZX Excision of Rectum, Via Natural or Artificial Opening Endoscopic, Diagnostic (ICD-10-PCS; principal; 2023-11-12 08:15)
DX: Z12.11 Encounter for screening for malignant neoplasm of colon (principal); Z85.038 Personal history of other malignant neoplasm of large intestine; D12.8 Benign neoplasm of rectum; K64.1 Second degree hemorrhoids; K62.4 Stenosis of anus and rectum; K63.89 Other specified diseases of intestine; Z98.0 Intestinal bypass and anastomosis status; K56.609 Unspecified intestinal obstruction, unspecified as to partial versus complete obstruction; E66.9 Obesity, unspecified; Z68.32 Body mass index [BMI] 32.0-32.9, adult; E11.9 Type 2 diabetes mellitus without complications; Z79.4 Long term (current) use of insulin
CPT/HCPCS: 45385; 45386; J7120

== ENCOUNTER 2023-12-04 09:38 | Outpatient (CLI) | payer MEDICARE, MEDICAID ==
[2023-12-04 10:05] LABS: BUN - BLOOD UREA NITROGEN 27 mg/dL (6-20); CALCIUM 8.6 mg/dL (8.5-10.3); CARBON DIOXIDE - CO2 32 mmol/L (21-32); CHLORIDE 100 mmol/L (101-111); CHOL/HDL RATIO 5.3 (<5.0); CHOLESTEROL 153 mg/dL; CREATININE 2.5 mg/dL (0.6-1.3); GFR - MDRD 26 (>89); GLUCOSE 143 mg/dL (74-104); HDL CHOLESTEROL 29 mg/dL; LDL CHOLESTEROL,CALCULATED 72 mg/dL; LDL/HDL RATIO 2.5 (<3.6); POTASSIUM 3.2 mmol/L (3.5-4.5); SODIUM 140 mmol/L (135-145); TRIGLYCERIDES 260 mg/dL (48-352); VLDL CHOLESTEROL 52 mg/dL
[2023-12-04 10:10] LABS: CREATININE,URINE 95.9 mg/dL; SODIUM, URINE 73.1 mmol/L
[2023-12-04 11:51] LABS: ESTIMATED AVERAGE GLUCOSE 128 mg/dL (70-100); HEMOGLOBIN A1c% 6.1 % (4.27-6.07)
== END 2023-12-04 09:39 | disposition home or self-care (01) ==
LOC: LAB 09:38
PROVIDERS: ATTEND Nurse Practitioner Family
DX: E78.5 Hyperlipidemia, unspecified (principal); E11.22 Type 2 diabetes mellitus with diabetic chronic kidney disease; N18.32 Chronic kidney disease, stage 3b; Z12.5 Encounter for screening for malignant neoplasm of prostate; N52.9 Male erectile dysfunction, unspecified; E87.6 Hypokalemia
CPT/HCPCS: 36415; 80048; 80061; 82570; 83036; 84300; G0103; 81599; 83721; 84153

== ENCOUNTER 2024-02-18 10:56 | Outpatient (CLI) | payer MEDICARE, MEDICAID ==
[2024-02-18 11:28] LABS: CALCIUM 9.3 mg/dL (8.5-10.3); POTASSIUM 3.6 mmol/L (3.5-4.5)
[2024-02-18 11:29] LABS: CREATININE,URINE 59.7 mg/dL
[2024-02-18 11:39] LABS: PROTEIN/CREATININE RATIO,URINE 5.5 (<=0.2)
[2024-02-18 11:57] LABS: ESTIMATED AVERAGE GLUCOSE 140 mg/dL (70-100); HEMOGLOBIN A1c% 6.5 % (4.27-6.07)
== END 2024-02-18 10:57 | disposition home or self-care (01) ==
LOC: LAB 10:56
PROVIDERS: ATTEND Internal Medicine Nephrology
DX: N05.9 Unspecified nephritic syndrome with unspecified morphologic changes (principal); N25.81 Secondary hyperparathyroidism of renal origin; E83.30 Disorder of phosphorus metabolism, unspecified; E11.9 Type 2 diabetes mellitus without complications; R80.9 Proteinuria, unspecified
CPT/HCPCS: 36415; 80048; 82570; 83036; 83970; 84100; 84156

== ENCOUNTER 2024-03-08 14:58 | Outpatient (CLI) | payer MEDICARE, MEDICAID ==
--- NOTE | 2024-03-09 06:37 | Ultrasound Report ---
PROCEDURE: Renal (Retroperitoneal) INDICATIONS: CKD TECHNIQUE: Real-time scanning was performed of the retroperitoneal organs, with image documentation. COMPARISON: None. FINDINGS: Kidneys: Both kidneys measure 10 cm. Right renal cortical thickness is 0.9 cm. Left renal cortical th ickness is 1 cm. Possible right mid region cyst measuring 2 x 1.2 cm. Possible left superior nonobstructing calculus m easuring 3 mm. Possible left mid region cyst measuring 1.5 x 1.1 cm. Bladder: Prevoid volume 236 cc. Postvoid residual of 6 cc. The prostate measures 3.6 x 3 x 2.8 cm. Ubaldo th ureteral jets are seen. Miscellaneous: No free abdominal fluid. IMPRESSION: Borderline thinning of the cortices bilaterally. No hydronephrosis. Suspected renal cysts are present, without complicated components by ultrasound. Suspected left nonob structing 3 mm calculus. Reviewed by: El Capps MD on 03/09/2024 6:36 AM PDT Approved by: El Capps MD on 03/09/2024 6:36 AM PDT Station ID: [id number]
== END 2024-03-08 14:59 | disposition home or self-care (01) ==
LOC: DI 14:58
PROVIDERS: ATTEND Internal Medicine Nephrology
DX: N18.4 Chronic kidney disease, stage 4 (severe) (principal)

== ENCOUNTER 2024-03-13 11:10 | Outpatient (CLI) | payer MEDICARE, MEDICAID ==
[2024-03-13 11:20] LABS: BASOPHILS % (AUTO) 0.3 %; EOSINOPHILS # (AUTO) 0.1 10^3/uL (0.0-0.7); EOSINOPHILS % (AUTO) 0.7 %; HCT - HEMATOCRIT 38.9 % (42.0-52.0); HGB - HEMOGLOBIN 12.5 g/dL (14.0-18.0); LYMPHOCYTES # (AUTO) 1.7 10^3/uL (1.5-3.5); LYMPHOCYTES % (AUTO) 12.6 %; MEAN CORPUSCULAR HEMOGLOBIN 28.9 pg (27.0-31.0); MEAN CORPUSCULAR HGB CONC 32.1 g/dL (32.0-36.0); MEAN PLATELET VOLUME 10.2 fL (7.4-11.4); MONOCYTES # (AUTO) 0.9 10^3/uL (0.0-1.0); MONOCYTES % (AUTO) 6.7 %; NEUTROPHILS # (AUTO) 10.6 10^3/uL (1.5-6.6); NEUTROPHILS % (AUTO) 79.5 %; PLT - PLATELET COUNT 253 10^3/uL (130-450); RED BLOOD COUNT 4.32 10^6/uL (4.70-6.10); RED CELL DISTRIBUTION WIDTH 14.5 % (12.0-15.0); WHITE BLOOD COUNT 13.3 x10^3/uL (4.8-10.8)
[2024-03-13 11:32] LABS: CALCIUM 9.5 mg/dL (8.5-10.3); CREATININE 2.8 mg/dL (0.6-1.3); POTASSIUM 3.7 mmol/L (3.5-4.5)
== END 2024-03-13 11:11 | disposition home or self-care (01) ==
LOC: LAB 11:10
PROVIDERS: ATTEND Internal Medicine Nephrology
DX: N05.9 Unspecified nephritic syndrome with unspecified morphologic changes (principal); D70.9 Neutropenia, unspecified; D63.1 Anemia in chronic kidney disease
CPT/HCPCS: 36415; 80048; 85025

== ENCOUNTER 2024-04-10 09:44 | Outpatient (CLI) | payer MEDICARE, MEDICAID ==
[2024-04-10 10:08] LABS: CREATININE 3.2 mg/dL (0.6-1.3)
== END 2024-04-10 09:45 | disposition home or self-care (01) ==
LOC: LAB 09:44
PROVIDERS: ATTEND Nurse Practitioner Family
DX: K62.89 Other specified diseases of anus and rectum (principal); Z85.038 Personal history of other malignant neoplasm of large intestine
CPT/HCPCS: 36415; 82565

== ENCOUNTER 2024-04-12 11:52 | Outpatient (CLI) | payer MEDICARE, MEDICAID ==
--- NOTE | 2024-04-14 22:10 | MRI Report ---
PROCEDURE: Pelvis W/WO INDICATIONS: RECTAL MASS, HISTORY OF COLON CANCER CONTRAST: None administered. TECHNIQUE: Coronal HASTE, sagittal T2 FSE, axial T1 FSE, axial and coronal nonbreath-hold T2 FSE. Axial dynamic VIBE during administration of contrast. Axial T1 vibe fat saturation. Images from the iliac crests t o the symphysis. Restricted diffusion weighted imaging and ADC. COMPARISON: CT abdomen and pelvis 09/04/2023. FINDINGS: Image quality: Excellent. Rectum: A rectosigmoid anastomosis. Persistent stricture. The upstream sigmoid colon is dilated. Appearance i s not significant change compared to prior CT. No recurrent mass. No restricted diffusion. Regional lymph nodes (mesorectal, inguinal, iliac): No suspicious lymph nodes. Reproductive organs: Probable small fat-containing right inguinal hernia. Prominent prostate gland. Bladder: Unremarkable. Bones: No aggressive osseous abnormality. IMPRESSION: Rectosigmoid anastomosis appears unchanged. Anastomotic stricture. No recurrent mass. No enlarged lymph nodes. Reviewed by: Maciej Adame MD on 04/14/2024 10:08 PM PDT Approved by: Maciej Adame MD on 04/14/2024 10:08 PM PDT Station ID: [id number]
== END 2024-04-12 11:53 | disposition home or self-care (01) ==
LOC: LAB 11:52
PROVIDERS: ATTEND Nurse Practitioner Family
DX: K62.89 Other specified diseases of anus and rectum (principal); Z85.038 Personal history of other malignant neoplasm of large intestine; K56.699 Other intestinal obstruction unspecified as to partial versus complete obstruction

== ENCOUNTER 2024-06-28 14:22 | Outpatient (CLI) | payer MEDICARE, MEDICAID ==
--- NOTE | 2024-06-30 10:15 | MRI Report ---
PROCEDURE: Abdomen W/WO INDICATIONS: HISTORY OF MALIGNANT CARCINOID TUMOR OF RECTUM CONTRAST: NONE GIVEN. PT DECLINED. TECHNIQUE: Coronal ultra fast SE, axial 2D spoiled GE in- and [id number]; axial breath-hold T2 fast SE. Dynam ic axial ultra fast GE during the administration of contrast; post-contrast coronal ultra fast GE or 2D spoiled GE with fat saturation from the hepatic dome to the iliac crests. Optional diffusion weig hted imaging and ADC may be performed. COMPARISON: CT abdomen pelvis 04/22/2024 FINDINGS: Image quality: Decreased due to motion. Lung bases and heart: Unremarkable. Liver: Tiny right hepatic lobe T2 hyperintensity, likely a cyst. No visible solid mass without contra st. Normal liver signal and smooth margin. Gallbladder and biliary tree: No radiopaque stones or wall thickening. No biliary dilation. Spleen: No splenomegaly. Pancreas: No pancreatic ductal dilation. Adrenals: Left adrenal mass measuring about 2.1 cm with signal loss on T1 out of phase imaging consis tent with an adenoma. No right adrenal mass. Kidneys and ureters: No hydronephrosis. Numerous tiny cortical cysts bilaterally. The ureters are non dilated. Bowel and peritoneum: No free fluid. Distention of transverse and descending colon, incompletely eval uated on this exam. No small bowel or gastric dilatation. Lymph nodes: No central or retroperitoneal adenopathy. Vessels: Normal caliber abdominal aorta, IVC, and portal vein. Bones: No aggressive osseous abnormality. Other: Right anterior abdominal ileostomy. IMPRESSION: Decreased exam sensitivity secondary to motion and lack of IV contrast. Stable size left adrenal mass most suggestive of an adenoma. Partially evaluated colonic distention, also seen on prior exam. Reviewed by: Gely Miranda MD on 06/30/2024 10:14 AM PDT Approved by: Gely Miranda MD on 06/30/2024 10:14 AM PDT Station ID: [id number]
--- NOTE | 2024-06-30 11:15 | MRI Report ---
PROCEDURE: Pelvis W/WO INDICATIONS: HISTORY OF MALIGNANT CARCINOID TUMOR OF RECTUM CONTRAST: None TECHNIQUE: Coronal ultra fast SE, sagittal T2 FSE, axial T1 FSE, axial and coronal nonbreath-hold T2 FSE. Axial dynamic ultra fast GE during administration of contrast. Post-contrast axial and coronal ultra fast GE / 2-D spoiled GE with fat saturation from the iliac crests to the symphysis. Optional diffusion weighted imaging and ADC may be performed. COMPARISON: 04/12/2024 FINDINGS: Image quality: Diagnostic. Bowel and peritoneum: There is a stable stricture at the rectosigmoid anastomosis. Stricture is 11.4 cm from the anal verge. No suspicious high T2 intraluminal mass. No extramural nodularity. The visib le portion of the descending colon is mildly dilated. Small bowel loops are nondilated. No pathologic free pelvic fluid. Genitourinary system: Bladder wall is normal in thickness. Distal ureters are non distended. Prost ate gland is normal size. Seminal vesicles are normal size and signal. Nodes and vessels: No pathologic pelvic or inguinal adenopathy by size criteria. Iliac vessels are normal in caliber. Soft tissues: Small fat-containing inguinal hernias. Bones: Marrow is normal in overall signal. IMPRESSION: Rectosigmoid anastomotic stricture without MR evidence of local recurrence. No pelvic adenopathy. Reviewed by: Gely Miranda MD on 06/30/2024 11:14 AM PDT Approved by: Gely Miranda MD on 06/30/2024 11:14 AM PDT Station ID: [id number]
== END 2024-06-28 14:23 | disposition home or self-care (01) ==
LOC: DI 14:22
PROVIDERS: ATTEND Surgery
DX: K56.699 Other intestinal obstruction unspecified as to partial versus complete obstruction (principal); E27.9 Disorder of adrenal gland, unspecified; Z85.040 Personal history of malignant carcinoid tumor of rectum

== ENCOUNTER 2024-07-16 11:05 | Outpatient (CLI) | payer MEDICARE, MEDICAID ==
[2024-07-16 11:15] LABS: BASOPHILS # (AUTO) 0.1 10^3/uL (0.0-0.1); BASOPHILS % (AUTO) 0.4 %; EOSINOPHILS # (AUTO) 0.1 10^3/uL (0.0-0.7); EOSINOPHILS % (AUTO) 0.9 %; HCT - HEMATOCRIT 36.2 % (42.0-52.0); HGB - HEMOGLOBIN 11.5 g/dL (14.0-18.0); LYMPHOCYTES # (AUTO) 1.6 10^3/uL (1.5-3.5); LYMPHOCYTES % (AUTO) 13.6 %; MEAN CORPUSCULAR HEMOGLOBIN 30.3 pg (27.0-31.0); MEAN CORPUSCULAR HGB CONC 31.8 g/dL (32.0-36.0); MEAN CORPUSCULAR VOLUME 95.3 fL (80.0-94.0); MONOCYTES # (AUTO) 0.8 10^3/uL (0.0-1.0); MONOCYTES % (AUTO) 6.7 %; NEUTROPHILS # (AUTO) 9.1 10^3/uL (1.5-6.6); NEUTROPHILS % (AUTO) 78.1 %; PLT - PLATELET COUNT 207 10^3/uL (130-450); RED CELL DISTRIBUTION WIDTH 13.2 % (12.0-15.0); WHITE BLOOD COUNT 11.7 x10^3/uL (4.8-10.8)
[2024-07-16 11:28] LABS: ALBUMIN 3.6 g/dL (3.2-5.5); ALBUMIN/GLOBULIN RATIO 1.3 (1.0-2.2); BILIRUBIN,TOTAL 0.4 mg/dL (0.2-1.0); CALCIUM 8.9 mg/dL (8.5-10.3); CREATININE 3.1 mg/dL (0.6-1.3); POTASSIUM 3.8 mmol/L (3.5-4.5); TOTAL PROTEIN 6.3 g/dL (6.4-8.9)
== END 2024-07-16 11:06 | disposition home or self-care (01) ==
LOC: LAB 11:05
PROVIDERS: ATTEND Nurse Anesthetist, Certified Registered
DX: C7A.026 Malignant carcinoid tumor of the rectum (principal)
CPT/HCPCS: 36415; 80053; 85025

== ENCOUNTER 2024-07-16 11:13 | Outpatient (CLI) | payer MEDICARE, MEDICAID ==
--- NOTE | 2024-07-17 16:34 | CONSULTATION NOTE ---
Consultation Report: Patient was seen on 07/16/2024 for a pre-op anesthesia consult. He is scheduled to have an abdominal peritoneal resection on 07/18/2024. His past medical history includes HTN, GERD, T2DM, CKD stage 4, Colon cancer s/p resection and chemo, peripheral neuropathy. Repeat CMP show elevated creatinine of 3.1, BUN 41 and estimated GFR 20. He has had worsening renal function for last 6-12 months. CBC shows WBC 11.7, HGB 11.5, Hct 36.2 Plt 207. EKG showed NSR. Allergies metformin Adverse Reaction (Verified 03/11/24 12:52) Nausea Home Medications Benazepril HCl 40 mg PO DAILY 07/19/18 [place]-3S/Dha/Epa/Fish Oil [Fish Oil 1,200 mg Softgel] 1 each PO BID 08/27/18 amLODIPine [Norvasc] 10 mg PO DAILY 12/20/18 Citalopram Hydrobromide [Celexa] 40 mg PO DAILY 07/13/20 Omeprazole 20 mg PO DAILY 07/13/20 cloNIDine [Catapres] 0.1 mg PO DAILY 03/22/22 Atorvastatin [Lipitor] 40 mg PO QPM #30 tablet 03/23/22 Insulin Glargine [Lantus Solostar] 10 unit SUBQ QDBREAKFAST 05/17/22 Insulin Lispro [Insulin Lispro Kwikpen U-100] 5 unit SQ TIDWM 05/17/22 Potassium Chloride 1 tab PO DAILY 09/26/22 Metoprolol Succinate [Toprol Xl] 50 mg PO ONCE 01/28/24 NIFEdipine [Nifedipine ER] 90 mg PO DAILY 01/28/24 Spironolactone [Aldactone] 50 mg PO DAILY 01/28/24 Physical exam Patient is alert, oriented x3 in no acute distress. Lungs CTA, Heart RR, no murmur. He has 3FB mouth opening with MP 2. Plan Discussed risk/benefits with patient for GETA with thoracic epidural for post op pain management. Patient's elevated creatinine and low GFR are concerning as this is a major surgery in which fluid shifts are to be expected. Nephrology is not available at [facility]. We do not have minimal invasive hemodynamic monitoring for goal directed fluid management nor muscle relaxants such as cisatracurium. He is at high risk for post-op renal failure and as such plans should be made for transfer if renal function worsens post op. He is also high risk for post-op mortality/morbidity due to his underlying CKD. The above vincent-operative concerns were discussed with Dr. Mccallum by Jose Lobo CRNA on 07/17. Dr. Mccallum would like to proceed despite concerns. I briefly discussed case with Dr. Fraser, hospitalist, who is willing to manage post-op complications.
== END 2024-07-16 11:14 | disposition home or self-care (01) ==
LOC: RT 11:13
PROVIDERS: ATTEND Nurse Anesthetist, Certified Registered
DX: Z01.810 Encounter for preprocedural cardiovascular examination (principal); C7A.026 Malignant carcinoid tumor of the rectum
CPT/HCPCS: 36415; 80053; 85025; 93005

== ENCOUNTER 2024-07-18 05:35 | Inpatient (IN) ==
[2024-07-18] MEDS ORDERED: GABAPENTIN 400 MG CAPSULE ONE (06:14)
[2024-07-18] MEDS ORDERED: ACETAMINOPHEN 1,000 MG/100 ML 1,000 MG/100 ML BAG IV ONE (06:15)
[2024-07-18] MEDS ORDERED: CELECOXIB 100 MG CAPSULE PO ONE (06:15)
[2024-07-18] MEDS: LACTATED RINGERS 1,000 ML IV ONE ×3 (06:24→15:24)
[2024-07-18] MEDS ORDERED: fentaNYL 100 MCG/2 ML VIAL ONE (07:03)
[2024-07-18] MEDS ORDERED: ROCURONIUM 50 MG/5 ML VIAL ONE ×2 (07:03→09:32)
[2024-07-18] MEDS ORDERED: MIDAZOLAM 2 MG/2 ML VIAL ONE (07:03)
[2024-07-18] MEDS ORDERED: PROPOFOL 200 MG/20 ML VIAL IVP ONE (07:03)
[2024-07-18] MEDS ORDERED: LIDOCAINE 2% URO-JET 5 ML SYRINGE UR ONE (07:10)
[2024-07-18] MEDS ORDERED: iohexoL-240 10 ML VIAL IVP ONE (07:11)
--- NOTE | 2024-07-18 07:25 | ANESTHESIA ---
Pre-Anesthesia VS, & Labs - Diagnosis rectal carcinoid tumor - Procedure AP resection Vital Signs: Temp Pulse Resp BP Pulse Ox O2 Flow Rate 36.2 C L 61 16 176/88 H 97 07/18/24 06:48 07/18/24 06:48 07/18/24 06:48 07/18/24 06:48 07/18/24 06:48 Height: 5 ft Weight (kg): 75.3 kg Body Mass Index: 32.4 BMI Classification: Obese - NPO >8 hours Home Medications and Allergies Active Medications Cefotetan Disodium 2 gm/ (Sodium Chloride) 100 mls @ 200 mls/hr IV ONCE ONE Stop: 07/18/24 07:59 Benazepril HCl 40 mg PO DAILY 07/19/18 [place]-3S/Dha/Epa/Fish Oil [Fish Oil 1,200 mg Softgel] 1 each PO BID 08/27/18 amLODIPine [Norvasc] 10 mg PO DAILY 12/20/18 Citalopram Hydrobromide [Celexa] 40 mg PO DAILY 07/13/20 Omeprazole 20 mg PO DAILY 07/13/20 cloNIDine [Catapres] 0.1 mg PO DAILY 03/22/22 Insulin Glargine [Lantus Solostar] 10 unit SUBQ QDBREAKFAST 05/17/22 Insulin Lispro [Insulin Lispro Kwikpen U-100] 5 unit SQ TIDWM 05/17/22 Potassium Chloride 1 tab PO DAILY 09/26/22 Metoprolol Succinate [Toprol Xl] 50 mg PO ONCE 01/28/24 NIFEdipine [Nifedipine ER] 90 mg PO DAILY 01/28/24 Spironolactone [Aldactone] 50 mg PO DAILY 01/28/24 Allergies/Adverse Reactions: Allergies Allergy/AdvReac Type Severity Reaction Status Date / Time metformin AdvReac Nausea Verified 03/11/24 12:52 Anes History & Medical History - Anesthetic History Anesthesia Complications: reports: No previous complications - Medical History Cardiovascular: reports: Hypertension, High cholesterol, Murmur, Arrhythmia Pulmonary: reports: None Gastrointestinal: reports: GERD, Ulcerative colitis, Other Urinary: reports: None Neuro: reports: None Musculoskeletal: reports: None Endocrine/Autoimmune: reports: Type 2 diabetes Blood Disorders: reports: None Skin: reports: Other Smoking Status: Never smoker History of Cancer?: Yes - Surgical History General: reports: Bowel surgery, Colonoscopy, Other Exam General: Alert, Oriented x3 Dental: WNL Mouth Opening: Greater than 4 Fingerbreadths Neck Mobility: Normal Mallampati classification: II Thyromental Distance: greater than 6 cm Respiratory: Lungs clear Cardiovascular: Regular rate Plan Anesthesia Type: General, Epidural Consent for Procedure(s) Verified and Reviewed: Yes Code Status: Attempt Resuscitation ASA classification: 3-Severe systemic disease Is this case an emergency?: No
[2024-07-18] MEDS ORDERED: CEFOTETAN DISODIUM 2 GM in SODIUM CHLORIDE 0.9% MINIBAG 100 ML IV ONE (07:30)
--- NOTE | 2024-07-18 07:33 | CONSULTATION NOTE ---
Referring Provider Name of Referring Provider:: Dr Mccallum Consult Date: 07/18/24 Chief Complaint - Chief Complaint Chief Complaint: General surgery History of Present Illness - Admitted From Admitted From:: Home - History Obtained From Records Reviewed: Hospital History obtained from: Hospital records and patient Exam Limitations: none - History of Present Illness HPI Comment/Other: Bowen is a 68-year-old male with reportedly no significant urological history who presents today for general surgery with Dr. Mccallum. Urology was consulted to aid with identification of ureters intraoperatively by placing preoperative ureteral stents. The patient is in good spirits and he was seen today preoperatively History - Past Medical History Cardiovascular: reports: Hypertension, High cholesterol, Murmur, Arrhythmia Respiratory: reports: None Neuro: reports: None Endocrine/Autoimmune: reports: Type 2 diabetes GI: reports: GERD, Ulcerative colitis, Other : reports: None HEENT: reports: Chronic vision loss, Chronic hearing loss Psych: reports: Depression, Anxiety, ADD/ADHD Musculoskeletal: reports: None Derm: reports: Other MRSA Hx?: No - Past Surgical History General: reports: Bowel surgery, Colonoscopy, Other - Family & Social History Family History: Mother: Alive and Well Family History Comment/Other: Patient report his mother is still living at age 92, she had medical history of [place], colon cancer. Her father at age 86 from heart attack and history diabetic. Social History Notes: Patient report he quit cigarette smoking 14 years ago, he had a history of alcohol abuse but he quit alcohol drinking couple years ago. - POLST Patient has POLST: No Meds/Allgy - Home Medications Home Medications: Ambulatory Orders Medication Instructions Recorded Confirmed Benazepril HCl 40 mg PO DAILY 07/19/18 07/16/24 [place]-3S/Dha/Epa/Fish Oil [Fish 1 each PO BID 08/27/18 07/16/24 Oil 1,200 mg Softgel] amLODIPine [Norvasc] 10 mg PO DAILY 12/20/18 07/16/24 Citalopram Hydrobromide [Celexa] 40 mg PO DAILY 07/13/20 07/16/24 Omeprazole 20 mg PO DAILY 07/13/20 07/16/24 cloNIDine [Catapres] 0.1 mg PO DAILY 03/22/22 07/16/24 Atorvastatin [Lipitor] 40 mg PO QPM #30 tablet 03/23/22 07/16/24 Insulin Glargine [Lantus Solostar] 10 unit SUBQ QDBREAKFAST 05/17/22 07/16/24 Insulin Lispro [Insulin Lispro 5 unit SQ TIDWM 05/17/22 07/16/24 Kwikpen U-100] Potassium Chloride 1 tab PO DAILY 09/26/22 07/16/24 Metoprolol Succinate [Toprol Xl] 50 mg PO ONCE 01/28/24 07/16/24 NIFEdipine [Nifedipine ER] 90 mg PO DAILY 01/28/24 07/16/24 Spironolactone [Aldactone] 50 mg PO DAILY 01/28/24 07/16/24 - Allergies Allergies/Adverse Reactions: Allergies Allergy/AdvReac Type Severity Reaction Status Date / Time metformin AdvReac Nausea Verified 03/11/24 12:52 Exam - Vital Signs Vital Signs: Vital Signs x48h Temp Pulse Resp BP Pulse Ox 07/18/24 06:48 36.2 C L 61 16 176/88 H 97 - Physical Exam General Appearance: positive: No acute distress Respiratory: positive: Breath sounds nml Cardiovascular: positive: Regular rate & rhythm Conclusion and Plan - Diagnostic Imaging Results Diagnostic Imaging Results: positive: Read independently - Diagnosis Diagnosis: General Surgery - Consultation Note Consultation Note: 68yo M With no urological history presents today for general surgery Dr. Mccallum - Plan Plan: I recommend cystoscopy, bilateral external ureteral stents. These will be placed after he is put to sleep and before his surgery with Dr. Mccallum. We discussed the risks of the procedure including: Infection, bleeding, injury to adjacent structures, need for additional procedures. We discussed the rare risk of ureteral swelling which may require stents to be replaced in the coming days. Overall we expect to take the stents out at the end of the case. The patient states understanding and consents to the above plan.
[2024-07-18 07:52] LABS: ALBUMIN 3.5 g/dL (3.2-5.5); ALBUMIN/GLOBULIN RATIO 1.3 (1.0-2.2); BILIRUBIN,TOTAL 0.3 mg/dL (0.2-1.0); CALCIUM 8.7 mg/dL (8.5-10.3); POTASSIUM 3.4 mmol/L (3.5-4.5); TOTAL PROTEIN 6.1 g/dL (6.4-8.9)
[2024-07-18] MEDS ORDERED: PHENYLEPHRINE 10 MG/ML VIAL ONE (07:53)
--- NOTE | 2024-07-18 08:11 | ANESTHESIA ---
Pre-Anesthesia VS, & Labs - Diagnosis colon cancer Vital Signs: Temp Pulse Resp BP Pulse Ox O2 Flow Rate 36.2 C L 61 16 176/88 H 97 07/18/24 06:48 07/18/24 06:48 07/18/24 06:48 07/18/24 06:48 07/18/24 06:48 Height: 5 ft Weight (kg): 75.3 kg Body Mass Index: 32.4 BMI Classification: Obese Home Medications and Allergies Active Medications Cefotetan Disodium 2 gm/ (Sodium Chloride) 100 mls @ 200 mls/hr IV ONCE ONE Stop: 07/18/24 07:59 Benazepril HCl 40 mg PO DAILY 07/19/18 [place]-3S/Dha/Epa/Fish Oil [Fish Oil 1,200 mg Softgel] 1 each PO BID 08/27/18 amLODIPine [Norvasc] 10 mg PO DAILY 12/20/18 Citalopram Hydrobromide [Celexa] 40 mg PO DAILY 07/13/20 Omeprazole 20 mg PO DAILY 07/13/20 cloNIDine [Catapres] 0.1 mg PO DAILY 03/22/22 Insulin Glargine [Lantus Solostar] 10 unit SUBQ QDBREAKFAST 05/17/22 Insulin Lispro [Insulin Lispro Kwikpen U-100] 5 unit SQ TIDWM 05/17/22 Potassium Chloride 1 tab PO DAILY 09/26/22 Metoprolol Succinate [Toprol Xl] 50 mg PO ONCE 01/28/24 NIFEdipine [Nifedipine ER] 90 mg PO DAILY 01/28/24 Spironolactone [Aldactone] 50 mg PO DAILY 01/28/24 Allergies/Adverse Reactions: Allergies Allergy/AdvReac Type Severity Reaction Status Date / Time metformin AdvReac Nausea Verified 03/11/24 12:52 Anes History & Medical History - Medical History Cardiovascular: reports: Hypertension, High cholesterol, Murmur, Arrhythmia Pulmonary: reports: None Gastrointestinal: reports: GERD, Ulcerative colitis, Other Urinary: reports: None Neuro: reports: None Musculoskeletal: reports: None Endocrine/Autoimmune: reports: Type 2 diabetes Blood Disorders: reports: None Skin: reports: Other Smoking Status: Never smoker - Surgical History General: reports: Bowel surgery, Colonoscopy, Other
[2024-07-18] MEDS: LIDOCAINE 2% URO-JET 5 ML SYRINGE UR ONE (08:57)
--- NOTE | 2024-07-18 09:04 | OPERATIVE REPORT ---
Operative Report - General Admit Date: 07/18/24 Procedure Date: 07/18/24 Planned Procedure: Cystoscopy, bilateral ureteral stents Pre-Op Diagnosis: Preop stents for general surgery Procedure Performed: Cystoscopy, bilateral ureteral stents, bladder biopsy Post Op Diagnosis: Preop stents for general surgery, bladder lesion - Procedure Note Primary Surgeon: Tahir Anesthesia Provider: KERA Johnson Anesthesia Technique: General ET tube Pathology: bladder biopsy Estimated Blood Loss (mL): 0 Findings: small 2mm lesion on trigone just medial to left UO - Other Other Information/Narrative: After informed consent was obtained the patient brought the OR and laid in the supine position. The patient was anesthetized per anesthesia protocols and prepped draped in usual sterile fashion in the dorsal thigh position. A formal time was performed reconfirmed the patient, procedure and laterality A 22 [place] scope was advanced easily into the urinary bladder. Bladder was inspected and he was noted to have a 2 mm papillary appearing lesion immediately medial to the left ureteral orifice on the trigone. There were no other masses lesions or other concerns. A sensor wire was placed through the right ureteral orifice and a 5 [place] ureteral catheter was placed up on this wire to the kidney. I sensor wire was then placed through the left ureteral orifice and a 5 [place] separate ureteral catheter was placed up into the kidney on the left side. This stent was cut at an angle Using a flexible bladder biopsy We biopsied the small Ditzel. We sent it for analysis. There was no significant bleeding. Sensor wires were placed up through the ureteral stents which were then tunneled into the Sanchez catheter via a 16-gauge Angiocath needle. The stents were tied to the Sanchez with a 0 silk tie. This concluded the procedure from urology perspective and the patient was handed off to the general surgery team
[2024-07-18] MEDS ORDERED: BUPIVACAINE 0.25% PF 10 ML VIAL ONE ×3 (09:25→13:53)
[2024-07-18] MEDS ORDERED: GLYCOPYRROLATE 1 MG/5 ML VIAL ONE ×2 (09:47→14:28)
[2024-07-18] MEDS ORDERED: METOCLOPRAMIDE 10 MG/2 ML VIAL IVP PRN (09:53)
[2024-07-18] MEDS ORDERED: MORPHINE 2 MG/ML CARPUJECT IVP PRN (09:53)
[2024-07-18] MEDS ORDERED: fentaNYL 100 MCG/2 ML VIAL IVP PRN (09:53)
[2024-07-18] MEDS ORDERED: HYDROmorphone 0.5 MG/0.5 ML SYRINGE IVP PRN (09:53)
[2024-07-18] MEDS ORDERED: NALOXONE 0.4 MG/ML VIAL IVP PRN (09:53)
[2024-07-18] MEDS ORDERED: ePHEDrine 50 MG/ML VIAL IVP PRN (09:53)
[2024-07-18] MEDS ORDERED: ATROPINE ABBOJECT 1 MG/10 ML SYRINGE IVP PRN (09:53)
[2024-07-18] MEDS ORDERED: ROPIVACAINE 0.2% 200 MG/100 ML BAG EP PRN (09:54)
[2024-07-18] MEDS ORDERED: NALBUPHINE 10 MG/ML AMP IVP PRN (09:54)
[2024-07-18] MEDS ORDERED: diphenhydrAMINE INJ 50 MG/ML VIAL IVP PRN (09:54)
[2024-07-18] MEDS ORDERED: ONDANSETRON 4 MG/2 ML VIAL IVP PRN (09:54)
[2024-07-18] MEDS ORDERED: LIDOCAINE 2%-EPI 1:100000 20 ML MDV ONE (09:58)
[2024-07-18] MEDS ORDERED: LACTATED RINGERS 1,000 ML IV SCH (10:00)
[2024-07-18] MEDS ORDERED: CEFOTETAN DISODIUM 1 GM VIAL ONE (11:06)
[2024-07-18] MEDS ORDERED: INSULIN REGULAR, HUMAN 300 UNIT/3 ML PEN ONE (11:08)
[2024-07-18] MEDS ORDERED: INSULIN REGULAR HUMAN 100 UNIT/1 ML 10 ML MDV IV ONE (12:00)
[2024-07-18] MEDS ORDERED: ePHEDrine 50 MG/ML VIAL IVP ONE (12:15)
[2024-07-18] MEDS ORDERED: NEOSTIGMINE 1 MG/1 ML 10 ML MDV ONE (14:22)
[2024-07-18] MEDS ORDERED: ONDANSETRON 4 MG/2 ML VIAL ONE (14:23)
[2024-07-18] MEDS ORDERED: ROPIVACAINE 0.2% 200 MG/100 ML BAG EP ONE (15:03)
[2024-07-18] MEDS: ONDANSETRON 4 MG/2 ML VIAL IVP PRN ×2 (15:15→20:40)
--- NOTE | 2024-07-18 15:19 | OPERATIVE REPORT ---
Operative Report - General Admit Date: 07/18/24 Planned Procedure: Abdominoperineal resection with preoperative ureteral stenting Pre-Op Diagnosis: Symptomatic anorectal stenosis with anal dysfunction Procedure Performed: Abdominoperineal resection with preoperative ureteral stenting Post Op Diagnosis: Symptomatic anorectal stenosis with anal dysfunction in a patient with a hi - Procedure Note Primary Surgeon: Jose Mccallum MD Secondary Surgeon: Blossom Costa MD Anesthesia Provider: Gladis Johnson CRNA Anesthesia Technique: Epidural, General ET tube IV Fluids (mL): 2,300 Estimated Blood Loss (mL): 300 Urine Output (mL): 145 Drain/Tube Type: Shan drain (19 Albanian Shan placed into the skin at the right lower quadrant and directed to the perineum) Findings: Very scarred and stenotic anorectum Complications: None. - Other Other Information/Narrative: After verbal and written informed consent was obtained detailing the operation, the alternatives the operation including no operation, risks of infection, bleeding requiring transfusion with its risks, nerve injury, ureteral injury and and after I met with the patient confirming the surgery and the site of surgery, the patient was brought to the operative suite and placed supine on the operating table. Please note that when I met the patient preoperatively on Sunday in anticipation of the surgery I marked the site for his permanent colostomy. This blaine was still visible. In anticipation of surgery the patient had his colon mechanically and antibiotically prepped. The patient then had a Sanchez and bilateral ureteral stents placed by Dr. Amos Haro for which I am thankful. The patient then had an epidural placed by Gladis Johnson CRNA for which I am thankful. The patient was placed in modified lithotomy position and strapped in place.. Great care was taken to avoid pressure points to prevent pressure necrosis or nerve injury. Monitoring devices were applied along with TEDs and pneumatic compression stockings (to prevent DVT). The patient received preoperative antibiotics for surgical prophylaxis. Gladis Johnson CRNA sedated and anesthetized the patient for the entire procedure. The patient was prepped and draped in the usual sterile manner. A "time in" then confirmed that the patient was identified with 3 identifiers (name, date, and medical record number), the history and physical was updated and in the chart, the signed consent confirming the procedure was in the chart, the patient was in the correc t position, the aforementioned prophylactic measures were in place or given, we had the correct personnel and equipment to complete the procedure and that anesthesia and the surgical team were given an opportunity to express any concerns. With the agreement of everyone in the room we proceeded with the operation. I incised the skin tracing the previous midline incision. The entire previous incision was used. Dissection down to the linea alba was accomplished using Bovie electrocautery. Hemostasis was obtained using Bovie electrocautery. The peritoneum was incised gaining entry into the abdomen without incident and this incision was lengthened to the length of our skin incision using Bovie electrocautery without difficulty. The fascia was grasped using Nava's and extensive adhesiolysis was necessary due to the many previous operations the patient had. The vast numbers of these adhesions there were in the abdomen were thin and filmy whereas the adhesions in the pelvis were much thicker and harder to incise. All the adhesions were not taken down but the LEFT colon was mobilized off of the LEFT abdominal wall and adhesions of the small bowel into the pelvis were freed to allow for the operation to progress. The colon was massively distended with liquid stool and approximately 4 time normal size. I transected the distal descending colon using 2 applications of a MARIVEL 75 stapler (due to the size) to allow the proximal colon and small bowel to be packed away from the pelvis. This was accomplished with a wet blue towel, a malleable retractor bent into a "C" shape and Trendelenberg position. It was clear that the continued distention of the distal colon would preclude adequate visualization. After packing surgical lap sponges around the distal colon to minimize spillage, I cut the stapled corner and used the Yankauer suction to decompress the distal colon. I then stapled the colon distal to the colotomy again using 2 applications of the 75 MARIVEL stapler and the resulting specimen was sent as the the most proximal margin. As the colon transitioned from very large to very small in the pelvis the adhesions turned into significant scarring. The normal areolar layer between the fascia propria of the rectum and presacral fascia was replaced with scar. Dissection in this dense scar was done primarily with Bovie electrocautery after the tissue had been freed with a right angle clamp. I attempted to stay on the colonic wall to prevent injury to surrounding structures in this densely adherent scarred narrow pelvis. In doing so I entered the colon on several occasions. I did not close the defects as there was going to be copious irrigation at the end. Rather I used the opening to help define the scarred wall and continue the dissection. I decided to remove additional colon thinking that it would not impede our visualization. This was accomplished with application of a Contour stapler and this was sent as the distal proximal specimen. The dissection was tedious and carried out in a circumferential manner - posterior first and working right and left and finally anteriorly. Posteriorly as soon as I could feel the coccyx I asked Dr. Costa to start the anal excision. This "2 team" approach allowed for decreased anesthesia and operative time. An elliptical incision extended from the midpoint of the perineal body back to a point midway between the coccyx and the anus. The incision was continued down through the subcutaneous tissue into the ischiorectal fat using Bovie electrocautery. A Gary retractor was placed to improve visualization and aid with dissection. Initially, the majority of the dissection was directed posterior and laterally. The inferior hemorrhoidal vessels were cauterized using aplication of the Ligasure. The posterior dissection was directed anterior to the coccyx and the anococcygeal raphe was divided. The pelvis was entered anterior to the coccyx using Ligasure as well as 's (perineal) and my fingers (pelvis) defining the dissection plane. This surgery was assisted by our synchronous abdomino-perineal approach. Dr. Costa placed a narrow malleable that allowed limited resection of the levator muscle. When all that remained was the anterior attachments, the rectosigmoid was drawn through the opening and used to provide traction to continue the remaining dissection. Lastly, the anterior attachements-muscles were divided anteriorly. My fingers were protecting the urogenital structures. The Sanchez, balloon and stents were easily palpable and kept anteriorly to prevent any damage. The spec imen was then removed and sent as the anorectum. The pelvis was then irrigated with 4 liters of warm sterile saline. The saline was placed abdominally and allowed to run through the perineal defect while agitating the tissues. I placed a 19 Albanian Shan drain through a separate stab incision in the RIGHT lower quadrant and cut the drain to the appropriate size. The drain was placed in the perineal defect. The drain was secured to the skin with a 3-0 Nylon Damian-sandaled stitch. I approximated the peritoneum with a running 2-0 Vicryl. I created the colostomy at the previously marked site excising the skin with Bovie electrocautery. I excised some subcutaneous fat to expose the anterior rectus sheath. I incised the rectus sheath in a criciate manner using Bovie electrocautery. I did not incise any muscle. I split the rectus muscle longitudinally taking care not to injure the epigastric vessels. Using a laparotomy pad inside the abdomen to protect the bowel, I incised the posterior rectus sheath and peritoneum longitudinally The opening was large enough to allow my two fingers to pass with ease. The proximal end of the descending colon was grasped through this defect with Allis forceps and drawn out through the openingtaking care that the colon was not twisted or kinked. While I was placing the drain, closing the peritoneum, and forming the colostomy, Dr. Costa closed the perineal wound in multiple layers using 2-[address] Costa reapproximated the perineal skin using interrupted Monocryl suture in a subcuticular fashion. A small opening was left posteriorly for drainage. Dermabond was then applied over the closure. Concurrently, I closed the abdominal fascia with interrupted 0 PDS and running 0 looped PDS. There was considerable scarring at the fascia. A Fish Sukh retractor was used to prevent injury to the underlying bowel. With the fascia closed the skin was approximated with skin xena. The skin incision was draped off as I matured the colostomy. 4 cm of the stapled proximal colon was removed using Bovie electracautery. There was excellent blood supply and some persistent bleeders were tied using 2-0 Vicryl suture ligatures. The ostomy was then matured at the 12, 3, 6, and 9 o'clock position using 3-0 Vicryl sutures taking subcutaneous, serosa and serosa-mucosa bites. This was done to create an inversion of the colon at the skin level. 3-0 Vicryl sutures were then placed at the 1:30, 4:30, 7:30 and 10:30 position completing the maturation. The skin was cleaned of its prep and I placed a mild skin adhesive surround the colostomy. I then cut the colostomy appliance to fit and adhered it to the skin. The bag was attached. A silver impregnated dressing was placed on the abdominal incision. At this point a timeout was performed that confirmed that all counts were correct x2, the procedure that was performed, the blood loss, the IV fluids administered, the patient's condition, and any concerns of the operating team had. Having tolerated the procedure well, the patient was extubated and taken to the ICU in good and stable condition. Please note that the performance of this operation required 2 surgeons as well as an extensive OR crew. CPT 78361 Today's documentation has been created with the assistance of voice recognition software. Therefore, it may contain anomalous punctuation, anomalous independent mis-recognitions, word substitutions, insertions or omissions. Occasional wrong-word or phonetically similar substitutions may also occur all due to the inherent limitations of voice recognition software. I have attempted to correct the above but I recommend that the chart be read carefully to recognize, using context, where the substitutions, insertions or omissions may have occurred.
[2024-07-18] MEDS ORDERED: SODIUM CHLORIDE 0.9% 1,000 ML ONE (15:26)
[2024-07-18] MEDS ORDERED: PROMETHAZINE INJ 12.5 MG in SODIUM CHLORIDE 0.9% 50 ML IV PRN (15:32)
[2024-07-18] MEDS ORDERED: IPRATROPIUM 0.2 MG/ML NEB INH PRN (15:38)
[2024-07-18] MEDS ORDERED: ALBUTEROL NEB 2.5 MG/3 ML INH PRN (15:38)
--- NOTE | 2024-07-18 15:54 | XRAY Report ---
PROCEDURE: Chest for Line Placement INDICATIONS: check line placement right IJ TECHNIQUE: One view of the chest was acquired. COMPARISON: None. FINDINGS: Surgical changes and devices: Left chest Port-A-Cath, right IJ central line, the tip which projects to the distal right brachiocephalic vein or proximal superior vena cava. Lungs and pleura: No pleural effusions or pneumothorax. Lungs are clear. Mediastinum: Mediastinal contours appear normal. Heart size is normal. Bones and chest wall: No suspicious bony lesions. Overlying soft tissues appear unremarkable. IMPRESSION: Tip of right IJ line projects to distal right brachiocephalic vein or proximal superior vena cava. Th ere is no pneumothorax. Reviewed by: Ben Seay MD on 07/18/2024 3:53 PM PDT Approved by: Ben Seay MD on 07/18/2024 3:53 PM PDT Station ID: [id number]
--- NOTE | 2024-07-18 15:58 | ANESTHESIA POST OP EVALUATION ---
Anesthesia Post Eval - Post Anesthesia Eval Vitals: Last Vital Signs Temp 36.9 C 07/18/24 15:15 Pulse 76 07/18/24 15:15 Resp 19 07/18/24 15:15 BP 134/72 H 07/18/24 15:15 Pulse Ox 100 07/18/24 15:15 O2 Flow Rate CV Function Including HR & BP: Stable Pain Control: Satisfactory Nausea & Vomiting: Addtional Therapies Ordered Mental Status: Patient Participates Respiratory Status: Airway Patent Hydration Status: Satisfactory Anesthesia Complications: None - Other Details/Therapies Other Details/Therapies: Thoracic epidural running at 6ml/hr. Patient denies pain. Anesthesia will follow until removed.
[2024-07-18] MEDS ORDERED: SCOPOLAMINE PATCH TOP ONE (16:15)
--- NOTE | 2024-07-18 16:29 | CONSULTATION NOTE ---
Referring Provider Name of Referring Provider:: Jose Mccallum Consult Date: 07/18/24 Chief Complaint - Chief Complaint Chief Complaint: medical management History of Present Illness - Admitted From Admitted From:: OR - History Obtained From Records Reviewed: Renal consult 03/20/24, anesthesia pre op evaluation History obtained from: Patient Exam Limitations: patient is post anesthesia - History of Present Illness HPI Comment/Other: 68 -year-old male with a past medical history of chronic kidney disease and hypokalemia as well as diabetes who underwent abdominoperineal resection with creation of a transverse colostomy today. General surgery is consulting medicine service for assistance with management of his diabetes and chronic kidney disease. 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 Patient got 2300 cc of IV fluids in the OR. He had 145 cc of urine output during the case and lost 300 cc of blood. He is currently n.p.o. awaiting bowel function. He does not have an NG tube in place. He has chronic kidney disease stage IV. He was last seen by his advertising clerk, Dr. Vail in March 2024. He has not had creation of a dialysis access in the event that he does need 1. He has hypertension is not on multiple medications for his hypertension to include amlodipine 10 mg, nifedipine 90 mg, spironolactone 25 mg twice daily, metoprolol succinate 25 mg, clonidine 0.1 mg 3 times daily, benazepril 40 mg and chlorthalidone 25 mg He is status post multiple abdominal surgeries. He has diabetes and his nephropathy is thought to be secondary to his diabetes. His home diabetes regimen is Lantus and 10 units every a.m. And lispro 5 units with meals. His last A1c was 6.5% in February of this year. History - Past Medical History Cardiovascular: reports: Hypertension, High cholesterol, Murmur, Arrhythmia Respiratory: reports: None Neuro: reports: None Endocrine/Autoimmune: reports: Type 2 diabetes GI: reports: GERD, Ulcerative colitis, Other : reports: None HEENT: reports: Chronic vision loss, Chronic hearing loss Psych: reports: Depression, Anxiety, ADD/ADHD Musculoskeletal: reports: None Derm: reports: Other MRSA Hx?: No - Past Surgical History General: reports: Bowel surgery, Colonoscopy, Other - Family & Social History Family History: Mother: Alive and Well Family History Comment/Other: Patient report his mother is still living at age 92, she had medical history of [place], colon cancer. Her father at age 86 from heart attack and history diabetic. Living arrangement: At home (reviewed with patient by PCP yesterday. he was given POLST but it was not filled out. ) Living Situation: With spouse/s.o. Social History Notes: Patient report he quit cigarette smoking 14 years ago, he had a history of alcohol abuse but he quit alcohol drinking couple years ago. - POLST Patient has POLST: No POLST Status: Full Code Meds/Allgy - Home Medications Home Medications: Ambulatory Orders Medication Instructions Recorded Confirmed Benazepril HCl 40 mg PO DAILY 07/19/18 07/16/24 [place]-3S/Dha/Epa/Fish Oil [Fish 1 each PO BID 08/27/18 07/16/24 Oil 1,200 mg Softgel] amLODIPine [Norvasc] 10 mg PO DAILY 12/20/18 07/16/24 Citalopram Hydrobromide [Celexa] 40 mg PO DAILY 07/13/20 07/16/24 Omeprazole 20 mg PO DAILY 07/13/20 07/16/24 cloNIDine [Catapres] 0.1 mg PO DAILY 03/22/22 07/16/24 Atorvastatin [Lipitor] 40 mg PO QPM #30 tablet 03/23/22 07/16/24 Insulin Glargine [Lantus Solostar] 10 unit SUBQ QDBREAKFAST 05/17/22 07/16/24 Insulin Lispro [Insulin Lispro 5 unit SQ TIDWM 05/17/22 07/16/24 Kwikpen U-100] Potassium Chloride 1 tab PO DAILY 09/26/22 07/16/24 Metoprolol Succinate [Toprol Xl] 50 mg PO ONCE 01/28/24 07/16/24 NIFEdipine [Nifedipine ER] 90 mg PO DAILY 01/28/24 07/16/24 Spironolactone [Aldactone] 50 mg PO DAILY 01/28/24 07/16/24 - Allergies Allergies/Adverse Reactions: Allergies Allergy/AdvReac Type Severity Reaction Status Date / Time metformin AdvReac Nausea Verified 03/11/24 12:52 Review of Systems - Constitutional Constitutional: reports: Fatigue - Eyes Eyes: denies: Pain, Irritation - Ears, Nose & Throat Ears, Nose & Throat: reports: Sore throat. denies: Hearing loss - Cardiovascular Cariovascular: denies: Palpitations, Chest pain - Respiratory Respiratory: denies: Cough - Gastrointestinal Gastrointestinal: reports: Abdominal pain - Genitourinary Genitourinary: reports: Hematuria (ridley in place with bloody urine consistent with ureteral stents placed and removed.) - Musculoskeletal Musculoskeletal: denies: Muscle pain - Integumentary Integumentary: reports: Rash - Neurological Neurological: denies: General weakness, Focal weakness Exam - Vital Signs Vital Signs: Vital Signs x48h Temp Pulse Resp BP Pulse Ox 07/18/24 16:10 36.4 C L 75 16 154/72 H 100 07/18/24 16:00 36.4 C L 76 16 157/74 H 100 07/18/24 15:50 81 16 150/73 H 100 07/18/24 15:40 79 16 137/75 H 100 07/18/24 15:30 74 16 144/64 H 99 07/18/24 15:25 77 16 137/63 H 100 07/18/24 15:15 36.9 C 76 19 134/72 H 07/18/24 15:10 36.9 C 76 20 138/61 H 100 - Physical Exam General Appearance: positive: No acute distress, Alert Eyes Bilateral: positive: Other (Mild periorbital edema) ENT: positive: ENT inspection nml Neck: positive: Nml inspection Respiratory: positive: No respiratory distress, Breath sounds nml Cardiovascular: positive: Regular rate & rhythm Abdomen: positive: Other (Incisional dressing in place. The colostomy is pink. There is serous bloody drainage in the colostomy bag. There is an abdominal SKY in place with bloody drainage.) Skin: positive: Color nml Extremities: positive: Non-tender, No pedal edema Neurologic/Psychiatric: positive: Oriented x3 Conclusion/Plan - Problem List (1) Carcinoid tumor of abdomen Conclusion/Plan: Postop day 0 from abdominoperineal resection for carcinoid tumor with creation of transverse colostomy. His preoperative and intraoperative course was discussed with dr Mccallum He will get 3 doses of postop Zosyn. He received 2300 cc of IV fluids in the OR. His urine output during the case was 145 cc. His blood loss was 300 cc. He has had minimal urine output postoperatively. His current CVP readings are 2-3 indicating the need for more fluid. However, he needs gentle hydration postoperatively. Surgeon has requested that we keep his postop glucose less than 180. He is currently n.p.o. awaiting return of bowel function. There were multiple intra- abdominal adhesions. (2) Azotemia Conclusion/Plan: Minimal urine output since leaving the operating room. His CVP's are reading 2-3 with a normal reading being 8-12 indicating hypovolemia. His hemodynamics are stable however with blood pressure readings being slightly hypertensive in the 140s to 150 systolic he is not tachycardic his heart rates are well below 100. I am concerned about underperfusion of his kidneys. Therefore I will give him a 500 cc LR bolus bolus in addition to his maintenance fluids. We will continue to monitor CVP overnight we will continue to monitor urine output every hour. (3) CKD (chronic kidney disease) stage 4, GFR 15-29 ml/min Conclusion/Plan: Chronic kidney disease stage IV. Preoperative labs done this morning show creatinine of 3.0 this is consistent with his baseline. Estimated GFR 21. Last nephrology note from March of this year reviewed. There has been a renal ultrasound completed earlier this year without evidence of obstructive nephropathy. Creatinine in March of this year is 2.8. Of note this patient does not have creation of dialysis access. He does have a Port-A-Cath in his left chest wall for administration of medications. Postoperatively he does have a central line in place on the right side. I have reviewed the chest x-ray done postoperatively. The right-sided central line is within the SVC. The Port-A-Cath is in good position. We will attempt to be judicious with his fluid administration, however with a CVP of 2-3 postoperatively and minimal urine output I will likely give him a bolus pending postoperative labs. I have discontinued the ICU electrolyte protocol as with his chronic kidney disease will need to be judicious with electrolyte management. (4) Diabetes mellitus Conclusion/Plan: Will attempt to keep postop glucose less than 180 optimal surgical healing. Patient is currently n.p.o. awaiting return of bowel function. He does not have an NG tube in place. At this time he is on moderate sliding scale insulin. I have sent hemoglobin A1c to be done with morning labs. I anticipate restarting Lantus at the time that he is able to take p.o. or pending his overnight blood sugar readings. His glucose on his a.m. BMP was 145. His postop glucose readings are recorded below. Laboratory Tests 07/18/24 07/18/24 07/18/24 09:23 11:03 12:44 POC Whole Bld Glucose 138 H 174 H 139 H 07/18/24 14:16 POC Whole Bld Glucose 153 H (5) Hypomagnesemia Conclusion/Plan: Laboratory Tests 07/18/24 16:49 Magnesium 1.1 L Repleted after this lab was returned. I will check his magnesium again in the morning. (6) HTN (hypertension) Conclusion/Plan: He is on multiple medications as an outpatient for his hypertension. While he is n.p.o. we will manage his hypertension with as needed labetalol and hydralazine. IV. Ambulatory Orders Benazepril HCl 40 mg PO DAILY amLODIPine [Norvasc] 10 mg PO DAILY cloNIDine [Catapres] 0.1 mg PO TID Metoprolol Succinate [Toprol Xl] 50 mg PO daily NIFEdipine [Nifedipine ER] 90 mg PO DAILY Spironolactone [Aldactone] 50 mg PO BID Chlorthalidone 25mg daily I have reviewed his outpatient medical record and to the best of my knowledge these are his outpatient blood pressure medications. During the immediate postoperative period we want to avoid hypotension as we want to maintain organ perfusion. (7) Hyperlipidemia Conclusion/Plan: Will restart outpatient statin when patient is able to take p.o. (8) Depression Conclusion/Plan: Will restart outpatient SSRI when patient is able to take p.o. He takes citalopram 40 mg daily. - Lab Results Fish Bones: 07/18/24 16:49 07/18/24 16:49
[2024-07-18 16:55] LABS: BASOPHILS # (AUTO) 0.1 10^3/uL (0.0-0.1); BASOPHILS % (AUTO) 0.3 %; EOSINOPHILS % (AUTO) 0.1 %; HCT - HEMATOCRIT 31.3 % (42.0-52.0); LYMPHOCYTES # (AUTO) 0.5 10^3/uL (1.5-3.5); LYMPHOCYTES % (AUTO) 2.6 %; MEAN CORPUSCULAR HEMOGLOBIN 30.4 pg (27.0-31.0); MEAN CORPUSCULAR HGB CONC 31.9 g/dL (32.0-36.0); MEAN CORPUSCULAR VOLUME 95.1 fL (80.0-94.0); MEAN PLATELET VOLUME 10.8 fL (7.4-11.4); MONOCYTES # (AUTO) 1.4 10^3/uL (0.0-1.0); NEUTROPHILS # (AUTO) 15.9 10^3/uL (1.5-6.6); NEUTROPHILS % (AUTO) 88.7 %; PLT - PLATELET COUNT 215 10^3/uL (130-450); RED BLOOD COUNT 3.29 10^6/uL (4.70-6.10); RED CELL DISTRIBUTION WIDTH 13.1 % (12.0-15.0); WHITE BLOOD COUNT 17.9 x10^3/uL (4.8-10.8)
[2024-07-18] MEDS: PIPERACILLIN/TAZOBACTAM 3.375 GM in SODIUM CHLORIDE 0.9% MINIBAG 100 ML IV SCH (17:01)
[2024-07-18] MEDS: PANTOPRAZOLE 40 MG VIAL IVP SCH (17:01)
[2024-07-18] MEDS: SODIUM CHLORIDE FLUSH 0.9% 10 ML SYRINGE IVP SCH (17:02)
[2024-07-18] MEDS: SCOPOLAMINE PATCH TOP SCH (17:02)
[2024-07-18 17:10] LABS: MAGNESIUM 1.1 mg/dL (1.7-2.3)
[2024-07-18 17:16] LABS: CALCIUM 7.1 mg/dL (8.5-10.3); CREATININE 3.4 mg/dL (0.6-1.3); PHOSPHORUS 3.3 mg/dL (2.5-5.0); POTASSIUM 3.7 mmol/L (3.5-4.5)
[2024-07-18] MEDS: CEFOTETAN DISODIUM 2 GM in SODIUM CHLORIDE 0.9% 100ML 100 ML IV ONE (17:58)
[2024-07-18] MEDS: LACTATED RINGERS 500 ML IV ONE ×2 (17:59→21:39)
[2024-07-18] MEDS: MAGNESIUM SULFATE 2 GRAM 2 GM/50 ML BAG IV ONE (17:59)
[2024-07-18] MEDS: INSULIN REGULAR, HUMAN 300 UNIT/3 ML PEN SUBQ SCH (18:19)
[2024-07-18] MEDS: LACTATED RINGERS 1,000 ML IV SCH (19:30)
[2024-07-18] MEDS: HEPARIN 5,000 UNIT/ML VIAL SUBQ SCH (21:55)
[2024-07-19] MEDS: LACTATED RINGERS 500 ML IV ONE (00:53)
[2024-07-19] MEDS: ROPIVACAINE 0.2% 200 MG/100 ML BAG EP PRN (03:21)
[2024-07-19 05:28] LABS: BASOPHILS % (AUTO) 0.2 %; HCT - HEMATOCRIT 27.8 % (42.0-52.0); HGB - HEMOGLOBIN 9.3 g/dL (14.0-18.0); LYMPHOCYTES % (AUTO) 3.7 %; MEAN CORPUSCULAR HEMOGLOBIN 31.6 pg (27.0-31.0); MEAN CORPUSCULAR HGB CONC 33.5 g/dL (32.0-36.0); MEAN CORPUSCULAR VOLUME 94.6 fL (80.0-94.0); MEAN PLATELET VOLUME 10.7 fL (7.4-11.4); MONOCYTES % (AUTO) 5.7 %; PLT - PLATELET COUNT 176 10^3/uL (130-450); RED BLOOD COUNT 2.94 10^6/uL (4.70-6.10); RED CELL DISTRIBUTION WIDTH 13.2 % (12.0-15.0); WHITE BLOOD COUNT 21.1 x10^3/uL (4.8-10.8)
[2024-07-19 05:30] LABS: SLIDE REVIEW? Indicated
[2024-07-19 05:32] LABS: ABNORMAL LYMPHS % (MANUAL) 0 %; BAND NEUTROPHILS % (MANUAL) 0 %
[2024-07-19] MEDS: BENZOCAINE/MENTHOL LOZENGE MM PRN (05:34)
[2024-07-19 05:40] LABS: MAGNESIUM 1.4 mg/dL (1.7-2.3)
[2024-07-19 05:46] LABS: ALBUMIN 2.3 g/dL (3.2-5.5); ALBUMIN/GLOBULIN RATIO 1.2 (1.0-2.2); BILIRUBIN,TOTAL 0.2 mg/dL (0.2-1.0); CALCIUM 7.2 mg/dL (8.5-10.3); CREATININE 4.5 mg/dL (0.6-1.3); POTASSIUM 4.4 mmol/L (3.5-4.5); TOTAL PROTEIN 4.2 g/dL (6.4-8.9)
[2024-07-19 05:54] LABS: LYMPHOCYTES # (MANUAL) 1.3 10^3/uL (1.5-3.5); LYMPHOCYTES % (MANUAL) 6 %; MONOCYTES # (MANUAL) 0.4 10^3/uL (0.0-1.0); NEUTROPHILS # (MANUAL) 19.4 10^3/uL (1.5-6.6)
[2024-07-19 05:59] LABS: DIFFERENTIAL COMMENT MANUAL DIFFERENTIAL; PLATELET ESTIMATE, MANUAL NORMAL (130-450,000) (NORMAL); PLATELET MORPHOLOGY NORMAL APP (NORMAL); WBC MORPHOLOGY (MULTIPLE) NORMAL APPEARANCE (NORMAL)
--- NOTE | 2024-07-19 08:01 | PROVIDER PROGRESS NOTE ---
Subjective - Prog Note Date Prog Note Date: 07/19/24 - Subjective Pt reports feeling: Improved Subjective: reports some discomfort related to surgery. Reports passing flatus through colostomy Objective - Vital Signs/Intake & Output Reviewed Vital Signs: Yes Vital Signs: Vital Signs x48h Temp Pulse Resp BP BP Pulse Ox 07/19/24 07:00 81 24 159/76 H 143/67 H 95 07/19/24 06:00 77 24 139/77 H 133/64 H 96 07/19/24 05:00 86 22 138/70 H 135/70 H 97 07/19/24 04:00 98 21 141/75 H 96 07/19/24 03:00 88 21 134/69 H 96 07/19/24 02:00 87 21 149/71 H 96 07/19/24 01:00 78 22 153/69 H 96 07/19/24 00:00 37.0 C 79 20 151/70 H 96 Intake & Output: Intake & Output 07/16/24 07/17/24 07/18/24 07/19/24 23:59 23:59 23:59 23:59 Intake Total 0712.952 0421.50 Output Total 720 270 Balance 902.917 967.50 - Objective General Appearance: positive: No acute distress, Alert Eyes Bilateral: positive: Normal inspection Respiratory: positive: Chest non-tender, No respiratory distress Cardiovascular: positive: Regular rate & rhythm Abdomen: positive: No distention, Tenderness Skin: positive: Color nml Extremities: positive: Non-tender Neurologic/Psychiatric: positive: Oriented x3 - Lab Results Fish Bones: 07/19/24 05:10 07/19/24 05:10 Other Labs: Lab Results x24hrs 07/19/24 07/19/24 07/19/24 Range/Units 05:10 05:10 05:07 WBC 21.1 H (4.8-10.8) x10^3/uL RBC 2.94 L (4.70-6.10) 10^6/uL Hgb 9.3 L (14.0-18.0) g/dL Hct 27.8 L (42.0-52.0) % MCV 94.6 H (80.0-94.0) fL MCH 31.6 H (27.0-31.0) pg MCHC 33.5 (32.0-36.0) g/dL RDW 13.2 (12.0-15.0) % Plt Count 176 (130-450) 10^3/uL MPV 10.7 (7.4-11.4) fL Neut # (Auto) Not Reportable (1.5-6.6) 10^3/uL Lymph # (Auto) Not Reportable (1.5-3.5) 10^3/uL Emmons # (Auto) Not Reportable (0.0-1.0) 10^3/uL Eos # (Auto) Not Reportable (0.0-0.7) 10^3/uL Baso # (Auto) Not Reportable (0.0-0.1) 10^3/uL Absolute Nucleated RBC Not Reportable x10^3/uL Total Counted 100 Band Neuts % (Manual) 0 (0 - 10) % Abnorm Lymph % (Manual) 0 % Nucleated RBC % Not Reportable /100WBC Neutrophils # (Manual) 19.4 H (1.5-6.6) 10^3/uL Lymphocytes # (Manual) 1.3 L (1.5-3.5) 10^3/uL Monocytes # (Manual) 0.4 (0.0-1.0) 10^3/uL Eosinophils # (Manual) 0.0 (0-0.7) 10^3/uL Basophils # (Manual) 0.0 (0-0.1) 10^3/uL Differential Comment MANUAL DIFFERENTIAL Manual Slide Review Indicated WBC Morphology NORMAL APPEARANCE (NORMAL) Platelet Estimate NORMAL (130-450,000) (NORMAL) Platelet Morphology NORMAL ABDIFATAH (NORMAL) RBC Morph Micro Appear 1+ ANISOCYTOSIS (NORMAL) Sodium 141 (135-145) mmol/L Potassium 4.4 (3.5-4.5) mmol/L Chloride 110 (101-111) mmol/L Carbon Dioxide 19 L (21-32) mmol/L Anion Gap 12.0 (6-13) BUN 49 H (6-20) mg/dL Creatinine 4.5 H (0.6-1.3) mg/dL Estimated GFR (MDRD) 13 L (>89) Glucose 183 H (74-104) mg/dL POC Whole Bld Glucose 163 H (70 - 100) mg/dL Calcium 7.2 L (8.5-10.3) mg/dL Phosphorus (2.5-5.0) mg/dL Magnesium 1.4 L (1.7-2.3) mg/dL Total Bilirubin 0.2 (0.2-1.0) mg/dL AST 15 (10-42) IU/L ALT 10 (10-60) IU/L Alkaline Phosphatase 25 L (42-121) IU/L Total Protein 4.2 L (6.4-8.9) g/dL Albumin 2.3 L (3.2-5.5) g/dL Globulin 1.9 L (2.1-4.2) g/dL Albumin/Globulin Ratio 1.2 (1.0-2.2) Nasal Screen MRSA (PCR) (NEGATIVE) Blood Type Antibody Screen 07/18/24 07/18/24 07/18/24 Range/Units 16:49 16:49 16:00 WBC 17.9 H (4.8-10.8) x10^3/uL RBC 3.29 L (4.70-6.10) 10^6/uL Hgb 10.0 L (14.0-18.0) g/dL Hct 31.3 L (42.0-52.0) % MCV 95.1 H (80.0-94.0) fL MCH 30.4 (27.0-31.0) pg MCHC 31.9 L (32.0-36.0) g/dL RDW 13.1 (12.0-15.0) % Plt Count 215 (130-450) 10^3/uL MPV 10.8 (7.4-11.4) fL Neut # (Auto) 15.9 H (1.5-6.6) 10^3/uL Lymph # (Auto) 0.5 L (1.5-3.5) 10^3/uL Emmons # (Auto) 1.4 H (0.0-1.0) 10^3/uL Eos # (Auto) 0.0 (0.0-0.7) 10^3/uL Baso # (Auto) 0.1 (0.0-0.1) 10^3/uL Absolute Nucleated RBC 0.00 x10^3/uL Total Counted Band Neuts % (Manual) (0 - 10) % Abnorm Lymph % (Manual) % Nucleated RBC % 0.0 /100WBC Neutrophils # (Manual) (1.5-6.6) 10^3/uL Lymphocytes # (Manual) (1.5-3.5) 10^3/uL Monocytes # (Manual) (0.0-1.0) 10^3/uL Eosinophils # (Manual) (0-0.7) 10^3/uL Basophils # (Manual) (0-0.1) 10^3/uL Differential Comment Manual Slide Review WBC Morphology (NORMAL) Platelet Estimate (NORMAL) Platelet Morphology (NORMAL) RBC Morph Micro Appear (NORMAL) Sodium 143 (135-145) mmol/L Potassium 3.7 (3.5-4.5) mmol/L Chloride 114 H (101-111) mmol/L Carbon Dioxide 18 L (21-32) mmol/L Anion Gap 11.0 (6-13) BUN 43 H (6-20) mg/dL Creatinine 3.4 H (0.6-1.3) mg/dL Estimated GFR (MDRD) 18 L (>89) Glucose 181 H (74-104) mg/dL POC Whole Bld Glucose (70 - 100) mg/dL Calcium 7.1 L (8.5-10.3) mg/dL Phosphorus 3.3 (2.5-5.0) mg/dL Magnesium 1.1 L (1.7-2.3) mg/dL Total Bilirubin (0.2-1.0) mg/dL AST (10-42) IU/L ALT (10-60) IU/L Alkaline Phosphatase (42-121) IU/L Total Protein (6.4-8.9) g/dL Albumin (3.2-5.5) g/dL Globulin (2.1-4.2) g/dL Albumin/Globulin Ratio (1.0-2.2) Nasal Screen MRSA (PCR) NEGATIVE (NEGATIVE) Blood Type Antibody Screen 07/18/24 07/18/24 07/18/24 Range/Units 14:16 12:44 11:03 WBC (4.8-10.8) x10^3/uL RBC (4.70-6.10) 10^6/uL Hgb (14.0-18.0) g/dL Hct (42.0-52.0) % MCV (80.0-94.0) fL MCH (27.0-31.0) pg MCHC (32.0-36.0) g/dL RDW (12.0-15.0) % Plt Count (130-450) 10^3/uL MPV (7.4-11.4) fL Neut # (Auto) (1.5-6.6) 10^3/uL Lymph # (Auto) (1.5-3.5) 10^3/uL Emmons # (Auto) (0.0-1.0) 10^3/uL Eos # (Auto) (0.0-0.7) 10^3/uL Baso # (Auto) (0.0-0.1) 10^3/uL Absolute Nucleated RBC x10^3/uL Total Counted Band Neuts % (Manual) (0 - 10) % Abnorm Lymph % (Manual) % Nucleated RBC % /100WBC Neutrophils # (Manual) (1.5-6.6) 10^3/uL Lymphocytes # (Manual) (1.5-3.5) 10^3/uL Monocytes # (Manual) (0.0-1.0) 10^3/uL Eosinophils # (Manual) (0-0.7) 10^3/uL Basophils # (Manual) (0-0.1) 10^3/uL Differential Comment Manual Slide Review WBC Morphology (NORMAL) Platelet Estimate (NORMAL) Platelet Morphology (NORMAL) RBC Morph Micro Appear (NORMAL) Sodium (135-145) mmol/L Potassium (3.5-4.5) mmol/L Chloride (101-111) mmol/L Carbon Dioxide (21-32) mmol/L Anion Gap (6-13) BUN (6-20) mg/dL Creatinine (0.6-1.3) mg/dL Estimated GFR (MDRD) (>89) Glucose (74-104) mg/dL POC Whole Bld Glucose 153 H 139 H 174 H (70 - 100) mg/dL Calcium (8.5-10.3) mg/dL Phosphorus (2.5-5.0) mg/dL Magnesium (1.7-2.3) mg/dL Total Bilirubin (0.2-1.0) mg/dL AST (10-42) IU/L ALT (10-60) IU/L Alkaline Phosphatase (42-121) IU/L Total Protein (6.4-8.9) g/dL Albumin (3.2-5.5) g/dL Globulin (2.1-4.2) g/dL Albumin/Globulin Ratio (1.0-2.2) Nasal Screen MRSA (PCR) (NEGATIVE) Blood Type Antibody Screen 07/18/24 07/18/24 Range/Units 09:23 07:13 WBC (4.8-10.8) x10^3/uL RBC (4.70-6.10) 10^6/uL Hgb (14.0-18.0) g/dL Hct (42.0-52.0) % MCV (80.0-94.0) fL MCH (27.0-31.0) pg MCHC (32.0-36.0) g/dL RDW (12.0-15.0) % Plt Count (130-450) 10^3/uL MPV (7.4-11.4) fL Neut # (Auto) (1.5-6.6) 10^3/uL Lymph # (Auto) (1.5-3.5) 10^3/uL Emmons # (Auto) (0.0-1.0) 10^3/uL Eos # (Auto) (0.0-0.7) 10^3/uL Baso # (Auto) (0.0-0.1) 10^3/uL Absolute Nucleated RBC x10^3/uL Total Counted Band Neuts % (Manual) (0 - 10) % Abnorm Lymph % (Manual) % Nucleated RBC % /100WBC Neutrophils # (Manual) (1.5-6.6) 10^3/uL Lymphocytes # (Manual) (1.5-3.5) 10^3/uL Monocytes # (Manual) (0.0-1.0) 10^3/uL Eosinophils # (Manual) (0-0.7) 10^3/uL Basophils # (Manual) (0-0.1) 10^3/uL Differential Comment Manual Slide Review WBC Morphology (NORMAL) Platelet Estimate (NORMAL) Platelet Morphology (NORMAL) RBC Morph Micro Appear (NORMAL) Sodium (135-145) mmol/L Potassium (3.5-4.5) mmol/L Chloride (101-111) mmol/L Carbon Dioxide (21-32) mmol/L Anion Gap (6-13) BUN (6-20) mg/dL Creatinine (0.6-1.3) mg/dL Estimated GFR (MDRD) (>89) Glucose (74-104) mg/dL POC Whole Bld Glucose 138 H (70 - 100) mg/dL Calcium (8.5-10.3) mg/dL Phosphorus (2.5-5.0) mg/dL Magnesium (1.7-2.3) mg/dL Total Bilirubin (0.2-1.0) mg/dL AST (10-42) IU/L ALT (10-60) IU/L Alkaline Phosphatase (42-121) IU/L Total Protein (6.4-8.9) g/dL Albumin (3.2-5.5) g/dL Globulin (2.1-4.2) g/dL Albumin/Globulin Ratio (1.0-2.2) Nasal Screen MRSA (PCR) (NEGATIVE) Blood Type A POSITIVE Antibody Screen NEGATIVE - Diagnostic Imaging Diagnostic Imaging Results: positive: Final report reviewed ABX Reporting Has patient been on IV antibiotics over the past 48 hours?: Yes Sepsis Event Note (H) - Evaluation Current Stage of Sepsis: Ruled out Assessment/Plan - Problem List (1) CKD (chronic kidney disease) stage 4, GFR 15-29 ml/min Impression: (1) Carcinoid tumor of abdomen Conclusion/Plan: Postop day 1 from abdominoperineal resection for carcinoid tumor with creation of transverse colostomy. His preoperative and intraoperative course was discussed with surgeon Received3 doses of postop Zosyn. He received nearly 3 L of IVF yesterday with minimal UOP. Discussed with be dside nurse, reports less than 300 cc UOP overnight He received 2300 cc of IV fluids in the OR. His urine output during the case was 145 cc. His blood loss was 300 cc. He has had minimal urine output postoperatively. His current CVP readings are 2-3 indicating the need for more fluid. However, he needs gentle hydration postoperatively. Surgeon has requested that we keep his postop glucose less than 180. He is currently n.p.o. awaiting return of bowel function. There were multiple intra-a bdominal adhesions. (2) Azotemia, CKD stage IV with acute injury, Metabolic acidosis Conclusion/Plan: Minimal urine output since leaving the operating room. UOP less than 300 cc overnight CO2 19 on a.m. labs Hemodynamically stable Continue LR Check VBG, anticipate sodium bicarb drip Continue strict I&O If kidney function does not improve, may need central line placement and transfer for hemodialysis Hold ACEI, diuretics Laboratory Tests 07/18/24 07/19/24 16:49 05:10 Carbon Dioxide 18 L 19 L BUN 43 H 49 H Creatinine 3.4 H 4.5 H Estimated GFR (MDRD) 18 L 13 L (4) Diabetes mellitus Conclusion/Plan: Will attempt to keep postop glucose less than 180 optimal surgical healing as requested by surgery team Patient now on diet, will resume Lantus, mealtime insulin (5) Hypomagnesemia Conclusion/Plan: Laboratory Tests 07/18/24 07/19/24 16:49 05:10 Magnesium 1.1 L 1.4 L Continue to replete (6) HTN (hypertension) Conclusion/Plan: He is on multiple medications as an outpatient for his hypertension. No longer n.p.o., will restart home medication regimen as tolerated Hold spironolactone, benazepril in setting of acute on chronic kidney disease Ambulatory Orders as reviewed on admission Benazepril HCl 40 mg PO DAILY amLODIPine [Norvasc] 10 mg PO DAILY cloNIDine [Catapres] 0.1 mg PO TID Metoprolol Succinate [Toprol Xl] 50 mg PO daily NIFEdipine [Nifedipine ER] 90 mg PO DAILY Spironolactone [Aldactone] 50 mg PO BID Chlorthalidone 25mg daily (7) Hyperlipidemia Conclusion/Plan: Restarting statin (8) Depression Conclusion/Plan: Restarting citalopram 40 mg daily
[2024-07-19 08:15] LABS: VBG HCO3 15.1 mmol/L (23-28); VBG OXYGEN SATURATION 73.5 % (60-80); VBG PCO2 30.6 mmHg (41-51); VBG PH 7.312 (7.31-7.41); VBG PO2 39.3 mmHg (25-47); VBG TOTAL CO2 16.1 mmol/L (24-29)
[2024-07-19] MEDS: HYDROmorphone 0.5 MG/0.5 ML SYRINGE IVP PRN (08:27)
[2024-07-19 09:19] LABS: ESTIMATED AVERAGE GLUCOSE 128 mg/dL (70-100); HEMOGLOBIN A1c% 6.1 % (4.27-6.07)
[2024-07-19] MEDS: MAGNESIUM SULFATE 2 GRAM 2 GM/50 ML BAG IV ONE (09:51)
[2024-07-19] MEDS: CITALOPRAM HYDROBROMIDE 20 MG TABLET PO SCH (09:52)
[2024-07-19] MEDS: INSULIN GLARGINE-YFGN 300 UNIT/3 ML PEN SUBQ SCH (09:52)
[2024-07-19] MEDS: cloNIDine 0.1 MG TABLET PO SCH (10:03)
[2024-07-19] MEDS ORDERED: SODIUM BICARBONATE ABBOJECT 50 MEQ/50 ML SYRINGE IVP SCH (10:15)
[2024-07-19] MEDS: SODIUM BICARBONATE 150 MEQ in DEXTROSE 5% 1,000 ML IV ONE (11:09)
[2024-07-19] MEDS: amLODIPine 5 MG TABLET PO SCH (11:15)
[2024-07-19] MEDS: NIFEdipine ER 30 MG TABLET PO SCH (11:15)
[2024-07-19] MEDS: METOPROLOL SUCCINATE 25 MG TABLET PO SCH (11:15)
--- NOTE | 2024-07-19 11:27 | PROVIDER PROGRESS NOTE ---
Subjective - General Admit Date: 07/18/24 Procedure Date: 07/18/24 Post Op Days: 1 Procedure Performed: Abdominoperineal resection with preoperative ureteral stenting - Review of Systems Wound/Incisions: positive: Other (There are 3 wounds. Patient is not currently complaining about any of them. Patient states that colostomy is already productive.) Drain Type: Shan Drain Output Description: serosanguinous Approximate mls Output: 150 General: positive: Other (Sore everywhere but understandable after surgery.) HEENT: positive: No symptoms Pulmonary: positive: No symptoms Cardiovascular: positive: No symptoms Gastrointestinal: positive: Nausea, Vomiting (Last night but resolved today.), Abdominal pain (Incisional but controlled via epidural.) Genitourinary: positive: No symptoms (Cannot feel bladder due to epidural. Sanchez in place.) Musculoskeletal: positive: Other (Sore "everywhere.") Skin: positive: No symptoms Objective - Patient Data Reviewed Vital Signs: Yes Vital Signs: Vital Signs x48h Temp Pulse Resp BP BP BP Pulse Ox 07/19/24 11:00 77 20 121/71 118/58 L 97 07/19/24 10:00 86 18 112/80 123/57 L 96 07/19/24 09:00 90 23 114/57 L 97 07/19/24 08:00 36.8 C 88 26 H 113/91 H 96 07/19/24 07:00 81 24 159/76 H 143/67 H 95 07/19/24 06:00 77 24 139/77 H 133/64 H 96 07/19/24 05:00 86 22 138/70 H 135/70 H 97 07/19/24 04:00 98 21 141/75 H 96 Weight: Weight 07/17/24 07/18/24 07/19/24 23:59 23:59 23:59 Weight (kg) 75.3 kg 80 kg Intake & Output: Intake and Output Totals x24h 07/17/24 07/18/24 07/19/24 23:59 23:59 23:59 Intake Total 1525.818 2972.50 Output Total 720 370 Balance 902.917 867.50 - Lab Results Lab Results: 07/19/24 05:10 07/19/24 05:10 Other Lab Results: Lab Results x24hrs 07/19/24 07/19/24 07/19/24 Range/Units 08:00 05:10 05:10 WBC (4.8-10.8) x10^3/uL RBC (4.70-6.10) 10^6/uL Hgb (14.0-18.0) g/dL Hct (42.0-52.0) % MCV (80.0-94.0) fL MCH (27.0-31.0) pg MCHC (32.0-36.0) g/dL RDW (12.0-15.0) % Plt Count (130-450) 10^3/uL MPV (7.4-11.4) fL Neut # (Auto) (1.5-6.6) 10^3/uL Lymph # (Auto) (1.5-3.5) 10^3/uL Alexander # (Auto) (0.0-1.0) 10^3/uL Eos # (Auto) (0.0-0.7) 10^3/uL Baso # (Auto) (0.0-0.1) 10^3/uL Absolute Nucleated RBC x10^3/uL Total Counted Band Neuts % (Manual) (0 - 10) % Abnorm Lymph % (Manual) % Nucleated RBC % /100WBC Neutrophils # (Manual) (1.5-6.6) 10^3/uL Lymphocytes # (Manual) (1.5-3.5) 10^3/uL Monocytes # (Manual) (0.0-1.0) 10^3/uL Eosinophils # (Manual) (0-0.7) 10^3/uL Basophils # (Manual) (0-0.1) 10^3/uL Differential Comment Manual Slide Review WBC Morphology (NORMAL) Platelet Estimate (NORMAL) Platelet Morphology (NORMAL) RBC Morph Micro Appear (NORMAL) VBG pH 7.312 (7.31-7.41) VBG pCO2 30.6 L (41-51) mmHg VBG pO2 39.3 (25-47) mmHg VBG HCO3 15.1 L (23-28) mmol/L VBG Total CO2 16.1 L (24-29) mmol/L VBG O2 Saturation 73.5 (60-80) % VBG Base Excess -10.0 L (-2 - +2) mmol/L Sodium 141 (135-145) mmol/L Potassium 4.4 (3.5-4.5) mmol/L Chloride 110 (101-111) mmol/L Carbon Dioxide 19 L (21-32) mmol/L Anion Gap 12.0 (6-13) BUN 49 H (6-20) mg/dL Creatinine 4.5 H (0.6-1.3) mg/dL Estimated GFR (MDRD) 13 L (>89) Glucose 183 H (74-104) mg/dL POC Whole Bld Glucose (70 - 100) mg/dL Estimat Average Glucose 128 H (70-100) mg/dL Hemoglobin A1c % 6.1 H (4.27-6.07) % Calcium 7.2 L (8.5-10.3) mg/dL Phosphorus (2.5-5.0) mg/dL Magnesium 1.4 L (1.7-2.3) mg/dL Total Bilirubin 0.2 (0.2-1.0) mg/dL AST 15 (10-42) IU/L ALT 10 (10-60) IU/L Alkaline Phosphatase 25 L (42-121) IU/L Total Protein 4.2 L (6.4-8.9) g/dL Albumin 2.3 L (3.2-5.5) g/dL Globulin 1.9 L (2.1-4.2) g/dL Albumin/Globulin Ratio 1.2 (1.0-2.2) Nasal Screen MRSA (PCR) (NEGATIVE) 07/19/24 07/19/24 07/18/24 Range/Units 05:10 05:07 16:49 WBC 21.1 H (4.8-10.8) x10^3/uL RBC 2.94 L (4.70-6.10) 10^6/uL Hgb 9.3 L (14.0-18.0) g/dL Hct 27.8 L (42.0-52.0) % MCV 94.6 H (80.0-94.0) fL MCH 31.6 H (27.0-31.0) pg MCHC 33.5 (32.0-36.0) g/dL RDW 13.2 (12.0-15.0) % Plt Count 176 (130-450) 10^3/uL MPV 10.7 (7.4-11.4) fL Neut # (Auto) Not Reportable (1.5-6.6) 10^3/uL Lymph # (Auto) Not Reportable (1.5-3.5) 10^3/uL Alexander # (Auto) Not Reportable (0.0-1.0) 10^3/uL Eos # (Auto) Not Reportable (0.0-0.7) 10^3/uL Baso # (Auto) Not Reportable (0.0-0.1) 10^3/uL Absolute Nucleated RBC Not Reportable x10^3/uL Total Counted 100 Band Neuts % (Manual) 0 (0 - 10) % Abnorm Lymph % (Manual) 0 % Nucleated RBC % Not Reportable /100WBC Neutrophils # (Manual) 19.4 H (1.5-6.6) 10^3/uL Lymphocytes # (Manual) 1.3 L (1.5-3.5) 10^3/uL Monocytes # (Manual) 0.4 (0.0-1.0) 10^3/uL Eosinophils # (Manual) 0.0 (0-0.7) 10^3/uL Basophils # (Manual) 0.0 (0-0.1) 10^3/uL Differential Comment MANUAL DIFFERENTIAL Manual Slide Review Indicated WBC Morphology NORMAL APPEARANCE (NORMAL) Platelet Estimate NORMAL (130-450,000) (NORMAL) Platelet Morphology NORMAL ABDIFATAH (NORMAL) RBC Morph Micro Appear 1+ ANISOCYTOSIS (NORMAL) VBG pH (7.31-7.41) VBG pCO2 (41-51) mmHg VBG pO2 (25-47) mmHg VBG HCO3 (23-28) mmol/L VBG Total CO2 (24-29) mmol/L VBG O2 Saturation (60-80) % VBG Base Excess (-2 - +2) mmol/L Sodium 143 (135-145) mmol/L Potassium 3.7 (3.5-4.5) mmol/L Chloride 114 H (101-111) mmol/L Carbon Dioxide 18 L (21-32) mmol/L Anion Gap 11.0 (6-13) BUN 43 H (6-20) mg/dL Creatinine 3.4 H (0.6-1.3) mg/dL Estimated GFR (MDRD) 18 L (>89) Glucose 181 H (74-104) mg/dL POC Whole Bld Glucose 163 H (70 - 100) mg/dL Estimat Average Glucose (70-100) mg/dL Hemoglobin A1c % (4.27-6.07) % Calcium 7.1 L (8.5-10.3) mg/dL Phosphorus 3.3 (2.5-5.0) mg/dL Magnesium 1.1 L (1.7-2.3) mg/dL Total Bilirubin (0.2-1.0) mg/dL AST (10-42) IU/L ALT (10-60) IU/L Alkaline Phosphatase (42-121) IU/L Total Protein (6.4-8.9) g/dL Albumin (3.2-5.5) g/dL Globulin (2.1-4.2) g/dL Albumin/Globulin Ratio (1.0-2.2) Nasal Screen MRSA (PCR) (NEGATIVE) 07/18/24 07/18/24 07/18/24 Range/Units 16:49 16:00 14:16 WBC 17.9 H (4.8-10.8) x10^3/uL RBC 3.29 L (4.70-6.10) 10^6/uL Hgb 10.0 L (14.0-18.0) g/dL Hct 31.3 L (42.0-52.0) % MCV 95.1 H (80.0-94.0) fL MCH 30.4 (27.0-31.0) pg MCHC 31.9 L (32.0-36.0) g/dL RDW 13.1 (12.0-15.0) % Plt Count 215 (130-450) 10^3/uL MPV 10.8 (7.4-11.4) fL Neut # (Auto) 15.9 H (1.5-6.6) 10^3/uL Lymph # (Auto) 0.5 L (1.5-3.5) 10^3/uL Alexander # (Auto) 1.4 H (0.0-1.0) 10^3/uL Eos # (Auto) 0.0 (0.0-0.7) 10^3/uL Baso # (Auto) 0.1 (0.0-0.1) 10^3/uL Absolute Nucleated RBC 0.00 x10^3/uL Total Counted Band Neuts % (Manual) (0 - 10) % Abnorm Lymph % (Manual) % Nucleated RBC % 0.0 /100WBC Neutrophils # (Manual) (1.5-6.6) 10^3/uL Lymphocytes # (Manual) (1.5-3.5) 10^3/uL Monocytes # (Manual) (0.0-1.0) 10^3/uL Eosinophils # (Manual) (0-0.7) 10^3/uL Basophils # (Manual) (0-0.1) 10^3/uL Differential Comment Manual Slide Review WBC Morphology (NORMAL) Platelet Estimate (NORMAL) Platelet Morphology (NORMAL) RBC Morph Micro Appear (NORMAL) VBG pH (7.31-7.41) VBG pCO2 (41-51) mmHg VBG pO2 (25-47) mmHg VBG HCO3 (23-28) mmol/L VBG Total CO2 (24-29) mmol/L VBG O2 Saturation (60-80) % VBG Base Excess (-2 - +2) mmol/L Sodium (135-145) mmol/L Potassium (3.5-4.5) mmol/L Chloride (101-111) mmol/L Carbon Dioxide (21-32) mmol/L Anion Gap (6-13) BUN (6-20) mg/dL Creatinine (0.6-1.3) mg/dL Estimated GFR (MDRD) (>89) Glucose (74-104) mg/dL POC Whole Bld Glucose 153 H (70 - 100) mg/dL Estimat Average Glucose (70-100) mg/dL Hemoglobin A1c % (4.27-6.07) % Calcium (8.5-10.3) mg/dL Phosphorus (2.5-5.0) mg/dL Magnesium (1.7-2.3) mg/dL Total Bilirubin (0.2-1.0) mg/dL AST (10-42) IU/L ALT (10-60) IU/L Alkaline Phosphatase (42-121) IU/L Total Protein (6.4-8.9) g/dL Albumin (3.2-5.5) g/dL Globulin (2.1-4.2) g/dL Albumin/Globulin Ratio (1.0-2.2) Nasal Screen MRSA (PCR) NEGATIVE (NEGATIVE) 07/18/24 07/18/24 Range/Units 12:44 11:03 WBC (4.8-10.8) x10^3/uL RBC (4.70-6.10) 10^6/uL Hgb (14.0-18.0) g/dL Hct (42.0-52.0) % MCV (80.0-94.0) fL MCH (27.0-31.0) pg MCHC (32.0-36.0) g/dL RDW (12.0-15.0) % Plt Count (130-450) 10^3/uL MPV (7.4-11.4) fL Neut # (Auto) (1.5-6.6) 10^3/uL Lymph # (Auto) (1.5-3.5) 10^3/uL Alexander # (Auto) (0.0-1.0) 10^3/uL Eos # (Auto) (0.0-0.7) 10^3/uL Baso # (Auto) (0.0-0.1) 10^3/uL Absolute Nucleated RBC x10^3/uL Total Counted Band Neuts % (Manual) (0 - 10) % Abnorm Lymph % (Manual) % Nucleated RBC % /100WBC Neutrophils # (Manual) (1.5-6.6) 10^3/uL Lymphocytes # (Manual) (1.5-3.5) 10^3/uL Monocytes # (Manual) (0.0-1.0) 10^3/uL Eosinophils # (Manual) (0-0.7) 10^3/uL Basophils # (Manual) (0-0.1) 10^3/uL Differential Comment Manual Slide Review WBC Morphology (NORMAL) Platelet Estimate (NORMAL) Platelet Morphology (NORMAL) RBC Morph Micro Appear (NORMAL) VBG pH (7.31-7.41) VBG pCO2 (41-51) mmHg VBG pO2 (25-47) mmHg VBG HCO3 (23-28) mmol/L VBG Total CO2 (24-29) mmol/L VBG O2 Saturation (60-80) % VBG Base Excess (-2 - +2) mmol/L Sodium (135-145) mmol/L Potassium (3.5-4.5) mmol/L Chloride (101-111) mmol/L Carbon Dioxide (21-32) mmol/L Anion Gap (6-13) BUN (6-20) mg/dL Creatinine (0.6-1.3) mg/dL Estimated GFR (MDRD) (>89) Glucose (74-104) mg/dL POC Whole Bld Glucose 139 H 174 H (70 - 100) mg/dL Estimat Average Glucose (70-100) mg/dL Hemoglobin A1c % (4.27-6.07) % Calcium (8.5-10.3) mg/dL Phosphorus (2.5-5.0) mg/dL Magnesium (1.7-2.3) mg/dL Total Bilirubin (0.2-1.0) mg/dL AST (10-42) IU/L ALT (10-60) IU/L Alkaline Phosphatase (42-121) IU/L Total Protein (6.4-8.9) g/dL Albumin (3.2-5.5) g/dL Globulin (2.1-4.2) g/dL Albumin/Globulin Ratio (1.0-2.2) Nasal Screen MRSA (PCR) (NEGATIVE) - Imaging Results Radiology Imaging: positive: Final report received - Current Medications Current Medications: Current Medications Generic Name Dose Route Start Last Admin Trade Name Freq PRN Reason Stop Dose Admin Amlodipine Besylate 10 mg 07/19/24 09:00 07/19/24 11:15 Amlodipine 5 Mg Tablet PO Not Given DAILY EZEKIEL Citalopram Hydrobromide 40 mg 07/19/24 09:00 07/19/24 09:52 Citalopram Hydrobromide 20 Mg Tablet PO 40 mg DAILY EZEKIEL Administration Clonidine HCl 0.1 mg 07/19/24 09:00 07/19/24 10:03 Clonidine 0.1 Mg Tablet PO 0.1 mg DAILY EZEKIEL Administration Heparin Sodium (Porcine) 5,000 unit 07/18/24 21:00 07/19/24 08:27 Heparin 5,000 Unit/Ml Vial SUBQ 5,000 unit BID EZEKIEL Administration Hydromorphone HCl 0.5 mg 07/18/24 16:49 07/19/24 11:13 Hydromorphone 0.5 Mg/0.5 Ml Syringe IVP 0.5 mg Q2H PRN Administration Severe Pain (Level 7-10) Ropivacaine 200 mg in 100 mls @ 0 mls/hr 07/18/24 21:30 07/19/24 03:21 Naropin 0.2% EP 6 mls/hr PRN PRN Administration PAIN Protocol Per Protocol Sodium Bicarbonate 150 meq/ 1,150 mls @ 100 mls/hr 07/19/24 11:00 07/19/24 11:09 Dextrose IV 07/19/24 22:29 100 mls/hr .[id number] Administration Insulin Glargine-yfgn 10 unit 07/19/24 09:00 07/19/24 09:52 Insulin Glargine-Yfgn 300 Unit/3 Ml Pen SUBQ 10 unit [id number] EZEKIEL Administration Insulin Human Regular 2 - 10 unit 07/18/24 18:00 07/19/24 05:33 Insulin Regular, Human 300 Unit/3 Ml Pen SUBQ 2 unit Q6HR EZEKIEL Administration Protocol Metoprolol Succinate 50 mg 07/19/24 09:00 07/19/24 11:15 Metoprolol Succinate 25 Mg Tablet PO Not Given DAILY EZEKIEL Nifedipine 90 mg 07/19/24 09:00 07/19/24 11:15 Nifedipine Er 30 Mg Tablet PO Not Given DAILY EZEKIEL Ondansetron HCl 4 mg 07/18/24 15:38 07/19/24 08:27 Ondansetron 4 Mg/2 Ml Vial IVP 4 mg Q6HR PRN Administration Nausea / Vomiting Scopolamine HBr 1 patch 07/18/24 17:00 07/18/24 17:02 Scopolamine Patch TOP 07/21/24 17:00 1 patch Q3D EZEKIEL Administration Sodium Chloride 10 ml 07/18/24 17:00 07/19/24 08:28 Sodium Chloride Flush 0.9% 10 Ml Syringe IVP 10 ml 0100,0900,1700 EZEKIEL Administration Throat Lozenges 1 lozenge 07/19/24 03:53 07/19/24 05:34 Benzocaine/Menthol Lozenge MM 1 lozenge Q2HR PRN Administration Throat pain - Physical Exam Wound/Incisions: positive: Other (Ostomy is pink and edematous. Productive of gas and liquid (remembering that patient had bowel prep prior to surgery). Abdominal incision dressed with silver impregnated dressing - will remove in 48 hours (POD 3). Pernineal incision well approximated without erythema, exudate or ecchymosis.) General Appearance: positive: No acute distress, Alert Eyes Bilateral: positive: No lid inflammation, Conjunctivae nml, No scleral icterus ENT: positive: Dry mucous membranes Neck: positive: Trachea midline Respiratory: positive: No respiratory distress, Breath sounds nml Cardiovascular: positive: Regular rate & rhythm Abdomen: positive: Non-tender, Abnml bowel sounds (Slightly decreased.), Other (Drain serosanguinous.) Rectal: positive: Other (Non-existent.) Skin: positive: Color nml Extremities: positive: Non-tender, Nml appearance Neurologic/Psychiatric: positive: Oriented x3, Mood/affect nml (Motor and sensation affected by epidural.) ABX Reporting Has patient been on IV antibiotics over the past 48 hours?: Yes Impression/Plan - Problem List Problem List: D1 s/p abdominoperineal resection with preoperative ureteral stenting -FEN Currently receiving 125 mL/hour of LR. Started clear liquid diet as patient does not have an anastomosis to be concerned about. Hold for nausea or vomiting. Continue with frequent small volume boluses to keep CVP > 4 (see renal below). -Renal Patient is third spacing and this is expected with this operation. Karla bartlett is known to be CKD3b and is followed by a cardiac catheterization technician. I am following his CVP and urine output is clearly improved with a CVP 0f 4-5. His creatinine clearance is decreased today. I briefly considered starting low dose dopamine but there has been no proof that this helps with kidney perfusion, urine output or preventing kidney failure. I would hold his blood pressure medications as he is not hypertensive now and I would like to maintain a slightly higher pressure to maintain his kidney perfusion. Continue frequent small boluses to keep this CVP > 4 and I may add some IV albumin to help with oncotic pressure (transiently). Appreciate hospitalist's help with this. -Diabetes Goal is to keep blood sugar under 180 and we have been largely successful. Patient restarted on his medications but third spacing may have an effect on efficacy of medications. Will follow. Appreciate hospitalist's help with this. -Heme H&H has dropped but some is due to dilution. Patient asymptomatic. Will follow and transfuse only if symptomatic. -ID Patient is at risk for infection with 3 incisions and leakage during case but antibiotics stopped. Afebrile. WBC elevated but this is reactionary due to the extent and nature of surgery. Will follow. -Activity As much activity as epidural and anesthesia will allow. Will involve OT and PT as soon as patient is out of ICU. -Pathology Pending. -Pain Well controlled with epidural. Appreciate anesthesia's input-efforts. Epidural resulting in some vasodilation (see fluids and heme). -DVT On subQ heparin due to renal concerns. Increase activity. -Ostomy Edematous, pink and productive. Patient to stay in ICU for continued CVP monitoring, arterial monitoring, blood sugar monitoring, urine output. I have spoken with hospitalist and nursing and I have asked to be called with any and all questions.
[2024-07-19] MEDS: ACETAMINOPHEN 1,000 MG/100 ML 1,000 MG/100 ML BAG IV PRN (12:33)
[2024-07-19] MEDS: INSULIN LISPRO 300 UNIT/3 ML PEN SUBQ SCH (12:33)
--- NOTE | 2024-07-19 12:45 | ANESTHESIA POST OP EVALUATION ---
Anesthesia Post Eval - Post Anesthesia Eval Vitals: Last Vital Signs Temp 36.8 C 07/19/24 08:00 Pulse 77 07/19/24 11:00 Resp 20 07/19/24 11:00 BP 121/71 07/19/24 11:00 Pulse Ox 97 07/19/24 11:00 O2 Flow Rate 2 07/18/24 23:00 CV Function Including HR & BP: Stable Pain Control: Satisfactory (mild pain, up in chair, epidural settings increased and 6 cc bolus off pump given with relief.) Nausea & Vomiting: Addtional Therapies Ordered (patient had some nausea again today, antiemetic ordered by Hospitalist.) Mental Status: Baseline Respiratory Status: Airway Patent Hydration Status: Satisfactory (continues to make very little urine (10cc/hr) with rising BUN, Creat and K+, bicarb added by Hospitalist, otherwise doing well.) Anesthesia Complications: None
--- NOTE | 2024-07-19 15:45 | PROVIDER PROGRESS NOTE ---
Subjective - General Admit Date: 07/18/24 Procedure Date: 07/18/24 Post Op Days: 1 Procedure Performed: Abdominoperineal resection with preoperative ureteral stenting - Review of Systems Wound/Incisions: positive: Other (Ostomy is pink and edematous. Productive of gas and liquid (remembering that patient had bowel prep prior to surgery). Abdominal incision dressed with silver impregnated dressing - will remove in 48 hours (POD 3). Pernineal incision well approximated without erythema, exudate or ecchymosis.) Drain Type: Shan Drain Output Description: serosanguinous Approximate mls Output: 150 General: positive: Other (Sore everywhere but understandable after surgery.) HEENT: positive: No symptoms Pulmonary: positive: No symptoms Cardiovascular: positive: No symptoms Gastrointestinal: positive: Nausea, Vomiting (Last night but resolved today.), Abdominal pain (Incisional but controlled via epidural.) Genitourinary: positive: No symptoms (Cannot feel bladder due to epidural. Ridley in place.) Musculoskeletal: positive: Other (Sore "everywhere.") Skin: positive: No symptoms - Other Other Information/Narrative: Patient sitting at bedside, in good spirits. Sore but no specific focal tenderness. UOP sluggish overnight Objective - Patient Data Reviewed Vital Signs: Yes Vital Signs: Vital Signs x48h Temp Pulse Resp BP BP Pulse Ox 07/19/24 15:00 68 22 100/59 L 100 07/19/24 14:26 36.5 C 07/19/24 14:00 70 18 91/48 L 98 07/19/24 13:00 71 15 103/47 L 92 07/19/24 12:00 71 23 95/56 L 97 07/19/24 11:00 77 20 121/71 118/58 L 97 07/19/24 10:00 86 18 112/80 123/57 L 96 07/19/24 09:00 90 23 114/57 L 97 07/19/24 08:00 36.8 C 88 26 H 113/91 H 96 Weight: Weight 07/17/24 07/18/24 07/19/24 23:59 23:59 23:59 Weight (kg) 75.3 kg 80 kg Intake & Output: Intake and Output Totals x24h 07/17/24 07/18/24 07/19/24 23:59 23:59 23:59 Intake Total 9814.892 7831.50 Output Total 720 460 Balance 575.681 2498.50 - Lab Results Lab Results: 07/19/24 05:10 07/19/24 05:10 Other Lab Results: Lab Results x24hrs 07/19/24 07/19/24 07/19/24 Range/Units 08:00 05:10 05:10 WBC (4.8-10.8) x10^3/uL RBC (4.70-6.10) 10^6/uL Hgb (14.0-18.0) g/dL Hct (42.0-52.0) % MCV (80.0-94.0) fL MCH (27.0-31.0) pg MCHC (32.0-36.0) g/dL RDW (12.0-15.0) % Plt Count (130-450) 10^3/uL MPV (7.4-11.4) fL Neut # (Auto) (1.5-6.6) 10^3/uL Lymph # (Auto) (1.5-3.5) 10^3/uL Lucas # (Auto) (0.0-1.0) 10^3/uL Eos # (Auto) (0.0-0.7) 10^3/uL Baso # (Auto) (0.0-0.1) 10^3/uL Absolute Nucleated RBC x10^3/uL Total Counted Band Neuts % (Manual) (0 - 10) % Abnorm Lymph % (Manual) % Nucleated RBC % /100WBC Neutrophils # (Manual) (1.5-6.6) 10^3/uL Lymphocytes # (Manual) (1.5-3.5) 10^3/uL Monocytes # (Manual) (0.0-1.0) 10^3/uL Eosinophils # (Manual) (0-0.7) 10^3/uL Basophils # (Manual) (0-0.1) 10^3/uL Differential Comment Manual Slide Review WBC Morphology (NORMAL) Platelet Estimate (NORMAL) Platelet Morphology (NORMAL) RBC Morph Micro Appear (NORMAL) VBG pH 7.312 (7.31-7.41) VBG pCO2 30.6 L (41-51) mmHg VBG pO2 39.3 (25-47) mmHg VBG HCO3 15.1 L (23-28) mmol/L VBG Total CO2 16.1 L (24-29) mmol/L VBG O2 Saturation 73.5 (60-80) % VBG Base Excess -10.0 L (-2 - +2) mmol/L Sodium 141 (135-145) mmol/L Potassium 4.4 (3.5-4.5) mmol/L Chloride 110 (101-111) mmol/L Carbon Dioxide 19 L (21-32) mmol/L Anion Gap 12.0 (6-13) BUN 49 H (6-20) mg/dL Creatinine 4.5 H (0.6-1.3) mg/dL Estimated GFR (MDRD) 13 L (>89) Glucose 183 H (74-104) mg/dL POC Whole Bld Glucose (70 - 100) mg/dL Estimat Average Glucose 128 H (70-100) mg/dL Hemoglobin A1c % 6.1 H (4.27-6.07) % Calcium 7.2 L (8.5-10.3) mg/dL Phosphorus (2.5-5.0) mg/dL Magnesium 1.4 L (1.7-2.3) mg/dL Total Bilirubin 0.2 (0.2-1.0) mg/dL AST 15 (10-42) IU/L ALT 10 (10-60) IU/L Alkaline Phosphatase 25 L (42-121) IU/L Total Protein 4.2 L (6.4-8.9) g/dL Albumin 2.3 L (3.2-5.5) g/dL Globulin 1.9 L (2.1-4.2) g/dL Albumin/Globulin Ratio 1.2 (1.0-2.2) Nasal Screen MRSA (PCR) (NEGATIVE) 07/19/24 07/19/24 07/18/24 Range/Units 05:10 05:07 16:49 WBC 21.1 H (4.8-10.8) x10^3/uL RBC 2.94 L (4.70-6.10) 10^6/uL Hgb 9.3 L (14.0-18.0) g/dL Hct 27.8 L (42.0-52.0) % MCV 94.6 H (80.0-94.0) fL MCH 31.6 H (27.0-31.0) pg MCHC 33.5 (32.0-36.0) g/dL RDW 13.2 (12.0-15.0) % Plt Count 176 (130-450) 10^3/uL MPV 10.7 (7.4-11.4) fL Neut # (Auto) Not Reportable (1.5-6.6) 10^3/uL Lymph # (Auto) Not Reportable (1.5-3.5) 10^3/uL Lucas # (Auto) Not Reportable (0.0-1.0) 10^3/uL Eos # (Auto) Not Reportable (0.0-0.7) 10^3/uL Baso # (Auto) Not Reportable (0.0-0.1) 10^3/uL Absolute Nucleated RBC Not Reportable x10^3/uL Total Counted 100 Band Neuts % (Manual) 0 (0 - 10) % Abnorm Lymph % (Manual) 0 % Nucleated RBC % Not Reportable /100WBC Neutrophils # (Manual) 19.4 H (1.5-6.6) 10^3/uL Lymphocytes # (Manual) 1.3 L (1.5-3.5) 10^3/uL Monocytes # (Manual) 0.4 (0.0-1.0) 10^3/uL Eosinophils # (Manual) 0.0 (0-0.7) 10^3/uL Basophils # (Manual) 0.0 (0-0.1) 10^3/uL Differential Comment MANUAL DIFFERENTIAL Manual Slide Review Indicated WBC Morphology NORMAL APPEARANCE (NORMAL) Platelet Estimate NORMAL (130-450,000) (NORMAL) Platelet Morphology NORMAL ABDIFATAH (NORMAL) RBC Morph Micro Appear 1+ ANISOCYTOSIS (NORMAL) VBG pH (7.31-7.41) VBG pCO2 (41-51) mmHg VBG pO2 (25-47) mmHg VBG HCO3 (23-28) mmol/L VBG Total CO2 (24-29) mmol/L VBG O2 Saturation (60-80) % VBG Base Excess (-2 - +2) mmol/L Sodium 143 (135-145) mmol/L Potassium 3.7 (3.5-4.5) mmol/L Chloride 114 H (101-111) mmol/L Carbon Dioxide 18 L (21-32) mmol/L Anion Gap 11.0 (6-13) BUN 43 H (6-20) mg/dL Creatinine 3.4 H (0.6-1.3) mg/dL Estimated GFR (MDRD) 18 L (>89) Glucose 181 H (74-104) mg/dL POC Whole Bld Glucose 163 H (70 - 100) mg/dL Estimat Average Glucose (70-100) mg/dL Hemoglobin A1c % (4.27-6.07) % Calcium 7.1 L (8.5-10.3) mg/dL Phosphorus 3.3 (2.5-5.0) mg/dL Magnesium 1.1 L (1.7-2.3) mg/dL Total Bilirubin (0.2-1.0) mg/dL AST (10-42) IU/L ALT (10-60) IU/L Alkaline Phosphatase (42-121) IU/L Total Protein (6.4-8.9) g/dL Albumin (3.2-5.5) g/dL Globulin (2.1-4.2) g/dL Albumin/Globulin Ratio (1.0-2.2) Nasal Screen MRSA (PCR) (NEGATIVE) 07/18/24 07/18/24 Range/Units 16:49 16:00 WBC 17.9 H (4.8-10.8) x10^3/uL RBC 3.29 L (4.70-6.10) 10^6/uL Hgb 10.0 L (14.0-18.0) g/dL Hct 31.3 L (42.0-52.0) % MCV 95.1 H (80.0-94.0) fL MCH 30.4 (27.0-31.0) pg MCHC 31.9 L (32.0-36.0) g/dL RDW 13.1 (12.0-15.0) % Plt Count 215 (130-450) 10^3/uL MPV 10.8 (7.4-11.4) fL Neut # (Auto) 15.9 H (1.5-6.6) 10^3/uL Lymph # (Auto) 0.5 L (1.5-3.5) 10^3/uL Lucas # (Auto) 1.4 H (0.0-1.0) 10^3/uL Eos # (Auto) 0.0 (0.0-0.7) 10^3/uL Baso # (Auto) 0.1 (0.0-0.1) 10^3/uL Absolute Nucleated RBC 0.00 x10^3/uL Total Counted Band Neuts % (Manual) (0 - 10) % Abnorm Lymph % (Manual) % Nucleated RBC % 0.0 /100WBC Neutrophils # (Manual) (1.5-6.6) 10^3/uL Lymphocytes # (Manual) (1.5-3.5) 10^3/uL Monocytes # (Manual) (0.0-1.0) 10^3/uL Eosinophils # (Manual) (0-0.7) 10^3/uL Basophils # (Manual) (0-0.1) 10^3/uL Differential Comment Manual Slide Review WBC Morphology (NORMAL) Platelet Estimate (NORMAL) Platelet Morphology (NORMAL) RBC Morph Micro Appear (NORMAL) VBG pH (7.31-7.41) VBG pCO2 (41-51) mmHg VBG pO2 (25-47) mmHg VBG HCO3 (23-28) mmol/L VBG Total CO2 (24-29) mmol/L VBG O2 Saturation (60-80) % VBG Base Excess (-2 - +2) mmol/L Sodium (135-145) mmol/L Potassium (3.5-4.5) mmol/L Chloride (101-111) mmol/L Carbon Dioxide (21-32) mmol/L Anion Gap (6-13) BUN (6-20) mg/dL Creatinine (0.6-1.3) mg/dL Estimated GFR (MDRD) (>89) Glucose (74-104) mg/dL POC Whole Bld Glucose (70 - 100) mg/dL Estimat Average Glucose (70-100) mg/dL Hemoglobin A1c % (4.27-6.07) % Calcium (8.5-10.3) mg/dL Phosphorus (2.5-5.0) mg/dL Magnesium (1.7-2.3) mg/dL Total Bilirubin (0.2-1.0) mg/dL AST (10-42) IU/L ALT (10-60) IU/L Alkaline Phosphatase (42-121) IU/L Total Protein (6.4-8.9) g/dL Albumin (3.2-5.5) g/dL Globulin (2.1-4.2) g/dL Albumin/Globulin Ratio (1.0-2.2) Nasal Screen MRSA (PCR) NEGATIVE (NEGATIVE) - Current Medications Current Medications: Current Medications Generic Name Dose Route Start Last Admin Trade Name Freq PRN Reason Stop Dose Admin Citalopram Hydrobromide 40 mg 07/19/24 09:00 07/19/24 09:52 Citalopram Hydrobromide 20 Mg Tablet PO 40 mg DAILY EZEKIEL Administration Heparin Sodium (Porcine) 5,000 unit 07/18/24 21:00 07/19/24 08:27 Heparin 5,000 Unit/Ml Vial SUBQ 5,000 unit BID EZEKIEL Administration Hydromorphone HCl 0.5 mg 07/18/24 16:49 07/19/24 11:13 Hydromorphone 0.5 Mg/0.5 Ml Syringe IVP 0.5 mg Q2H PRN Administration Severe Pain (Level 7-10) Acetaminophen 1,000 mg in 100 mls @ 400 mls/hr 07/18/24 16:49 07/19/24 12:33 Acetaminophen IV 400 mls/hr Q8HR PRN Administration Moderate Pain (Level 4-6) Ropivacaine 200 mg in 100 mls @ 0 mls/hr 07/18/24 21:30 07/19/24 14:18 Naropin 0.2% EP 8 mls/hr PRN PRN Administration PAIN Protocol Per Protocol Sodium Bicarbonate 150 meq/ 1,150 mls @ 100 mls/hr 07/19/24 11:00 07/19/24 11:09 Dextrose IV 07/19/24 22:29 100 mls/hr .[id number] Administration Insulin Glargine-yfgn 10 unit 07/19/24 09:00 07/19/24 09:52 Insulin Glargine-Yfgn 300 Unit/3 Ml Pen SUBQ 10 unit QDBREAKFAST EZEKIEL Administration Insulin Human Lispro 5 unit 07/19/24 12:00 07/19/24 12:33 Insulin Lispro 300 Unit/3 Ml Pen SUBQ 5 unit TIDWM EZEKIEL Administration Ondansetron HCl 4 mg 07/18/24 15:38 07/19/24 08:27 Ondansetron 4 Mg/2 Ml Vial IVP 4 mg Q6HR PRN Administration Nausea / Vomiting Scopolamine HBr 1 patch 07/18/24 17:00 07/18/24 17:02 Scopolamine Patch TOP 07/21/24 17:00 1 patch Q3D EZEKIEL Administration Sodium Chloride 10 ml 07/18/24 17:00 07/19/24 08:28 Sodium Chloride Flush 0.9% 10 Ml Syringe IVP 10 ml 0100,0900,1700 EZEKIEL Administration Throat Lozenges 1 lozenge 07/19/24 03:53 07/19/24 05:34 Benzocaine/Menthol Lozenge MM 1 lozenge Q2HR PRN Administration Throat pain - Physical Exam General Appearance: positive: No acute distress Abdomen: positive: Other (ridley in place cyu) Impression/Plan - Problem List Problem List: Bowen is recovering as expected. His Cr has bumped overnight, but urine output seems to be reasonable for now. I discussed with him that I found a small lesion in his bladder, which we will discuss in the future when pathology complete Ridley catheter per primary team, I would recommend keeping in today for accurate I/O for now, but as patient is already getting out of bed well, can reasonably get it out next day or so Avoid nephrotoxins Agree with holding antibiotics for now Urology signing off, call with questions
[2024-07-19] MEDS: ATORVASTATIN 40 MG TABLET PO SCH (20:24)
[2024-07-19] MEDS: LACTATED RINGERS 1,000 ML IV SCH (23:01)
[2024-07-20 05:13] LABS: BASOPHILS % (AUTO) 0.1 %; HCT - HEMATOCRIT 22.7 % (42.0-52.0); HGB - HEMOGLOBIN 7.5 g/dL (14.0-18.0); LYMPHOCYTES # (AUTO) 0.7 10^3/uL (1.5-3.5); LYMPHOCYTES % (AUTO) 4.5 %; MEAN CORPUSCULAR HEMOGLOBIN 30.5 pg (27.0-31.0); MEAN CORPUSCULAR VOLUME 92.3 fL (80.0-94.0); MONOCYTES # (AUTO) 0.9 10^3/uL (0.0-1.0); MONOCYTES % (AUTO) 5.3 %; NEUTROPHILS # (AUTO) 14.3 10^3/uL (1.5-6.6); NEUTROPHILS % (AUTO) 89.2 %; PLT - PLATELET COUNT 128 10^3/uL (130-450); RED BLOOD COUNT 2.46 10^6/uL (4.70-6.10); RED CELL DISTRIBUTION WIDTH 13.4 % (12.0-15.0); WHITE BLOOD COUNT 16.1 x10^3/uL (4.8-10.8)
[2024-07-20 05:26] LABS: CALCIUM 7.3 mg/dL (8.5-10.3); CREATININE 5.9 mg/dL (0.6-1.3); POTASSIUM 4.1 mmol/L (3.5-4.5)
[2024-07-20] MEDS: PANTOPRAZOLE 40 MG TABLET PO SCH (06:24)
[2024-07-20] MEDS ORDERED: PROCHLORPERAZINE 10 MG/2 ML VIAL IVP PRN (07:18)
--- NOTE | 2024-07-20 07:23 | PROVIDER PROGRESS NOTE ---
Subjective - Prog Note Date Prog Note Date: 07/20/24 - Subjective Pt reports feeling: Improved (Patient states he is feeling much better. reports that his pain is much improved with his epidural drip. He states his pain is down to an 8/10 and is quite cheerful about this.) Objective - Vital Signs/Intake & Output Reviewed Vital Signs: Yes Vital Signs: Vital Signs x48h Pulse Resp BP Pulse Ox 07/20/24 07:00 86 17 167/64 H 96 07/20/24 06:00 87 24 159/102 H 96 07/20/24 05:00 86 24 121/95 H 93 07/20/24 04:00 93 18 169/67 H 94 07/20/24 03:00 90 26 H 155/74 H 93 07/20/24 02:00 92 22 146/72 H 92 07/20/24 01:00 82 24 147/69 H 93 07/20/24 00:00 86 26 H 160/72 H 95 Intake & Output: Intake & Output 07/17/24 07/18/24 07/19/24 07/20/24 23:59 23:59 23:59 23:59 Intake Total 9416.997 9273.50 1740 Output Total 133 147 6298 Balance 338.238 8368.50 565 - Objective General Appearance: positive: No acute distress, Alert Eyes Bilateral: positive: Normal inspection Respiratory: positive: Chest non-tender, No respiratory distress Cardiovascular: positive: Regular rate & rhythm, No murmur Abdomen: positive: Nml bowel sounds, Tenderness Skin: positive: Color nml, Other ( surgical sites) Extremities: positive: Non-tender, No pedal edema Neurologic/Psychiatric: positive: Oriented x3 - Lab Results Fish Bones: 07/20/24 04:00 07/20/24 04:00 Other Labs: Lab Results x24hrs 07/20/24 07/20/24 07/20/24 Range/Units 04:00 04:00 04:00 WBC 16.1 H (4.8-10.8) x10^3/uL RBC 2.46 L (4.70-6.10) 10^6/uL Hgb 7.5 L (14.0-18.0) g/dL Hct 22.7 L (42.0-52.0) % MCV 92.3 (80.0-94.0) fL MCH 30.5 (27.0-31.0) pg MCHC 33.0 (32.0-36.0) g/dL RDW 13.4 (12.0-15.0) % Plt Count 128 L (130-450) 10^3/uL MPV 11.0 (7.4-11.4) fL Neut # (Auto) 14.3 H (1.5-6.6) 10^3/uL Lymph # (Auto) 0.7 L (1.5-3.5) 10^3/uL [place] # (Auto) 0.9 (0.0-1.0) 10^3/uL Eos # (Auto) 0.0 (0.0-0.7) 10^3/uL Baso # (Auto) 0.0 (0.0-0.1) 10^3/uL Absolute Nucleated RBC 0.00 x10^3/uL Nucleated RBC % 0.0 /100WBC VBG pH (7.31-7.41) VBG pCO2 (41-51) mmHg VBG pO2 (25-47) mmHg VBG HCO3 (23-28) mmol/L VBG Total CO2 (24-29) mmol/L VBG O2 Saturation (60-80) % VBG Base Excess (-2 - +2) mmol/L Sodium 134 L (135-145) mmol/L Potassium 4.1 (3.5-4.5) mmol/L Chloride 99 L (101-111) mmol/L Carbon Dioxide 22 (21-32) mmol/L Anion Gap 13.0 (6-13) BUN 62 H (6-20) mg/dL Creatinine 5.9 H (0.6-1.3) mg/dL Estimated GFR (MDRD) 10 L (>89) Glucose 112 H (74-104) mg/dL POC Whole Bld Glucose (70 - 100) mg/dL Estimat Average Glucose (70-100) mg/dL Hemoglobin A1c % (4.27-6.07) % Calcium 7.3 L (8.5-10.3) mg/dL Magnesium 1.7 (1.7-2.3) mg/dL 07/19/24 07/19/24 07/19/24 Range/Units 20:20 08:00 05:10 WBC (4.8-10.8) x10^3/uL RBC (4.70-6.10) 10^6/uL Hgb (14.0-18.0) g/dL Hct (42.0-52.0) % MCV (80.0-94.0) fL MCH (27.0-31.0) pg MCHC (32.0-36.0) g/dL RDW (12.0-15.0) % Plt Count (130-450) 10^3/uL MPV (7.4-11.4) fL Neut # (Auto) (1.5-6.6) 10^3/uL Lymph # (Auto) (1.5-3.5) 10^3/uL [place] # (Auto) (0.0-1.0) 10^3/uL Eos # (Auto) (0.0-0.7) 10^3/uL Baso # (Auto) (0.0-0.1) 10^3/uL Absolute Nucleated RBC x10^3/uL Nucleated RBC % /100WBC VBG pH 7.312 (7.31-7.41) VBG pCO2 30.6 L (41-51) mmHg VBG pO2 39.3 (25-47) mmHg VBG HCO3 15.1 L (23-28) mmol/L VBG Total CO2 16.1 L (24-29) mmol/L VBG O2 Saturation 73.5 (60-80) % VBG Base Excess -10.0 L (-2 - +2) mmol/L Sodium (135-145) mmol/L Potassium (3.5-4.5) mmol/L Chloride (101-111) mmol/L Carbon Dioxide (21-32) mmol/L Anion Gap (6-13) BUN (6-20) mg/dL Creatinine (0.6-1.3) mg/dL Estimated GFR (MDRD) (>89) Glucose (74-104) mg/dL POC Whole Bld Glucose 103 H (70 - 100) mg/dL Estimat Average Glucose 128 H (70-100) mg/dL Hemoglobin A1c % 6.1 H (4.27-6.07) % Calcium (8.5-10.3) mg/dL Magnesium (1.7-2.3) mg/dL - Diagnostic Imaging Diagnostic Imaging Results: positive: Final report reviewed Sepsis Event Note (H) - Evaluation Current Stage of Sepsis: Ruled out Assessment/Plan - Problem List (1) CKD (chronic kidney disease) stage 4, GFR 15-29 ml/min Impression: (1) Carcinoid tumor of abdomen Conclusion/Plan: Postop day 2 from abdominoperineal resection for carcinoid tumor with creation of transverse colostomy. Received 3 doses of postop Zosyn. Surgeon has requested that we keep his postop glucose less than 180. He is currently n.p.o. awaiting return of bowel function. There were multiple intra- abdominal adhesions. (2) Azotemia, CKD stage IV with acute injury, Metabolic acidosis Conclusion/Plan: Minimal output for the first 36 hours after OR Received 1 L bicarb drip which corrected his metabolic acidosis BUN/creatinine/eGFR worsened today Discussed with bedside nurse, reportedly patient has had 100 cc an hour of urine output starting early this morning Recheck BMP this afternoon Will consider transfer to hospital with dialysis services if kidney function worsened (3) Postoperative Anemia Likely dilutional, will recheck this afternoon (4) Diabetes mellitus Conclusion/Plan: Glucose control has improved after restarting his home insulin regimen. (5) Hypomagnesemia Conclusion/Plan: Replete cautiously in setting of acute on chronic kidney disease (6) HTN (hypertension) Conclusion/Plan: After discussion with surgery team, we will continue to hold off on home blood pressure control regimen as he is currently on epidural drip which will drop his blood pressure Hold spironolactone, benazepril in setting of acute on chronic kidney disease Ambulatory Orders as reviewed on admission Benazepril HCl 40 mg PO DAILY amLODIPine [Norvasc] 10 mg PO DAILY cloNIDine [Catapres] 0.1 mg PO TID Metoprolol Succinate [Toprol Xl] 50 mg PO daily NIFEdipine [Nifedipine ER] 90 mg PO DAILY Spironolactone [Aldactone] 50 mg PO BID Chlorthalidone 25mg daily (7) Hyperlipidemia Conclusion/Plan: Statin (8) Depression Conclusion/Plan: Citalopram
--- NOTE | 2024-07-20 11:21 | ANESTHESIA POST OP EVALUATION ---
Anesthesia Post Eval - Post Anesthesia Eval Vitals: Last Vital Signs Temp 36.9 C 07/20/24 11:00 Pulse 90 07/20/24 11:00 Resp 24 07/20/24 11:00 BP 167/80 H 07/20/24 11:00 Pulse Ox 95 07/20/24 11:00 O2 Flow Rate 2 07/18/24 23:00 CV Function Including HR & BP: Stable Pain Control: Satisfactory (epidural managing pain well, site intact, good motor, able to stand and few steps, continue at same rate today, plan to consider epidural D/C tomorrow.) Nausea & Vomiting: Negative Mental Status: Baseline Respiratory Status: Airway Patent Hydration Status: Satisfactory (starting to autodiurese, BUN/Creat still elevated) Anesthesia Complications: None
--- NOTE | 2024-07-20 11:35 | PROVIDER PROGRESS NOTE ---
Subjective - General Admit Date: 07/18/24 Procedure Date: 07/18/24 Post Op Days: 2 Procedure Performed: Abdominoperineal resection with preoperative ureteral stenting - Review of Systems Wound/Incisions: positive: Other (Ostomy is pink and edematous. Productive of gas and liquid (remembering that patient had bowel prep prior to surgery). Abdominal incision dressed with silver impregnated dressing - will remove in 48 hours (POD 3). Pernineal incision well approximated without erythema, exudate or ecchymosis.) Drain Type: Shan Drain Output Description: serosanguinous Approximate mls Output: 35 General: positive: Other (Sore everywhere but understandable after surgery.) HEENT: positive: No symptoms Pulmonary: positive: No symptoms Cardiovascular: positive: No symptoms Gastrointestinal: positive: Nausea, Vomiting (Last night but resolved today.), Abdominal pain (Incisional but controlled via epidural.) Genitourinary: positive: No symptoms (Cannot feel bladder due to epidural. Sanchez in place.) Musculoskeletal: positive: Other (Sore "everywhere.") Skin: positive: No symptoms Objective - Patient Data Reviewed Vital Signs: Yes Vital Signs: Vital Signs x48h Temp Pulse Resp BP Pulse Ox 07/20/24 11:00 36.9 C 90 24 167/80 H 95 07/20/24 10:00 36.8 C 84 24 163/82 H 98 07/20/24 08:58 36.4 C L 87 19 163/88 H 96 07/20/24 08:00 36.7 C 87 24 165/74 H 93 07/20/24 07:00 86 17 167/64 H 96 07/20/24 06:00 87 24 159/102 H 96 07/20/24 05:00 86 24 121/95 H 93 07/20/24 04:00 93 18 169/67 H 94 Weight: Weight 07/18/24 07/19/24 07/20/24 23:59 23:59 23:59 Weight (kg) 75.3 kg 80 kg Intake & Output: Intake and Output Totals x24h 07/18/24 07/19/24 07/20/24 23:59 23:59 23:59 Intake Total 3874.704 1857.50 2130 Output Total 524 671 1453 Balance 193.379 4422.50 495 - Lab Results Lab Results: 07/20/24 14:04 07/20/24 14:04 Other Lab Results: Lab Results x24hrs 07/20/24 07/20/24 07/20/24 Range/Units 04:00 04:00 04:00 WBC (4.8-10.8) x10^3/uL RBC (4.70-6.10) 10^6/uL Hgb (14.0-18.0) g/dL Hct (42.0-52.0) % MCV (80.0-94.0) fL MCH (27.0-31.0) pg MCHC (32.0-36.0) g/dL RDW (12.0-15.0) % Plt Count (130-450) 10^3/uL MPV (7.4-11.4) fL Neut # (Auto) (1.5-6.6) 10^3/uL Lymph # (Auto) (1.5-3.5) 10^3/uL [place] # (Auto) (0.0-1.0) 10^3/uL Eos # (Auto) (0.0-0.7) 10^3/uL Baso # (Auto) (0.0-0.1) 10^3/uL Absolute Nucleated RBC x10^3/uL Nucleated RBC % /100WBC Sodium 134 L (135-145) mmol/L Potassium 4.1 (3.5-4.5) mmol/L Chloride 99 L (101-111) mmol/L Carbon Dioxide 22 (21-32) mmol/L Anion Gap 13.0 (6-13) BUN 62 H (6-20) mg/dL Creatinine 5.9 H (0.6-1.3) mg/dL Estimated GFR (MDRD) 10 L (>89) Glucose 112 H (74-104) mg/dL POC Whole Bld Glucose (70 - 100) mg/dL Calcium 7.3 L (8.5-10.3) mg/dL Phosphorus 3.9 (2.5-5.0) mg/dL Magnesium 1.7 (1.7-2.3) mg/dL 07/20/24 07/19/24 Range/Units 04:00 20:20 WBC 16.1 H (4.8-10.8) x10^3/uL RBC 2.46 L (4.70-6.10) 10^6/uL Hgb 7.5 L (14.0-18.0) g/dL Hct 22.7 L (42.0-52.0) % MCV 92.3 (80.0-94.0) fL MCH 30.5 (27.0-31.0) pg MCHC 33.0 (32.0-36.0) g/dL RDW 13.4 (12.0-15.0) % Plt Count 128 L (130-450) 10^3/uL MPV 11.0 (7.4-11.4) fL Neut # (Auto) 14.3 H (1.5-6.6) 10^3/uL Lymph # (Auto) 0.7 L (1.5-3.5) 10^3/uL [place] # (Auto) 0.9 (0.0-1.0) 10^3/uL Eos # (Auto) 0.0 (0.0-0.7) 10^3/uL Baso # (Auto) 0.0 (0.0-0.1) 10^3/uL Absolute Nucleated RBC 0.00 x10^3/uL Nucleated RBC % 0.0 /100WBC Sodium (135-145) mmol/L Potassium (3.5-4.5) mmol/L Chloride (101-111) mmol/L Carbon Dioxide (21-32) mmol/L Anion Gap (6-13) BUN (6-20) mg/dL Creatinine (0.6-1.3) mg/dL Estimated GFR (MDRD) (>89) Glucose (74-104) mg/dL POC Whole Bld Glucose 103 H (70 - 100) mg/dL Calcium (8.5-10.3) mg/dL Phosphorus (2.5-5.0) mg/dL Magnesium (1.7-2.3) mg/dL - Current Medications Current Medications: Current Medications Generic Name Dose Route Start Last Admin Trade Name Freq PRN Reason Stop Dose Admin Atorvastatin Calcium 40 mg 07/19/24 21:00 07/19/24 20:24 Atorvastatin 40 Mg Tablet PO 40 mg QPM EZEKIEL Administration Citalopram Hydrobromide 40 mg 07/19/24 09:00 07/20/24 08:19 Citalopram Hydrobromide 20 Mg Tablet PO 40 mg DAILY EZEKIEL Administration Heparin Sodium (Porcine) 5,000 unit 07/18/24 21:00 07/20/24 08:19 Heparin 5,000 Unit/Ml Vial SUBQ 5,000 unit BID EZEKIEL Administration Hydromorphone HCl 0.5 mg 07/18/24 16:49 07/20/24 10:56 Hydromorphone 0.5 Mg/0.5 Ml Syringe IVP 0.5 mg Q2H PRN Administration Severe Pain (Level 7-10) Acetaminophen 1,000 mg in 100 mls @ 400 mls/hr 07/18/24 16:49 07/19/24 12:33 Acetaminophen IV 400 mls/hr Q8HR PRN Administration Moderate Pain (Level 4-6) Ropivacaine 200 mg in 100 mls @ 0 mls/hr 07/18/24 21:30 07/20/24 09:35 Naropin 0.2% EP 8 mls/hr PRN PRN Administration PAIN Protocol Per Protocol Lactated Ringer's 1,000 mls @ 125 mls/hr 07/19/24 23:00 07/20/24 07:04 Lr IV 125 mls/hr .Q8H EZEKIEL Administration Insulin Glargine-yfgn 10 unit 07/19/24 09:00 07/20/24 07:38 Insulin Glargine-Yfgn 300 Unit/3 Ml Pen SUBQ 10 unit [id number] EZEKIEL Administration Insulin Human Lispro 5 unit 07/19/24 12:00 07/20/24 07:38 Insulin Lispro 300 Unit/3 Ml Pen SUBQ 5 unit TIDWM EZEKIEL Administration Ondansetron HCl 4 mg 07/18/24 15:38 07/20/24 02:38 Ondansetron 4 Mg/2 Ml Vial IVP 4 mg Q6HR PRN Administration Nausea / Vomiting Pantoprazole Sodium 40 mg 07/20/24 07:00 07/20/24 06:24 Pantoprazole 40 Mg Tablet PO 40 mg QDAC EZEKIEL Administration Scopolamine HBr 1 patch 07/18/24 17:00 07/18/24 17:02 Scopolamine Patch TOP 07/21/24 17:00 1 patch Q3D EZEKIEL Administration Sodium Chloride 10 ml 07/18/24 17:00 09/15/24 08:25 Sodium Chloride Flush 0.9% 10 Ml Syringe IVP 10 ml 0100,0900,1700 EZEKIEL Administration Throat Lozenges 1 lozenge 07/19/24 03:53 07/19/24 05:34 Benzocaine/Menthol Lozenge MM 1 lozenge Q2HR PRN Administration Throat pain - Physical Exam Wound/Incisions: positive: Other (Ostomy pink and productive of liquid stool. Pernineal wound well approximated with minimal drainage and no erythema. Midline wound dressed.) General Appearance: positive: No acute distress (Watching the [employer] game.), Alert Eyes Bilateral: positive: No lid inflammation, Conjunctivae nml, No scleral icterus ENT: positive: Dry mucous membranes Neck: positive: Trachea midline Respiratory: positive: Chest non-tender, No respiratory distress, Breath sounds nml Cardiovascular: positive: Regular rate & rhythm, No murmur, No gallop Abdomen: positive: Non-tender, Abnml bowel sounds (Decreased. Slight distention.) Skin: positive: Color nml, No rash, Warm, Dry Extremities: positive: Nml appearance (Standing and moving them well holding onto walker.) Neurologic/Psychiatric: positive: Oriented x3, Motor nml, Sensation nml, Mood/affect nml ABX Reporting Has patient been on IV antibiotics over the past 48 hours?: No Impression/Plan - Problem List Problem List: D2 s/p abdominoperineal resection with preoperative ureteral stenting -FEN Currently receiving 125 mL/hour of LR. Started clear liquid diet as patient does not have an anastomosis to be concerned about but patient is having some dry heaving - told him no to concentrate on po intake. "Wet his whistle" only with fluids (comfort). Hold for vomiting. Patient has started to mobilize the third spaced fluids. -Renal Patient has started to mobilize the third spaced fluids that occurs with this operation. Patient is known to be CKD3b and is followed by a steam conditioner operator (Dr. Vail). 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 His creatinine clearance is decreased today and this concerns me enough that I have called and spoken to Dr. Vail (his steam conditioner operator). I have restarted his Toprol XL. I expressed my concern to Dr. Vail about his decreased creatinine clearance and Dr. Vail assured me that as long as we keep him hydrated and urinating that there is no urgent need for transfer. If his creatinine clearance continues to fall however, then transfer will be indicated. Otherwise dialysis can be considered outpatient after discharge. I asked if there was any intervention that I could initiate to help with his kidney function and Dr. Vail again reiterated that he should remain hydrated and urinating. No specific intervention. I will order IV albumin to help with oncotic pressure (transiently). Appreciate hospitalist's help with this. -Diabetes Goal is to keep blood sugar under 180 and we have been largely successful. Excellent control. Will follow. Appreciate hospitalist's help with this. -Heme H&H has dropped but some is due to dilution. Patient asymptomatic. Giving blood will help with oncotic pressure and mobilization of third spaced fluids but will transfuse if hemoglobin is less than 7. Need to balance better renal oxygenation with the potential for ÁNGELA. Will follow. -ID Patient is at risk for infection with 3 incisions and leakage during case but antibiotics stopped. Afebrile. WBC elevated but this is reactionary due to the extent and nature of surgery. Decreased today. Will follow. -Activity As much activity as epidural and anesthesia will allow. Will involve OT and PT as soon as patient is out of ICU. -Pathology Pending. -Pain Well controlled with epidural. Appreciate anesthesia's input-efforts. Epidural resulting in some vasodilation (see fluids and heme). Plan is to discontinue epidural Sunday (spoke with Gladis Johnson CRNA about this and we are in agreement). -DVT On subQ heparin due to renal concerns. Increase activity. -Ostomy Edematous, pink and productive or liquid stool. Patient to stay in ICU for continued CVP monitoring, arterial monitoring, blood sugar monitoring, urine output. Nursing care had been outstanding. I have spoken with hospitalist and nursing and I have asked to be called with any and all questions.
[2024-07-20] MEDS: METOPROLOL SUCCINATE 50 MG TABLET PO SCH (12:28)
[2024-07-20] MEDS: ALBUMIN 25% 12.5 GM/50 ML VIAL IV STA (12:28)
[2024-07-20 14:10] LABS: HGB - HEMOGLOBIN 7.3 g/dL (14.0-18.0)
[2024-07-20] MEDS: DROPERIDOL 5 MG/2 ML VIAL IVP PRN (14:14)
[2024-07-20 14:26] LABS: CALCIUM 7.6 mg/dL (8.5-10.3); CREATININE 6.1 mg/dL (0.6-1.3); POTASSIUM 3.7 mmol/L (3.5-4.5)
[2024-07-21] MEDS ORDERED: hydrALAZINE 10 MG TABLET PO PRN (01:49)
[2024-07-21] MEDS: hydrALAZINE INJ 20 MG/ML VIAL IVP PRN (01:57)
[2024-07-21 04:40] LABS: BASOPHILS % (AUTO) 0.1 %; EOSINOPHILS % (AUTO) 0.1 %; HCT - HEMATOCRIT 22.7 % (42.0-52.0); HGB - HEMOGLOBIN 7.2 g/dL (14.0-18.0); LYMPHOCYTES # (AUTO) 0.7 10^3/uL (1.5-3.5); LYMPHOCYTES % (AUTO) 4.2 %; MEAN CORPUSCULAR HEMOGLOBIN 29.4 pg (27.0-31.0); MEAN CORPUSCULAR HGB CONC 31.7 g/dL (32.0-36.0); MEAN CORPUSCULAR VOLUME 92.7 fL (80.0-94.0); MEAN PLATELET VOLUME 10.9 fL (7.4-11.4); MONOCYTES # (AUTO) 0.6 10^3/uL (0.0-1.0); MONOCYTES % (AUTO) 3.9 %; NEUTROPHILS # (AUTO) 14.9 10^3/uL (1.5-6.6); NEUTROPHILS % (AUTO) 90.8 %; PLT - PLATELET COUNT 134 10^3/uL (130-450); RED BLOOD COUNT 2.45 10^6/uL (4.70-6.10); RED CELL DISTRIBUTION WIDTH 13.3 % (12.0-15.0); WHITE BLOOD COUNT 16.4 x10^3/uL (4.8-10.8)
[2024-07-21 04:59] LABS: CALCIUM 8.2 mg/dL (8.5-10.3); CREATININE 6.5 mg/dL (0.6-1.3); POTASSIUM 4.2 mmol/L (3.5-4.5)
[2024-07-21] MEDS: hydrALAZINE 10 MG TABLET PO PRN (05:30)
--- NOTE | 2024-07-21 08:09 | XRAY Report ---
PROCEDURE: Chest 1V INDICATIONS: SOB TECHNIQUE: One view of the chest was acquired. COMPARISON: 07/18/2024. FINDINGS: Surgical changes and devices: Right ventricular jugular central venous catheter tip is in SVC. Left chest wall Port-A-Cath tip is in SVC.. Lungs and pleura: No pneumothorax. Pulmonary vascular congestion is suggestion of pulmonary edema is again noted. Mid lateral costophrenic recess blunting is again seen. Mediastinum: Mediastinal contours appear normal. Heart size is mildly enlarged. Bones and chest wall: No suspicious bony lesions. Overlying soft tissues appear unremarkable. IMPRESSION: Pulmonary vascular congestion and suggestion of pulmonary edema. No significant pleural effusion. No gross pneumothorax. No significant discrepancies from preliminary readings. Reviewed by: Alexx Ahuja MD on 07/21/2024 8:08 AM PDT Approved by: Alexx Ahuja MD on 07/21/2024 8:08 AM PDT Station ID: [id number]
--- NOTE | 2024-07-21 08:11 | PROVIDER PROGRESS NOTE ---
Objective - Vital Signs/Intake & Output Vital Signs: Vital Signs x48h Temp Pulse Resp BP BP Pulse Ox O2 Flow Rate 07/21/24 07:00 77 25 H 172/79 H 97 4 07/21/24 06:00 78 27 H 171/83 H 97 4 07/21/24 05:00 36.6 C 78 26 H 179/77 H 95 4 07/21/24 04:00 78 26 H 181/81 H 95 4 07/21/24 03:00 74 29 H 162/73 H 96 4 07/21/24 02:27 169/80 H 07/21/24 02:15 182/74 H 07/21/24 02:10 178/79 H 07/21/24 02:05 173/79 H 07/21/24 02:00 80 27 H 173/79 H 98 10 07/21/24 01:57 177/89 H 07/21/24 01:00 76 25 H 159/82 H 94 4 Intake & Output: Intake & Output 07/18/24 07/19/24 07/20/24 07/21/24 23:59 23:59 23:59 23:59 Intake Total 3971.919 5347.50 4670 629.167 Output Total 271 965 9060 1835 Balance 967.889 7383.50 1625 -1205.833 - Lab Results Fish Bones: 07/21/24 04:05 07/21/24 04:05 Other Labs: Lab Results x24hrs 07/21/24 07/21/24 07/21/24 Range/Units 08:00 04:05 04:05 WBC (4.8-10.8) x10^3/uL RBC (4.70-6.10) 10^6/uL Hgb (14.0-18.0) g/dL Hct (42.0-52.0) % MCV (80.0-94.0) fL MCH (27.0-31.0) pg MCHC (32.0-36.0) g/dL RDW (12.0-15.0) % Plt Count (130-450) 10^3/uL MPV (7.4-11.4) fL Neut # (Auto) (1.5-6.6) 10^3/uL Lymph # (Auto) (1.5-3.5) 10^3/uL [place] # (Auto) (0.0-1.0) 10^3/uL Eos # (Auto) (0.0-0.7) 10^3/uL Baso # (Auto) (0.0-0.1) 10^3/uL Absolute Nucleated RBC x10^3/uL Nucleated RBC % /100WBC Sodium 133 L (135-145) mmol/L Potassium 4.2 (3.5-4.5) mmol/L Chloride 99 L (101-111) mmol/L Carbon Dioxide 21 (21-32) mmol/L Anion Gap 13.0 (6-13) BUN 64 H (6-20) mg/dL Creatinine 6.5 H (0.6-1.3) mg/dL Estimated GFR (MDRD) 9 L (>89) Glucose 94 (74-104) mg/dL POC Whole Bld Glucose 94 (70 - 100) mg/dL Calcium 8.2 L (8.5-10.3) mg/dL Magnesium 1.7 (1.7-2.3) mg/dL 07/21/24 07/20/24 07/20/24 Range/Units 04:05 21:04 16:46 WBC 16.4 H (4.8-10.8) x10^3/uL RBC 2.45 L (4.70-6.10) 10^6/uL Hgb 7.2 L (14.0-18.0) g/dL Hct 22.7 L (42.0-52.0) % MCV 92.7 (80.0-94.0) fL MCH 29.4 (27.0-31.0) pg MCHC 31.7 L (32.0-36.0) g/dL RDW 13.3 (12.0-15.0) % Plt Count 134 (130-450) 10^3/uL MPV 10.9 (7.4-11.4) fL Neut # (Auto) 14.9 H (1.5-6.6) 10^3/uL Lymph # (Auto) 0.7 L (1.5-3.5) 10^3/uL [place] # (Auto) 0.6 (0.0-1.0) 10^3/uL Eos # (Auto) 0.0 (0.0-0.7) 10^3/uL Baso # (Auto) 0.0 (0.0-0.1) 10^3/uL Absolute Nucleated RBC 0.00 x10^3/uL Nucleated RBC % 0.0 /100WBC Sodium (135-145) mmol/L Potassium (3.5-4.5) mmol/L Chloride (101-111) mmol/L Carbon Dioxide (21-32) mmol/L Anion Gap (6-13) BUN (6-20) mg/dL Creatinine (0.6-1.3) mg/dL Estimated GFR (MDRD) (>89) Glucose (74-104) mg/dL POC Whole Bld Glucose 128 H 79 L (70 - 100) mg/dL Calcium (8.5-10.3) mg/dL Magnesium (1.7-2.3) mg/dL 07/20/24 07/20/24 07/20/24 Range/Units 14:04 14:04 11:54 WBC (4.8-10.8) x10^3/uL RBC (4.70-6.10) 10^6/uL Hgb 7.3 L (14.0-18.0) g/dL Hct 23.0 L (42.0-52.0) % MCV (80.0-94.0) fL MCH (27.0-31.0) pg MCHC (32.0-36.0) g/dL RDW (12.0-15.0) % Plt Count (130-450) 10^3/uL MPV (7.4-11.4) fL Neut # (Auto) (1.5-6.6) 10^3/uL Lymph # (Auto) (1.5-3.5) 10^3/uL [place] # (Auto) (0.0-1.0) 10^3/uL Eos # (Auto) (0.0-0.7) 10^3/uL Baso # (Auto) (0.0-0.1) 10^3/uL Absolute Nucleated RBC x10^3/uL Nucleated RBC % /100WBC Sodium 132 L (135-145) mmol/L Potassium 3.7 (3.5-4.5) mmol/L Chloride 96 L (101-111) mmol/L Carbon Dioxide 21 (21-32) mmol/L Anion Gap 15.0 H (6-13) BUN 65 H (6-20) mg/dL Creatinine 6.1 H (0.6-1.3) mg/dL Estimated GFR (MDRD) 9 L (>89) Glucose 116 H (74-104) mg/dL POC Whole Bld Glucose 127 H (70 - 100) mg/dL Calcium 7.6 L (8.5-10.3) mg/dL Magnesium (1.7-2.3) mg/dL Sepsis Event Note (H) - Evaluation Current Stage of Sepsis: Ruled out Assessment/Plan - Problem List (1) CKD (chronic kidney disease) stage 4, GFR 15-29 ml/min Impression: (1) Carcinoid tumor of abdomen Conclusion/Plan: Postop day 3 from abdominoperineal resection for carcinoid tumor with creation of transverse colostomy. Received 3 doses of postop Zosyn. Management per surgery (2) Azotemia, CKD stage IV with acute injury, Metabolic acidosis Conclusion/Plan: Minimal output for the first 36 hours after OR Received 1 L bicarb drip which corrected his metabolic acidosis BUN/creatinine somewhat worse today, EGFR remains at 9 Continues to have good urine output Case was discussed between the surgeon and his pathology supervisor His pathology supervisor recommends continued hydration and no transfers as long as he is producing urine (3) Pulmonary edema IVF stopped by overnight telemedicine, patient reports dyspnea has resolved Will exercise caution when he is restarted on IVF (4) Postoperative Anemia Continue to monitor, transfuse for hemoglobin less than 7 (5) Diabetes mellitus Conclusion/Plan: Glucose control has improved after restarting his home insulin regimen. (6) Hypomagnesemia Conclusion/Plan: Replete cautiously in setting of acute on chronic kidney disease (7) HTN (hypertension) Conclusion/Plan: Will discuss with primary surgeon as patient is currently on epidural Consider restarting home medication regimen with the exception of his diuretic and MAI inhibitor Ambulatory Orders as reviewed on admission Benazepril HCl 40 mg PO DAILY amLODIPine [Norvasc] 10 mg PO DAILY cloNIDine [Catapres] 0.1 mg PO TID Metoprolol Succinate [Toprol Xl] 50 mg PO daily NIFEdipine [Nifedipine ER] 90 mg PO DAILY Spironolactone [Aldactone] 50 mg PO BID Chlorthalidone 25mg daily (7) Hyperlipidemia Conclusion/Plan: Statin (8) Depression Conclusion/Plan: Citalopram Patient will be here longer than 96 hours for IV antibiotics, acute on chronic kidney failure requiring close management of fluid electrolyte status
--- NOTE | 2024-07-21 11:13 | ANESTHESIA POST OP EVALUATION ---
Anesthesia Post Eval - Post Anesthesia Eval Vitals: Last Vital Signs Temp 36.8 C 07/21/24 08:00 Pulse 77 07/21/24 10:00 Resp 27 H 07/21/24 10:00 BP 123/97 H 07/21/24 10:00 Pulse Ox 100 07/21/24 10:00 O2 Flow Rate 4 07/21/24 10:00 CV Function Including HR & BP: Stable Pain Control: Satisfactory, Additional Therapies Ordered (3/10 pain and lower abdomen) Nausea & Vomiting: Negative Mental Status: Baseline Respiratory Status: Airway Patent, Other (patent state breathing has been more difficult but better when upright in chair) Hydration Status: Satisfactory Anesthesia Complications: None
--- NOTE | 2024-07-21 12:30 | PROVIDER PROGRESS NOTE ---
Subjective - General Admit Date: 07/18/24 Procedure Date: 07/18/24 Post Op Days: 3 Procedure Performed: Abdominoperineal resection with preoperative ureteral stenting - Review of Systems Wound/Incisions: positive: Other (Ostomy pink and productive of liquid stool. Pernineal wound well approximated with minimal drainage and no erythema. Midline wound dressed.) Drain Type: Shan Drain Output Description: serosanguinous Approximate mls Output: 45 General: positive: Other (Sore everywhere but understandable after surgery.) HEENT: positive: No symptoms Pulmonary: positive: No symptoms Cardiovascular: positive: No symptoms Gastrointestinal: positive: Nausea, Vomiting (Last night but resolved today.), A bdominal pain (Incisional but controlled via epidural.) Genitourinary: positive: No symptoms (Cannot feel bladder due to epidural. Sanchez in place.) Musculoskeletal: positive: Other (Sore "everywhere.") Skin: positive: No symptoms Objective - Patient Data Reviewed Vital Signs: Yes Vital Signs: Vital Signs x48h Temp Pulse Resp BP BP Pulse Ox O2 Flow Rate 07/21/24 12:00 78 20 151/78 H 96 4 07/21/24 11:42 147/74 H 07/21/24 11:30 71 22 147/74 H 98 4 07/21/24 11:12 178/86 H 07/21/24 11:00 72 19 175/96 H 100 4 07/21/24 10:00 77 27 H 123/97 H 100 4 07/21/24 09:00 79 22 172/82 H 96 4 07/21/24 08:00 36.8 C 79 18 161/76 H 94 4 07/21/24 07:00 77 25 H 172/79 H 97 3 07/21/24 06:00 78 27 H 171/83 H 97 4 07/21/24 05:00 36.6 C 78 26 H 179/77 H 95 4 Weight: Weight 07/19/24 07/20/24 07/21/24 23:59 23:59 23:59 Weight (kg) 80 kg 81 kg 80 kg Intake & Output: Intake and Output Totals x24h 07/19/24 07/20/24 07/21/24 23:59 23:59 23:59 Intake Total 4107.50 4670 829.167 Output Total 949 3045 2635 Balance 3158.50 4035 -8235.833 - Lab Results Lab Results: 07/21/24 04:05 07/21/24 04:05 Other Lab Results: Lab Results x24hrs 07/21/24 07/21/24 07/21/24 Range/Units 11:47 08:00 04:05 WBC (4.8-10.8) x10^3/uL RBC (4.70-6.10) 10^6/uL Hgb (14.0-18.0) g/dL Hct (42.0-52.0) % MCV (80.0-94.0) fL MCH (27.0-31.0) pg MCHC (32.0-36.0) g/dL RDW (12.0-15.0) % Plt Count (130-450) 10^3/uL MPV (7.4-11.4) fL Neut # (Auto) (1.5-6.6) 10^3/uL Lymph # (Auto) (1.5-3.5) 10^3/uL Lane # (Auto) (0.0-1.0) 10^3/uL Eos # (Auto) (0.0-0.7) 10^3/uL Baso # (Auto) (0.0-0.1) 10^3/uL Absolute Nucleated RBC x10^3/uL Nucleated RBC % /100WBC Sodium (135-145) mmol/L Potassium (3.5-4.5) mmol/L Chloride (101-111) mmol/L Carbon Dioxide (21-32) mmol/L Anion Gap (6-13) BUN (6-20) mg/dL Creatinine (0.6-1.3) mg/dL Estimated GFR (MDRD) (>89) Glucose (74-104) mg/dL POC Whole Bld Glucose 119 H 94 (70 - 100) mg/dL Calcium (8.5-10.3) mg/dL Magnesium 1.7 (1.7-2.3) mg/dL 07/21/24 07/21/24 07/20/24 Range/Units 04:05 04:05 21:04 WBC 16.4 H (4.8-10.8) x10^3/uL RBC 2.45 L (4.70-6.10) 10^6/uL Hgb 7.2 L (14.0-18.0) g/dL Hct 22.7 L (42.0-52.0) % MCV 92.7 (80.0-94.0) fL MCH 29.4 (27.0-31.0) pg MCHC 31.7 L (32.0-36.0) g/dL RDW 13.3 (12.0-15.0) % Plt Count 134 (130-450) 10^3/uL MPV 10.9 (7.4-11.4) fL Neut # (Auto) 14.9 H (1.5-6.6) 10^3/uL Lymph # (Auto) 0.7 L (1.5-3.5) 10^3/uL Lane # (Auto) 0.6 (0.0-1.0) 10^3/uL Eos # (Auto) 0.0 (0.0-0.7) 10^3/uL Baso # (Auto) 0.0 (0.0-0.1) 10^3/uL Absolute Nucleated RBC 0.00 x10^3/uL Nucleated RBC % 0.0 /100WBC Sodium 133 L (135-145) mmol/L Potassium 4.2 (3.5-4.5) mmol/L Chloride 99 L (101-111) mmol/L Carbon Dioxide 21 (21-32) mmol/L Anion Gap 13.0 (6-13) BUN 64 H (6-20) mg/dL Creatinine 6.5 H (0.6-1.3) mg/dL Estimated GFR (MDRD) 9 L (>89) Glucose 94 (74-104) mg/dL POC Whole Bld Glucose 128 H (70 - 100) mg/dL Calcium 8.2 L (8.5-10.3) mg/dL Magnesium (1.7-2.3) mg/dL 07/20/24 07/20/24 07/20/24 Range/Units 16:46 14:04 14:04 WBC (4.8-10.8) x10^3/uL RBC (4.70-6.10) 10^6/uL Hgb 7.3 L (14.0-18.0) g/dL Hct 23.0 L (42.0-52.0) % MCV (80.0-94.0) fL MCH (27.0-31.0) pg MCHC (32.0-36.0) g/dL RDW (12.0-15.0) % Plt Count (130-450) 10^3/uL MPV (7.4-11.4) fL Neut # (Auto) (1.5-6.6) 10^3/uL Lymph # (Auto) (1.5-3.5) 10^3/uL Lane # (Auto) (0.0-1.0) 10^3/uL Eos # (Auto) (0.0-0.7) 10^3/uL Baso # (Auto) (0.0-0.1) 10^3/uL Absolute Nucleated RBC x10^3/uL Nucleated RBC % /100WBC Sodium 132 L (135-145) mmol/L Potassium 3.7 (3.5-4.5) mmol/L Chloride 96 L (101-111) mmol/L Carbon Dioxide 21 (21-32) mmol/L Anion Gap 15.0 H (6-13) BUN 65 H (6-20) mg/dL Creatinine 6.1 H (0.6-1.3) mg/dL Estimated GFR (MDRD) 9 L (>89) Glucose 116 H (74-104) mg/dL POC Whole Bld Glucose 79 L (70 - 100) mg/dL Calcium 7.6 L (8.5-10.3) mg/dL Magnesium (1.7-2.3) mg/dL - Current Medications Current Medications: Current Medications Generic Name Dose Route Start Last Admin Trade Name Freq PRN Reason Stop Dose Admin Atorvastatin Calcium 40 mg 07/19/24 21:00 07/20/24 20:11 Atorvastatin 40 Mg Tablet PO 40 mg QPM EZEKIEL Administration Citalopram Hydrobromide 40 mg 07/19/24 09:00 07/21/24 08:52 Citalopram Hydrobromide 20 Mg Tablet PO 40 mg DAILY EZEKIEL Administration Droperidol 0.625 mg 07/19/24 08:39 07/20/24 14:14 Droperidol 5 Mg/2 Ml Vial IVP 0.625 mg Q6HR PRN Administration PAIN 5-7 Heparin Sodium (Porcine) 5,000 unit 07/18/24 21:00 07/21/24 08:53 Heparin 5,000 Unit/Ml Vial SUBQ 5,000 unit BID EZEKIEL Administration Hydralazine HCl 10 mg 07/18/24 17:56 07/21/24 11:12 Hydralazine Inj 20 Mg/Ml Vial IVP 10 mg Q4H PRN Administration Blood Pressure Hydralazine HCl 20 mg 07/21/24 05:15 07/21/24 05:30 Hydralazine 10 Mg Tablet PO 20 mg Q8H PRN Administration SBP> or= 160 OR DBP> or= 110 Hydromorphone HCl 0.5 mg 07/18/24 16:49 07/21/24 08:54 Hydromorphone 0.5 Mg/0.5 Ml Syringe IVP 0.5 mg Q2H PRN Administration Severe Pain (Level 7-10) Acetaminophen 1,000 mg in 100 mls @ 400 mls/hr 07/18/24 16:49 07/19/24 12:33 Acetaminophen IV 400 mls/hr Q8HR PRN Administration Moderate Pain (Level 4-6) Ropivacaine 200 mg in 100 mls @ 0 mls/hr 07/18/24 21:30 07/21/24 10:57 Naropin 0.2% EP 8 mls/hr PRN PRN Administration PAIN Protocol Per Protocol Insulin Glargine-yfgn 10 unit 07/19/24 09:00 07/21/24 08:45 Insulin Glargine-Yfgn 300 Unit/3 Ml Pen SUBQ 10 unit QDBREAKFAST EZEKIEL Administration Insulin Human Lispro 5 unit 07/19/24 12:00 07/21/24 12:16 Insulin Lispro 300 Unit/3 Ml Pen SUBQ 5 unit TIDWM EZEKIEL Administration Metoprolol Succinate 50 mg 07/20/24 12:00 07/21/24 08:53 Metoprolol Succinate 50 Mg Tablet PO 50 mg DAILY EZEKIEL Administration Ondansetron HCl 4 mg 07/18/24 15:38 07/21/24 08:55 Ondansetron 4 Mg/2 Ml Vial IVP 4 mg Q6HR PRN Administration Nausea / Vomiting Pantoprazole Sodium 40 mg 07/20/24 07:00 07/21/24 05:30 Pantoprazole 40 Mg Tablet PO 40 mg QDAC EZEKIEL Administration Scopolamine HBr 1 patch 07/18/24 17:00 07/18/24 17:02 Scopolamine Patch TOP 07/21/24 17:00 1 patch Q3D EZEKIEL Administration Sodium Chloride 10 ml 07/18/24 17:00 07/21/24 08:54 Sodium Chloride Flush 0.9% 10 Ml Syringe IVP 10 ml 0100,0900,1700 EZEKIEL Administration Throat Lozenges 1 lozenge 07/19/24 03:53 07/19/24 05:34 Benzocaine/Menthol Lozenge MM 1 lozenge Q2HR PRN Administration Throat pain - Physical Exam Wound/Incisions: positive: Other (Ostomy pink and productive. Perineum well approximated. Midline wound still dressed with silver dressing.) General Appearance: positive: No acute distress, Alert Eyes Bilateral: positive: No lid inflammation, Conjunctivae nml, No scleral icterus ENT: positive: No signs of dehydration Neck: positive: Trachea midline Respiratory: positive: Chest non-tender, No respiratory distress, Breath sounds nml Cardiovascular: positive: Regular rate & rhythm, No murmur, No gallop Abdomen: positive: Nml bowel sounds, Tenderness (Minimal incisional). 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 Started regular diet. Patient continues to mobilize the third spaced fluids. -Renal Patient continues to mobilize the third spaced fluids that occurs with this operation. 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 Vail). I am following Dr. Vail's recommendation - patient will need to be seen by Dr. Vail upon discharge for evaluation and possible outpatient dialysis. Appreciate hospitalist's help with this. -Diabetes Goal is to keep blood sugar under 180 and we have been largely successful. Excellent control. Will follow. Appreciate hospitalist's help with this. -Heme H&H has dropped but some is due to dilution. Patient asymptomatic. Giving blood will help with oncotic pressure and mobilization of third spaced fluids but will transfuse if hemoglobin is less than 7. Need to balance better renal oxygenation with the potential for ÁNGELA. Will follow. -ID Patient is at risk for infection with 3 incisions and leakage during case but antibiotics stopped. Afebrile. WBC elevated but this is reactionary due to the extent and nature of surgery. Decreased today. Will follow. -Activity As much activity as epidural and anesthesia will allow. Will involve OT and PT as soon as patient is out of ICU. Ambulated with assistance today. -Pathology Pending. -Pain Well controlled with epidural. Plan is to discontinue epidural Sunday. 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 -DVT On subQ heparin due to renal concerns. Increase activity. -Ostomy Edematous, pink and productive or liquid stool. Patient to stay in ICU for continued CVP monitoring, arterial monitoring, blood sugar monitoring, urine output. Nursing care had been outstanding. I have spoken with hospitalist and nursing and I have asked to be called with any and all questions.
[2024-07-21] MEDS: amLODIPine 5 MG TABLET PO SCH (16:24)
[2024-07-21] MEDS: cloNIDine 0.1 MG TABLET PO SCH (16:24)
[2024-07-21] MEDS: FAMOTIDINE 20 MG TABLET PO SCH (20:43)
[2024-07-21] MEDS: CALCIUM CARBONATE CHEW 500 MG TABLET PO SCH (20:43)
[2024-07-22] MEDS: SODIUM CHLORIDE FLUSH 0.9% 10 ML SYRINGE IVP PRN (00:15)
[2024-07-22 04:45] LABS: BASOPHILS % (AUTO) 0.1 %; EOSINOPHILS # (AUTO) 0.1 10^3/uL (0.0-0.7); EOSINOPHILS % (AUTO) 0.3 %; HCT - HEMATOCRIT 21.3 % (42.0-52.0); LYMPHOCYTES # (AUTO) 0.8 10^3/uL (1.5-3.5); LYMPHOCYTES % (AUTO) 5.1 %; MEAN CORPUSCULAR HEMOGLOBIN 29.9 pg (27.0-31.0); MEAN CORPUSCULAR HGB CONC 32.4 g/dL (32.0-36.0); MEAN CORPUSCULAR VOLUME 92.2 fL (80.0-94.0); MONOCYTES # (AUTO) 0.7 10^3/uL (0.0-1.0); MONOCYTES % (AUTO) 4.7 %; NEUTROPHILS # (AUTO) 13.2 10^3/uL (1.5-6.6); NEUTROPHILS % (AUTO) 89.2 %; PLT - PLATELET COUNT 164 10^3/uL (130-450); RED BLOOD COUNT 2.31 10^6/uL (4.70-6.10); RED CELL DISTRIBUTION WIDTH 13.4 % (12.0-15.0); WHITE BLOOD COUNT 14.8 x10^3/uL (4.8-10.8)
[2024-07-22 04:54] LABS: HGB - HEMOGLOBIN 6.9 g/dL (14.0-18.0); MAGNESIUM 1.7 mg/dL (1.7-2.3)
[2024-07-22 05:00] LABS: CALCIUM 8.3 mg/dL (8.5-10.3); CREATININE 6.6 mg/dL (0.6-1.3); POTASSIUM 4.1 mmol/L (3.5-4.5)
[2024-07-22] MEDS ORDERED: SODIUM CHLORIDE 0.9% 500 ML IV ONE (09:01)
--- NOTE | 2024-07-22 09:43 | PROVIDER PROGRESS NOTE ---
Subjective - General Admit Date: 07/18/24 Procedure Date: 07/18/24 Post Op Days: 4 Procedure Performed: Abdominoperineal resection with preoperative ureteral stenting - Review of Systems Wound/Incisions: positive: Other (Ostomy pink and productive. Perineum well approximated. Midline wound still dressed with silver dressing.) Drain Type: Shan Drain Output Description: serosanguinous Approximate mls Output: 44 General: positive: Other (Minmal pain following epidural removal.) HEENT: positive: No symptoms Pulmonary: positive: No symptoms Cardiovascular: positive: No symptoms Gastrointestinal: positive: No symptoms Genitourinary: positive: No symptoms (Cannot feel bladder due to epidural. Sanchez in place.) Musculoskeletal: positive: Other (Sore "everywhere.") Skin: positive: No symptoms Psychiatric: positive: No symptoms Objective - Patient Data Reviewed Vital Signs: Yes Vital Signs: Vital Signs x48h Temp Pulse Resp BP Pulse Ox O2 Flow Rate 07/22/24 09:29 37 C 76 17 155/80 H 96 07/22/24 09:13 37 C 78 24 169/87 H 97 07/22/24 09:00 76 24 177/83 H 96 07/22/24 08:00 36.8 C 79 23 177/90 H 94 07/22/24 07:00 72 20 148/71 H 92 07/22/24 06:00 73 19 136/68 H 92 2 07/22/24 05:00 75 22 152/71 H 92 2 07/22/24 04:00 79 19 159/75 H 94 2 07/22/24 03:00 72 24 149/76 H 98 2 07/22/24 02:00 36.7 C 73 25 H 149/75 H 97 2 Weight: Weight 07/20/24 07/21/24 07/22/24 23:59 23:59 23:59 Weight (kg) 81 kg 80 kg 81.5 kg Intake & Output: Intake and Output Totals x24h 07/20/24 07/21/24 07/22/24 23:59 23:59 23:59 Intake Total 4670 2419.167 320 Output Total 3045 4340 1880 Balance 1625 -1920.833 -1560 - Lab Results Lab Results: 07/22/24 14:40 07/22/24 04:40 Other Lab Results: Lab Results x24hrs 07/22/24 07/22/24 07/22/24 Range/Units 07:42 07:21 07:21 WBC (4.8-10.8) x10^3/uL RBC (4.70-6.10) 10^6/uL Hgb 7.0 L* (14.0-18.0) g/dL Hct 21.0 L (42.0-52.0) % MCV (80.0-94.0) fL MCH (27.0-31.0) pg MCHC (32.0-36.0) g/dL RDW (12.0-15.0) % Plt Count (130-450) 10^3/uL MPV (7.4-11.4) fL Neut # (Auto) (1.5-6.6) 10^3/uL Lymph # (Auto) (1.5-3.5) 10^3/uL [place] # (Auto) (0.0-1.0) 10^3/uL Eos # (Auto) (0.0-0.7) 10^3/uL Baso # (Auto) (0.0-0.1) 10^3/uL Absolute Nucleated RBC x10^3/uL Nucleated RBC % /100WBC Sodium (135-145) mmol/L Potassium (3.5-4.5) mmol/L Chloride (101-111) mmol/L Carbon Dioxide (21-32) mmol/L Anion Gap (6-13) BUN (6-20) mg/dL Creatinine (0.6-1.3) mg/dL Estimated GFR (MDRD) (>89) Glucose (74-104) mg/dL POC Whole Bld Glucose 105 H (70 - 100) mg/dL Calcium (8.5-10.3) mg/dL Magnesium (1.7-2.3) mg/dL Blood Type A POSITIVE Antibody Screen NEGATIVE Crossmatch IS Only See Detail 07/22/24 07/22/24 07/21/24 Range/Units 04:40 04:40 20:06 WBC 14.8 H (4.8-10.8) x10^3/uL RBC 2.31 L (4.70-6.10) 10^6/uL Hgb 6.9 L* (14.0-18.0) g/dL Hct 21.3 L (42.0-52.0) % MCV 92.2 (80.0-94.0) fL MCH 29.9 (27.0-31.0) pg MCHC 32.4 (32.0-36.0) g/dL RDW 13.4 (12.0-15.0) % Plt Count 164 (130-450) 10^3/uL MPV 10.0 (7.4-11.4) fL Neut # (Auto) 13.2 H (1.5-6.6) 10^3/uL Lymph # (Auto) 0.8 L (1.5-3.5) 10^3/uL [place] # (Auto) 0.7 (0.0-1.0) 10^3/uL Eos # (Auto) 0.1 (0.0-0.7) 10^3/uL Baso # (Auto) 0.0 (0.0-0.1) 10^3/uL Absolute Nucleated RBC 0.00 x10^3/uL Nucleated RBC % 0.0 /100WBC Sodium 133 L (135-145) mmol/L Potassium 4.1 (3.5-4.5) mmol/L Chloride 98 L (101-111) mmol/L Carbon Dioxide 21 (21-32) mmol/L Anion Gap 14.0 H (6-13) BUN 72 H (6-20) mg/dL Creatinine 6.6 H (0.6-1.3) mg/dL Estimated GFR (MDRD) 8 L (>89) Glucose 106 H (74-104) mg/dL POC Whole Bld Glucose 143 H (70 - 100) mg/dL Calcium 8.3 L (8.5-10.3) mg/dL Magnesium 1.7 (1.7-2.3) mg/dL Blood Type Antibody Screen Crossmatch IS Only 07/21/24 07/21/24 Range/Units 16:58 11:47 WBC (4.8-10.8) x10^3/uL RBC (4.70-6.10) 10^6/uL Hgb (14.0-18.0) g/dL Hct (42.0-52.0) % MCV (80.0-94.0) fL MCH (27.0-31.0) pg MCHC (32.0-36.0) g/dL RDW (12.0-15.0) % Plt Count (130-450) 10^3/uL MPV (7.4-11.4) fL Neut # (Auto) (1.5-6.6) 10^3/uL Lymph # (Auto) (1.5-3.5) 10^3/uL [place] # (Auto) (0.0-1.0) 10^3/uL Eos # (Auto) (0.0-0.7) 10^3/uL Baso # (Auto) (0.0-0.1) 10^3/uL Absolute Nucleated RBC x10^3/uL Nucleated RBC % /100WBC Sodium (135-145) mmol/L Potassium (3.5-4.5) mmol/L Chloride (101-111) mmol/L Carbon Dioxide (21-32) mmol/L Anion Gap (6-13) BUN (6-20) mg/dL Creatinine (0.6-1.3) mg/dL Estimated GFR (MDRD) (>89) Glucose (74-104) mg/dL POC Whole Bld Glucose 81 119 H (70 - 100) mg/dL Calcium (8.5-10.3) mg/dL Magnesium (1.7-2.3) mg/dL Blood Type Antibody Screen Crossmatch IS Only - Current Medications Current Medications: Current Medications Generic Name Dose Route Start Last Admin Trade Name Mohsen PRN Reason Stop Dose Admin Amlodipine Besylate 10 mg 07/21/24 16:00 07/22/24 08:05 Amlodipine 5 Mg Tablet PO 10 mg DAILY EZEKIEL Administration Atorvastatin Calcium 40 mg 07/19/24 21:00 07/21/24 20:43 Atorvastatin 40 Mg Tablet PO 40 mg QPM EZEKIEL Administration Calcium Carbonate/Glycine 500 mg 07/21/24 21:00 07/22/24 08:05 Calcium Carbonate Chew 500 Mg Tablet PO 500 mg BID EZEKIEL Administration Citalopram Hydrobromide 40 mg 07/19/24 09:00 07/22/24 08:05 Citalopram Hydrobromide 20 Mg Tablet PO 40 mg DAILY EZEKIEL Administration Clonidine HCl 0.1 mg 07/21/24 15:35 07/22/24 08:05 Clonidine 0.1 Mg Tablet PO 0.1 mg DAILY EZEKIEL Administration Droperidol 0.625 mg 07/19/24 08:39 07/20/24 14:14 Droperidol 5 Mg/2 Ml Vial IVP 0.625 mg Q6HR PRN Administration PAIN 5-7 Famotidine 20 mg 07/21/24 21:00 07/22/24 08:05 Famotidine 20 Mg Tablet PO 20 mg BID EZEKIEL Administration Heparin Sodium (Porcine) 5,000 unit 07/18/24 21:00 07/22/24 08:04 Heparin 5,000 Unit/Ml Vial SUBQ Not Given BID EZEKIEL Hydralazine HCl 10 mg 07/18/24 17:56 07/22/24 00:14 Hydralazine Inj 20 Mg/Ml Vial IVP 10 mg Q4H PRN Administration Blood Pressure Hydralazine HCl 20 mg 07/21/24 05:15 07/21/24 14:07 Hydralazine 10 Mg Tablet PO 20 mg Q8H PRN Administration SBP> or= 160 OR DBP> or= 110 Hydromorphone HCl 0.5 mg 07/18/24 16:49 07/21/24 16:26 Hydromorphone 0.5 Mg/0.5 Ml Syringe IVP 0.5 mg Q2H PRN Administration Severe Pain (Level 7-10) Ropivacaine 200 mg in 100 mls @ 0 mls/hr 07/18/24 21:30 07/21/24 21:46 Naropin 0.2% EP 8 mls/hr PRN PRN Administration PAIN Protocol Per Protocol Insulin Glargine-yfgn 10 unit 07/19/24 09:00 07/22/24 08:08 Insulin Glargine-Yfgn 300 Unit/3 Ml Pen SUBQ 10 unit QDBREAKFAST EZEKIEL Administration Insulin Human Lispro 5 unit 07/19/24 12:00 07/22/24 08:09 Insulin Lispro 300 Unit/3 Ml Pen SUBQ 5 unit TIDWM EZEKIEL Administration Metoprolol Succinate 50 mg 07/20/24 12:00 07/22/24 08:05 Metoprolol Succinate 50 Mg Tablet PO 50 mg DAILY EZEKIEL Administration Ondansetron HCl 4 mg 07/18/24 15:38 07/22/24 08:05 Ondansetron 4 Mg/2 Ml Vial IVP 4 mg Q6HR PRN Administration Nausea / Vomiting Pantoprazole Sodium 40 mg 07/20/24 07:00 07/22/24 08:05 Pantoprazole 40 Mg Tablet PO 40 mg QDAC EZEKIEL Administration Sodium Chloride 10 ml 07/18/24 17:00 07/22/24 08:06 Sodium Chloride Flush 0.9% 10 Ml Syringe IVP 10 ml 0100,0900,1700 EZEKIEL Administration Sodium Chloride 10 ml 07/18/24 15:31 07/22/24 04:32 Sodium Chloride Flush 0.9% 10 Ml Syringe IVP 30 ml PRN PRN Administration NEEDED PER PROVIDER ORDERS Throat Lozenges 1 lozenge 07/19/24 03:53 07/19/24 05:34 Benzocaine/Menthol Lozenge MM 1 lozenge Q2HR PRN Administration Throat pain - Physical Exam Wound/Incisions: positive: Healing well (Midline silver impregnated dressing removed. [place] in place without erythema, exudate or ecchymosis. Ostomy pink slightly edematous and productive. Perineal wound well approximated without erythema, exudate or ecchymosis.) General Appearance: positive: No acute distress, Alert Eyes Bilateral: positive: No lid inflammation, Conjunctivae nml, No scleral icterus ENT: positive: No signs of dehydration Neck: positive: Trachea midline Respiratory: positive: Chest non-tender, No respiratory distress, Breath sounds nml Cardiovascular: positive: Regular rate & rhythm, No murmur Abdomen: positive: Nml bowel sounds. negative: Guarding, Rebound Rectal: positive: Other (Non-existent.) Skin: positive: Color nml, No rash, Warm, Dry Extremities: positive: Non-tender, Nml appearance Neurologic/Psychiatric: positive: Oriented x3, Motor nml, Sensation nml, Mood/affect nml ABX Reporting Has patient been on IV antibiotics over the past 48 hours?: No Impression/Plan - Problem List Problem List: D4 s/p abdominoperineal resection with preoperative ureteral stenting -FEN Started regular diet. Patient continues to mobilize the third spaced fluids. Receiving 1 unit PRBCs as Hgb below 7. -Renal Patient continues to mobilize the third spaced fluids that occurs with this operation. 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 Vail). We have contacted Dr. Vail who would like to transfer patient to [place] for dialysis-renal care. 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 Appreciate hospitalist's help with this. -Diabetes Excellent control. Will follow. Appreciate hospitalist's help with this. -Heme Give 1 unit PRBCs for Hgb < 7. Will follow. -ID Afebrile. WBC continues to fall - reactionary. Decreased today. Will follow. -Activity Will involve OT and PT. Ambulating with assistance. -Pathology Pending. -Pain Epidural out - thank you Gladis Johnson. Start oral medications. -DVT On subQ heparin due to renal concerns. Held for a bit around epidural removal. Increase activity. -Ostomy Edematous, pink and productive of stool. Transfer to [facility] for dialysis-renal care. Leave central line in place just in case it can be changed over a wire to a hemodialysis catheter. Nursing care had been outstanding. Should patient be transferred will see him postoperatively in office for wound check, staple removal and pathology review. I have spoken with hospitalist and nursing and I have asked to be called with any and all questions.
[2024-07-22] MEDS: GABAPENTIN 100 MG CAPSULE PO SCH (09:51)
[2024-07-22] MEDS: SODIUM BICARBONATE 650 MG TABLET PO SCH (09:51)
--- NOTE | 2024-07-22 10:25 | PROVIDER PROGRESS NOTE ---
Subjective - Prog Note Date Prog Note Date: 07/22/24 - Subjective Pt reports feeling: Improved ( pain much improved) Objective - Vital Signs/Intake & Output Reviewed Vital Signs: Yes Vital Signs: Vital Signs x48h Temp Pulse Resp BP Pulse Ox O2 Flow Rate 07/22/24 10:00 72 18 164/80 H 96 07/22/24 09:29 37 C 76 17 155/80 H 96 07/22/24 09:13 37 C 78 24 169/87 H 97 07/22/24 09:00 76 24 177/83 H 96 07/22/24 08:00 36.8 C 79 23 177/90 H 94 07/22/24 07:00 72 20 148/71 H 92 2 07/22/24 06:00 73 19 136/68 H 92 2 07/22/24 05:00 75 22 152/71 H 92 2 07/22/24 04:00 79 19 159/75 H 94 2 07/22/24 03:00 72 24 149/76 H 98 2 Intake & Output: Intake & Output 07/19/24 07/20/24 07/21/24 07/22/24 23:59 23:59 23:59 23:59 Intake Total 4207.50 4670 2419.167 320 Output Total 949 3045 4340 2005 Balance 3258.50 1624 -6301.833 -1685 - Objective General Appearance: positive: No acute distress, Alert Respiratory: positive: Chest non-tender, No respiratory distress, Breath sounds nml Cardiovascular: positive: Regular rate & rhythm, No murmur, No gallop Abdomen: positive: Nml bowel sounds, Tenderness Skin: positive: Color nml Extremities: positive: Non-tender, No pedal edema Neurologic/Psychiatric: positive: Oriented x3 - Lab Results Fish Bones: 07/22/24 07:21 07/22/24 04:40 Other Labs: Lab Results x24hrs 07/22/24 07/22/24 07/22/24 Range/Units 07:42 07:21 07:21 WBC (4.8-10.8) x10^3/uL RBC (4.70-6.10) 10^6/uL Hgb 7.0 L* (14.0-18.0) g/dL Hct 21.0 L (42.0-52.0) % MCV (80.0-94.0) fL MCH (27.0-31.0) pg MCHC (32.0-36.0) g/dL RDW (12.0-15.0) % Plt Count (130-450) 10^3/uL MPV (7.4-11.4) fL Neut # (Auto) (1.5-6.6) 10^3/uL Lymph # (Auto) (1.5-3.5) 10^3/uL [place] # (Auto) (0.0-1.0) 10^3/uL Eos # (Auto) (0.0-0.7) 10^3/uL Baso # (Auto) (0.0-0.1) 10^3/uL Absolute Nucleated RBC x10^3/uL Nucleated RBC % /100WBC Sodium (135-145) mmol/L Potassium (3.5-4.5) mmol/L Chloride (101-111) mmol/L Carbon Dioxide (21-32) mmol/L Anion Gap (6-13) BUN (6-20) mg/dL Creatinine (0.6-1.3) mg/dL Estimated GFR (MDRD) (>89) Glucose (74-104) mg/dL POC Whole Bld Glucose 105 H (70 - 100) mg/dL Calcium (8.5-10.3) mg/dL Magnesium (1.7-2.3) mg/dL Blood Type A POSITIVE Antibody Screen NEGATIVE Crossmatch IS Only See Detail 07/22/24 07/22/24 07/21/24 Range/Units 04:40 04:40 20:06 WBC 14.8 H (4.8-10.8) x10^3/uL RBC 2.31 L (4.70-6.10) 10^6/uL Hgb 6.9 L* (14.0-18.0) g/dL Hct 21.3 L (42.0-52.0) % MCV 92.2 (80.0-94.0) fL MCH 29.9 (27.0-31.0) pg MCHC 32.4 (32.0-36.0) g/dL RDW 13.4 (12.0-15.0) % Plt Count 164 (130-450) 10^3/uL MPV 10.0 (7.4-11.4) fL Neut # (Auto) 13.2 H (1.5-6.6) 10^3/uL Lymph # (Auto) 0.8 L (1.5-3.5) 10^3/uL [place] # (Auto) 0.7 (0.0-1.0) 10^3/uL Eos # (Auto) 0.1 (0.0-0.7) 10^3/uL Baso # (Auto) 0.0 (0.0-0.1) 10^3/uL Absolute Nucleated RBC 0.00 x10^3/uL Nucleated RBC % 0.0 /100WBC Sodium 133 L (135-145) mmol/L Potassium 4.1 (3.5-4.5) mmol/L Chloride 98 L (101-111) mmol/L Carbon Dioxide 21 (21-32) mmol/L Anion Gap 14.0 H (6-13) BUN 72 H (6-20) mg/dL Creatinine 6.6 H (0.6-1.3) mg/dL Estimated GFR (MDRD) 8 L (>89) Glucose 106 H (74-104) mg/dL POC Whole Bld Glucose 143 H (70 - 100) mg/dL Calcium 8.3 L (8.5-10.3) mg/dL Magnesium 1.7 (1.7-2.3) mg/dL Blood Type Antibody Screen Crossmatch IS Only 07/21/24 07/21/24 Range/Units 16:58 11:47 WBC (4.8-10.8) x10^3/uL RBC (4.70-6.10) 10^6/uL Hgb (14.0-18.0) g/dL Hct (42.0-52.0) % MCV (80.0-94.0) fL MCH (27.0-31.0) pg MCHC (32.0-36.0) g/dL RDW (12.0-15.0) % Plt Count (130-450) 10^3/uL MPV (7.4-11.4) fL Neut # (Auto) (1.5-6.6) 10^3/uL Lymph # (Auto) (1.5-3.5) 10^3/uL [place] # (Auto) (0.0-1.0) 10^3/uL Eos # (Auto) (0.0-0.7) 10^3/uL Baso # (Auto) (0.0-0.1) 10^3/uL Absolute Nucleated RBC x10^3/uL Nucleated RBC % /100WBC Sodium (135-145) mmol/L Potassium (3.5-4.5) mmol/L Chloride (101-111) mmol/L Carbon Dioxide (21-32) mmol/L Anion Gap (6-13) BUN (6-20) mg/dL Creatinine (0.6-1.3) mg/dL Estimated GFR (MDRD) (>89) Glucose (74-104) mg/dL POC Whole Bld Glucose 81 119 H (70 - 100) mg/dL Calcium (8.5-10.3) mg/dL Magnesium (1.7-2.3) mg/dL Blood Type Antibody Screen Crossmatch IS Only Sepsis Event Note (H) - Evaluation Current Stage of Sepsis: Ruled out Assessment/Plan - Problem List (1) CKD (chronic kidney disease) stage 4, GFR 15-29 ml/min Impression: (1) Carcinoid tumor of abdomen Conclusion/Plan: Postop day 3 from abdominoperineal resection for carcinoid tumor with creation of transverse colostomy. Received 3 doses of postop Zosyn. Management per surgery Epidural out today Will likely transfer to floor, will defer to surgery (2) Azotemia, CKD stage IV with acute injury, Metabolic acidosis Conclusion/Plan: Patient has had worsening BUN/creatinine/eGFR consistently over the past few days Case was discussed with his warehouse guard yesterday by general surgery Will continue supportive care Add bicarb Encourage p.o. intake Holding nephrotoxic drugs Will discussed with warehouse guard again today Will defer to nephrology on transfer for dialysis versus discharge with rapid follow-up with nephrology Continues to have good urine output and stable fluid/electrolytes/acid/base status (3) Pulmonary edema Resolved after stopping IVF Continue to monitor I&O (4) Postoperative Anemia Continue to monitor, transfuse for hemoglobin less than 7 1 unit PRBC 07/22/2024 (5) Diabetes mellitus Conclusion/Plan: Glucose control has improved after restarting his home insulin regimen. (6) Hypomagnesemia Conclusion/Plan: Replete cautiously in setting of acute on chronic kidney disease (7) HTN (hypertension) Conclusion/Plan: Will discuss with primary surgeon as patient is currently on epidural Consider restarting home medication regimen with the exception of his diuretic and MAI inhibitor Ambulatory Orders as reviewed on admission Benazepril HCl 40 mg PO DAILY amLODIPine [Norvasc] 10 mg PO DAILY cloNIDine [Catapres] 0.1 mg PO TID Metoprolol Succinate [Toprol Xl] 50 mg PO daily NIFEdipine [Nifedipine ER] 90 mg PO DAILY Spironolactone [Aldactone] 50 mg PO BID Chlorthalidone 25mg daily (7) Hyperlipidemia Conclusion/Plan: Statin (8) Depression Conclusion/Plan: Citalopram Patient will be here longer than 96 hours for IV antibiotics, acute on chronic kidney failure requiring close management of fluid electrolyte status
[2024-07-22] MEDS ORDERED: NIFEdipine ER 90 MG TABLET PO SCH (11:00)
[2024-07-22] MEDS: NIFEdipine ER 30 MG TABLET PO SCH (12:09)
[2024-07-22] MEDS: LABETALOL 20 MG/4 ML SYRINGE IVP PRN (13:01)
--- NOTE | 2024-07-22 13:57 | ANESTHESIA POST OP EVALUATION ---
Anesthesia Post Eval - Post Anesthesia Eval Vitals: Last Vital Signs Temp 36.9 C 07/22/24 12:00 Pulse 71 07/22/24 13:00 Resp 19 07/22/24 13:00 BP 159/79 H 07/22/24 13:00 Pulse Ox 94 07/22/24 13:00 O2 Flow Rate 2 07/22/24 07:00 CV Function Including HR & BP: Stable Pain Control: Satisfactory (Epidural D/Gibran this am on or around 8:30, tip intact. Comfortable with tylenol and told may give S/C heparin now.) Nausea & Vomiting: Negative Mental Status: Baseline Respiratory Status: Airway Patent Hydration Status: Satisfactory (Patient on full diet, making adequate urine, however BUN/Creat continues to rise. Plan to be transferred to nephrology.) Anesthesia Complications: None
[2024-07-22] MEDS: ACETAMINOPHEN 500 MG TABLET PO SCH (14:12)
--- NOTE | 2024-07-22 14:32 | MISCELLANEOUS PROVIDER NOTE ---
Miscellaneous Provider Note - - Note: discussed case with his assistant manager trainee, Dr. Green. Given EGFR down to 8 today recommends transfer to facility that has hemodialysis. Discussed this with surgery team and plans were initiated to transfer patient preferably to [facility]
--- NOTE | 2024-07-22 16:05 | Discharge Summary ---
Discharge Plan Problem Reviewed?: Yes Disposition: 02 Transfer Acute Care Hosp Condition: Fair Diet: Regular Activity Restrictions: No Restrictions Plan of Treatment: transfer to outside hospital for nephrology consult and likely hemodialysis No Smoking: If you smoke, Please STOP! Call for help. Follow-up with: Margie Law ARNP [Primary Care Provider] -
[2024-07-22 17:09] VITALS: BP 121/74
[2024-07-22 17:19] VITALS: O2SAT 94
--- NOTE | 2024-07-23 00:08 | DISCHARGE SUMMARY ---
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 CKD3b has worsened to the point where his surgical issues are secondary to the renal issues and transfer to a location with dialysis and nephrology is indicated. IDDM well controlled while in hospital and unchanged in its severity. - HPI History of Present Illness: This exceedingly pleasant 68 year old male is well known to me as I diagnosed his sigmoid colon adenocarcinoma which was subsequently treated with neoadjuvant chemotherapy followed by sigmoidectomy ([place]) January 2019. This was then followed with adjuvant FOLFOX x 6 cycles until May 2019. A colonoscopy for surveillance prior to takedown of his colostomy was performed August 2020. His colostomy was taken down and he was given a protective loop ileostomy. 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 In September Dr. Sorin Tatum scoped him through his ileostomy as well as transanally and the coloproctostomy was dilated. Dr. Tatum felt that this dilation was adequate and proceeded with a takedown of the ileostomy a week later. I then saw the patient September 2023 and at that time (and now) he was and is having 3-4 liquid bowel movements per day. There is some loss of control and "to make sure" he wears diapers. He denied nausea, vomiting, constipation, melena, hematochezia, or hematemesis. I scoped him on November 12, 2023 finding a severe anorectal stenosis with 2 lesions. I performed serial pneumatic dilation from 7 to 11 mm and was able to traverse the stenosis but there were two large shaggy masses at the stenosis that I extensively biopsied. The pathology on both was tubular adenoma with high grade dysplasia. With this information I referred him to [facility] [place] for evaluation and treatment of this stenosis hoping that they could perform a surgery that would not result in a colostomy. At [facility] Dr. Emilie Jewell performed a sigmoidoscopy end of March 2024 noting and not traversing the "mid-rectal stenosis." She also noted a malignant appearing mass and tattooed the area. She noted that the distal rectum was normal on ETHAN with no masses and normal anal tone. At that time discussion with Dr. Jewell included possible additional chemoradiation therapy in anticipation of an APR. At that time the patient and his indicated that they would I then saw saw him June 04, 2024 to discuss the various surgical options as well as obtaining radiologic studies looking for anatomy and extent of disease. Abdominopelvic MRI was performed 06-28-2024 and showed bilateral small inguinal hernias, a rectosigmoid stenosis with no pelvic adenopathy whereas the abdominal exam was unremarkable (limited by lack of contrast due to concern regarding his CKD). He returns today to schedule and discuss his proposed surgery. He continues to be symptomatic and reiterated that he is frequently incontinent. He has been impotent from the previous surgery and treatment. As an aside, he has a lung nodule that has been stable and is being followed with serial radiographic studies. His has accompanied him to every visit and has been present for the discussion and examination. He tells me that he is being seen by a quality control technician Dr. Vail (spelling?) and that if hs kidneys worsen he will require dialysis and/or a transplant. I told him that if he will require a transplant it will be exceedingly important that he does not harbor malignancy with the anti rejection medications that he would require. Please note that somewhere in the medical record his adenocarcinoma was recorded as a rectal carcinoid and I think that this has been carried forward. - CONSULTS | PROCEDURES Consultations: Hospitalists for help with diabetes and renal failure. Procedures: Abdominoperineal resection with preoperative ureteral stenting (and removal of small bladder tumor) - HOSPITAL COURSE Hospital Course: From a surgical standpoint the patient did exceedingly well. His pain was very well controlled with an epidural catheter. His diabetes was kept under excellent control. His bowel function returned and he did not have any indication of infection. His activity level was returning. His renal function which was noted to be compromised prior to his operation continued to slowly deteriorate. We were in contact with Dr. Vial, his quality control technician, who was exceedingly gracious and helpful with guiding his renal care. Today when it became clear that his renal issues had come to the forefront and his surgical issues had receded he was appropriately transferred for dialysis-renal care. I made it clear that I will see him upon discharge from [facility] for a wound check, removal of xena and review of his pathology. - ALLERGIES Allergies/Adverse Reactions: Allergies Allergy/AdvReac Type Severity Reaction Status Date / Time metformin AdvReac Nausea Verified 03/11/24 12:52 - MEDICATIONS Home Medications: Ambulatory Orders Medication Instructions Recorded Confirmed Benazepril HCl 40 mg PO DAILY 07/19/18 07/16/24 [place]-3S/Dha/Epa/Fish Oil [Fish 1 each PO BID 08/27/18 07/16/24 Oil 1,200 mg Softgel] amLODIPine [Norvasc] 10 mg PO DAILY 12/20/18 07/16/24 Citalopram Hydrobromide [Celexa] 40 mg PO DAILY 07/13/20 07/16/24 Omeprazole 20 mg PO DAILY 07/13/20 07/16/24 cloNIDine [Catapres] 0.1 mg PO DAILY 03/22/22 07/16/24 Atorvastatin [Lipitor] 40 mg PO QPM #30 tablet 03/23/22 07/16/24 Insulin Glargine [Lantus Solostar] 10 unit SUBQ QDBREAKFAST 05/17/22 07/16/24 Insulin Lispro [Insulin Lispro 5 unit SQ TIDWM 05/17/22 07/16/24 Kwikpen U-100] Potassium Chloride 1 tab PO DAILY 09/26/22 07/16/24 Metoprolol Succinate [Toprol Xl] 50 mg PO ONCE 01/28/24 07/16/24 NIFEdipine [Nifedipine ER] 90 mg PO DAILY 01/28/24 07/16/24 Spironolactone [Aldactone] 50 mg PO BID 01/28/24 07/19/24 - PHYSICAL EXAM AT DISCHARGE General Appearance: positive: No acute distress, Alert Eyes Bilateral: positive: No lid inflammation, Conjunctivae nml, No scleral icterus ENT: positive: No signs of dehydration Neck: positive: Trachea midline Respiratory: positive: Chest non-tender, No respiratory distress, Breath sounds nml Cardiovascular: positive: Regular rate & rhythm, No murmur Abdomen: positive: Nml bowel sounds, Other (Ostomy pink, slightly edematous and productive of stool. Midline incision well approximated with xena without erythema, exudate or ecchymosis.). negative: Guarding, Rebound Rectal: positive: Other (Non-existent - perineum well approximated without erythema, exudate or ecchymosis.) Skin: positive: Color nml, No rash, Warm, Dry Extremities: positive: Non-tender, Nml appearance Neurologic/Psychiatric: positive: Oriented x3, Motor nml, Sensation nml, Mood/affect nml - LABS Result Diagrams: 07/22/24 14:40 07/22/24 04:40 - SEPSIS Current Stage of Sepsis: Ruled out - FOLLOW UP Follow Up: Follow up with me after discharge for wound check, staple removal and review of pathology. - TIME SPENT Time Spent in Discharge (Minutes): 45
== END 2024-07-22 17:42 | disposition short-term general hospital (02) | DRG 329 ==
LOC: MS3 05:35 → EDSTATUS 09:00 → ICU 11:24
PROVIDERS: ADMIT Surgery; ATTEND Surgery
DX: I10 Essential (primary) hypertension; K21.9 Gastro-esophageal reflux disease without esophagitis; R91.1 Solitary pulmonary nodule; J81.0 Acute pulmonary edema; Z79.899 Other long term (current) drug therapy; F32.A Depression, unspecified; G62.0 Drug-induced polyneuropathy; Z92.21 Personal history of antineoplastic chemotherapy; K62.4 Stenosis of anus and rectum; N17.9 Acute kidney failure, unspecified; D64.89 Other specified anemias; Z79.4 Long term (current) use of insulin; F41.9 Anxiety disorder, unspecified; E83.42 Hypomagnesemia; Z85.048 Personal history of other malignant neoplasm of rectum, rectosigmoid junction, and anus; T45.1X5A Adverse effect of antineoplastic and immunosuppressive drugs, initial encounter; E11.22 Type 2 diabetes mellitus with diabetic chronic kidney disease; Z87.891 Personal history of nicotine dependence; E78.00 Pure hypercholesterolemia, unspecified; Z90.49 Acquired absence of other specified parts of digestive tract; N18.4 Chronic kidney disease, stage 4 (severe); C67.0 Malignant neoplasm of trigone of bladder; C21.8 Malignant neoplasm of overlapping sites of rectum, anus and anal canal; E87.20 Acidosis, unspecified

== ENCOUNTER 2024-07-22 17:48 | Outpatient (CLI) | payer MEDICARE, MEDICAID | END 2024-07-22 23:59 | disposition short-term general hospital (02) | LOC: EMS 17:48 | PROVIDERS: ATTEND Surgery | DX: N18.6 End stage renal disease (principal) | CPT/HCPCS: A0425; A0428 ==